=== PATIENT | male | born 1960 | race Caucasian/White ===

== ENCOUNTER → 2016-08-15 | Outpatient (REF) | payer OTHER ==
[2016-08-15 12:53] LABS: FREE T4 1.06 NG/DL (0.76-1.46)
== END ==
LOC: M SFHCPLAZ 09:36
PROVIDERS: ATTEND Physician Assistant Medical
DX: E03.9 Hypothyroidism, unspecified (principal); Z12.5 Encounter for screening for malignant neoplasm of prostate

== ENCOUNTER → 2016-10-14 | Outpatient (REF) | payer BC ==
[2016-10-14 17:38] LABS: FREE T4 1.3 NG/DL (0.76-1.46)
== END ==
LOC: M SFHCPLAZ 12:59
PROVIDERS: ATTEND Physician Assistant Medical
DX: E03.9 Hypothyroidism, unspecified (principal)

== ENCOUNTER → 2016-10-21 | Outpatient (REF) | payer BC ==
[2016-10-21 18:34] LABS: ALBUMIN 4.4 GM/DL (3.2-5.2); ALBUMIN/GLOBULIN RATIO 1.16 (1.00-1.93); ALKALINE PHOSPHATASE 107 U/L (45-117); ALT/SGPT 24 U/L (12-78); ANION GAP 5 MEQ/L (8-16); AST/SGOT 19 U/L (15-37); BILIRUBIN,DIRECT 0.1 MG/DL (0.0-0.2); BILIRUBIN,TOTAL 0.6 MG/DL (0.2-1.0); BLOOD UREA NITROGEN 14 MG/DL (7-18); CALCIUM LEVEL 9.3 MG/DL (8.5-10.1); CARBON DIOXIDE LEVEL 31 MEQ/L (21-32); CHLORIDE LEVEL 100 MEQ/L (98-107); CHOLESTEROL LEVEL 170 MG/DL (<200); CREATININE FOR GFR 1.01 MG/DL (0.70-1.30); GLOMERULAR FILTRATION RATE > 60.0 (>56); GLUCOSE, FASTING 89 MG/DL (70-105); POTASSIUM SERUM 4.7 MEQ/L (3.5-5.1); SODIUM LEVEL 136 MEQ/L (136-145); TOTAL PROTEIN 8.2 GM/DL (6.4-8.2); TRIGLYCERIDES LEVEL 215 MG/DL (<150)
== END ==
LOC: M SFHCPLAZ 15:32
PROVIDERS: ATTEND Physician Assistant Medical
DX: I10 Essential (primary) hypertension (principal); E78.5 Hyperlipidemia, unspecified

== ENCOUNTER → 2016-12-26 | Outpatient (REF) | payer BC | LOC: M SFHCPLAZ 13:27 | PROVIDERS: ATTEND Physician Assistant Medical | DX: E53.8 Deficiency of other specified B group vitamins (principal) ==

== ENCOUNTER → 2017-06-12 | Outpatient (REF) | payer BC, MEDICAID ==
[2017-06-12 13:07] LABS: FREE T4 0.98 NG/DL (0.76-1.46)
== END ==
LOC: M SFHCPLAZ 09:27
PROVIDERS: ATTEND Physician Assistant Medical
DX: E03.9 Hypothyroidism, unspecified (principal); E53.8 Deficiency of other specified B group vitamins

== ENCOUNTER → 2017-11-03 | Outpatient (CLI) | payer OTHER, MEDICAID | LOC: M RAD 06:47 | DX: I73.9 Peripheral vascular disease, unspecified (principal) | CPT/HCPCS: 93880 ==

== ENCOUNTER → 2018-05-16 | Outpatient (REF) | payer OTHER, MEDICAID ==
[2018-05-16 10:13] LABS: APPEARANCE, URINE HAZY (CLEAR); BACTERIA, URINE AUTO 1+ (NEGATIVE); BILIRUBIN, URINE AUTO NEGATIVE (NEGATIVE); BLOOD, URINE BLOOD NEGATIVE (NEGATIVE); CALCIUM OXALATE CRYSTALS SMALL; COLOR, URINE YELLOW (YELLOW); GLUCOSE, URINE (UA) AUTO NEGATIVE (NEGATIVE); KETONE, URINE AUTO TRACE mg/dL (NEGATIVE); LEUKOCYTE ESTERASE, URINE AUTO TRACE (NEGATIVE); NITRITE, URINE AUTO NEGATIVE (NEGATIVE); PROTEIN, URINE AUTO NEGATIVE (NEGATIVE); RBC, URINE AUTO 7 /HPF (0-3); SPECIFIC GRAVITY URINE AUTO 1.028 (1.002-1.035); SQUAMOUS EPITHELIAL CELL UR AU 0 /HPF (0-6); WBC, URINE AUTO 11 /HPF (0-3)
== END ==
LOC: M LAB REF 09:07
DX: R32 Unspecified urinary incontinence (principal)

== ENCOUNTER → 2018-06-01 | Outpatient (CLI) | payer OTHER | LOC: M RAD 08:16 | DX: I70.213 Atherosclerosis of native arteries of extremities with intermittent claudication, bilateral legs (principal); I65.23 Occlusion and stenosis of bilateral carotid arteries; Z95.5 Presence of coronary angioplasty implant and graft | CPT/HCPCS: 93880 ==

== ENCOUNTER → 2018-07-02 | Outpatient (REF) | payer OTHER ==
[2018-07-02 16:15] LABS: ALBUMIN 4.5 GM/DL (3.2-5.2); ALT/SGPT 11 U/L (12-78); BILIRUBIN,TOTAL 0.6 MG/DL (0.2-1.0); BLOOD UREA NITROGEN 17 MG/DL (7-18); CALCIUM LEVEL 9.2 MG/DL (8.5-10.1); CARBON DIOXIDE LEVEL 32 MEQ/L (21-32); CHLORIDE LEVEL 99 MEQ/L (98-107); CHOLESTEROL LEVEL 211 MG/DL (<200); CHOLESTEROL RISK RATIO 6.205 (<5); CREATININE FOR GFR 1.11 MG/DL (0.70-1.30); GLOMERULAR FILTRATION RATE > 60.0 (>56); GLUCOSE, FASTING 94 MG/DL (70-100); HDL CHOLESTEROL 34 MG/DL (>40); LDL CHOLESTEROL 134 MG/DL (<100); NON-HDL-C 177 MG/DL; POTASSIUM SERUM 4.7 MEQ/L (3.5-5.1); SODIUM LEVEL 137 MEQ/L (136-145); TOTAL PROTEIN 8.3 GM/DL (6.4-8.2); TRIGLYCERIDES LEVEL 213 MG/DL (<150)
[2018-07-02 16:19] LABS: VITAMIN B12 LEVEL 1082 PG/ML (247-911)
== END ==
LOC: M SFHCPLAZ 10:35
PROVIDERS: ATTEND Physician Assistant Medical
DX: E78.5 Hyperlipidemia, unspecified (principal); E03.9 Hypothyroidism, unspecified; E53.8 Deficiency of other specified B group vitamins; Z12.5 Encounter for screening for malignant neoplasm of prostate

== ENCOUNTER 2018-12-22 00:55 | Inpatient (IN) | payer OTHER ==
[~2018-12-22] VITALS: Ht 177.8 cm; Wt 78.8 kg
[2018-12-22] MEDS ORDERED: NS 1,000 ML IV ONE ×2 (01:15→02:30)
[2018-12-22 01:32] LABS: ABG BASE EXCESS -7.3 (-2.0-2.0); ABG HCO3 17.7 MEQ/L (22.0-26.0); ABG O2 SATURATION 96.8 % (95.0-99.0); ABG PARTIAL PRESSURE CO2 34.3 mmHg (35.0-45.0); ABG PARTIAL PRESSURE O2 93.2 mmHg (75.0-100.0); ABG STANDARD HCO3 18.5 MEQ/L (22.0-26.0); ABG TOTAL CO2 18.7 MEQ/L (22.0-29.0)
[2018-12-22 01:37] LABS: BASO % 0.2 % (0.0-1.0); EOS % 0.1 % (0.0-3.0); HEMATOCRIT 36.3 % (42.0-52.0); HEMOGLOBIN 12.2 g/dl (13.5-17.5); LYMPH # 0.7 10^3/uL (1.5-4.5); LYMPH % 5.8 % (24.0-44.0); MEAN CORPUSCULAR HEMOGLOBIN 32.5 pg (27.0-33.0); MEAN CORPUSCULAR HGB CONC 33.6 g/dl (32.0-36.5); MEAN CORPUSCULAR VOLUME 96.8 fl (80.0-96.0); MONO % 7.7 % (0.0-5.0); NEUTROPHILS # 10.6 10^3/uL (1.8-7.7); NEUTROPHILS % 85.8 % (36.0-66.0); PLATELET COUNT, AUTOMATED 210 10^3/uL (150-450); RED BLOOD COUNT 3.75 10^6/uL (4.30-6.10); WHITE BLOOD COUNT 12.4 10^3/uL (4.0-10.0)
[2018-12-22 01:48] LABS: INR 1.32; PROTHROMBIN TIME 16.6 SECONDS (12.1-14.4)
[2018-12-22] MEDS ORDERED: PIPERACILLIN/TAZOBACTAM SOD 3.375 GM in D5W MINI-BAG PLUS 50 ML IV ONE (02:00)
[2018-12-22 02:11] LABS: ALBUMIN 3.3 GM/DL (3.2-5.2); ALT/SGPT 11 U/L (12-78); BILIRUBIN,DIRECT 0.2 MG/DL (0.0-0.2); BILIRUBIN,TOTAL 0.8 MG/DL (0.2-1.0); BLOOD UREA NITROGEN 41 MG/DL (7-18); CALCIUM LEVEL 7.9 MG/DL (8.5-10.1); CARBON DIOXIDE LEVEL 21 MEQ/L (21-32); CHLORIDE LEVEL 106 MEQ/L (98-107); CK-MB VALUE MASS 4.3 NG/ML (<3.6); CPK CREATINE PHOSPHOKINASE 181 U/L (39-308); CREATININE FOR GFR 3.12 MG/DL (0.70-1.30); GLOMERULAR FILTRATION RATE 22.1 (>56); GLUCOSE, FASTING 155 MG/DL (70-100); LIPASE 66 U/L (73-393); MB/CK RELATIVE INDEX 2.38 (< OR =4); POTASSIUM SERUM 6.6 MEQ/L (3.5-5.1); SODIUM LEVEL 137 MEQ/L (136-145); TOTAL PROTEIN 6.1 GM/DL (6.4-8.2); TROPONIN I < 0.02 NG/ML (< 0.10)
[2018-12-22] MEDS ORDERED: NS 2,290 ML in APPROPRIATE DILUENT 1 EA IV ONE (02:30)
[2018-12-22] MEDS ORDERED: DEXTROSE 50% 50 ML SYRINGE IV STA (02:49)
[2018-12-22] MEDS ORDERED: HumuLIN R (REGULAR) INSULIN (NovoLIN R) **100U/ML** PER UNIT IV STA (02:49)
[2018-12-22 04:20] LABS: CALCIUM LEVEL 7.3 MG/DL (8.5-10.1); CREATININE FOR GFR 2.8 MG/DL (0.70-1.30); POTASSIUM SERUM 4.1 MEQ/L (3.5-5.1)
--- NOTE | 2018-12-22 04:26 | REPVR ---
EXAM: CT Head Without Contrast EXAM DATE/TIME: 12/22/2018 2:27 AM CLINICAL HISTORY: 57 years old, male; Injury or trauma; Fall; Additional info: AMS, hypotension, fall on thinner TECHNIQUE: Imaging protocol: Axial computed tomography images of the head without contrast. Radiation optimization: All CT scans at this facility use at least one of these dose optimization techniques: automated exposure control; mA and/or kV adjustment per patient size (includes targeted exams where dose is matched to clinical indication); or iterative reconstruction. COMPARISON: CT Head without contrast 07/01/2015 1:22 PM FINDINGS: Brain: The cortical/white matter interfaces are preserved throughout the brain. There is no evidence of intracranial hemorrhage. Ventricles: The ventricular system is normal in size and configuration. Bones/joints: No acute fractures of the skull are identified. Sinuses: The visualized paranasal sinuses are clear. Mastoid air cells: The visualized mastoid air cells are clear. Soft tissues: Unremarkable. Vasculature: Atherosclerotic calcifications are seen in the cerebral arteries at the skull base. IMPRESSION: No evidence of acute intracranial injury. Electronically signed by: Selam Romero On 12/22/2018 04:25:54 AM
--- NOTE | 2018-12-22 04:36 | REPVR ---
EXAM: CT Abdomen and Pelvis Without Contrast EXAM DATE/TIME: 12/22/2018 2:27 AM CLINICAL HISTORY: 57 years old, male; Injury or trauma; Fall; Initial encounter; Blunt; Generalized; Additional info: AMS, hypotension, fall on thinner TECHNIQUE: Imaging protocol: Axial computed tomography images of the abdomen and pelvis without contrast. Coronal and sagittal reformatted images were created and reviewed. Radiation optimization: All CT scans at this facility use at least one of these dose optimization techniques: automated exposure control; mA and/or kV adjustment per patient size (includes targeted exams where dose is matched to clinical indication); or iterative reconstruction. COMPARISON: CT ANGIO ABDOMINAL ARTERIES 10/21/2012 9:28 AM FINDINGS: Limitations: There is artifact related to the patient's arms at his sides and structures outside of the patient. Lungs: Several linear densities in the visualized lung bases appear unchanged from the prior exam and are most likely areas of scar. ABDOMEN: Liver: The unenhanced liver appears unremarkable. Gallbladder and bile ducts: The gallbladder is normal with no stones or biliary ductal dilation. Pancreas: The pancreas appears unremarkable. Spleen: The unenhanced spleen appears unremarkable. Adrenals: The adrenal glands are normal. Kidneys and ureters: There is a 1.3 x 2.7 cm mm nonobstructing stone in the right kidney lower pole.There are no ureteral stones or hydronephrosis. Stomach and bowel: The small bowel appears unremarkable. There is circumferential thickening of the wall of the distal colon involving most of the sigmoid colon through the rectum. There is no significant dilation of the colon. Appendix:The appendix is not specifically identified. PELVIS: Bladder: The bladder is unremarkable. No stones identified. Reproductive: The prostate gland and seminal vesicles are normal. ABDOMEN and PELVIS: Intraperitoneal space: There is prominent stranding adjacent to the thickened distal colon and a trace of adjacent fluid. There is no free intraperitoneal air. Bones/joints: Degenerative endplate changes are seen at multiple levels in the visualized spine. Soft tissues: Unremarkable. Vasculature: The aorta demonstrates moderate atherosclerotic calcification. Bilateral iliac stents are present. Lymph nodes: There is no gross lymphadenopathy. IMPRESSION: Circumferential thickening of the distal colon with adjacent inflammatory changes, indicating a nonspecific distal colitis. The length of the colon involvement is not typical for diverticulitis. Consider infectious, inflammatory, or ischemic etiologies. Electronically signed by: Selam Romero On 12/22/2018 04:36:33 AM
--- NOTE | 2018-12-22 04:45 | REPVR ---
EXAM: CT Chest Without Contrast EXAM DATE/TIME: 12/22/2018 2:27 AM CLINICAL HISTORY: 57 years old, male; Injury or trauma; Fall; Initial encounter; Blunt trauma (contusions or hematomas); Additional info: AMS, hypotension, fall on thinner TECHNIQUE: Imaging protocol: Axial computed tomography images of the chest without intravenous contrast. Coronal and sagittal reformatted images were created and reviewed. Radiation optimization: All CT scans at this facility use at least one of these dose optimization techniques: automated exposure control; mA and/or kV adjustment per patient size (includes targeted exams where dose is matched to clinical indication); or iterative reconstruction. COMPARISON: CR Chest, 1 view 07/01/2015 1:[address] ANGIO ABDOMINAL ARTERIES 10/21/2012 9:28:58 AM FINDINGS: Lungs: Several linear densities in the bilateral lower lobes were present on the prior exam from 2012, and are likely postinflammatory scarring. Additional small reticular densities and mild groundglass opacity in the dependent portions of both lower lobes are nonspecific but are likely due to incomplete expansion and mild subsegmental atelectasis. There is mild biapical paraseptal emphysema. Pleural space: There are no pleural effusions present. No pneumothorax is seen. Heart: There is mild atherosclerotic calcification of the coronary arteries. The heart is normal in size. Mediastinum: There is retained fluid in the esophagus. Aorta: The aorta demonstrates mild atherosclerotic calcification. Great vessels off aortic arch: There is a stent in the proximal right subclavian artery. Other veins: Several foci of air in the upper chest appear to be intravenous. Lymph nodes: Unremarkable. No enlarged lymph nodes. Bones/joints: There is a slight pectus excavatum deformity. Degenerative endplate changes are seen at multiple levels in the visualized spine. No suspicious osseous lesions. No acute fractures or dislocations. Soft tissues: Unremarkable. IMPRESSION: 1. Mild dependent groundglass opacity and reticular densities in the bilateral lung bases, some of which were present previously, probably representing mild atelectasis superimposed on chronic postinflammatory scarring. 2. No evidence of acute traumatic injury in the chest. Electronically signed by: Selam Romero On 12/22/2018 04:44:30 AM
[2018-12-22] MEDS ORDERED: NOREPINEPHRINE BITARTRATE 8 MG in D5W 492 ML IV SCH ×6 (05:15→09:00)
--- NOTE | 2018-12-22 06:06 | ECGEPIP ---
[facility] - ED Test Date: 2018-12-22 Pat Name: TENISHA CRUZ Department: Room: - Gender: Male Transport Coordinator: maryanne : 1960 Requested By: PARUL Ayon Order Number: [id number] Reading MD: Pete Black Measurements Intervals [place] Rate: 67 P: 22 LA: 224 QRS: 88 QRSD: 122 T: 20 QT: 425 QTc: 449 Interpretive Statements SINUS RHYTHM WITH FIRST DEGREE AV BLOCK MODERATE INTRAVENTRICULAR CONDUCTION DELAY MODERATE ST DEPRESSION SIMILAR TO 07/01/15 Electronically Signed on 12-22-2018 6:06:26 EDT by Pete Black
[2018-12-22] MEDS ORDERED: NS 1,000 ML IV SCH (07:30)
--- NOTE | 2018-12-22 07:38 | RO ---
DATE OF PROCEDURE: 12/22/2018 PREOPERATIVE DIAGNOSIS: Hypotension. POSTOPERATIVE DIAGNOSIS: Hypotension. PROCEDURE: Insertion of triple central venous catheter. SITE: Left subclavian vein. SURGEON: Dr. Osbaldo Moulton IRONWORKER: ANESTHESIA: Informed consent obtained prior to the procedure from the patient's family. DESCRIPTION OF PROCEDURE: After the patient was identified, the left subclavian area was prepped and draped in the usual sterile manner. The area was anesthetized with lidocaine. Using a large bore needle, the left subclavian vein was cannulated. In a modified Seldinger technique, a triple lumen central venous catheter was advanced. Several PVCs were noted. These resolved when the wire was taken out. Good venous return was obtained from all three ports. These ports were then flushed. The line was then sutured in place under sterile conditions. A chest x-ray done postprocedure shows the line to be in good position and no pneumothorax. The patient tolerated the procedure well and no immediate complications were noted.
--- NOTE | 2018-12-22 07:57 | REP ---
Portable chest, 06:06 a.m., single AP view with the patient supine: Supine positioning precludes evaluation for pneumothorax. No large pneumothorax is identified. Lung rehman otherwise clear. Cardiac size is normal. The [place], mediastinum, and skeletal structures are unremarkable. Impression: Negative portable supine AP chest. Electronically Signed by Gonzalo Chaudhry MD 12/22/2018 07:48 A
--- NOTE | 2018-12-22 07:58 | REP ---
Portable chest, 07:13 a.m., single AP semi upright view: Comparison is from 06:06 a.m. earlier today. There is a left subclavian central venous catheter with the tip in the superior vena cava in satisfactory location. There is no pneumothorax or pleural fluid collection. Lung rehman are clear. The cardiac size is normal. The [place], mediastinum, skeletal structures are unremarkable. Impression: There is a left subclavian central venous catheter as described. There is no pneumothorax or pleural fluid collection. Electronically Signed by Gonzalo Chaudhry MD 12/22/2018 07:49 A
[2018-12-22] MEDS ORDERED: ALBUTEROL SULFATE 2.5 MG/0.5 ML INH NEB SOLN NEB PRN (08:00)
--- NOTE | 2018-12-22 08:01 | CCN ---
DATE: 12/22/2018 START TIME: 654 STOP TIME: 733 I was called to attend Rogelio Multani here in the emergency department. Patient has been examined and chart reviewed. I spoke directly with Dr. Taylor. In essence, this is a 57-year-old gentleman with advanced Parkinson and dementia. He is known to have some swallowing difficulties. The family does take care to chop up his food. He has not been admitted for pneumonias. Apparently, he was in his usual state of health till yesterday. He had explosive diarrhea. He had mental status changes and last night was brought to the emergency room. On arrival, he had a pressure in the 50s. He was given several liters with a rapid infuser. Pressure came up to 70. He was given some more fluid and eventually required Levophed. Lines were unable to be obtained by the emergency room for which is the reason I was consulted. Left subclavian line was placed without difficulty and is dictated under separate cover. Currently, after 4 liters of saline and on low dose Levophed, blood pressures in the 120s, heart rate in the 90s. Patient is unable to provide any history as he is essentially nonverbal at the moment. The daughter says most days he is barely communicative but fortunately, they are at the bedside. She denies any other acute changes other than those outlined above. He is known to have vascular disease with right carotid and right subclavian stent and bilateral femoral stents. He is chronically anticoagulated for this. He is maintained on Plavix at home. He has received Zosyn here in the emergency room. Currently on exam, he does interact somewhat. Heart rate and blood pressure as outlined above. He is afebrile. HEENT: Otherwise, generally normocephalic and atraumatic. Pupils do react. Sclerae clear. Neck with diminished mobility. Membranes are mildly dry. Chest shows good air exchange bilaterally. There are some faint crackles at the extreme bases but no significant focal adventitious breath sounds are identified. Cardiac exam is regular. Peripheral pulses are diminished but palpable. Abdomen is soft. There are active bowel sounds. No obvious organomegaly or masses. Grossly nontender. Extremities with no cyanosis or clubbing. Neurologically as outlined above. CT of the chest, abdomen and pelvis does show what appears to be some colitis. Initially on arrival, his potassium was 6.6, down to 4.1. Most recent laboratories: Sodium 139, potassium 4.1, chloride 109, CO2 24, BUN 42, creatinine 2.8 down from 3.1 on arrival. White blood cell count 12.4, hemoglobin 12.2, platelet count 210,000. Blood gas 0123 had a pH 7.330, pCO2 34.3, pO2 93.2. Urinalysis looks fairly unremarkable except for 4+ urobilinogen. Most pressing problems requiring my immediate presence at the bedside: 1. Hypotension: Probably secondary to dehydration. 2. Suspected colitis. 3. Parkinson with dementia. At this point, I am in full agreement with his current management. Will keep his fluids as is and wean his Levophed as we are able. His creatinine has shown some improvement. Zosyn should be a reasonable coverage for colitis. His has been seen by Dr. Kang in the past and I may have him seen for this. Patient is being admitted by the hospitalist. He has some swallowing difficulties intermittently and looking at the CT scan of his chest, I wonder about a Zenker's diverticulum, given its appearance. I will speak with Dr. Kang in this regard as he may benefit from an upper endoscopy while he is here. At this point, he remains critically ill. The family does wish him to be a FULL CODE at this point. He is at high risk for further compromise, however. I left the bedside at 0734. 39 minutes of critical care time at the bedside not including procedures.
[2018-12-22] MEDS ORDERED: VITA100018 PO (08:32)
[2018-12-22] MEDS ORDERED: QUET1TAB8 PO (08:32)
[2018-12-22] MEDS ORDERED: SYNT100T PO (08:32)
[2018-12-22] MEDS ORDERED: QUET1TAB7 PO (08:32)
[2018-12-22] MEDS ORDERED: CELE40TA PO (08:32)
[2018-12-22] MEDS ORDERED: ASPI81TA85 PO (08:32)
[2018-12-22] MEDS ORDERED: CARB25TA9 PO (08:32)
[2018-12-22] MEDS ORDERED: TIZA2TAB4 PO (08:32)
[2018-12-22] MEDS ORDERED: CARV6.25 PO (08:32)
[2018-12-22] MEDS ORDERED: ATOR80TA59 PO (08:32)
[2018-12-22] MEDS ORDERED: CLOP75TA2 PO (08:32)
[2018-12-22] MEDS ORDERED: NITR4TASL SL (08:33)
[2018-12-22] MEDS: NS 1,000 ML IV SCH ×3 (10:09→22:01)
[2018-12-22] MEDS: PIPERACILLIN/TAZOBACTAM SOD 2.25 GM in D5W MINI-BAG PLUS 50 ML IV SCH ×2 (10:10→17:38)
[2018-12-22] MEDS: IPRATROPIUM 0.5MG/ALBUTEROL 2.5MG INH SOL UD 3ML (DUONEB)(J7620) NEB SCH ×3 (11:50→20:00)
[2018-12-22 11:58] LABS: HEMOGLOBIN 12.3 g/dl (13.5-17.5)
[2018-12-22 12:34] LABS: CALCIUM LEVEL 8.1 MG/DL (8.5-10.1); CREATININE FOR GFR 1.66 MG/DL (0.70-1.30); GLOMERULAR FILTRATION RATE 45.7 (>56); MAGNESIUM LEVEL 3.1 MG/DL (1.8-2.4); POTASSIUM SERUM 4.1 MEQ/L (3.5-5.1); THYROID STIMULATING HORMONE 0.383 uIU/ML (0.358-3.740)
[2018-12-22] MEDS: CYANOCOBALAMIN 500 MCG TAB PO SCH (13:09)
[2018-12-22] MEDS: ASPIRIN 81 MG ENTERIC TAB PO SCH (13:10)
[2018-12-22] MEDS: CLOPIDOGREL 75 MG TAB PO SCH (13:10)
[2018-12-22] MEDS: CHLORHEXIDINE GLUCONATE 0.12 % 15ML UDC (PERIDEX ORAL RINSE) MT SCH ×2 (14:44→21:58)
[2018-12-22] MEDS: SINEMET 25-100 MG TAB PO SCH ×3 (14:45→22:00)
[2018-12-22] MEDS: HEPARIN SOD (PORCINE) 5000 UNITS/ML VIAL SC SCH ×2 (14:48→21:57)
--- NOTE | 2018-12-22 17:08 | HPEPDOC ---
General Date of Admission 12/22/18 Date of Service: Dec 22, 2018 Primary Care Physician: Corry Man Chief Complaint The patient is a 57-year-old male admitted with a reason for visit of AMS. Source: Family Exam Limitations: Clinical conditions, Mild cognitive slowing Severity: Severe Associated Symptoms: Unobtainable History of Present Illness 57 yo male with parkinsons brought into ED with increased lethargy, diarrhea. He is non verbal at the time of this H&P (not his baseline per ). In the ED he was found to have BP 50/40 and started on IVF sepsis protocol, levofed and zosyn. CT scan abdomen suggested colitis. Outreach Associate, Dr Moulton was consulted and saw patient in ED, placed central line for levophed.. Patient is unable to give history and information obtained from charts and . Patient had 2 normal stools on 12/20/18, then yesterday 12/21 had diarrhea four times per hour - watery/yellow. Diarrhea continued until this AM and while in ED has not had any further episodes. states no recent antibiotics. no ill contacts. no other family member with diarrhea. She states he had chills,rigors yesterday but no fever. no abdomen pain. no N, no V. Home Medications Scheduled Aspirin (Aspir 81) 81 Mg Tablet.dr, 81 MG PO DAILY, (Reported) Atorvastatin Calcium (Atorvastatin Calcium) 80 Mg Tablet, 80 MG PO QHS, (Reported) CRUSHES AND MIXES WITH APPLESAUCE Carbidopa/Levodopa (Carbidopa-Levodopa 25-100 Tab) 1 Each Tablet, 2 TAB PO QID, (Reported) TAKES AT 0800/1200/1600/2000 Carvedilol (Carvedilol) 6.25 Mg Tablet, 6.25 MG PO BID, (Reported) Citalopram Hydrobromide (Celexa) 40 Mg Tablet, 40 MG PO QPM, (Reported) TAKES AT 1600 Clopidogrel Bisulfate (Clopidogrel) 75 Mg Tablet, 75 MG PO DAILY, (Reported) TAKES AT NOON Cyanocobalamin (Vitamin B-12) (Vitamin B-12) 1,000 Mcg Tablet, 1,000 MCG PO DAILY, (Reported) TAKES AT 1200 Levothyroxine Sodium (Synthroid) 100 Mcg Tablet, 100 MCG PO QAM, (Reported) Quetiapine Fumarate (Quetiapine Fumarate) 25 Mg Tablet, 25 MG PO QPM, (Reported) TAKES AT 1600 Quetiapine Fumarate (Quetiapine Fumarate) 100 Mg Tablet, 100 MG PO QHS, (Reported) Tizanidine HCl (Tizanidine HCl) 2 Mg Tablet, 4 MG PO QHS, (Reported) Scheduled PRN Nitroglycerin (Nitrostat) 0.4 Mg Tab.subl, 0.4 MG SL Q5MP PRN for CHEST PAIN, (Reported) Allergies Coded Allergies: Contrast Media (Verified Allergy, Unknown, SWELLING, 12/22/18) meperidine (Verified Allergy, Unknown, CONTRAINDICATED WITH PARKINSONS, 12/22/18) tramadol (Verified Allergy, Unknown, CONTRAINDICATED WITH PARKINSONS, 12/22/18) fluoxetine (Verified Adverse Reaction, Unknown, CONTRAINDICATED WITH PARKINSONS, 12/22/18) fluvoxamine (Verified Adverse Reaction, Unknown, CONTRAINDICATED WITH PARKINSONS, 12/22/18) Past Medical History Medical History Parkinson Dementia PVD Hypothyroid HTN Surgical History Right carotid stent placed right subclavian stent placed fem pop bypass bilaterally 2013 left inguinal hernia repair Cath 2011 with 1 occlusive vessel and collaterals patent (per ) Family History Significant Family History: Noncontributory father from complications during carotid surgery; mother alive with HTN Social History * Smoker: former Smoker (quit 2014) Alcohol: Denies Drugs: denies A-FIB/CHADSVASC A-FIB History Current/History of A-Fib/PAF?: No Review of Systems Other systems unable to obtain due to altered mental status (except as provided by in HPI ) Physical Examination General Exam: Positive: Alert (but not oriented, blank stare at times. ) Eye Exam: Positive: PERRLA (not tracking), Conjunctiva & lids normal ENT Exam: Positive: Atraumatic, Other ENT (edentulous, oral mucosa dry) Neck Exam: Positive: Supple, Other (no audible bruit, no JVD) Chest Exam: Positive: Clear to auscultation, Diminished Heart Exam: Positive: Rate Normal, Regular Rhythm Telemetry: Positive: No significant arrhythmia, Sinus Abdomen Exam: Positive: BS Hyperactive, Soft, Other (NT, ND, no rebound, no rigidity) Extremity Exam: Positive: Other (no edema, sluggish capillary refill to fingers and toe nail beds) Skin Exam: Positive: Other skin issue (poor skin turgor; sacrum with stage I decub present on admission and healing/improved per ) Neuro Exam: Positive: Other (unable to assess due to altered mental status) Psych Exam: Positive: Other (unable to assess due to altered mental status) Vital Signs Vital Signs Date Time Temp Pulse Resp B/P (MAP) Pulse Ox O2 Delivery O2 Flow Rate FiO2 12/22/18 07:13 98.8 81 19 165/81 (109) 99 Nasal Cannula 1.5 Laboratory Data Labs 24H Laboratory Tests 2 12/22/18 01:23: Urine Color CURT, Urine Appearance HAZY, Urine pH 5.0, Urine Specific [place] 1.021, Urine Protein 1+H, Urine Glucose (UA) NEGATIVE, Urine Ketones TRACEH, Urine Blood 1+H, Urine Nitrite NEGATIVE, Urine Bilirubin 1+H, Urine Urobilinogen 4.0H, Urine Leukocyte Esterase TRACEH, Urine WBC (Auto) 7H, Urine RBC (Auto) 8H, Urine Hyaline Casts (Auto) 1, Urine Bacteria (Auto) NEGATIVE, Urine Squamous Epithelial Cells 0, Urine Mucus (Auto) SMALL, Urine Sperm (Auto) , Blood Gas Bicarbonate Standard 18.5L, Arterial Blood pH 7.330L, Arterial Blood Partial Pressure CO2 34.3L, Arterial Blood Partial Pressure O2 93.2, Arterial Blood Total CO2 18.7L, Arterial Blood HCO3 17.7L, Arterial Blood Base Excess -7.3L, Arterial Blood Oxygen Saturation 96.8 12/22/18 01:26: Anion Gap 10, Glomerular Filtration Rate 22.1L, Calcium Level 7.9L, Aspartate Amino Transf (AST/SGOT) 17, Alanine Aminotransferase (ALT/SGPT) 11L, Alkaline Phosphatase 63, Total Bilirubin 0.8, Direct Bilirubin 0.2, Total Creatine Kinase 181, Creatine Kinase MB 4.3H, Creatine Kinase MB Relative Index 2.38, Troponin I < 0.02, Total Protein 6.1L, Albumin 3.3, Albumin/Globulin Ratio 1.18, Lipase 66L 12/22/18 01:27: Immature Granulocyte % (Auto) 0.4, White Blood Count 12.4H, Red Blood Count 3.75L, Hemoglobin 12.2L, Hematocrit 36.3L, Mean Corpuscular Volume 96.8H, Mean Corpuscular Hemoglobin 32.5, Mean Corpuscular Hemoglobin Concent 33.6, Red Cell Distribution Width 12.3, Platelet Count 210, Neutrophils (%) (Auto) 85.8H, Lymphocytes (%) (Auto) 5.8L, Monocytes (%) (Auto) 7.7H, Eosinophils (%) (Auto) 0.1, Basophils (%) (Auto) 0.2, Neutrophils # (Auto) 10.6H, Lymphocytes # (Auto) 0.7L, Monocytes # (Auto) 1.0H, Eosinophils # (Auto) 0.0, Basophils # (Auto) 0.0, Nucleated Red Blood Cells % (auto) 0.0, Prothrombin Time 16.6H, Prothromb Time International Ratio 1.32, Activated Partial Thromboplast Time 33.0, Lactic Acid Level 2.2*H 12/22/18 01:47: POC Lactate (Misc Panel) 1.83 12/22/18 01:55: POC Glucose (Misc Panel) 146H, POC Sodium (Misc Panel) 135L, POC Potassium (Misc Panel) 6.2*H, POC Chloride (Misc Panel) 105, POC Total CO2 (Misc Panel) 21.0L, POC Blood Urea Nitrogen (Misc Panel 38H, POC Ionized Calcium (Misc Panel) 4.4L, POC Creatinine (Misc Panel) 3.4H, POC Hematocrit (Misc Panel) 31.0L 12/22/18 03:39: Anion Gap 6L, Glomerular Filtration Rate 25.0L, Blood Urea Nitrogen 42H, Creatinine 2.80H, Sodium Level 139, Potassium Level 4.1#, Chloride Level 109H, Carbon Dioxide Level 24, Calcium Level 7.3L CBC/BMP Laboratory Tests 12/22/18 01:26 12/22/18 01:27 Red Blood Count 3.75 L, Mean Corpuscular Volume 96.8 H, Mean Corpuscular Hemoglobin 32.5, Mean Corpuscular Hemoglobin Concent 33.6, Red Cell Distribution Width 12.3, Neutrophils (%) (Auto) 85.8 H, Lymphocytes (%) (Auto) 5.8 L, Monocytes (%) (Auto) 7.7 H, Eosinophils (%) (Auto) 0.1, Basophils (%) (Auto) 0.2 , Neutrophils # (Auto) 10.6 H, Lymphocytes # (Auto) 0.7 L, Monocytes # (Auto) 1.0 H, Eosinophils # (Auto) 0.0, Basophils # (Auto) 0.0 12/22/18 03:39 Calcium Level 7.3 L Microbiology Microbiology 12/22/18 Blood Culture, Received Pending 12/22/18 Blood Culture, Received Pending 12/22/18 Urine Culture, Received Pending Echocardiogram CT ABDOMEN/PELVIS IMPRESSION: Circumferential thickening of the distal colon with adjacent inflammatory changes, indicating a nonspecific distal colitis. The length of the colon involvement is not typical for diverticulitis. Consider infectious, inflammatory, or ischemic etiologies. RAD Interpretation STUDY: CT ABDOMEN /PELVIS Rad Actions: Report Reviewed, Films Reviewed Assessment/Plan Septic shock manifested by altered mental status, hypotension - IVF, levophed, blood cultures, stools cultures, IV zosyn. Outreach Associate consulted. Left central line placed. Sepsis due to colitis - nonsurgical abdomen at this time. continue zosyn. stool for cdiff, hemocult ordered Sacral Decubitus stage I - home regimen with optifoam dressing/nystatin. Hypothyroid - check TSH in AM Parkinson - continue home meds when diet advanced. CODE STATUS: DNI DVT PROPHYLAXIS: SC Heparin Plan / VTE VTE Prophylaxis Ordered?: Yes Plan Plan 8448 patient re-evaluated. BP remains stable with map above 70 and off levofed per ED staff (awaiting ICU bed). Will downgrade to PCU admission Case to be discussed with Dr Chaudhari (message with answering service) who will assume hospital care in AM. advance diet. more alert but tired appearing. Advanced Directives: Do Not Intubate (DNI) (per . Will bring in health care proxy/MOLST) AVE ESPINOZA DO Dec 22, 2018 08:03
[2018-12-22] MEDS: QUEtiapine FUMARATE 25 MG TAB PO SCH (17:41)
[2018-12-22] MEDS: CitaloPRAM (CeleXA) 20 MG TAB PO SCH (17:41)
[2018-12-22] MEDS: QUEtiapine FUMARATE 100 MG TAB PO SCH (21:00)
[2018-12-22 21:55] VITALS: BP 156/71
[2018-12-22] MEDS: ATORVASTATIN 20 MG TAB PO SCH (21:57)
[2018-12-22] MEDS: CARVedilol 6.25 MG TAB PO SCH (21:58)
[2018-12-22 22:00] VITALS: BP 156/71
[2018-12-22 22:55] VITALS: BP 91/53
[2018-12-22 22:56] VITALS: BP 99/55
[2018-12-22 23:00] VITALS: BP 92/55
[2018-12-22 23:34] VITALS: BP 102/57
[2018-12-23] VITALS (18 sets, daily range): BP systolic 102–198; BP diastolic 59–103
[2018-12-23] MEDS: PIPERACILLIN/TAZOBACTAM SOD 2.25 GM in D5W MINI-BAG PLUS 50 ML IV SCH ×3 (02:10→17:03)
[2018-12-23 05:32] LABS: BASO % 0.4 % (0.0-1.0); EOS # 0.1 10^3/uL (0.0-0.50); HEMATOCRIT 36.3 % (42.0-52.0); HEMOGLOBIN 12.2 g/dl (13.5-17.5); LYMPH # 0.7 10^3/uL (1.5-4.5); LYMPH % 10.2 % (24.0-44.0); MEAN CORPUSCULAR HEMOGLOBIN 31.9 pg (27.0-33.0); MEAN CORPUSCULAR HGB CONC 33.6 g/dl (32.0-36.5); MEAN CORPUSCULAR VOLUME 94.8 fl (80.0-96.0); MONO # 0.7 10^3/uL (0.0-0.8); MONO % 8.9 % (0.0-5.0); NEUTROPHILS # 5.8 10^3/uL (1.8-7.7); NEUTROPHILS % 79.2 % (36.0-66.0); PLATELET COUNT, AUTOMATED 240 10^3/uL (150-450); RED BLOOD COUNT 3.83 10^6/uL (4.30-6.10); WHITE BLOOD COUNT 7.3 10^3/uL (4.0-10.0)
[2018-12-23 06:01] LABS: ALBUMIN 3.1 GM/DL (3.2-5.2); ALT/SGPT 10 U/L (12-78); BILIRUBIN,TOTAL 0.5 MG/DL (0.2-1.0); BLOOD UREA NITROGEN 18 MG/DL (7-18); CALCIUM LEVEL 8.2 MG/DL (8.5-10.1); CARBON DIOXIDE LEVEL 23 MEQ/L (21-32); CHLORIDE LEVEL 111 MEQ/L (98-107); CHOLESTEROL LEVEL 166 MG/DL (< 200); CPK CREATINE PHOSPHOKINASE 835 U/L (39-308); CREATININE FOR GFR 1.01 MG/DL (0.70-1.30); GLOMERULAR FILTRATION RATE > 60.0 (>56); GLUCOSE, FASTING 109 MG/DL (70-100); LDH LACTATE DEHYDROGENASE 163 U/L (87-241); PHOSPHORUS LEVEL 1.7 MG/DL (2.5-4.9); SODIUM LEVEL 139 MEQ/L (136-145); TOTAL PROTEIN 6.5 GM/DL (6.4-8.2); TRIGLYCERIDES LEVEL 223 MG/DL (<150)
[2018-12-23] MEDS: HEPARIN SOD (PORCINE) 5000 UNITS/ML VIAL SC SCH ×2 (06:11→13:16)
[2018-12-23] MEDS: LEVOTHYROXINE 100MCG TABLET (0.1MG) PO SCH (06:11)
[2018-12-23 07:44] LABS: MAGNESIUM LEVEL 2.4 MG/DL (1.8-2.4)
[2018-12-23] MEDS: IPRATROPIUM 0.5MG/ALBUTEROL 2.5MG INH SOL UD 3ML (DUONEB)(J7620) NEB SCH ×4 (07:54→20:12)
--- NOTE | 2018-12-23 07:57 | REP ---
Portable chest, 06:30 a.m., single AP view the patient upright: Comparison 12/[birth year]/1927 19 at 07:13 a.m.. There is a large left pneumothorax as an interval change. There is atelectasis of the left lung inferior to the pneumothorax. There is a left subclavian central venous catheter with the tip in the superior vena cava in satisfactory location, unchanged. Right lung is clear. Cardiac size is normal. Olga Lidia, mediastinum, and skeletal structures are unremarkable. Impression: New left large pneumothorax. Results are telephoned to the patient's nursing floor, ICU. Electronically Signed by Gonzalo Chaudhry MD 12/23/2018 07:48 A
[2018-12-23] MEDS: ASPIRIN 81 MG ENTERIC TAB PO SCH (08:00)
[2018-12-23] MEDS: CARVedilol 6.25 MG TAB PO SCH ×2 (08:00→20:34)
[2018-12-23] MEDS: SINEMET 25-100 MG TAB PO SCH ×4 (08:00→20:37)
--- NOTE | 2018-12-23 08:13 | IPNPDOC ---
Subjective Date Seen The patient was seen on 12/23/18. Subjective Chief Complaint/HPI sepsis/colitis Events since last encounter Admitted yesterday for sepsis/colitis. Started on Levophed for hypotension. Levophed DC'd within 3 hours. Given IVF resuscitation with significant improvement in mentation and blood pressures. This am received call from radiology that patient has + pneumothorax. Constitutional: Denies: Fever Pulmonary: Denies: Dyspnea, Cough Cardiovascular: Denies: Chest Pain, Palpitations, Orthopnea, Paroxysmal Noc. Dyspnea, Lt Headedness Gastrointestinal: Reports: Diarrhea (episode of diarrhea overnight); Denies: Nausea, Vomiting, Abdominal Pain, Constipation Genitourinary: Reports: Other Symptoms (Franco) Psych: Reports: Mood Normal Objective Physical Examination General Exam: Positive: Alert (responds vaguely) Eye Exam: Positive: PERRLA, Conjunctiva & lids normal ENT Exam: Positive: Atraumatic, Other ENT (edentulous, oral mucosa dry) Neck Exam: Positive: Supple, Other (no audible bruit, no JVD) Chest Exam: Positive: Clear to auscultation Heart Exam: Positive: Rate Normal, Regular Rhythm Telemetry: Positive: No significant arrhythmia, Sinus Abdomen Exam: Positive: Normal bowel sounds, Soft, Other (NT, ND, no rebound, no rigidity) Extremity Exam: Positive: Other (no edema, sluggish capillary refill to fingers and toe nail beds); Negative: Edema Skin Exam: Positive: Other skin issue (poor skin turgor; sacrum with stage I decub present on admission and healing/improved per ) Neuro Exam: Positive: Other (per family, mentation is at baseline) Psych Exam: Positive: Other (family states at baseline) Assessment /Plan Problems (1) Pneumothorax Status: Acute Problem Specific Plan: Consult Specialist Problem Text: Patient not hypoxic or in any apparent distress. Dr. Moulton aware and will eval patient. (2) Sepsis Status: Acute Response to Treatment: Improving Problem Text: Octaviano Ayon #2. (3) Colitis Status: Acute Problem Text: notes this is the 3rd-4th bout of diarrhea over the last several months. Will need eval and colonoscopy when stable. (4) Parkinsons Status: Chronic Response to Treatment: Stable Problem Text: Advanced Parkinson's with dementia. Will continue his home medications. ST joe today. Planned admission to [facility] this Friday. Will have PFS involved with DC plans. (5) HTN (hypertension) Status: Chronic Response to Treatment: Stable Problem Text: hypertensive this am. Will stop IVF. Give his home dose of Carvedilol and monitor. (6) Hypothyroidism Status: Chronic Response to Treatment: Stable (7) Dementia Status: Chronic Response to Treatment: Stable (8) Depression with anxiety Status: Chronic Response to Treatment: Stable Plan/VTE VTE Prophylaxis Ordered?: Yes Plan IVF: Discontinue Activity: Bedrest Therapy: PT, OT, Speech Pt and Family Services: Other PFS Anticipated Discharge: [facility], I&O, 24H, [facility] Vital Signs/I&O Vital Signs Date Time Temp Pulse Resp B/P (MAP) Pulse Ox O2 Delivery O2 Flow Rate FiO2 12/23/18 04:36 99.0 75 17 156/98 (117) 95 12/22/18 20:33 Room Air 12/22/18 07:13 1.5 I&O- Last 24 Hours up to 6 AM 12/23/18 06:00 Intake Total 1362 ml Output Total 2200 ml Balance -838 ml Laboratory Data 24H LABS Laboratory Tests 2 12/22/18 11:48: Anion Gap 6L, Glomerular Filtration Rate 45.7L, Lactic Acid Level 1.8, Blood Urea Nitrogen 31H, Creatinine 1.66H, Sodium Level 139, Potassium Level 4.1, Chloride Level 111H, Carbon Dioxide Level 22, Calcium Level 8.1L, Magnesium Level 3.1H, Thyroid Stimulating Hormone (TSH) 0.383 12/23/18 05:05: Anion Gap 5L, Glomerular Filtration Rate > 60.0, Blood Urea Nitrogen 18, Creatinine 1.01, Sodium Level 139, Potassium Level 4.0, Chloride Level 111H, Carbon Dioxide Level 23, Calcium Level 8.2L, Magnesium Level 2.4, Immature Granulocyte % (Auto) 0.3, White Blood Count 7.3, Red Blood Count 3.83L, Hemoglobin 12.2L, Hematocrit 36.3L, Mean Corpuscular Volume 94.8, Mean Corpuscular Hemoglobin 31.9, Mean Corpuscular Hemoglobin Concent 33.6, Red Cell Distribution Width 12.4, Platelet Count 240, Neutrophils (%) (Auto) 79.2H, Lymphocytes (%) (Auto) 10.2L, Monocytes (%) (Auto) 8.9H, Eosinophils (%) (Auto) 1.0, Basophils (%) (Auto) 0.4, Neutrophils # (Auto) 5.8, Lymphocytes # (Auto) 0.7L, Monocytes # (Auto) 0.7, Eosinophils # (Auto) 0.1, Basophils # (Auto) 0.0, Nucleated Red Blood Cells % (auto) 0.0, Phosphorus Level 1.7L, Aspartate Amino Transf (AST/SGOT) 27, Alanine Aminotransferase (ALT/SGPT) 10L, Lactate Dehydrogenase 163, Total Creatine Kinase 835#H, Alkaline Phosphatase 60, Total Bilirubin 0.5, Triglycerides Level 223H, Cholesterol Level 166, Total Protein 6.5, Albumin 3.1L, Albumin/Globulin Ratio 0.91L CBC/BMP Laboratory Tests 12/22/18 11:48 Calcium Level 8.1 L 12/23/18 05:05 Calcium Level 8.2 L, Red Blood Count 3.83 L, Mean Corpuscular Volume 94.8, Mean Corpuscular Hemoglobin 31.9, Mean Corpuscular Hemoglobin Concent 33.6, Red Cell Distribution Width 12.4, Neutrophils (%) (Auto) 79.2 H, Lymphocytes (%) (Auto) 10.2 L, Monocytes (%) (Auto) 8.9 H, Eosinophils (%) (Auto) 1.0, Basophils (%) (Auto) 0.4, Neutrophils # (Auto) 5.8, Lymphocytes # (Auto) 0.7 L, Monocytes # (Auto) 0.7, Eosinophils # (Auto) 0.1, Basophils # (Auto) 0.0, Phosphorus Level 1.7 L, Aspartate Amino Transf (AST/SGOT) 27, Alanine Aminotransferase (ALT/SGPT) 10 L, Lactate Dehydrogenase 163, Total Creatine Kinase 835 #H, Alkaline Phosphatase 60, Total Bilirubin 0.5, Triglycerides Level 223 H, Cholesterol Level 166, Total Protein 6.5, Albumin 3.1 L Microbiology Microbiology 12/22/18 Blood Culture - Preliminary, Resulted No growth after 24 hours . All specim... 12/22/18 Blood Culture - Preliminary, Resulted No growth after 24 hours . All specim... 12/22/18 Gastrointestinal Tract Panel (PCR) - Final, Complete 12/22/18 Urine Culture, Received Pending Stephanie Jensen [facility] Dec 23, 2018 08:13
[2018-12-23] MEDS ORDERED: MIDAZOLAM INJ 2 MG/2 ML VIAL (J2250) As Ordered ONE (08:46)
[2018-12-23] MEDS ORDERED: LIDOCAINE 1% MDV 20ML VIAL As Ordered ONE ×2 (08:47→09:03)
[2018-12-23] MEDS: CHLORHEXIDINE GLUCONATE 0.12 % 15ML UDC (PERIDEX ORAL RINSE) MT SCH ×2 (09:00→20:36)
--- NOTE | 2018-12-23 09:46 | IPN ---
DATE: 12/23/2018 I again attended Rogelio Stonelps this morning. The patient has been examined and chart reviewed. I spoke at length with the nurse as well as ADEEL Aguirre from the primary service. I have spoken with his at the bedside. Throughout the night, he has had increased in his blood pressure. Chest x-ray this morning shows a sizable pneumothorax. X-rays from yesterday showed no evidence of pneumothorax but clearly, there is one this morning. He remains only minimally verbal. said he seems to be a little worse with his confusion this morning. Maximum temperature (T-max) overnight 99, blood pressure currently 198 systolic, respiratory rate 20 without obvious accessory muscle use. Input and output since admission 1362 mL in with 2230 mL out. White blood cell count 7.3, hemoglobin 12.2, platelet count 240,000, 79% segmented neutrophils, no bands. Sodium 139, potassium 4.0, chloride 111, CO2 23, BUN 18, creatinine 1.10, which is reduced from yesterday. CK 835, phosphorus 1.7. Chest x-ray as outlined above, does show at least a 40% pneumothorax. He has been off Levophed since yesterday. On exam, he is awake, interactive but only intermittently answers some questions. Vitals are as above. HEENT otherwise normocephalic, atraumatic. Pupils do react. Neck with diminished mobility. Membranes are moist. Chest shows markedly diminished breath sound intensity in the left chest. No obvious rub. Right chest is clear. No focal adventitious breath sounds are identified. Cardiac exam generally regular. Peripheral pulse is palpable with minimal edema. Abdomen minimally distended. There are hyperactive bowel sounds. No convincing organomegaly or masses. No obvious rebound or tenderness. Extremities show no cyanosis or clubbing. Neurologically he remains with somewhat of a tremor. He does interact but does not always answer questions. Most pressing problems requiring my presence at the bedside: 1. Pneumothorax. 2. Dehydration with renal insufficiency, improved. 3. Parkinson's disease. 4. High risk medication/Plavix. RECOMMENDATION: At this point he clearly has a sizable pneumothorax. I have asked Dr. Jade from thoracic surgery to become involved in his care in that regard. I have spoken at length with his at the bedside. At this point we will continue his current antimicrobials. He has been weaned off the Levophed. I believe he has been reasonably re-hydrated. I have spoken with the primary service and they likely will involved general surgery for question of colitis, although this still may be secondary to some of his Parkinsonian medications. AT this point, will proceed as outlined above. Further recommendations will be made in the progress record as new information becomes available.
--- NOTE | 2018-12-23 10:07 | REP ---
CHEST, PORTABLE: AP portable view of the chest is performed and compared to a prior exam the same day. There has been placement of a left chest tube. The left pneumothorax has resolved. There are patchy atelectatic changes and/or infiltrate scattered throughout the left lung. Right lung is clear. The heart and mediastinum are unremarkable. There is left central venous catheter with the tip in the superior vena cava. Electronically Signed by Gonzalo Luu MD 12/23/2018 03:14 P
[2018-12-23] MEDS: CYANOCOBALAMIN 500 MCG TAB PO SCH (11:57)
[2018-12-23] MEDS: CLOPIDOGREL 75 MG TAB PO SCH (11:58)
[2018-12-23] MEDS: ACETAMINOPHEN 500 MG TAB PO PRN (11:58)
[2018-12-23] MEDS: CitaloPRAM (CeleXA) 20 MG TAB PO SCH (17:04)
[2018-12-23] MEDS: QUEtiapine FUMARATE 25 MG TAB PO SCH (17:04)
[2018-12-23] MEDS: ATORVASTATIN 20 MG TAB PO SCH (20:33)
[2018-12-23] MEDS: QUEtiapine FUMARATE 100 MG TAB PO SCH (20:34)
[2018-12-24] VITALS (8 sets, daily range): BP systolic 95–186; BP diastolic 54–99
[2018-12-24] MEDS: ACETAMINOPHEN 500 MG TAB PO PRN ×2 (00:40→12:41)
[2018-12-24] MEDS: PIPERACILLIN/TAZOBACTAM SOD 2.25 GM in D5W MINI-BAG PLUS 50 ML IV SCH ×3 (02:26→17:05)
[2018-12-24 04:53] LABS: BASO % 0.4 % (0.0-1.0); EOS # 0.1 10^3/uL (0.0-0.50); HEMATOCRIT 32.9 % (42.0-52.0); HEMOGLOBIN 11.2 g/dl (13.5-17.5); LYMPH # 0.7 10^3/uL (1.5-4.5); LYMPH % 10.2 % (24.0-44.0); MEAN CORPUSCULAR HEMOGLOBIN 32.7 pg (27.0-33.0); MEAN CORPUSCULAR VOLUME 95.9 fl (80.0-96.0); MONO # 0.5 10^3/uL (0.0-0.8); MONO % 7.5 % (0.0-5.0); NEUTROPHILS # 5.7 10^3/uL (1.8-7.7); NEUTROPHILS % 80.8 % (36.0-66.0); PLATELET COUNT, AUTOMATED 225 10^3/uL (150-450); RED BLOOD COUNT 3.43 10^6/uL (4.30-6.10); WHITE BLOOD COUNT 7.1 10^3/uL (4.0-10.0)
[2018-12-24 05:08] LABS: ALBUMIN 3.1 GM/DL (3.2-5.2); ALT/SGPT 12 U/L (12-78); BILIRUBIN,TOTAL 0.6 MG/DL (0.2-1.0); BLOOD UREA NITROGEN 10 MG/DL (7-18); CARBON DIOXIDE LEVEL 26 MEQ/L (21-32); CHLORIDE LEVEL 109 MEQ/L (98-107); CHOLESTEROL LEVEL 137 MG/DL (< 200); CPK CREATINE PHOSPHOKINASE 532 U/L (39-308); CREATININE FOR GFR 1.02 MG/DL (0.70-1.30); GLOMERULAR FILTRATION RATE > 60.0 (>56); GLUCOSE, FASTING 111 MG/DL (70-100); LDH LACTATE DEHYDROGENASE 187 U/L (87-241); PHOSPHORUS LEVEL 2.4 MG/DL (2.5-4.9); POTASSIUM SERUM 3.6 MEQ/L (3.5-5.1); SODIUM LEVEL 142 MEQ/L (136-145); TOTAL PROTEIN 6.6 GM/DL (6.4-8.2); TRIGLYCERIDES LEVEL 139 MG/DL (<150)
[2018-12-24] MEDS: LEVOTHYROXINE 100MCG TABLET (0.1MG) PO SCH (05:44)
[2018-12-24] MEDS: IPRATROPIUM 0.5MG/ALBUTEROL 2.5MG INH SOL UD 3ML (DUONEB)(J7620) NEB SCH ×4 (07:42→20:24)
--- NOTE | 2018-12-24 07:45 | REP ---
Portable chest, 06:34 a.m., single AP view with the patient upright: Comparison is 12/23/2018 and 09:26 a.m. There is a recurrent pneumothorax in the left apex with the pleura approximately 15 mm. The left thoracotomy tube is unchanged. The left subclavian central venous catheter is unchanged. There is a large area of atelectasis in the left upper lobe as an interval change. Right lung is clear. Cardiac size is normal. Impression: Recurrent left apical pneumothorax. Electronically Signed by Gonzalo Chaudhry MD 12/24/2018 07:36 A
--- NOTE | 2018-12-24 09:42 | NUR ---
Recommend level 2 mechanically altered (NDD) solids and thin liquids. Pt is dependent for feeding, requires food cut bite size and assistance for upright positioning. Please crush med's. [employer] will f/u tolerance diet downgrade. Pt's safety of intake of advanced solids is significantly impacted by cognition, positioning, and level of alertness. educated on rationale for diet downgrade and is agreeable, as she has been similarly modifying the pt's diet at home. Addendum: 12/24/[address] [facility] Amended: Links added.
--- NOTE | 2018-12-24 10:10 | CCN ---
DATE OF VISIT: 12/24/2018 I again attended Rogelio Multani here in the intensive care unit. The patient has been examined and the chart reviewed. I have spoken at length with his at the bedside. T-max overnight 99.3, blood pressure 140-160s, heart rate generally in the 70s to 80s, respiratory rate in the 20s without accessory muscle use. Ins and outs midnight to midnight 1720 mL in with 1835 mL out. Most recent laboratories show a white blood cell count of 7.1, hemoglobin 11.2, platelet count 225,000, 80.8% segs, 0 bands. Sodium 142, potassium (K) 3.6, chloride 109, CO2 26, BUN 10, creatinine 1.02. Chest x-ray this morning does show a recurrent pneumothorax. The tells me that the patient managed to get his chest tube apart during the night. The tube has been retaped by myself and currently there does not appear to be any visible air leak. The tube remains on -20 cm of water of wall suction. On exam, he is significantly confused, intermittently anxious. Vitals and MAR have been reviewed. HEENT: Otherwise generally normocephalic, atraumatic. Pupils do react. Neck is reasonably supple for age. Membranes are moist. Chest shows his central line site as well as his chest tube site that have some mild oozing, but have otherwise benign in appearance. Chest currently shows symmetric expansion with good bilateral air entry. No focal wheeze, rhonchus, crackles, or rubs. Cardiac exam is generally regular. Peripheral pulses palpable. Trace edema. Abdomen soft, nontender, with active bowel sounds. No convincing organomegaly or masses. Extremities: Without cyanosis or clubbing. Neurologically, as outlined above. IMPRESSION: 1. Prior tobacco use with questionable lung disease. 2. Pneumothorax. 3. Hypotension, resolved. 4. Colitis. 5. Parkinson disease with dementia. At this point, my hopes is that the recurrent pneumothorax is on the basis of the tube becoming disconnected. This has been addressed. Will repeat a chest x-ray later this morning. The asked if the patient could get out of bed and I see no reason why he cannot. He has constant supervision not only from nursing staff but his and/or mother who are his primary caretakers in the home setting. At this point, I am in agreement with his current regimen. He is eating and drinking well. He has remained off vasopressors, which is encouraging as well. I have spoken at length with the primary service. We will proceed as outlined above. Further recommendations will be made in the progress record as new information becomes available.
[2018-12-24] MEDS: CHLORHEXIDINE GLUCONATE 0.12 % 15ML UDC (PERIDEX ORAL RINSE) MT SCH ×2 (10:22→21:35)
[2018-12-24] MEDS: ASPIRIN 81 MG CHEW TABLET PO SCH (10:22)
[2018-12-24] MEDS: SINEMET 25-100 MG TAB PO SCH ×4 (10:22→21:28)
[2018-12-24] MEDS: CARVedilol 6.25 MG TAB PO SCH ×2 (10:22→21:28)
--- NOTE | 2018-12-24 11:04 | IPNPDOC ---
Subjective Date Seen The patient was seen on 12/24/18. Subjective Chief Complaint/HPI Per nursing and family - he is not sleeping at all and is wrestless shich is not his usual baseline at home Apparently he pulled his chest tube loose overnight Diarrhea less frequent Constitutional: Denies: Chills, Fever Pulmonary: Denies: Dyspnea, Cough Cardiovascular: Denies: Chest Pain Gastrointestinal: Reports: Diarrhea; Denies: Nausea, Vomiting, Abdominal Pain, Constipation Objective Physical Examination General Exam: Positive: Alert (wrestless, eyes open, speach unintiligable) ENT Exam: Positive: Atraumatic, Other ENT (edentulous, oral mucosa dry) Neck Exam: Positive: Supple, Other (no audible bruit, no JVD) Chest Exam: Positive: Other (Right lung CTA, Left lung clear - chest tube in place) Heart Exam: Positive: Rate Normal, Regular Rhythm Telemetry: Positive: No significant arrhythmia, Sinus Abdomen Exam: Positive: Normal bowel sounds, Soft, Other (NT, ND, no rebound, no rigidity) Extremity Exam: Positive: Edema (trace - 1+ edema BL) Skin Exam: Positive: Other skin issue (poor skin turgor; sacrum with stage I decub present on admission and healing/improved per ) Assessment /Plan Problems (1) Pneumothorax Status: Acute Problem Specific Plan: Consult Specialist Problem Text: - s/p chest tube placement yesterday Dislodged tube overnight replaced today due to recurrent pneumothorax Cont chest tube until tomorrow and then reassess (2) Sepsis Status: Acute Response to Treatment: Improving Problem Text: No longer requiring Levaphed IVF stoppped BP stable Zosyn D #3. (3) Colitis Status: Acute Problem Text: notes this is the 3rd-4th bout of diarrhea over the last several months. Will need eval and colonoscopy when stable. (4) Parkinsons Status: Chronic Response to Treatment: Stable Problem Text: Advanced Parkinson's with dementia. Will continue his home medications. ST eval today. Planned admission to [facility] this Friday. Will have PFS involved with DC plans. (5) HTN (hypertension) Status: Chronic Response to Treatment: Stable Problem Text: cont Carvedilol (6) Hypothyroidism Status: Chronic Response to Treatment: Stable (7) Dementia Status: Chronic Response to Treatment: Stable (8) Depression with anxiety Status: Chronic Response to Treatment: Stable Plan/VTE VTE Prophylaxis Ordered?: Yes Plan IVF: Discontinue Activity: Bedrest Therapy: PT, OT, Speech Pt and Family Services: Other PFS Anticipated Discharge: Jail VS, I&O, 24H, [facility] Vital Signs/I&O Vital Signs Date Time Temp Pulse Resp B/P (MAP) Pulse Ox O2 Delivery O2 Flow Rate FiO2 12/24/18 10:22 84 186/99 12/24/18 08:10 99.3 20 98 12/23/18 09:16 4.0 12/22/18 20:33 Room Air I&O- Last 24 Hours up to 6 AM 12/24/18 06:00 Intake Total 820 ml Output Total 1620 ml Balance -800 ml Laboratory Data 24H LABS Laboratory Tests 2 12/24/18 04:29: Immature Granulocyte % (Auto) 0.1, White Blood Count 7.1, Red Blood Count 3.43L, Hemoglobin 11.2L, Hematocrit 32.9L, Mean Corpuscular Volume 95.9, Mean Corpuscular Hemoglobin 32.7, Mean Corpuscular Hemoglobin Concent 34.0, Red Cell Distribution Width 12.2, Platelet Count 225, Neutrophils (%) (Auto) 80.8H, Lymphocytes (%) (Auto) 10.2L, Monocytes (%) (Auto) 7.5H, Eosinophils (%) (Auto) 1.0, Basophils (%) (Auto) 0.4, Neutrophils # (Auto) 5.7, Lymphocytes # (Auto) 0.7L, Monocytes # (Auto) 0.5, Eosinophils # (Auto) 0.1, Basophils # (Auto) 0.0, Nucleated Red Blood Cells % (auto) 0.0, Anion Gap 7L, Glomerular Filtration Rate > 60.0, Blood Urea Nitrogen 10, Creatinine 1.02, Sodium Level 142, Potassium Level 3.6, Chloride Level 109H, Carbon Dioxide Level 26, Calcium Level 8.0L, Ph osphorus Level 2.4#L, Aspartate Amino Transf (AST/SGOT) 26, Alanine Aminotransferase (ALT/SGPT) 12, Lactate Dehydrogenase 187, Total Creatine Kinase 532H, Alkaline Phosphatase 58, Total Bilirubin 0.6, Triglycerides Level 139, Cholesterol Level 137, Total Protein 6.6, Albumin 3.1L, Albumin/Globulin Ratio 0.89L CBC/BMP Laboratory Tests 12/24/18 04:29 Red Blood Count 3.43 L, Mean Corpuscular Volume 95.9, Mean Corpuscular Hemoglobin 32.7, Mean Corpuscular Hemoglobin Concent 34.0, Red Cell Distribution Width 12.2, Neutrophils (%) (Auto) 80.8 H, Lymphocytes (%) (Auto) 10.2 L, M onocytes (%) (Auto) 7.5 H, Eosinophils (%) (Auto) 1.0, Basophils (%) (Auto) 0.4, Neutrophils # (Auto) 5.7, Lymphocytes # (Auto) 0.7 L, Monocytes # (Auto) 0.5, Eosinophils # (Auto) 0.1, Basophils # (Auto) 0.0, Calcium Level 8.0 L, Phosphorus Level 2.4 #L, Aspartate Amino Transf (AST/SGOT) 26, Alanine Aminotransferase (ALT/SGPT) 12, Lactate Dehydrogenase 187, Total Creatine Kinase 532 H, Alkaline Phosphatase 58, Total Bilirubin 0.6, Triglycerides Level 139, Cholesterol Level 137, Total Protein 6.6, Albumin 3.1 L Microbiology Microbiology 12/22/18 Blood Culture - Preliminary, Resulted No Growth after 48 hours. All Specime... 12/22/18 Blood Culture - Preliminary, Resulted No Growth after 48 hours. All Specime... 12/22/18 Gastrointestinal Tract Panel (PCR) - Final, Complete 12/22/18 Urine Culture - Final, Complete SELWYN GARRIDO PA-C Dec 24, 2018 11:04
[2018-12-24] MEDS: ASPIRIN 81 MG ENTERIC TAB PO SCH (12:24)
[2018-12-24] MEDS: CYANOCOBALAMIN 500 MCG TAB PO SCH (12:41)
[2018-12-24] MEDS: CLOPIDOGREL 75 MG TAB PO SCH (12:41)
--- NOTE | 2018-12-24 14:27 | RO ---
DATE OF PROCEDURE: 12/23/2018 PREPROCEDURE DIAGNOSIS: Left pneumothorax. POSTPROCEDURE DIAGNOSIS: Left pneumothorax. PROCEDURE: Insertion of left superoanterior chest tube. SURGEON: Cali Jade MD POLISHER DIAL: ANESTHESIA: PROCEDURE: The patient was prepped and draped in the usual sterile fashion. The patient could not be given Versed as he has periductal reactions to it. The first intercostal space above the second rib was infiltrated with 1% lidocaine from the skin to the subcutaneous tissue to the intrathoracic muscles and the pleura. An incision was made and a tunnel was created in the chest without difficulty. A #20 chest tube was placed without difficulty and secured to the chest wall with #2 Tevdek suture. Tube was connected to the Pleur-evac. An initial air leak was seen and then stopped. The patient tolerated the procedure well and a chest x-ray is pending.
[2018-12-24] MEDS: QUEtiapine FUMARATE 25 MG TAB PO SCH (17:05)
[2018-12-24] MEDS: CitaloPRAM (CeleXA) 20 MG TAB PO SCH (17:05)
[2018-12-24] MEDS: QUEtiapine FUMARATE 100 MG TAB PO SCH (21:28)
[2018-12-24] MEDS: ATORVASTATIN 20 MG TAB PO SCH (21:29)
[2018-12-25] MEDS: PIPERACILLIN/TAZOBACTAM SOD 2.25 GM in D5W MINI-BAG PLUS 50 ML IV SCH ×3 (01:52→17:10)
[2018-12-25 04:00] VITALS: BP 180/81
[2018-12-25 05:45] LABS: BASO % 0.6 % (0.0-1.0); EOS # 0.3 10^3/uL (0.0-0.50); EOS % 3.8 % (0.0-3.0); HEMATOCRIT 29.6 % (42.0-52.0); HEMOGLOBIN 10.3 g/dl (13.5-17.5); LYMPH # 0.7 10^3/uL (1.5-4.5); LYMPH % 9.8 % (24.0-44.0); MEAN CORPUSCULAR HEMOGLOBIN 33.2 pg (27.0-33.0); MEAN CORPUSCULAR HGB CONC 34.8 g/dl (32.0-36.5); MEAN CORPUSCULAR VOLUME 95.5 fl (80.0-96.0); MONO # 0.5 10^3/uL (0.0-0.8); MONO % 7.4 % (0.0-5.0); NEUTROPHILS # 5.4 10^3/uL (1.8-7.7); NEUTROPHILS % 78.1 % (36.0-66.0); PLATELET COUNT, AUTOMATED 239 10^3/uL (150-450); WHITE BLOOD COUNT 6.9 10^3/uL (4.0-10.0)
[2018-12-25] MEDS ORDERED: LORazepam 2 MG/ML VIAL (J2060) IV PRN (05:45)
[2018-12-25] MEDS: LEVOTHYROXINE 100MCG TABLET (0.1MG) PO SCH (06:00)
[2018-12-25 06:15] LABS: ALBUMIN 3.1 GM/DL (3.2-5.2); ALT/SGPT 8 U/L (12-78); BILIRUBIN,TOTAL 0.6 MG/DL (0.2-1.0); BLOOD UREA NITROGEN 11 MG/DL (7-18); CALCIUM LEVEL 8.5 MG/DL (8.5-10.1); CARBON DIOXIDE LEVEL 29 MEQ/L (21-32); CHLORIDE LEVEL 112 MEQ/L (98-107); CHOLESTEROL LEVEL 133 MG/DL (< 200); CPK CREATINE PHOSPHOKINASE 264 U/L (39-308); CREATININE FOR GFR 0.91 MG/DL (0.70-1.30); GLOMERULAR FILTRATION RATE > 60.0 (>56); GLUCOSE, FASTING 104 MG/DL (70-100); LDH LACTATE DEHYDROGENASE 181 U/L (87-241); PHOSPHORUS LEVEL 2.4 MG/DL (2.5-4.9); POTASSIUM SERUM 3.6 MEQ/L (3.5-5.1); SODIUM LEVEL 145 MEQ/L (136-145); TOTAL PROTEIN 6.2 GM/DL (6.4-8.2); TRIGLYCERIDES LEVEL 138 MG/DL (<150)
[2018-12-25] MEDS: IPRATROPIUM 0.5MG/ALBUTEROL 2.5MG INH SOL UD 3ML (DUONEB)(J7620) NEB SCH ×4 (07:56→21:21)
[2018-12-25 08:00] VITALS: BP 195/104
--- NOTE | 2018-12-25 08:10 | NUR ---
Pt discharged from dysphagia tx as he is safely tolerating his baseline diet. Recommend level 2 solids, thin liquids. Pt should be in full upright position during meals & is full assist for feeding. Med's crushed please d/t report that pt was pocketing pills. educated on upright positioning, small bites, and to check for pocketing after meals. Addendum: 12/25/[address] [facility] Amended: Links added.
[2018-12-25] MEDS: ASPIRIN 81 MG CHEW TABLET PO SCH (08:29)
[2018-12-25] MEDS: SINEMET 25-100 MG TAB PO SCH ×4 (08:29→20:51)
[2018-12-25] MEDS: CARVedilol 6.25 MG TAB PO SCH ×2 (08:33→20:51)
[2018-12-25] MEDS: CHLORHEXIDINE GLUCONATE 0.12 % 15ML UDC (PERIDEX ORAL RINSE) MT SCH ×2 (08:47→20:52)
--- NOTE | 2018-12-25 09:40 | REP ---
Portable chest x-ray: Two views. History: Sepsis. Comparison study: December 24, 2018. Findings: Left chest tube remains in place. The left pneumothorax is almost completely evacuated with a tiny sliver of pleural air superolaterally. There is a hazy pleural opacity in the left upper perihilar region again noted. This could be loculated fluid. There is increased density behind the heart in the left base consistent with atelectasis. A left subclavian line terminates in the superior vena cava. Right lung remains clear. Electronically Signed by Gil Morgan MD 12/25/2018 09:32 A
--- NOTE | 2018-12-25 10:40 | IPNPDOC ---
Subjective Date Seen The patient was seen on 12/25/18. Subjective Chief Complaint/HPI reports that patient had a restless night. Resting now. Chest tube remains in place Constitutional: Denies: Chills, Fever Pulmonary: Denies: Dyspnea, Cough Cardiovascular: Denies: Chest Pain Gastrointestinal: Reports: Diarrhea (Less frequent and more formed); Denies: Nausea, Vomiting, Abdominal Pain, Constipation Objective Physical Examination General Exam: Positive: No Acute Distress (resting fairly quietly currently) Chest Exam: Positive: Other (Right lung CTA, Left lung clear - chest tube in place) Heart Exam: Positive: Rate Normal, Regular Rhythm Telemetry: Positive: No significant arrhythmia, Sinus Abdomen Exam: Positive: Normal bowel sounds, Soft, Other (NT, ND, no rebound, no rigidity) Extremity Exam: Negative: Edema Skin Exam: Positive: Other skin issue (poor skin turgor; sacrum with stage I decub present on admission and healing/improved per ) Assessment /Plan Problems (1) Pneumothorax Status: Acute Problem Specific Plan: Consult Specialist Problem Text: 12/25 - s/p CT 12/23 - F/U CXR today:Left chest tube remains in place. The left pneumothorax is almost completely evacuated with a tiny sliver of pleural air superolaterally. There is a hazy pleural opacity in the left upper perihilar region again noted. This could be loculated fluid. There is increased density behind the heart in the left base consistent with atelectasis. A left subclavian line terminates in the superior vena cava. Right lung remains clear. Pulmonary to see today and decide when CT can be removed 12/24 - s/p chest tube placement yesterday Dislodged tube overnight replaced today due to recurrent pneumothorax Cont chest tube until tomorrow and then reassess (2) Colitis Status: Acute Problem Text: 12/25 - Diarrhea improved notes this is the 3rd-4th bout of diarrhea over the last several months. GI panel negative Will need eval and colonoscopy when stable. (3) Sepsis Status: Acute Response to Treatment: Improving Problem Text: 12/25 - Resolved - D#4 Zosyn No longer requiring Levaphed IVF stopped BP stable (4) Parkinsons Status: Chronic Response to Treatment: Stable Problem Text: Advanced Parkinson's with dementia. Will continue his home medications. ST eval today. Planned admission to [facility] this Friday. Will have PFS involved with DC plans. (5) HTN (hypertension) Status: Chronic Response to Treatment: Stable Problem Text: cont Carvedilol (6) Hypothyroidism Status: Chronic Response to Treatment: Stable (7) Dementia Status: Chronic Response to Treatment: Stable (8) Depression with anxiety Status: Chronic Response to Treatment: Stable Plan/VTE VTE Prophylaxis Ordered?: Yes Plan IVF: Discontinue Activity: Bedrest Therapy: PT, OT, Speech Pt and Family Services: Other PFS Anticipated Discharge: Custodial Disposition [facility] will be transfered to [facility] (bed available) once medically stable VS, I&O, 24H, Fishbone Vital Signs/I&O Vital Signs Date Time Temp Pulse Resp B/P (MAP) Pulse Ox O2 Delivery O2 Flow Rate FiO2 12/25/18 08:33 85 195/102 12/25/18 08:00 98.1 16 96 12/23/18 09:16 4.0 12/22/18 20:33 Room Air I&O- Last 24 Hours up to 6 AM 12/25/18 06:00 Intake Total 340 ml Output Total 1000 ml Balance -660 ml Laboratory Data 24H LABS Laboratory Tests 2 12/25/18 05:30: Immature Granulocyte % (Auto) 0.3, White Blood Count 6.9, Red Blood Count 3.10L, Hemoglobin 10.3L, Hematocrit 29.6L, Mean Corpuscular Volume 95.5, Mean Corpuscular Hemoglobin 33.2H, Mean Corpuscular Hemoglobin Concent 34.8, Red Cell Distribution Width 12.5, Platelet Count 239, Neutrophils (%) (Auto) 78.1H, Lymphocytes (%) (Auto) 9.8L, Monocytes (%) (Auto) 7.4H, Eosinophils (%) (Auto) 3.8H, Basophils (%) (Auto) 0.6, Neutrophils # (Auto) 5.4, Lymphocytes # (Auto) 0.7L, Monocytes # (Auto) 0.5, Eosinophils # (Auto) 0.3, Basophils # (Auto) 0.0, Nucleated Red Blood Cells % (auto) 0.0, Anion Gap 4L, Glomerular Filtration Rate > 60.0, Blood Urea Nitrogen 11, Creatinine 0.91, Sodium Level 145, Potassium Level 3.6, Chloride Level 112H, Carbon Dioxide Level 29, Calcium Level 8.5, Phosphorus Level 2.4L, Aspartate Amino Transf (AST/SGOT) 14, Alanine Aminotransferase (ALT/SGPT) 8L, Lactate Dehydrogenase 181, Total Creatine Kinase 264, Alkaline Phosphatase 61, Total Bilirubin 0.6, Triglycerides Level 138, Cholesterol Level 133, Total Protein 6.2L, Albumin 3.1L, Albumin/Globulin Ratio 1.00 CBC/BMP Laboratory Tests 12/25/18 05:30 Red Blood Count 3.10 L, Mean Corpuscular Volume 95.5, Mean Corpuscular Hemo globin 33.2 H, Mean Corpuscular Hemoglobin Concent 34.8, Red Cell Distribution Width 12.5, Neutrophils (%) (Auto) 78.1 H, Lymphocytes (%) (Auto) 9.8 L, Monocytes (%) (Auto) 7.4 H, Eosinophils (%) (Auto) 3.8 H, Basophils (%) (Auto) 0.6, Neutrophils # (Auto) 5.4, Lymphocytes # (Auto) 0.7 L, Monocytes # (Auto) 0.5, Eosinophils # (Auto) 0.3, Basophils # (Auto) 0.0, Calcium Level 8.5, Phosphorus Level 2.4 L, Aspartate Amino Transf (AST/SGOT) 14, Alanine Aminotransferase (ALT/SGPT) 8 L, Lactate Dehydrogenase 181, Total Creatine Kinase 264, Alkaline Phosphatase 61, Total Bilirubin 0.6, Triglycerides Level 138, Cholesterol Level 133, Total Protein 6.2 L, Albumin 3.1 L Microbiology Microbiology 12/22/18 Blood Culture - Preliminary, Resulted No Growth after 72 hours. All specime... 12/22/18 Blood Culture - Preliminary, Resulted No Growth after 72 hours. All specime... 12/22/18 Gastrointestinal Tract Panel (PCR) - Final, Complete 12/22/18 Urine Culture - Final, Complete SELWYN GARRIDO PA-C Dec 25, 2018 10:40
[2018-12-25] MEDS: CLOPIDOGREL 75 MG TAB PO SCH (12:01)
[2018-12-25] MEDS: CYANOCOBALAMIN 500 MCG TAB PO SCH (12:01)
--- NOTE | 2018-12-25 14:28 | CCN ---
DATE: 12/25/2018 Mr. Multani is seen in progressive care unit (PCU). He had an iatrogenic pneumothorax. Chest tube was placed. Dr. Jade is following and managing his chest tube and put the chest tube to suction today. The patient's is currently at bedside. The patient has been more agitated and combative today. He does have Parkinson's disease and is getting Ativan. He is afebrile. His oxygen saturations are good at 96%. PHYSICAL EXAMINATION: Vitals: Temperature is 98.1, pulse 85, respiratory rate 16, blood pressure 195/102. Oxygen saturation 96% on room air. GENERAL: The patient is agitated and combative to exam. Therefore, physical exam is very limited. The patient would not allow for examination of chest, heart or abdomen. LABORATORY DATA: WBC is 6.9, hemoglobin this 10.3, hematocrit 29.6, platelets 239. Sodium 145, potassium 3.6, chloride 112, carbon dioxide 29, BUN 11, creatinine 0.91, glucose 104, calcium 8.5, phosphorus 2.4, total bili 0.6, AST 14, ALT 8, alk phos 61, LD is 181. CK is 264, total protein 6.2, albumin 3.1, triglycerides 138, cholesterol 133. ASSESSMENT/PLAN: 1. Iatrogenic pneumothorax. The patient has a chest tube. Dr. Jade is managing chest tube and has placed it to suction. 2. Altered mental status/Agitation. The patient does have Parkinson's and is in an unfamiliar environment and he is on numerous medications, which may be affecting his Parkinson's. He is getting Ativan. The agitation could possibly be made worse by benzodiazepines. May consider antipsychotic medications. Would defer this to medicine team. Dr. Jade has ordered a sitter. [facility]
[2018-12-25 16:00] VITALS: BP 178/104
[2018-12-25] MEDS: QUEtiapine FUMARATE 25 MG TAB PO SCH (16:02)
[2018-12-25] MEDS: CitaloPRAM (CeleXA) 20 MG TAB PO SCH (16:02)
[2018-12-25] MEDS: QUEtiapine FUMARATE 100 MG TAB PO SCH (20:50)
[2018-12-25] MEDS: ATORVASTATIN 20 MG TAB PO SCH (20:50)
[2018-12-25 22:00] VITALS: BP 140/70
[2018-12-26] VITALS: BP 135/80
[2018-12-26] MEDS: PIPERACILLIN/TAZOBACTAM SOD 2.25 GM in D5W MINI-BAG PLUS 50 ML IV SCH ×3 (02:12→17:42)
[2018-12-26 04:00] VITALS: BP 146/82
[2018-12-26 05:50] LABS: BASO % 0.5 % (0.0-1.0); EOS # 0.5 10^3/uL (0.0-0.50); EOS % 6.5 % (0.0-3.0); HEMATOCRIT 30.9 % (42.0-52.0); HEMOGLOBIN 10.5 g/dl (13.5-17.5); LYMPH # 0.8 10^3/uL (1.5-4.5); LYMPH % 10.5 % (24.0-44.0); MEAN CORPUSCULAR HEMOGLOBIN 32.4 pg (27.0-33.0); MEAN CORPUSCULAR VOLUME 95.4 fl (80.0-96.0); MONO # 0.6 10^3/uL (0.0-0.8); MONO % 7.1 % (0.0-5.0); NEUTROPHILS % 75.1 % (36.0-66.0); PLATELET COUNT, AUTOMATED 272 10^3/uL (150-450); RED BLOOD COUNT 3.24 10^6/uL (4.30-6.10)
[2018-12-26 06:25] LABS: ALT/SGPT 9 U/L (12-78); BILIRUBIN,TOTAL 0.6 MG/DL (0.2-1.0); BLOOD UREA NITROGEN 11 MG/DL (7-18); CALCIUM LEVEL 8.2 MG/DL (8.5-10.1); CARBON DIOXIDE LEVEL 28 MEQ/L (21-32); CHLORIDE LEVEL 109 MEQ/L (98-107); CHOLESTEROL LEVEL 133 MG/DL (< 200); CPK CREATINE PHOSPHOKINASE 158 U/L (39-308); GLOMERULAR FILTRATION RATE > 60.0 (>56); GLUCOSE, FASTING 99 MG/DL (70-100); LDH LACTATE DEHYDROGENASE 181 U/L (87-241); POTASSIUM SERUM 3.3 MEQ/L (3.5-5.1); SODIUM LEVEL 143 MEQ/L (136-145); TOTAL PROTEIN 6.3 GM/DL (6.4-8.2); TRIGLYCERIDES LEVEL 130 MG/DL (<150)
[2018-12-26] MEDS: LEVOTHYROXINE 100MCG TABLET (0.1MG) PO SCH (06:27)
--- NOTE | 2018-12-26 07:58 | REP ---
Portable chest, 07:03 a.m., single AP view with the patient sitting: Comparison is 12/25/2018. The left thoracotomy tube is unchanged. There is a recurrent left apical pneumothorax with the pleura 1 cm. There is diffuse increased density in the left upper lobe area, similar to the comparison study. This could represent infiltrate, pulmonary contusion, pulmonary hematoma, or pleural fluid collection. Right lung is clear. Cardiac size normal. The left subclavian central venous catheter is unchanged. The I suspect there is an endovascular stent in the superior mediastinum on the right. This is unchanged from prior studies. Impression: Recurrent left apical pneumothorax. Large opacity in the left upper lobe as described, unchanged from the comparison study. Electronically Signed by Gonzalo Chaudhry MD 12/26/2018 07:50 A
[2018-12-26 08:00] VITALS: BP 172/89
--- NOTE | 2018-12-26 08:08 | IPN ---
DATE: 12/25/2018 I was not able to see Mr. Multani yesterday, although he was attended by Dr. Moulton of pulmonology. Evidently, the night after I placed the chest tube, he managed to undo it and had a resulting small pneumothorax yesterday morning. Chest tube was re-taped and redone and placed back to suction. There is no pneumothorax now on the chest x-ray. There is no air leak. Mr. Multani is much more alert than he was when I first saw him on 12/23/2018. However, upon trying to examine him, he became quite combative and agitated. Mrs. Multani was at the bedside to help calm him, although he would not let me examine him. I barely felt his abdomen, which seemed to be tender in the left upper quadrant. I could not put my stethoscope either to his chest or his abdomen. He had trace pretibial edema, although he objected to me feeling his legs. His vital signs show a maximum temperature (Tmax) of 98.8 with a heart rate that ranges between 85 and 77 in a sinus rhythm, respiratory rate of 18-16 without the use of accessory muscles, who is 96% saturated on room air, has blood pressures ranging between 176/80 to 195/104. His intake and output for the past 24 hours has been recorded as 458 in and 1305 out for a negativity of 855 mL. He put out 455 mL from the chest tube yesterday and 105 mL today from the last 12 hours. He weighs 74.5 kg today compared to 74.5 kg yesterday, which is unchanged. Physical examination difficulties are described above. His white count is 6.9 with a hemoglobin and hematocrit 10.3 and 29.6. This is probably secondary to hemodilution. Platelet count is 239, stable. Differential shows 78% neutrophils, 9% lymphocytes, 7% monocytes. There are no immature forms no toxic granulations. His electrolytes are essentially normal with a BUN/creatinine of 11 and 0.91, a glucose of 104, and a calcium 8.5 with a corresponding albumin of 3.1. Magnesium was 2.4 yesterday, and his phosphorous is 2.4 today. AST and ALT are normal. Clostridium (C) difficile tox screen was cancelled. Gastrointestinal (GI) panel was undertaken, which was completely negative. Blood cultures show no growth, and urine culture shows no growth. His chest x-ray now shows his lung fully expanded to the chest wall. There looks to be an infiltrative process in the left upper lobe, probably secondary to compression atelectasis. The chest x-ray was done portably. He has a large area loops of large bowel under the left hemidiaphragm. Central line is in good place. IMPRESSION: 1. Parkinson disease, advanced and chronic with dementia. 2. Pneumothorax, treated with a chest tube. 3. Sepsis. 4. Colitis with diarrhea, improved. 5. Hypertension. 6. Hypothyroidism. 7. Anxiety and combativeness, may be secondary to Ativan. PLAN AND DISCUSSION: As far as his chest tube is concerned, I will take it off suction today. He has put out too much fluid from it for me to remove it but, hopefully, tomorrow there will be no air leak and there will be sufficient fluid decrement to remove it. I am concerned about his combativeness. Prior to placing his chest tube, his informed me that he has a paradoxical response to Versed, and as he is on Ativan, which is also a benzodiazepine, he may be having the same. I have, therefore, discontinued the Ativan after speaking with Dr. Bernard. I am not so sure how secure the diagnosis of colitis is, although, he does have major dilated loops, and his abdominal CT showed thickening circumferentially of the distal colon with inflammatory changes which was thought to be consistent with nonspecific colitis.
[2018-12-26] MEDS: ASPIRIN 81 MG CHEW TABLET PO SCH (08:35)
[2018-12-26] MEDS: SINEMET 25-100 MG TAB PO SCH ×4 (08:35→21:03)
[2018-12-26] MEDS: CARVedilol 6.25 MG TAB PO SCH ×2 (08:39→21:04)
[2018-12-26] MEDS: CHLORHEXIDINE GLUCONATE 0.12 % 15ML UDC (PERIDEX ORAL RINSE) MT SCH ×2 (09:00→21:03)
[2018-12-26] MEDS: IPRATROPIUM 0.5MG/ALBUTEROL 2.5MG INH SOL UD 3ML (DUONEB)(J7620) NEB SCH ×4 (09:02→21:14)
--- NOTE | 2018-12-26 09:20 | IPN ---
DATE: 12/26/2018 What a difference 24 hours makes. Mr. Multani is noncombative and is quite cooperative in his physical examination. I am not sure whether that is secondary to the Ativan wearing off or whether it is just a natural progression of recovery of his Parkinson's dementia. His vital signs show a maximum temperature (T max) of 99.2 with a heart rate that ranges between 82 and 75 and is sinus rhythm, respiratory rate of 18 to 20 without the use of accessory muscles who is 95% saturated on room air and his blood pressure ranges between 140/70 to 178/104. His intake and output the past 24 hours has been recorded as 200 in and 555 out for a negativity of 355 mL. He only took in 100 mL in oral intake. Today he is much better, and his is at the bedside feeding him. His chest tube put out 155 mL. There is no air leak. Weight today is 73.1 kg compared to 74.5 kg yesterday. On physical examination, he has crackles in the right and left bases. I hear no wheezing. Percussion note is full to the diaphragm. Cardiac exam is without murmurs, clicks, gallops or rubs. I cannot feel his point of maximum impulse (PMI). S1, S2 are normal. Abdomen is soft and nontender. Bowel sounds are positive. There is no hepatomegaly. No costovertebral angle (CVA) tenderness. This is a marked change from yesterday when I gently palpated his left upper quadrant, and he was quite tender. He is still distended and tympanitic. Extremities show no pretibial edema. No calf tenderness. No differential swelling of the upper extremities. His skin is warm, dry and perfused without cyanosis or mottling, including that of the nail beds and the knees. Neck is supple. There is no jugular venous distention, no subcutaneous emphysema. Trachea is midline. Mouth shows his mucous membranes to be pink and moist. Lips and commissures without lesions. There is no thrush. Eyes show his pupils to be equal and reactive. Extraocular motions are intact. Sclerae nonicteric. Neurologic shows II-XII intact along with gross motor and gross sensation intact. Gait, of course, is not tested. Psychiatric shows him to be somnolent but cooperative. His chest x-ray today shows a 1 cm pneumothorax, which has recurred after taking his chest tube off suction. Nonetheless, he does not have an air leak. Remainder of lung is fully expanded to the chest wall. There is still an infiltrative pattern in the left upper lobe, although there also looks to be a homogeneous fluid component to it. I cannot tell if this is maybe fluid in the fissure as I do not have a lateral film. I do note that the homogeneous opacity stops at the pleural surface where his lung is from the chest wall at the cupula. His white count today is 8.0 with a hemoglobin and hematocrit of 10.5 and 30.9 respectively with a platelet count of 272 and stable. Differential shows 75% neutrophils, 10% lymphocytes, 7% monocytes. There are no immature forms. No toxic granulations. Potassium is 3.3 down from 3.6 yesterday. Glucose is 99 with a calcium of 8.2 and a corresponding albumin of 3.0. Magnesium has not been measured today. AST and ALT are normal. I do not see where his potassium has been replaced today. There is no new microbiology on Mr. Multani. IMPRESSION: 1. Parkinson's disease, advanced and chronic with dementia. 2. Pneumothorax, treated with a chest tube. 3. Sepsis. 4. Colitis with diarrhea, improved. 5. Hypertension. 6. Hypothyroidism. 7. Anxiety and combativeness, improved. 8. Hypokalemia. PLAN AND DISCUSSION: As his pneumothorax has recurred on the chest x-ray, even though he does not have an air leak, I will replace his chest tube to suction in order to get the lung back to the chest wall. I was hoping we could remove the chest tube today, but I think that it is in his best interest that we be more conservative and get the lung to adhere to the chest wall again. His abdomen is much less tender, which is certainly a good sign. He is now taking oral intake. I will start potassium replacement.
--- NOTE | 2018-12-26 10:54 | IPN ---
DATE OF SERVICE: 12/26/2018 Mr. Multani is sleepy this morning but arousable. Had persistent small pneumothorax on the left. His chest tube was then placed to suction this morning by Dr. Jade. He is less agitated today. It does appear that he does have adverse effects of agitation when given benzodiazepines. Would avoid benzodiazepines if at all possible. He has had no fever, chills overnight. This morning, he is not speaking to me and offers no complaints. PHYSICAL EXAM: Temperature is 98.9, pulse 75, respiratory rate is 18, blood pressure is 172/89 with a MAP of 116 and an oxygen saturation 96. Repeat blood pressure at 0839 hours was 154/84. General: Sleepy, but arousable. HEENT: Pupils are equal and reactive to light. Mucous membranes are moist. Tongue is midline. Mallampati I. Neck: Supple. No tracheal deviation or mass. Lymphs: No cervical, supraclavicular, or axillary adenopathy. He has a left anterior wall chest tube in place. Pulmonary: Clear to auscultation without rales, rhonchi, wheezing. No dullness to percussion. No accessory muscle use. Cardiac: Regular S1, S2, no audible murmur or gallop. Abdomen: Soft, nontender, nondistended. No hepatosplenomegaly or hernia. Extremities: No cyanosis, clubbing, or edema. He has had some tremor. Laboratory evaluation shows a sodium 143, potassium 3.3, chloride 109, bicarbonate of 28, BUN of 11, creatinine of 0.9. White blood cell count is 8.0, hemoglobin is 10.5, hematocrit of 30.9 with a platelet count of 272. There is no new arterial blood gas. Chest x-ray shows persistent left upper lobe pneumothorax, although very mild. No other new findings. IMPRESSION: Pneumothorax, likely iatrogenic. There is a positive air leak this morning on suction. Will continue to monitor. Encouraged out of bed to chair and ambulation, if possible. Physical therapy may need to become involved as the patient is easily deconditioned.
[2018-12-26] MEDS: CYANOCOBALAMIN 500 MCG TAB PO SCH (11:11)
[2018-12-26] MEDS: CLOPIDOGREL 75 MG TAB PO SCH (11:11)
[2018-12-26] MEDS: POTASSIUM CHLORIDE 10 MEQ SR TABLET PO SCH ×2 (11:12→21:04)
[2018-12-26 12:00] VITALS: BP 150/82
[2018-12-26 16:00] VITALS: BP 132/64
--- NOTE | 2018-12-26 17:38 | IPNPDOC ---
Subjective Date Seen The patient was seen on 12/26/18. Subjective Chief Complaint/HPI reports that he seems more comfortable than yesterday, had been up and out of bed earlier today. He is sleeping when I see him. We discussed his code status, and she thinks that she would like him to be DNR, but isn't certain and wants to think about it. She had hoped that his chest tube would be removed today, but it isn't ready. General: Reports: ROS Unobtainable Objective Physical Examination General Exam: Positive: No Acute Distress (resting fairly quietly currently) Chest Exam: Positive: Other (Right lung CTA, Left lung clear - chest tube in place) Heart Exam: Positive: Rate Normal, Regular Rhythm Telemetry: Positive: No significant arrhythmia, Sinus Abdomen Exam: Positive: Normal bowel sounds, Soft, Other (NT, ND, no rebound, no rigidity); Negative: Tenderness Extremity Exam: Negative: Edema Skin Exam: Positive: Other skin issue (poor skin turgor; sacrum with stage I decub present on admission and healing/improved per ) Assessment /Plan Problems (1) Pneumothorax Status: Acute Problem Specific Plan: Consult Specialist Problem Text: 12/26 -- chest tube remains in place, managed by Dr. Jade 12/25 - s/p CT 12/23 - F/U CXR today:Left chest tube remains in place. The left pneumothorax is almost completely evacuated with a tiny sliver of pleural air superolaterally. There is a hazy pleural opacity in the left upper perihilar region again noted. This could be loculated fluid. There is increased density behind the heart in the left base consistent with atelectasis. A left subclavian line terminates in the superior vena cava. Right lung remains clear. Pulmonary to see today and decide when CT can be removed 12/24 - s/p chest tube placement yesterday Dislodged tube overnight replaced today due to recurrent pneumothorax Cont chest tube until tomorrow and then reassess (2) Colitis Status: Acute Problem Text: 12/26 -- states diarrhea improving; he is eating and drinking, but not full meals per his . Diet adjusted per swallow eval. Restarted IVFs at 75 ml/hour as fluid intake insufficient. 12/25 - Diarrhea improved notes this is the 3rd-4th bout of diarrhea over the last several months. GI panel negative Will need eval and colonoscopy when stable. (3) Sepsis Status: Acute Response to Treatment: Improving Problem Text: 12/25 - Resolved - D#4 Zosyn No longer requiring Levaphed IVF stopped BP stable (4) Parkinsons Status: Chronic Response to Treatment: Stable Problem Text: Advanced Parkinson's with dementia. Will continue his home medications. ST eval today. Planned admission to [facility] this Friday. Will have PFS involved with DC plans. (5) HTN (hypertension) Status: Chronic Response to Treatment: Stable Problem Text: cont Carvedilol (6) Hypothyroidism Status: Chronic Response to Treatment: Stable (7) Dementia Status: Chronic Response to Treatment: Stable (8) Depression with anxiety Status: Chronic Response to Treatment: Stable Plan/VTE VTE Prophylaxis Ordered?: Yes Plan IVF: Discontinue Activity: Bedrest Therapy: PT, OT, Speech Pt and Family Services: Other PFS Anticipated Discharge: Long-Term VS, I&O, 24H, [facility] Vital Signs/I&O Vital Signs Date Time Temp Pulse Resp B/P (MAP) Pulse Ox O2 Delivery O2 Flow Rate FiO2 12/26/18 12:00 98.0 71 19 150/82 (104) 99 12/23/18 09:16 4.0 12/22/18 20:33 Room Air I&O- Last 24 Hours up to 6 AM 12/26/18 06:00 Intake Total 300 ml Output Total 550 ml Balance -250 ml Laboratory Data 24H LABS Laboratory Tests 2 12/26/18 04:49: Immature Granulocyte % (Auto) 0.3, White Blood Count 8.0, Red Blood Count 3.24L, Hemoglobin 10.5L, Hematocrit 30.9L, Mean Corpuscular Volume 95.4, Mean Corpuscular Hemoglobin 32.4, Mean Corpuscular Hemoglobin Concent 34.0, Red Cell Distribution Width 12.5, Platelet Count 272, Neutrophils (%) (Auto) 75.1H, Lymphocytes (%) (Auto) 10.5L, Monocytes (%) (Auto) 7.1H, Eosinophils (%) (Auto) 6.5H, Basophils (%) (Auto) 0.5, Neutrophils # (Auto) 6.0, Lymphocytes # (Auto) 0.8L, Monocytes # (Auto) 0.6, Eosinophils # (Auto) 0.5, Basophils # (Auto) 0.0, Nucleated Red Blood Cells % (auto) 0.0, Anion Gap 6L, Glomerular Filtration Rate > 60.0, Blood Urea Nitrogen 11, Creatinine 0.90, Sodium Level 143, Potassium Level 3.3L, Chloride Level 109H, Carbon Dioxide Level 28, Calcium Level 8.2L, Phosphorus Level 3.0#, Aspartate Amino Transf (AST/SGOT) 15, Alanine Aminotransferase (ALT/SGPT) 9L, Lactate Dehydrogenase 181, Total Creatine Kinase 158, Alkaline Phosphatase 61, Total Bilirubin 0.6, Triglycerides Level 130, Cholesterol Level 133, Total Protein 6.3L, Albumin 3.0L, Albumin/Globulin Ratio 0.91L CBC/BMP Laboratory Tests 12/26/18 04:49 Red Blood Count 3.24 L, Mean Corpuscular Volume 95.4, Mean Corpuscular Hemoglobin 32.4, Mean Corpuscular Hemoglobin Concent 34.0, Red Cell Distribution Width 12.5, Neutrophils (%) (Auto) 75.1 H, Lymphocytes (%) (Auto) 10.5 L, Monocytes (%) (Auto) 7.1 H, Eosinophils (%) (Auto) 6.5 H, Basophils (%) (Auto) 0.5, Neutrophils # (Auto) 6.0, Lymphocytes # (Auto) 0.8 L, Monocytes # (Auto) 0.6, Eosinophils # (Auto) 0.5, Basophils # (Auto) 0.0, Calcium Level 8.2 L, Phosphorus Level 3.0 #, Aspartate Amino Transf (AST/SGOT) 15, Alanine Aminot ransferase (ALT/SGPT) 9 L, Lactate Dehydrogenase 181, Total Creatine Kinase 158, Alkaline Phosphatase 61, Total Bilirubin 0.6, Triglycerides Level 130, Cholesterol Level 133, Total Protein 6.3 L, Albumin 3.0 L Microbiology Microbiology 12/22/18 Blood Culture - Preliminary, Resulted No Growth after 72 hours. All specime... 12/22/18 Blood Culture - Preliminary, Resulted No Growth after 72 hours. All specime... 12/22/18 Gastrointestinal Tract Panel (PCR) - Final, Complete 12/22/18 Urine Culture - Final, Complete STEPHANIE FORTUNE DO Dec 26, 2018 17:38
[2018-12-26] MEDS: QUEtiapine FUMARATE 25 MG TAB PO SCH (17:41)
[2018-12-26] MEDS: CitaloPRAM (CeleXA) 20 MG TAB PO SCH (17:42)
[2018-12-26] MEDS: NS 1,000 ML IV SCH (18:50)
[2018-12-26] MEDS: ATORVASTATIN 20 MG TAB PO SCH (21:03)
[2018-12-26] MEDS: QUEtiapine FUMARATE 100 MG TAB PO SCH (21:03)
[2018-12-26 22:00] VITALS: BP 130/80
[2018-12-27] VITALS (7 sets, daily range): BP systolic 126–168; BP diastolic 67–78
[2018-12-27] MEDS: PIPERACILLIN/TAZOBACTAM SOD 2.25 GM in D5W MINI-BAG PLUS 50 ML IV SCH ×3 (02:37→18:32)
[2018-12-27] MEDS: LEVOTHYROXINE 100MCG TABLET (0.1MG) PO SCH (05:17)
[2018-12-27 05:43] LABS: BASO # 0.1 10^3/uL (0.0-0.2); BASO % 0.5 % (0.0-1.0); EOS # 0.6 10^3/uL (0.0-0.50); EOS % 6.8 % (0.0-3.0); HEMATOCRIT 30.2 % (42.0-52.0); HEMOGLOBIN 10.2 g/dl (13.5-17.5); LYMPH % 10.9 % (24.0-44.0); MEAN CORPUSCULAR HEMOGLOBIN 32.6 pg (27.0-33.0); MEAN CORPUSCULAR HGB CONC 33.8 g/dl (32.0-36.5); MEAN CORPUSCULAR VOLUME 96.5 fl (80.0-96.0); MONO # 0.7 10^3/uL (0.0-0.8); MONO % 7.4 % (0.0-5.0); NEUTROPHILS # 6.8 10^3/uL (1.8-7.7); PLATELET COUNT, AUTOMATED 287 10^3/uL (150-450); RED BLOOD COUNT 3.13 10^6/uL (4.30-6.10); WHITE BLOOD COUNT 9.2 10^3/uL (4.0-10.0)
[2018-12-27 06:00] LABS: ALT/SGPT 8 U/L (12-78); BILIRUBIN,TOTAL 0.4 MG/DL (0.2-1.0); BLOOD UREA NITROGEN 11 MG/DL (7-18); CARBON DIOXIDE LEVEL 26 MEQ/L (21-32); CHLORIDE LEVEL 111 MEQ/L (98-107); CHOLESTEROL LEVEL 111 MG/DL (< 200); CPK CREATINE PHOSPHOKINASE 111 U/L (39-308); CREATININE FOR GFR 0.98 MG/DL (0.70-1.30); GLOMERULAR FILTRATION RATE > 60.0 (>56); GLUCOSE, FASTING 94 MG/DL (70-100); LDH LACTATE DEHYDROGENASE 186 U/L (87-241); PHOSPHORUS LEVEL 2.9 MG/DL (2.5-4.9); POTASSIUM SERUM 3.5 MEQ/L (3.5-5.1); SODIUM LEVEL 144 MEQ/L (136-145); TRIGLYCERIDES LEVEL 95 MG/DL (<150)
[2018-12-27] MEDS: IPRATROPIUM 0.5MG/ALBUTEROL 2.5MG INH SOL UD 3ML (DUONEB)(J7620) NEB SCH ×4 (07:43→20:10)
[2018-12-27] MEDS: NS 1,000 ML IV SCH ×2 (07:53→13:31)
--- NOTE | 2018-12-27 08:09 | REP ---
Portable chest, 07:00 a.m., single AP view the patient upright: Comparison is 12/26/2018. The left thoracotomy tube is unchanged. There is a left apical pneumothorax with the pleura 5 mm. This is 10 mm on the comparison study). The focal left upper lobe opacity has decreased in density. Right lung is clear. Cardiac size is normal. The left subclavian central venous catheter is unchanged. Impression: The left pneumothorax has slightly decreased. The density of the left upper lobe opacity has decreased. Electronically Signed by Gonzalo Chaudhry MD 12/27/2018 08:00 A
[2018-12-27] MEDS: CHLORHEXIDINE GLUCONATE 0.12 % 15ML UDC (PERIDEX ORAL RINSE) MT SCH (09:13)
[2018-12-27] MEDS: ASPIRIN 81 MG CHEW TABLET PO SCH (09:13)
[2018-12-27] MEDS: SINEMET 25-100 MG TAB PO SCH ×5 (09:13→21:52)
[2018-12-27] MEDS: CARVedilol 6.25 MG TAB PO SCH ×3 (09:13→21:52)
[2018-12-27] MEDS: POTASSIUM CHLORIDE 10 MEQ SR TABLET PO SCH ×2 (09:14→21:00)
[2018-12-27] MEDS ORDERED: NS 500 ML IV ONE (09:30)
--- NOTE | 2018-12-27 10:46 | IPN ---
DATE OF SERVICE: 12/27/2018 I attended the patient's bedside this morning as he was being cleaned. The chest tube did not show any air leak despite there being a small persistent pneumothorax on chest x-ray this morning. The patient is much less agitated this morning. No events overnight, patient not conversant with me. The patient had some decreased urine output. IV fluids were started by primary care team. PHYSICAL EXAMINATION: Temperature is 98.6, pulse is 79, respiratory rate is 22, blood pressure is 126/78 with a mean arterial pressure of 94, oxygen saturation 96% on room air. HEENT: Sclerae clear and anicteric. Pupils equal and reactive to light. Mucous membranes are moist without lesions. Tongue is midline. NECK: Supple. No tracheal deviation or mass. No stridor. LYMPH: No cervical, supraclavicular or axillary adenopathy. Chest wall no crepitus. There was a chest tube in the left chest wall. I did not remove the bandages to view today as they were recently changed. CARDIAC: Regular S1-S2 without audible murmur or gallop. No elevated JVP. No peripheral edema. PULMONARY: Clear to auscultation without rales, rhonchi or wheezes. There is no dullness to percussion. ABDOMEN: Soft. There is some voluntary guarding. In between respiration the abdomen is very soft, benign without hepatosplenomegaly. It does not appear that there is any significant pain although the patient is averbal. He is not flinching during the abdominal exam. EXTREMITIES: No cyanosis or clubbing. LABORATORY EVALUATION: Shows a white blood cell count of 9.2, hemoglobin 10.2, platelet count of 287. Sodium is 144, potassium 3.5, chloride 111, bicarb of 26, BUN of 11, creatinine of 0.98 and a calcium of 8, phosphorus 2.9, AST, ALT are fairly normal, total protein 6, albumin is 3.0. Chest imaging this morning shows a persistent small left upper lobe pneumothorax. Some minimal compressive atelectasis. Chest tube is in place. There are no new findings. IMPRESSION: Pneumothorax, iatrogenic in nature, persistent on chest x-ray. Will discuss with Dr. Cali Jade as to any change in plans regarding management of the pneumothorax. I have discontinued his chlorhexidine as this was left over from his ICU stay and chlorhexidine mouth rinse can occasionally cause chemical pneumonitis and therefore this has been discontinued. Will continue to follow.
--- NOTE | 2018-12-27 11:46 | IPN ---
DATE: 12/27/2018 There were some connection issues with the chest tube last night. It was reconnected. Today, Mr. Multani still has a small residual pneumothorax. He is rather somnolent today, not awake as he was yesterday. He is still relatively cooperative. His vital signs show a T-max of 99.1 with a heart rate that ranges between 76 and 79 and is sinus rhythm, respiratory rate of 18 to 22 without the use of accessory muscles who is 96% saturated on room air and whose blood pressure is ranging between 126/78 to 168/78. His intake and output the past 24 hours has been recorded as 1550 in and 470 out for a positivity of 1080 mL. He has taken in 1000 mL in oral intake and 550 mL in IV intake. He has put out 470 mL in urine. He has not put anything out the chest tube and there is no air leak. On physical examination, he has equal breath sounds on either side. He has some scattered rhonchi, not all of which clear with coughing, when I can get him to cough. Percussion note is full to the diaphragm. Cardiac exam is without murmurs, clicks, gallops or rubs. I cannot feel his point of maximum impulse (PMI). S1, S2 are normal. Abdomen is distended, tympanitic, but nontender and soft. Bowel sounds are positive but hypoactive. There is no hepatomegaly that I could fee. No costovertebral angle (CVA) tenderness. Extremities show no pretibial edema. No calf tenderness. No differential swelling of the upper extremities. His skin is warm, dry and perfused without cyanosis or mottling, including that of the nail beds and the knees. Neck is supple. There is no jugular venous distention, no subcutaneous emphysema. Trachea is midline. Mouth shows his mucous membranes to be pink and moist. Lips and commissures without lesions. There is no thrush. He will not open his eyes and therefore I cannot examine them. Neurologic shows II-XII grossly intact along with gross motor and gross sensation intact, although he is quite rigid. Psychiatric shows him to be somnolent but will follow commands for the mos part. His white count today is 9.2 with a hemoglobin and hematocrit of 10.2 and 30.2, essentially unchanged range of motion yesterday with a platelet count of 287 and stable. Differential shows 74% neutrophils, 10% lymphocytes, 7% monocytes. There also 6% eosinophils. Chemistries today show a potassium that has improved to 3.5 from 3.3. He continues on his home potassium supplementation. BUN and creatinine are 11 and 0.98 with a glucose of 94, and a calcium of 8.0 and a corresponding albumin of 3.0. His liver functions are normal. There is no new microbiology with his GI panel being negative and blood cultures being negative. His chest x-ray shows a small 4 mm sliver of pneumothorax in the apex. There is no subcutaneous emphysema and the remainder of lung is fully expanded to the chest wall. The infiltrative opacity is now almost resolved and it probably represented atelectasis. IMPRESSION: 1. Parkinson's disease, advanced, with chronic dementia. 2. Pneumothorax, treated with a chest tube, still present but no air leak. 3. Sepsis. 4. Colitis with diarrhea, improved. 5. Hypertension. 6. Hypothyroidism. 7. Anxiety and combativeness, improved. 8. Hyperkalemia improved. PLAN AND DISCUSSION: I have changed the Pleur-evac and have re-tightened the chest tube connection and retaped it. I will place him on 40 cm of suction to fully expand the lung to the chest wall.
[2018-12-27] MEDS ORDERED: SODIUM CHLORIDE 0.9% INJ 10 ML SYR IV PRN (13:00)
[2018-12-27] MEDS: CYANOCOBALAMIN 500 MCG TAB PO SCH (13:30)
[2018-12-27] MEDS: CLOPIDOGREL 75 MG TAB PO SCH (13:30)
[2018-12-27] MEDS: SODIUM CHLORIDE 0.9% INJ 10 ML SYR IV SCH ×2 (13:37→21:53)
[2018-12-27] MEDS: QUEtiapine FUMARATE 25 MG TAB PO SCH (18:32)
[2018-12-27] MEDS: CitaloPRAM (CeleXA) 20 MG TAB PO SCH (18:32)
[2018-12-27] MEDS: QUEtiapine FUMARATE 100 MG TAB PO SCH ×2 (21:00→21:51)
[2018-12-27] MEDS: ATORVASTATIN 20 MG TAB PO SCH ×2 (21:00→21:52)
--- NOTE | 2018-12-27 22:03 | IPNPDOC ---
Subjective Date Seen The patient was seen on 12/27/18. Subjective Chief Complaint/HPI Patient was somnolent, but appeared comfortable. Reviewed MOLST form with his , and she elected for him to be DNR/DNI. Chest tube adjusted. reports that he has been eating "OK," and she has been encouraging PO fluids. General: Reports: ROS Unobtainable Objective Physical Examination General Exam: Positive: No Acute Distress (sleepy, resting quietly) Chest Exam: Positive: Other (Right lung CTA, Left lung clear - chest tube in place) Heart Exam: Positive: Rate Normal, Regular Rhythm Telemetry: Positive: No significant arrhythmia, Sinus Abdomen Exam: Positive: Normal bowel sounds, Soft, Other (NT, ND, no rebound, no rigidity); Negative: Tenderness Extremity Exam: Negative: Edema Skin Exam: Positive: Other skin issue (poor skin turgor; sacrum with stage I decub present on admission and healing/improved per ) Assessment /Plan Problems (1) Pneumothorax Status: Acute Problem Specific Plan: Consult Specialist Problem Text: 12/26 -- chest tube remains in place, managed by Dr. Jade 12/25 - s/p CT 12/23 - F/U CXR today:Left chest tube remains in place. The left pneumothorax is almost completely evacuated with a tiny sliver of pleural air superolaterally. There is a hazy pleural opacity in the left upper perihilar region again noted. This could be loculated fluid. There is increased density behind the heart in the left base consistent with atelectasis. A left subclavian line terminates in the superior vena cava. Right lung remains clear. Pulmonary to see today and decide when CT can be removed 12/24 - s/p chest tube placement yesterday Dislodged tube overnight replaced today due to recurrent pneumothorax Cont chest tube until tomorrow and then reassess (2) Colitis Status: Acute Problem Text: 12/27 -- feels PO intake improving. No documented diarrhea today. 12/26 -- states diarrhea improving; he is eating and drinking, but not full meals per his . Diet adjusted per swallow eval. Restarted IVFs at 75 ml/hour as fluid intake insufficient. 12/25 - Diarrhea improved notes this is the 3rd-4th bout of diarrhea over the last several months. GI panel negative Will need eval and colonoscopy when stable. (3) Sepsis Status: Acute Response to Treatment: Improving Problem Text: 12/25 - Resolved - D#4 Zosyn No longer requiring Levaphed IVF stopped BP stable (4) Parkinsons Status: Chronic Response to Treatment: Stable Problem Text: Advanced Parkinson's with dementia. Will continue his home medications. ST eval today. Planned admission to [facility] this Friday. Will have PFS involved with DC plans. (5) HTN (hypertension) Status: Chronic Response to Treatment: Stable Problem Text: cont Carvedilol (6) Hypothyroidism Status: Chronic Response to Treatment: Stable (7) Dementia Status: Chronic Response to Treatment: Stable (8) Depression with anxiety Status: Chronic Response to Treatment: Stable Plan/VTE VTE Prophylaxis Ordered?: Yes Plan IVF: Discontinue Activity: Bedrest Therapy: PT, OT, Speech Pt and Family Services: Other PFS Anticipated Discharge: Halfway VS, I&O, 24H, Fishbone Vital Signs/I&O Vital Signs Date Time Temp Pulse Resp B/P (MAP) Pulse Ox O2 Delivery O2 Flow Rate FiO2 12/27/18 21:52 77 142/90 12/27/18 20:00 98.8 18 95 12/23/18 09:16 4.0 12/22/18 20:33 Room Air I&O- Last 24 Hours up to 6 AM 12/27/18 06:00 Intake Total 1990 ml Output Total 670 ml Balance 1320 ml Laboratory Data 24H LABS Laboratory Tests 2 12/27/18 05:14: Immature Granulocyte % (Auto) 0.4, White Blood Count 9.2, Red Blood Count 3.13L, Hemoglobin 10.2L, Hematocrit 30.2L, Mean Corpuscular Volume 96.5H, Mean Corpuscular Hemoglobin 32.6, Mean Corpuscular Hemoglobin Concent 33.8, Red Cell Distribution Width 12.9, Platelet Count 287, Neutrophils (%) (Auto) 74.0H, Lymphocytes (%) (Auto) 10.9L, Monocytes (%) (Auto) 7.4H, Eosinophils (%) (Auto) 6.8H, Basophils (%) (Auto) 0.5, Neutrophils # (Auto) 6.8, Lymphocytes # (Auto) 1.0L, Monocytes # (Auto) 0.7, Eosinophils # (Auto) 0.6H, Basophils # (Auto) 0.1, Nucleated Red Blood Cells % (auto) 0.0, Anion Gap 7L, Glomerular Filtration Rate > 60.0, Blood Urea Nitrogen 11, Creatinine 0.98, Sodium Level 144, Potassium Level 3.5, Chloride Level 111H, Carbon Dioxide Level 26, Calcium Level 8.0L, Phosphorus Level 2.9, Aspartate Amino Transf (AST/SGOT) 11, Alanine Aminotransferase (ALT/SGPT) 8L, Lactate Dehydrogenase 186, Total Creatine Kinase 111, Alkaline Phosphatase 63, Total Bilirubin 0.4, Triglycerides Level 95, Cholesterol Level 111, Total Protein 6.0L, Albumin 3.0L, Albumin/Globulin Ratio 1.00 CBC/BMP Laboratory Tests 12/27/18 05:14 Red Blood Count 3.13 L, Mean Corpuscular Volume 96.5 H, Mean Corpuscular Hemoglobin 32.6, Mean Corpuscular Hemoglobin Concent 33.8, Red Cell Distribution Width 12.9, Neutrophils (%) (Auto) 74.0 H, Lymphocytes (%) (Auto) 10.9 L, Monocytes (%) (Auto) 7.4 H, Eosinophils (%) (Auto) 6.8 H, Basophils (%) (Auto) 0.5, Neutrophils # (Auto) 6.8, Lymphocytes # (Auto) 1.0 L, Monocytes # (Auto) 0.7, Eosinophils # (Auto) 0.6 H, Basophils # (Auto) 0.1, Calcium Level 8.0 L, Phosphorus Level 2.9, Aspartate Amino Transf (AST/SGOT) 11, Alanine Aminotransferase (ALT/SGPT) 8 L, Lactate Dehydrogenase 186, Total Creatine Kinase 111, Alkaline Phosphatase 63, Total Bilirubin 0.4, Triglycerides Level 95, Cholesterol Level 111, Total Protein 6.0 L, Albumin 3.0 L Microbiology Microbiology 12/22/18 Blood Culture - Final, Complete NO GROWTH AFTER 5 DAYS 12/22/18 Blood Culture - Final, Complete NO GROWTH AFTER 5 DAYS 12/22/18 Gastrointestinal Tract Panel (PCR) - Final, Complete 12/22/18 Urine Culture - Final, Complete STEPHANIE FORTUNE DO Dec 27, 2018 22:03
[2018-12-28] MEDS: PIPERACILLIN/TAZOBACTAM SOD 2.25 GM in D5W MINI-BAG PLUS 50 ML IV SCH ×2 (02:48→10:18)
[2018-12-28] MEDS: SODIUM CHLORIDE 0.9% INJ 10 ML SYR IV SCH ×3 (06:03→20:29)
[2018-12-28] MEDS: LEVOTHYROXINE 100MCG TABLET (0.1MG) PO SCH (06:20)
[2018-12-28] MEDS: IPRATROPIUM 0.5MG/ALBUTEROL 2.5MG INH SOL UD 3ML (DUONEB)(J7620) NEB SCH ×4 (07:56→20:49)
[2018-12-28 08:00] VITALS: BP 184/84
--- NOTE | 2018-12-28 08:07 | REP ---
Clinical: Sepsis. Pneumothorax. Comparison: 12/27/2018. Findings: Central line identified with tip in the SVC remains stable. Left apical chest tube is again identified and stable in position and the previously noted small left-sided pneumothorax has improved / essentially resolved. Left perihilar/infrahilar opacities are again identified suggesting elements of infiltrate/atelectasis. Right hemithorax appears clear. Cardiac silhouette is normal. Skeletal structures appear intact. Impression: 1. Left apical chest tube in stable position with essentially complete resolution to the left-sided pneumothorax previously noted. 2. Left perihilar/lower lobe infiltrate unchanged. Electronically Signed by Barry Sabillon MD 12/28/2018 07:58 A
[2018-12-28] MEDS: ASPIRIN 81 MG CHEW TABLET PO SCH (08:48)
[2018-12-28] MEDS: SINEMET 25-100 MG TAB PO SCH ×4 (08:48→20:28)
[2018-12-28] MEDS: CARVedilol 6.25 MG TAB PO SCH ×2 (08:49→20:29)
[2018-12-28] MEDS: POTASSIUM CHLORIDE 10 MEQ SR TABLET PO SCH ×2 (08:49→20:28)
--- NOTE | 2018-12-28 11:19 | IPNPDOC ---
Subjective Date Seen The patient was seen on 12/28/18. Subjective Chief Complaint/HPI no verbal communication today General: Reports: ROS Unobtainable Objective Physical Examination General Exam: Positive: No Acute Distress (sleepy, resting quietly) Chest Exam: Positive: Other (Right lung CTA, Left lung clear but diminished breath sounds in apex.- chest tube in place) Heart Exam: Positive: Rate Normal, Regular Rhythm Telemetry: Positive: No significant arrhythmia, Sinus Abdomen Exam: Positive: Normal bowel sounds, Soft, Other (NT, ND, no rebound, no rigidity); Negative: Tenderness Extremity Exam: Negative: Edema Skin Exam: Positive: Other skin issue (poor skin turgor; sacrum with stage I decub present on admission and healing/improved per ) Neuro Exam: Positive: Other (no verbal responses today. very rigid. ) Assessment /Plan Problems (1) Pneumothorax Status: Acute Problem Specific Plan: Consult Specialist Problem Text: 12/28: small apical pneumothorax still visible. 12/26 -- chest tube remains in place, managed by Dr. Jade 12/25 - s/p CT 12/23 - F/U CXR today:Left chest tube remains in place. The left pneumothorax is almost completely evacuated with a tiny sliver of pleural air superolaterally. There is a hazy pleural opacity in the left upper perihilar region again noted. This could be loculated fluid. There is increased density behind the heart in the left base consistent with atelectasis. A left subclavian line terminates in the superior vena cava. Right lung remains clear. Pulmonary to see today and decide when CT can be removed 12/24 - s/p chest tube placement yesterday Dislodged tube overnight replaced today due to recurrent pneumothorax Cont chest tube until tomorrow and then reassess (2) Colitis Status: Acute Response to Treatment: Improving Problem Text: 12/28 nothing definitive on cultures. clinically improved. will continue antibiotic to tomorrow then d/c. if symptoms relapse then GI consult 12/27 -- feels PO intake improving. No documented diarrhea today. 12/26 -- states diarrhea improving; he is eating and drinking, but not full meals per his . Diet adjusted per swallow eval. Restarted IVFs at 75 ml/hour as fluid intake insufficient. 12/25 - Diarrhea improved notes this is the 3rd-4th bout of diarrhea over the last several months. GI panel negative Will need eval and colonoscopy when stable. (3) Sepsis Status: Acute Response to Treatment: Improving Problem Text: 12/25 - Resolved - D#4 Zosyn No longer requiring Levaphed IVF stopped BP stable (4) Parkinsons Status: Chronic Response to Treatment: Stable Problem Text: Advanced Parkinson's with dementia. Will continue his home medications. ST eval today. Planned admission to [facility] this Friday. Will have PFS involved with DC plans. (5) HTN (hypertension) Status: Chronic Response to Treatment: Stable Problem Text: cont Carvedilol (6) Hypothyroidism Status: Chronic Response to Treatment: Stable (7) Dementia Status: Chronic Response to Treatment: Stable (8) Depression with anxiety Status: Chronic Response to Treatment: Stable Plan/VTE VTE Prophylaxis Ordered?: Yes Plan IVF: Discontinue Activity: Bedrest Therapy: PT, OT, Speech Pt and Family Services: Other PFS Anticipated Discharge: Correction VS, I&O, 24H, Fishbone Vital Signs/I&O Vital Signs Date Time Temp Pulse Resp B/P (MAP) Pulse Ox O2 Delivery O2 Flow Rate FiO2 12/28/18 08:49 79 168/90 12/28/18 08:00 98.7 19 95 12/23/18 09:16 4.0 12/22/18 20:33 Room Air I&O- Last 24 Hours up to 6 AM 12/28/18 06:00 Intake Total 2150 ml Output Total 925 ml Balance 1225 ml Laboratory Data Microbiology Microbiology 12/22/18 Blood Culture - Final, Complete NO GROWTH AFTER 5 DAYS 12/22/18 Blood Culture - Final, Complete NO GROWTH AFTER 5 DAYS 12/22/18 Gastrointestinal Tract Panel (PCR) - Final, Complete 12/22/18 Urine Culture - Final, Complete Alphonso Canchola MD Dec 28, 2018 11:19
--- NOTE | 2018-12-28 11:55 | CCN ---
DATE OF SERVICE: 12/28/2018 Mr. Multani is seen in progressive care unit (PCU). He is currently using a nebulizer. He is somewhat agitated with a nebulizer. He is non-verbal. The patient is a little agitated with the nebulizer mask on. He continues with a chest tube. There does not appear to be an air leak. PHYSICAL EXAMINATION: VITALS: Temperature is 98.7, pulse 78, respiratory 19, blood pressure 168/90, pulse ox 95%. GENERAL: The patient is awake. Noncommunicative. Slightly agitated due to nebulizer mask. HEENT: Sclerae is clear. Pupils are equal, reactive to light. Mucous membranes are moist. NECK: Neck is supple with no tracheal deviation. No cervical lymphadenopathy. No obvious jugular venous distention (JVD). CARDIAC: Regular rate and rhythm. No murmurs. PULMONARY: Clear to auscultation without wheezes, rales or rhonchi. Maybe some diminished breath sounds at the left apex. No accessory muscle use. ABDOMEN: Soft. Abdominal exam is somewhat difficult as the patient does seem to be guarding somewhat. The patient does not appear to have significant pain with palpation. EXTREMITIES: No clubbing or cyanosis or edema. LABORATORY DATA: WBC 9.2, hemoglobin 10.2, hematocrit 30.2, platelets 287. Sodium 144, potassium 3.5, carbon dioxide 26, BUN 11, creatinine 0.90, glucose 94, calcium 8.0, phosphorus 2.9, total bili 0.4, AST 11, ALT 8, alk phos 63, LD 186, CK 111, total protein 6.0, albumin 3.0, triglycerides 95, cholesterol 111. Chest x-ray shows a left apical chest tube in place. May have very slight left pneumothorax remaining. There is overall decreased aeration on the left lung compared to the right. ASSESSMENT/PLAN: Pneumothorax: Presumed to be iatrogenic in nature. Does continue show some slight improvement on chest x-ray. The patient has a chest tube in place. Dr. Jade is managing the chest tube for the pneumothorax. We will continue to follow.
[2018-12-28 12:00] VITALS: BP 132/76
[2018-12-28] MEDS: CYANOCOBALAMIN 500 MCG TAB PO SCH (12:38)
[2018-12-28] MEDS: CLOPIDOGREL 75 MG TAB PO SCH (12:38)
--- NOTE | 2018-12-28 13:44 | IPN ---
DATE: 12/28/2018 Mr. Multani is somewhat more alert today. There is some confusion about his activity status and I have asked that he be ambulated and gotten out of the bed and the chair. His lung is fully expanded to the chest wall on chest x-ray and I am going to reduce the suction to 20 from 40. He is breathing well. His vital signs show a maximum temperature (T-max) of 98.8, with a heart rate that ranges between 77 and 86 and in sinus rhythm, respiratory rate of 18-20 without the use of accessory muscles, who is 95% saturated on room air his blood pressures range between 130/72 to 184/84. His intake and output over the past 24 hours is recorded as 2640 in and 975 out for positivity of 1665 mL. His has put out nothing from the chest tube and there is no air leak. Weight today is 76.5 kilograms, which is 73.6 kg yesterday. On physical examination, his lungs show equal breath sounds on either side with some very faint inspiratory rales in the right lower lobe and in the left lower hemithorax. Percussion note is full to the diaphragm. On physical examination, his lungs show normal vesicular sounds. Cardiac exam is without murmurs, clicks, gallops or rubs. I cannot feel his point of maximum impulse (PMI). S1 and S2 are normal. Abdomen is soft and nontender but distended and tympanitic. Bowel sounds are positive. Extremities show trace pretibial edema with no calf tenderness. No differential swelling of the upper extremities. Skin is warm, dry and perfused without cyanosis or mottling including that of the nail beds and knees. Neck is supple. There is no jugular venous distention. No subcutaneous emphysema. Trachea is midline. Mouth shows his mucous membranes to be pink and moist. Lips and commissures are without lesions. There is no thrush. Eyes show his pupils to be equal and reactive. Extraocular movements intact. Sclerae nonicteric. Neurologic shows II-XII intact along with gross motor and gross sensation intact. Gait is not tested. Psychiatric showed him to be awake, fairly alert but often not somnolent. His white count today is 9.2 with a hemoglobin and hematocrit of 10.2 and 30.2, essentially unchanged from yesterday with a platelet count of 287 and stable. Differential shows 74% neutrophils, 10% lymphocytes, 7% monocytes. There are no immature forms or toxic granulations. His electrolytes are not done today. His potassium was 3.5 yesterday and he was on potassium supplementation. His chest x-ray today shows his lungs fully expanded to the chest wall. There is no pneumothorax. Costophrenic angles are sharp. His chest x-ray is done portably and I will change him to PA and lateral views now that he can ambulate. Chest tube is in good place. IMPRESSION: 1. Parkinson disease advanced with chronic dementia. 2. Pneumothorax treated with chest tubes. 3. Sepsis. 4. Colitis with diarrhea, improved. 5. Hypertension. 6. Hypothyroidism. 7. Anxiety and combativeness improved. 8. Hypokalemia, improved. PLAN/DISCUSSION: I will place his chest tube down to 20 cm of suction. Because I cannot sedate him to put another chest tube in, I am going to take my time removing this chest tube as he is not going to be discharge from the hospital for a few days in any case. Tomorrow, if the x-ray is satisfactory, I will turn the suction off. The earliest the chest tube can come out would be in 2 days. [facility] MEDICAL CENTERGabo
[2018-12-28] MEDS: CitaloPRAM (CeleXA) 20 MG TAB PO SCH (16:45)
[2018-12-28] MEDS: NS 1,000 ML IV SCH ×2 (16:45→23:53)
[2018-12-28] MEDS: QUEtiapine FUMARATE 25 MG TAB PO SCH (16:45)
[2018-12-28 20:00] VITALS: BP 120/70
[2018-12-28] MEDS: ATORVASTATIN 20 MG TAB PO SCH (20:28)
[2018-12-28] MEDS: QUEtiapine FUMARATE 100 MG TAB PO SCH (20:28)
[2018-12-28 23:59] VITALS: BP 130/80
[2018-12-29 04:00] VITALS: BP 160/80
[2018-12-29] MEDS: SODIUM CHLORIDE 0.9% INJ 10 ML SYR IV SCH ×3 (05:38→20:38)
[2018-12-29] MEDS: LEVOTHYROXINE 100MCG TABLET (0.1MG) PO SCH (05:38)
[2018-12-29] MEDS: IPRATROPIUM 0.5MG/ALBUTEROL 2.5MG INH SOL UD 3ML (DUONEB)(J7620) NEB SCH ×4 (07:21→19:45)
[2018-12-29 08:00] VITALS: BP 122/68
[2018-12-29] MEDS: ASPIRIN 81 MG CHEW TABLET PO SCH (08:24)
[2018-12-29] MEDS: SINEMET 25-100 MG TAB PO SCH ×5 (08:24→20:49)
[2018-12-29] MEDS: CARVedilol 6.25 MG TAB PO SCH ×3 (08:24→20:48)
[2018-12-29] MEDS: POTASSIUM CHLORIDE 10 MEQ SR TABLET PO SCH ×3 (09:00→20:38)
--- NOTE | 2018-12-29 09:15 | REP ---
Clinical: Follow up pneumothorax. Technique: PA and lateral. Comparison: 12/27/2018. Findings: Central line with tip in the SVC remains stable. Small stent identified just below the level of the right clavicular head remains stable. Left apical chest tube in stable position and no obvious residual pneumothorax is appreciated. Left lower lobe/retrocardiac consolidation and pleural effusion may be slightly improved when compared to prior examination. The right hemithorax is relatively clear. Skeletal structures are stable. Impression: 1. No obvious residual pneumothorax. 2. Left lower lobe/retrocardiac opacity and left pleural effusion may be slightly improved. Electronically Signed by Barry Sabillon MD 12/29/2018 09:06 A
--- NOTE | 2018-12-29 10:41 | IPNPDOC ---
Subjective Date Seen The patient was seen on 12/29/18. Subjective Chief Complaint/HPI no discomfort and no dyspnea Constitutional: Denies: Chills Pulmonary: Denies: Dyspnea, Cough Cardiovascular: Denies: Chest Pain, Palpitations Gastrointestinal: Denies: Nausea, Abdominal Pain Endocrine: Denies: Polydipsia Neurological: Reports: Other Symptoms (no changes) Objective Physical Examination General Exam: Positive: Alert, No Acute Distress (sleepy, resting quietly) Eye Exam: Positive: PERRLA Chest Exam: Positive: Other (clear to ausculation, even in left apex ) Heart Exam: Positive: Rate Normal, Regular Rhythm Telemetry: Positive: No significant arrhythmia, Sinus Abdomen Exam: Positive: Normal bowel sounds, Soft, Other (NT, ND, no rebound, no rigidity); Negative: Tenderness Extremity Exam: Negative: Edema Skin Exam: Positive: Nl turgor and temperature, Other skin issue (poor skin turgor; sacrum with stage I decub present on admission and healing/improved per ) Neuro Exam: Positive: Other (alert, conversant, slow difficult to understand but appropriate responses. bradykinesis with some cogwheeling in right more than left.) Psych Exam: Positive: Other; Negative: Mental status NL, Mood NL, Anxiety, Memory Intact, Oriented x 3 Assessment /Plan Problems (1) Pneumothorax Status: Acute Problem Specific Plan: Consult Specialist Problem Text: 12/29: upon review with large, magnified image yesterday, one could confirm there were bronchopulmonary markings visible in the apex, so no pneumothorax yesterday and none today. chest tube in place with suction reduced by Dr. Jade 12/28: small apical pneumothorax still visible. 12/26 -- chest tube remains in place, managed by Dr. Jade 12/25 - s/p CT 12/23 - F/U CXR today:Left chest tube remains in place. The left pneumothorax is almost completely evacuated with a tiny sliver of pleural air superolaterally. There is a hazy pleural opacity in the left upper perihilar region again noted. This could be loculated fluid. There is increased density behind the heart in the left base consistent with atelectasis. A left subclavian line terminates in the superior vena cava. Right lung remains clear. Pulmonary to see today and decide when CT can be removed 12/24 - s/p chest tube placement yesterday Dislodged tube overnight replaced today due to recurrent pneumothorax Cont chest tube until tomorrow and then reassess (2) Colitis Status: Acute Response to Treatment: Improving Problem Text: 12/29 will stop antibiotics. taking food ok, no gi symptoms. 12/28 nothing definitive on cultures. clinically improved. will continue antibiotic to tomorrow then d/c. if symptoms relapse then GI consult 12/27 -- feels PO intake improving. No documented diarrhea today. 12/26 -- states diarrhea improving; he is eating and drinking, but not full meals per his . Diet adjusted per swallow eval. Restarted IVFs at 75 ml/hour as fluid intake insufficient. 12/25 - Diarrhea improved notes this is the 3rd-4th bout of diarrhea over the last several months. GI panel negative Will need eval and colonoscopy when stable. (3) Sepsis Status: Acute Response to Treatment: Improving Problem Text: 12/29 will stop antibiotics today. 12/25 - Resolved - D#4 Zosyn No longer requiring Levaphed IVF stopped BP stable (4) Parkinsons Status: Chronic Response to Treatment: Stable Problem Text: Advanced Parkinson's with dementia. Will continue his home medications. ST eval today. Planned admission to [facility] this Friday. Will have PFS involved with DC plans. (5) HTN (hypertension) Status: Chronic Response to Treatment: Stable Problem Text: cont Carvedilol (6) Hypothyroidism Status: Chronic Response to Treatment: Stable (7) Dementia Status: Chronic Response to Treatment: Stable Problem Text: Parkinsonian (8) Depression with anxiety Status: Chronic Response to Treatment: Stable Plan/VTE VTE Prophylaxis Ordered?: Yes Plan IVF: Discontinue Activity: Bedrest Therapy: PT, OT, Speech Pt and Family Services: Other PFS Anticipated Discharge: Long-Term VS, I&O, 24H, Fishbone Vital Signs/I&O Vital Signs Date Time Temp Pulse Resp B/P (MAP) Pulse Ox O2 Delivery O2 Flow Rate FiO2 12/29/18 08:24 73 122/68 12/29/18 08:00 98.4 18 97 12/23/18 09:16 4.0 I&O- Last 24 Hours up to 6 AM 12/29/18 06:00 Intake Total 1605 ml Output Total 675 ml Balance 930 ml Laboratory Data Microbiology Microbiology 12/22/18 Blood Culture - Final, Complete NO GROWTH AFTER 5 DAYS 12/22/18 Blood Culture - Final, Complete NO GROWTH AFTER 5 DAYS 12/22/18 Gastrointestinal Tract Panel (PCR) - Final, Complete 12/22/18 Urine Culture - Final, Complete Alphonso Canchola MD Dec 29, 2018 10:40
--- NOTE | 2018-12-29 11:32 | IPN ---
DATE OF SERVICE: 12/29/2018 Mr. Multani is a 57-year-old male that I am following for an iatrogenic pneumothorax. This morning he is on approximately 14 cm of suction. There is no air leak. However, I am unable to have the patient follow commands off. He is fairly averbal but does tell me today he has Parkinson and does actually greet me today, so he is much less agitated than on prior visits. No new events overnight. PHYSICAL EXAMINATION: Temperature is 98.4, pulse is 73, respiratory rate is 18, blood pressure is 122/60, oxygen saturations 97% on room air. GENERAL: Laying in bed less agitated spontaneously opening his eyes. HEENT: Sclerae clear anicteric. Pupils equal, react to light. Mucous membranes moist without lesions. Tongue is midline. NECK: Is supple. No tracheal deviation or mass. LYMPHS: No cervical, supraclavicular axillary adenopathy. PULMONARY: Fairly clear to auscultation without rales, rhonchi or wheezes. I do not auscultate any abnormal breath sounds. There is some decreased chest expansion on the side of the tube. At the point in time of my inspection, there is no air leak through the system. ABDOMEN: Soft, nontender, nondistended. No hepatosplenomegaly or masses. EXTREMITIES: No cyanosis, clubbing or edema. SKIN: Skin is pale without rash, jaundice or bruising. Laboratory evaluation shows a white blood cell count of 9.18, hemoglobin 10.2, platelet count of 287. Sodium is 144, potassium 3.5, chloride is 111, bicarb of 26, BUN 11, creatinine of 0.90, calcium is 8.0, albumin is 3.04. There is a mild to moderate the left pleural effusion seen on lateral film. There is a sliver of a persistent pneumothorax in the left lung apex. Chest tube remains in adequate position. No right-sided changes. IMPRESSION: Iatrogenic pneumothorax. This case discussed with Dr. Jade. Dr. Jade is determining management of the chest tube. I am following along for potential pulmonary complications. A white count is normal today. There is no evidence of ongoing infection. Antibiotics were stopped yesterday. Will continue to follow this patient.
[2018-12-29 12:00] VITALS: BP 138/75
[2018-12-29] MEDS: CLOPIDOGREL 75 MG TAB PO SCH (12:08)
[2018-12-29] MEDS: CYANOCOBALAMIN 500 MCG TAB PO SCH (12:09)
[2018-12-29 13:14] LABS: BLOOD UREA NITROGEN 10 MG/DL (7-18); CALCIUM LEVEL 8.3 MG/DL (8.5-10.1); CARBON DIOXIDE LEVEL 26 MEQ/L (21-32); CHLORIDE LEVEL 110 MEQ/L (98-107); CREATININE FOR GFR 0.82 MG/DL (0.70-1.30); GLOMERULAR FILTRATION RATE > 60.0 (>56); GLUCOSE, FASTING 91 MG/DL (70-100); POTASSIUM SERUM 3.9 MEQ/L (3.5-5.1); SODIUM LEVEL 141 MEQ/L (136-145)
--- NOTE | 2018-12-29 14:10 | IPN ---
DATE: 12/29/2018 Mr. Multani is much brighter today. He has been up to the side of bed and to a chair. He is breathing well. He actually had some interaction with me. His vital signs show a maximum temperature (T-max) of 98.4 with a heart rate that ranges between 91 and 74 in [place], [place] [address] without the use of accessory muscles, who is 95% saturated on room air and his blood pressure is ranging between 160/80 to 122/74. His intake and output over the past 24 hours has been recorded as 1595 in and 700 out for a positivity of 895 mL. His by mouth intake has been 720 mL and his IV intake has been 875 mL. He has put out nothing from the chest tube and there is no air leak. Weight today is 75.9 kg compared to 76.5 kg yesterday. On physical examination, he has some crackles in the right lower hemothorax during late inspiration. Breath sounds are slightly decreased on the left side. Percussion notes are full to the diaphragm. Cardiac exam is without murmurs, clicks, gallops or rubs. I cannot feel his point of maximum impulse (PMI). S1 and S2 are normal. Abdomen is soft and nontender but still distended and tympanitic. There are very active bowel sounds today. There is no hepatomegaly. No costovertebral angle (CVA) tenderness. Extremities show no pretibial edema with no calf tenderness. No differential swelling of the upper extremities. Skin is warm, dry and perfused without cyanosis or mottling including that of the nail beds and knees. Neck is supple. There is no jugular venous distention. No subcutaneous emphysema. Trachea is midline. Mouth shows his mucous membranes to be pink and moist. Lips and commissures are without lesions. There is no thrush. Eyes show his pupils to be equal and reactive. Extraocular movements intact. Sclerae nonicteric. Neurologic shows II-XII intact along with gross motor and gross sensation intact. Gait is not tested. He is rigid throughout, however. Psychiatric showed him to be much more awake and alert. His chest x-ray today shows a sharp left costophrenic angle. However, the lateral chest x-ray looks to have a meniscus of a pleural effusion on the left side. This is about a quarter of the way up the chest. I do not see it on the PA film, although it could be hiding behind the posterior costophrenic angle on the left side behind the heart. His white count today is not done, nor are his chemistries. There is no new microbiology on him. Blood cultures are all negative and his GI panel was negative. IMPRESSION: 1. Parkinson disease advanced with chronic dementia. 2. Pneumothorax treated with a chest tube, improved. 3. Sepsis. 4. Colitis with diarrhea improved. 5. Hypertension. 6. Hypothyroidism. 7. Anxiety and combativeness, improved. 8. Hypokalemia, unknown. PLAN/DISCUSSION: He has just a sliver of lung separation from the chest wall at the very cupula. I will, therefore, discontinue his chest tube suction. It is on 20 cm now. If the lung stays up, I will discontinue his chest tube tomorrow and we can plan for eventual discharge on from my prospective. His Franco catheter is still in and it will be up to the medical service as to whether to discontinue it.
[2018-12-29] MEDS: CitaloPRAM (CeleXA) 20 MG TAB PO SCH (16:22)
[2018-12-29] MEDS: QUEtiapine FUMARATE 25 MG TAB PO SCH (16:22)
[2018-12-29] MEDS: NS 1,000 ML IV SCH (19:51)
[2018-12-29 20:00] VITALS: BP 158/100
[2018-12-29] MEDS: QUEtiapine FUMARATE 100 MG TAB PO SCH ×2 (20:37→20:49)
[2018-12-29] MEDS: ATORVASTATIN 20 MG TAB PO SCH ×2 (20:37→20:49)
[2018-12-29 23:59] VITALS: BP 162/87
[2018-12-30] MEDS: NS 1,000 ML IV SCH ×3 (02:00→23:20)
[2018-12-30 04:00] VITALS: BP 158/90
[2018-12-30 05:12] LABS: HEMATOCRIT 29.7 % (42.0-52.0); HEMOGLOBIN 9.9 g/dl (13.5-17.5); MEAN CORPUSCULAR HEMOGLOBIN 32.4 pg (27.0-33.0); MEAN CORPUSCULAR HGB CONC 33.3 g/dl (32.0-36.5); MEAN CORPUSCULAR VOLUME 97.1 fl (80.0-96.0); PLATELET COUNT, AUTOMATED 337 10^3/uL (150-450); RED BLOOD COUNT 3.06 10^6/uL (4.30-6.10); WHITE BLOOD COUNT 9.5 10^3/uL (4.0-10.0)
[2018-12-30 05:26] LABS: BLOOD UREA NITROGEN 9 MG/DL (7-18); CALCIUM LEVEL 7.9 MG/DL (8.5-10.1); CARBON DIOXIDE LEVEL 27 MEQ/L (21-32); CHLORIDE LEVEL 111 MEQ/L (98-107); CREATININE FOR GFR 0.68 MG/DL (0.70-1.30); GLOMERULAR FILTRATION RATE > 60.0 (>56); GLUCOSE, FASTING 96 MG/DL (70-100); POTASSIUM SERUM 3.6 MEQ/L (3.5-5.1); SODIUM LEVEL 143 MEQ/L (136-145)
[2018-12-30] MEDS: SODIUM CHLORIDE 0.9% INJ 10 ML SYR IV SCH ×3 (06:16→21:02)
[2018-12-30] MEDS: LEVOTHYROXINE 100MCG TABLET (0.1MG) PO SCH (06:17)
[2018-12-30] MEDS: IPRATROPIUM 0.5MG/ALBUTEROL 2.5MG INH SOL UD 3ML (DUONEB)(J7620) NEB SCH ×4 (07:10→20:36)
[2018-12-30 08:00] VITALS: BP 160/88
--- NOTE | 2018-12-30 08:30 | REP ---
Clinical: Pneumothorax. Technique: PA and lateral. Comparison: 12/29/2018. Findings: Left apical chest tube and left subclavian catheter are in stable position. No obvious residual pneumothorax is appreciated. The right hemithorax is well-aerated and clear. Left hemithorax demonstrates lower lobe pleuroparenchymal changes including suspected retrocardiac infiltrate. Effusion based on lateral radiograph cannot be excluded. Impression: 1. No significant change from recent prior examination. 2. No obvious residual pneumothorax. 3. Continued evidence for left basilar opacities suggesting infiltrate/atelectasis, pleural changes, and possible effusion. Electronically Signed by Barry Sabillon MD 12/30/2018 08:21 A
[2018-12-30] MEDS: POTASSIUM CHLORIDE 10 MEQ SR TABLET PO SCH ×2 (09:45→21:01)
[2018-12-30] MEDS: CARVedilol 6.25 MG TAB PO SCH ×2 (09:45→21:01)
[2018-12-30] MEDS: ASPIRIN 81 MG CHEW TABLET PO SCH (09:45)
[2018-12-30] MEDS: SINEMET 25-100 MG TAB PO SCH ×4 (09:46→21:01)
--- NOTE | 2018-12-30 09:51 | IPNPDOC ---
Subjective Date Seen The patient was seen on 12/30/18. Subjective Chief Complaint/HPI today [birth year] my [birth year] Constitutional: Denies: Chills, Malaise ENT: Denies: Head Aches Pulmonary: Denies: Dyspnea, Cough Cardiovascular: Denies: Chest Pain, Orthopnea Gastrointestinal: Denies: Nausea, Abdominal Pain Hematologic: Denies: Bruising Objective Physical Examination General Exam: Positive: Alert, No Acute Distress (sleepy, resting quietly) Eye Exam: Positive: PERRLA Neck Exam: Positive: Other (left subclavian line in place.) Chest Exam: Positive: Clear to auscultation, Other (clear to ausculation, even in left apex ) Heart Exam: Positive: Rate Normal, Regular Rhythm Telemetry: Positive: No significant arrhythmia, Sinus Abdomen Exam: Positive: Normal bowel sounds, Soft, Other (NT, ND, no rebound, no rigidity); Negative: Tenderness Extremity Exam: Negative: Edema Skin Exam: Positive: Nl turgor and temperature, Other skin issue (poor skin turgor; sacrum with stage I decub present on admission and healing/improved per ) Neuro Exam: Positive: Other (alert, conversant, slow difficult to understand but appropriate responses. bradykinesis with some cogwheeling in right more than left.) Psych Exam: Positive: Other; Negative: Mental status NL, Mood NL, Anxiety, Memory Intact, Oriented x 3 Assessment /Plan Problems (1) Pneumothorax Status: Acute Problem Specific Plan: Consult Specialist Problem Text: 12/30: CXR shows no pneumothorax. left sided effusion, likely residual from the event that created the pneumothorax, slightly increased density in left upper lobe, stable. chest tube in place managed by Dr. Jade. 12/29: upon review with large, magnified image yesterday, one could confirm there were bronchopulmonary markings visible in the apex, so no pneumothorax yesterday and none today. chest tube in place with suction reduced by Dr. Jade 12/28: small apical pneumothorax still visible. 12/26 -- chest tube remains in place, managed by Dr. Jade 12/25 - s/p CT 12/23 - F/U CXR today:Left chest tube remains in place. The left pneumothorax is almost completely evacuated with a tiny sliver of pleural air superolaterally. There is a hazy pleural opacity in the left upper perihilar region again noted. This could be loculated fluid. There is increased density behind the heart in the left base consistent with atelectasis. A left subclavian line terminates in the superior vena cava. Right lung remains clear. Pulmonary to see today and decide when CT can be removed 12/24 - s/p chest tube placement yesterday Dislodged tube overnight replaced today due to recurrent pneumothorax Cont chest tube until tomorrow and then reassess (2) Colitis Status: Resolved Response to Treatment: Improving Problem Text: 12/29 will stop antibiotics. taking food ok, no gi symptoms. 12/28 nothing definitive on cultures. clinically improved. will continue antibiotic to tomorrow then d/c. if symptoms relapse then GI consult 12/27 -- feels PO intake improving. No documented diarrhea today. 12/26 -- states diarrhea improving; he is eating and drinking, but not full meals per his . Diet adjusted per swallow eval. Restarted IVFs at 75 ml/hour as fluid intake insufficient. 12/25 - Diarrhea improved notes this is the 3rd-4th bout of diarrhea over the last several months. GI panel negative Will need eval and colonoscopy when stable. (3) Sepsis Status: Resolved Response to Treatment: Improving Problem Text: 12/29 will stop antibiotics today. 12/25 - Resolved - D#4 Zosyn No longer requiring Levaphed IVF stopped BP stable (4) Parkinsons Status: Chronic Response to Treatment: Stable Problem Text: Advanced Parkinson's with dementia. Will continue his home medications. ST eval today. Planned admission to [facility] this Friday. Will have PFS involved with DC plans. (5) HTN (hypertension) Status: Chronic Response to Treatment: Stable Problem Text: cont Carvedilol (6) Hypothyroidism Status: Chronic Response to Treatment: Stable (7) Dementia Status: Chronic Response to Treatment: Stable Problem Specific Plan: Repeat Tests (will repeat swallowing eval since family suggests he should be able to tolerate more substantial diet.) Problem Text: Parkinsonian (8) Depression with anxiety Status: Chronic Response to Treatment: Stable Plan/VTE VTE Prophylaxis Ordered?: Yes Plan IVF: Discontinue Activity: Bedrest Therapy: PT, OT, Speech Pt and Family Services: Other PFS Anticipated Discharge: Residential VS, I&O, 24H, Fishbone Vital Signs/I&O Vital Signs Date Time Temp Pulse Resp B/P (MAP) Pulse Ox O2 Delivery O2 Flow Rate FiO2 12/30/18 09:45 76 160/88 12/30/18 08:00 98.0 18 99 I&O- Last 24 Hours up to 6 AM0 12/30/18 06:00 Intake Total 2640 ml Output Total 183 ml Balance 2457 ml Laboratory Data 24H LABS Laboratory Tests 2 12/29/18 12:21: Anion Gap 5L, Glomerular Filtration Rate > 60.0, Blood Urea Nitrogen 10, Creatinine 0.82, Sodium Level 141, Potassium Level 3.9, Chloride Level 110H, Carbon Dioxide Level 26, Calcium Level 8.3L 12/30/18 04:46: Anion Gap 5L, Glomerular Filtration Rate > 60.0, Blood Urea Nitrogen 9, Creatinine 0.68L, Sodium Level 143, Potassium Level 3.6, Chloride Level 111H, Carbon Dioxide Level 27, Calcium Level 7.9L, Nucleated Red Blood Cells % (auto) 0.0 CBC/BMP Laboratory Tests 12/29/18 12:21 Calcium Level 8.3 L 12/30/18 04:46 Calcium Level 7.9 L, Red Blood Count 3.06 L, Mean Corpuscular Volume 97.1 H, Mean Corpuscular Hemoglobin 32.4, Mean Corpuscular Hemoglobin Concent 33.3, Red Cell Distribution Width 13.5 Microbiology Microbiology 12/22/18 Blood Culture - Final, Complete NO GROWTH AFTER 5 DAYS 12/22/18 Blood Culture - Final, Complete NO GROWTH AFTER 5 DAYS 12/22/18 Gastrointestinal Tract Panel (PCR) - Final, Complete 12/22/18 Urine Culture - Final, Complete Alphonso Canchola MD Dec 30, 2018 09:51
[2018-12-30 11:51] VITALS: BP 160/91
--- NOTE | 2018-12-30 12:05 | IPN ---
DATE: 12/30/2018 Mr. Multani is a little bit more somnolent today. It is his birthday. Nonetheless he can cooperate with requests. His vital signs show a T-max of 98.9 with a heart rate that ranges between 72 and 87 and is sinus rhythm, respiratory rate that is constant at 18, who is 95% saturated on room air and his blood pressure is ranging between 156/98 to 162/87. His intake and output over the past 24 hours has been recorded as 2250 in and 408 out for a positivity of 1800 mL. He has put 3 mL out the chest tube and there is no air leak. Weight today is 79 kilos compared to 75.9 kilos yesterday. On physical examination, he has equal breath sounds on either side with inspiratory rales at the right base rather than the left base. Percussion note is full to the diaphragm. Cardiac exam is without murmurs, clicks, gallops or rubs. I cannot feel his point of maximum impulse (PMI). S1 and S2 are normal. Abdomen is soft and nontender, bowel sounds are positive. There is no hepatomegaly, no CVA tenderness. He is tympanitic and distended. Extremities show no pretibial edema. No calf tenderness. No differential swelling of the upper extremities. Skin is warm, dry and perfused without cyanosis or mottling including that of the nail beds and knees. Neck is supple. There is no jugular venous distention. No subcutaneous emphysema. Trachea is midline. Mouth shows his mucous membranes to be pink and moist. Lips and commissures are without lesions. There is no thrush. Eyes are continually closed and he will not open them to let me see today. Neurologic shows II-XII intact and gross motor and gross sensation intact with him being quite rigid secondary to his Parkinson's disease. Psychiatric showed him to be somnolent but able to follow commands. His white count is 9.5 with hemoglobin and hematocrit of 9.9 and 29.7, essentially unchanged from yesterday with a platelet count of 337 and stable. There is no differential. His electrolytes are essentially normal with a BUN and creatinine of 9 and 0.68 with a glucose of 96 and a calcium of 7.9. His chest x-ray shows the lung fully expanded to the chest wall. I do not see even a small lung line consistent with residual air space. Costophrenic angles are sharp. The diffuse vague opacity in the left upper lobe looks to be improving additionally. The pleural effusion on the lateral film also looks to be improving. Again, I cannot see that on the PA film. IMPRESSION: 1. Parkinson' disease advanced with chronic dementia. 2. Pneumothorax treated with a chest tube, resolved. 3. Sepsis. 4. Colitis with diarrhea, improved. 5. Hypertension. 6. Hypothyroidism. 7. Anxiety and combativeness, improved. 8. Hypokalemia, resolved. PLAN/DISCUSSION: I will remove the chest tube today. If the chest x-ray is satisfactory tomorrow, I have no objection to him being discharged back to a terminal worker care facility. He eventual discharge will be up to his primary care physicians.
[2018-12-30] MEDS: CLOPIDOGREL 75 MG TAB PO SCH (12:50)
[2018-12-30] MEDS: CYANOCOBALAMIN 500 MCG TAB PO SCH (12:50)
--- NOTE | 2018-12-30 13:26 | NUR ---
Recommend upgrade to level 3 mechanical soft solids, shaved deli meats OK, continue thin liquids, small bite/sip, OOB all meals, full assistance feeding, medications crushed. Addendum: 12/30/18 at 1327 by JUAQUIN MOREAU [facility] Amended: Links added.
[2018-12-30 16:00] VITALS: BP 135/74
[2018-12-30] MEDS: QUEtiapine FUMARATE 25 MG TAB PO SCH (17:05)
[2018-12-30] MEDS: CitaloPRAM (CeleXA) 20 MG TAB PO SCH (17:06)
[2018-12-30 20:00] VITALS: BP 142/70
[2018-12-30] MEDS: ATORVASTATIN 20 MG TAB PO SCH (21:01)
[2018-12-30] MEDS: QUEtiapine FUMARATE 100 MG TAB PO SCH (21:02)
[2018-12-30 23:59] VITALS: BP 137/72
[2018-12-31 04:00] VITALS: BP 149/90
[2018-12-31] MEDS: SODIUM CHLORIDE 0.9% INJ 10 ML SYR IV SCH ×3 (05:43→22:00)
[2018-12-31 05:57] LABS: HEMATOCRIT 29.3 % (42.0-52.0); HEMOGLOBIN 9.7 g/dl (13.5-17.5); MEAN CORPUSCULAR HEMOGLOBIN 31.7 pg (27.0-33.0); MEAN CORPUSCULAR HGB CONC 33.1 g/dl (32.0-36.5); MEAN CORPUSCULAR VOLUME 95.8 fl (80.0-96.0); PLATELET COUNT, AUTOMATED 345 10^3/uL (150-450); RED BLOOD COUNT 3.06 10^6/uL (4.30-6.10); WHITE BLOOD COUNT 8.9 10^3/uL (4.0-10.0)
[2018-12-31 06:19] LABS: BLOOD UREA NITROGEN 7 MG/DL (7-18); CALCIUM LEVEL 7.8 MG/DL (8.5-10.1); CARBON DIOXIDE LEVEL 26 MEQ/L (21-32); CHLORIDE LEVEL 110 MEQ/L (98-107); CREATININE FOR GFR 0.79 MG/DL (0.70-1.30); GLOMERULAR FILTRATION RATE > 60.0 (>56); GLUCOSE, FASTING 95 MG/DL (70-100); POTASSIUM SERUM 3.6 MEQ/L (3.5-5.1); SODIUM LEVEL 141 MEQ/L (136-145)
[2018-12-31] MEDS: LEVOTHYROXINE 100MCG TABLET (0.1MG) PO SCH (06:19)
[2018-12-31] MEDS: IPRATROPIUM 0.5MG/ALBUTEROL 2.5MG INH SOL UD 3ML (DUONEB)(J7620) NEB SCH ×4 (07:08→20:28)
[2018-12-31 08:00] VITALS: BP 169/86
--- NOTE | 2018-12-31 08:24 | REP ---
The the the PA and lateral chest: Comparison is 12/30/2018. There is no visible pneumothorax. There is increased density in the left upper lobe. This is unchanged. There is a linear density inferiorly in the left lung compatible with discoid atelectasis. This is unchanged. Right lung is clear. Cardiac size is upper normal, unchanged. There is a left subclavian central venous catheter with the tip in the superior vena cava, unchanged. Impression: No interval change. Electronically Signed by Gonzalo Chaudhry MD 12/31/2018 08:16 A
[2018-12-31] MEDS: ASPIRIN 81 MG CHEW TABLET PO SCH (09:28)
[2018-12-31] MEDS: POTASSIUM CHLORIDE 10 MEQ SR TABLET PO SCH ×3 (09:28→21:00)
[2018-12-31] MEDS: SINEMET 25-100 MG TAB PO SCH ×4 (09:28→20:49)
[2018-12-31] MEDS: CARVedilol 6.25 MG TAB PO SCH ×2 (09:29→20:46)
--- NOTE | 2018-12-31 11:47 | IPNPDOC ---
Subjective Date Seen The patient was seen on 12/31/18. Subjective Chief Complaint/HPI sleeping, no verbal response at this time. General: Reports: ROS Unobtainable Objective Physical Examination General Exam: Positive: Alert, No Acute Distress (sleepy, resting quietly) ENT Exam: Positive: Atraumatic Neck Exam: Positive: Other (left subclavian line in place.) Chest Exam: Positive: Clear to auscultation, Other (clear to ausculation, even in left apex, air movement minimal due to inability to breath with command, central line dressing in place.) Heart Exam: Positive: Rate Normal, Regular Rhythm Telemetry: Positive: No significant arrhythmia, Sinus Abdomen Exam: Positive: Normal bowel sounds, Soft, Other (NT, ND, no rebound, no rigidity); Negative: Tenderness Extremity Exam: Negative: Edema Skin Exam: Positive: Nl turgor and temperature, Other skin issue (poor skin turgor; sacrum with stage I decub present on admission and healing/improved per ) Neuro Exam: Positive: Other (alert, conversant, slow difficult to understand but appropriate responses. bradykinesis with some cogwheeling in right more than left.) Psych Exam: Positive: Other; Negative: Mental status NL, Mood NL, Anxiety, Memory Intact, Oriented x 3 Assessment /Plan Problems (1) Pneumothorax Status: Acute Problem Specific Plan: Consult Specialist Problem Text: 12/31; stable by exam. if Dr. Jade approves, plan to remove central line today., f/uCXR. 12/30: CXR shows no pneumothorax. left sided effusion, likely residual from the event that created the pneumothorax, slightly increased density in left upper lobe, stable. chest tube in place managed by Dr. Jade. 12/29: upon review with large, magnified image yesterday, one could confirm there were bronchopulmonary markings visible in the apex, so no pneumothorax yesterday and none today. chest tube in place with suction reduced by Dr. Jade 12/28: small apical pneumothorax still visible. 12/26 -- chest tube remains in place, managed by Dr. Jade 12/25 - s/p CT 12/23 - F/U CXR today:Left chest tube remains in place. The left pneumothorax is almost completely evacuated with a tiny sliver of pleural air superolaterally. There is a hazy pleural opacity in the left upper perihilar region again noted. This could be loculated fluid. There is increased density behind the heart in the left base consistent with atelectasis. A left subclavian line terminates in the superior vena cava. Right lung remains clear. Pulmonary to see today and decide when CT can be removed 12/24 - s/p chest tube placement yesterday Dislodged tube overnight replaced today due to recurrent pneumothorax Cont chest tube until tomorrow and then reassess (2) Colitis Status: Resolved Response to Treatment: Improving Problem Text: 12/29 will stop antibiotics. taking food ok, no gi symptoms. 12/28 nothing definitive on cultures. clinically improved. will continue antibiotic to tomorrow then d/c. if symptoms relapse then GI consult 12/27 -- feels PO intake improving. No documented diarrhea today. 12/26 -- states diarrhea improving; he is eating and drinking, but not full meals per his . Diet adjusted per swallow eval. Restarted IVFs at 75 ml/hour as fluid intake insufficient. 12/25 - Diarrhea improved notes this is the 3rd-4th bout of diarrhea over the last several months. GI panel negative Will need eval and colonoscopy when stable. (3) Sepsis Status: Resolved Response to Treatment: Improving Problem Text: 12/29 will stop antibiotics today. 12/25 - Resolved - D#4 Zosyn No longer requiring Levaphed IVF stopped BP stable (4) Parkinsons Status: Chronic Response to Treatment: Stable Problem Text: 12/31: typically variable motor function and alertness with Advanced Parkinson's with dementia. Will continue his home medications. ST eval today. Planned admission to [facility] this Friday. Will have PFS involved with DC plans. (5) HTN (hypertension) Status: Chronic Response to Treatment: Stable Problem Text: cont Carvedilol (6) Hypothyroidism Status: Chronic Response to Treatment: Stable (7) Dementia Status: Chronic Response to Treatment: Stable Problem Specific Plan: Repeat Tests (will repeat swallowing eval since family suggests he should be able to tolerate more substantial diet.) Problem Text: Parkinsonian (8) Depression with anxiety Status: Chronic Response to Treatment: Stable Plan/VTE VTE Prophylaxis Ordered?: Yes Plan IVF: Discontinue Activity: Bedrest Therapy: PT, OT, Speech Pt and Family Services: Other PFS Anticipated Discharge: Residential VS, I&O, 24H, Fishbone Vital Signs/I&O Vital Signs Date Time Temp Pulse Resp B/P (MAP) Pulse Ox O2 Delivery O2 Flow Rate FiO2 12/31/18 09:29 62 169/86 12/31/18 08:00 98.0 19 98 I&O- Last 24 Hours up to 6 AM 12/31/18 06:00 Intake Total 780 ml Output Total 0 ml Balance 780 ml Laboratory Data 24H LABS Laboratory Tests 2 12/31/18 05:40: Nucleated Red Blood Cells % (auto) 0.0, Anion Gap 5L, Glomerular Filtration Rate > 60.0, Blood Urea Nitrogen 7, Creatinine 0.79, Sodium Level 141, Potassium Level 3.6, Chloride Level 110H, Carbon Dioxide Level 26, Calcium Level 7.8L CBC/BMP Laboratory Tests 12/31/18 05:40 Red Blood Count 3.06 L, Mean Corpuscular Volume 95.8, Mean Corpuscular Hemoglobin 31.7, Mean Corpuscular Hemoglobin Concent 33.1, Red Cell Distribution Width 13.7, Calcium Level 7.8 L Microbiology Microbiology 12/22/18 Blood Culture - Final, Complete NO GROWTH AFTER 5 DAYS 12/22/18 Blood Culture - Final, Complete NO GROWTH AFTER 5 DAYS 12/22/18 Gastrointestinal Tract Panel (PCR) - Final, Complete 12/22/18 Urine Culture - Final, Complete Alphonso Canchola MD Dec 31, 2018 11:47
[2018-12-31 12:00] VITALS: BP 113/65
[2018-12-31] MEDS: CYANOCOBALAMIN 500 MCG TAB PO SCH (12:17)
[2018-12-31] MEDS: CLOPIDOGREL 75 MG TAB PO SCH (12:17)
--- NOTE | 2018-12-31 13:39 | NUR ---
Discharge recommendations: level 3 mechanical soft solids, regular shaved deli meats ok, thin liquids, full assistance feeding when upright & OOB, small bites, medications crushed. Addendum: 12/31/18 at [address] [facility] Amended: Links added.
--- NOTE | 2018-12-31 13:59 | IPN ---
DATE: 12/31/2018 Mr. Multani is sitting up comfortably in a chair. He is a bit more interactive today than he was yesterday. His vital signs show a maximum temperature (T-max) of 98.6 with a heart rate that ranges between 71 and 80 and in sinus rhythm, respiratory rate of 18-19 without the use of accessory muscles, who is 98-94% saturated on room air and his blood pressure is ranging between 137/72 to 169/86. His intake and output over the past 24 hours has been recorded as 1230 in and nothing out for a positivity of 1230 mL. He has had two incontinent voids, however, and a bowel movement. I suspect that the outputs are misleading. Weight today is 80.9 kg compared to 79 kg yesterday. On physical examination, his lungs show equal breath sounds on either side. I hear no wheeze or rhonchi or rales today. Percussion note is full to the diaphragm. Cardiac exam is without murmurs, clicks, gallops or rubs. I cannot feel his point of maximum impulse (PMI). S1 and S2 are normal. Abdomen is still tympanitic and slightly distended but soft and nontender. There is no hepatomegaly that I can feel. Extremities show trace pretibial edema with no calf tenderness. No differential swelling of the upper extremities. Skin is warm, dry and perfused without cyanosis or mottling including that of the nail beds and knees. Neck is supple. There is no jugular venous distention. No subcutaneous emphysema. Trachea is midline. Mouth shows his mucous membranes to be pink and moist. Lips and commissures are without lesions. There is no thrush. Eyes show his pupils to be equal and reactive. Extraocular movements intact. Sclerae nonicteric. Neurologic shows II-XII intact along with gross motor and gross sensation intact. Gait is not tested. Psychiatric showed him to be somnolent, confused but able to follow commands. His white count today is 8.9 with a hemoglobin and hematocrit of 9.7 and 29.3. Platelet count 345 and stable. Chemistry shows essentially normal electrolytes with BUN and creatinine of 70 to 0.79 and calcium 7.8, glucose 95. His chest x-ray shows his lung fully expanded to the chest wall. There is no subcutaneous emphysema. Central line is still in good place. The lateral film still shows what looks to be a pleural effusion half way up the chest, although I do not see this on the PA film. It may just represent atelectasis, although I do not even see that in the lower portion of that left hemithorax. IMPRESSION: 1. Parkinson's disease with advanced chronic dimension. 2. Pneumothorax, with the chest tube resolved. 3. Sepsis. 4. Colitis with diarrhea. 5. Hypertension. 6. Hypothyroidism. 7. Anxiety and combativeness, improved. 8. Hypokalemia, resolved. 9. Possible pleural effusion or at least atelectasis on the chest x-ray. PLAN AND DISCUSSION: I do note that his weight has been going steadily up and he has some pretibial edema. I would recommend gentle diuresis. As far as his pneumothorax is concerned, that has resolved and I will therefore, sign off his care. Nursing staff tells me that the central line is going to be discontinued and he is going to be sent to Med/Surg. MTDD
[2018-12-31 16:00] VITALS: BP 143/71
[2018-12-31] MEDS: QUEtiapine FUMARATE 25 MG TAB PO SCH (16:27)
[2018-12-31] MEDS: CitaloPRAM (CeleXA) 20 MG TAB PO SCH (16:27)
--- NOTE | 2018-12-31 17:19 | REP ---
Clinical: Central line removal. Technique: Portable semiupright AP view. Comparison: 12/31/2018 at 07:44 a.m. Findings: Generalized hazy opacification of the left hemithorax consistent with consolidation and effusion. Right hemithorax appears clear. No pneumothorax. Cardiac silhouette is normal. Skeletal structures intact. Impression: Left hilar and lower lobe opacity with suspected large left effusion. Electronically Signed by Barry Sabillon MD 12/31/2018 05:11 P
[2018-12-31 20:00] VITALS: BP 137/85
[2018-12-31] MEDS: ATORVASTATIN 20 MG TAB PO SCH (20:44)
[2018-12-31] MEDS: QUEtiapine FUMARATE 100 MG TAB PO SCH (20:46)
[2019-01-01] VITALS: BP 131/77
[2019-01-01 04:00] VITALS: BP 150/72
[2019-01-01] MEDS: SODIUM CHLORIDE 0.9% INJ 10 ML SYR IV SCH ×3 (05:11→20:31)
[2019-01-01 06:00] LABS: HEMATOCRIT 29.9 % (42.0-52.0); HEMOGLOBIN 9.9 g/dl (13.5-17.5); MEAN CORPUSCULAR HEMOGLOBIN 32.4 pg (27.0-33.0); MEAN CORPUSCULAR HGB CONC 33.1 g/dl (32.0-36.5); MEAN CORPUSCULAR VOLUME 97.7 fl (80.0-96.0); PLATELET COUNT, AUTOMATED 337 10^3/uL (150-450); RED BLOOD COUNT 3.06 10^6/uL (4.30-6.10); WHITE BLOOD COUNT 9.5 10^3/uL (4.0-10.0)
[2019-01-01] MEDS: LEVOTHYROXINE 100MCG TABLET (0.1MG) PO SCH (06:21)
[2019-01-01 06:27] LABS: BLOOD UREA NITROGEN 7 MG/DL (7-18); CALCIUM LEVEL 7.8 MG/DL (8.5-10.1); CARBON DIOXIDE LEVEL 27 MEQ/L (21-32); CHLORIDE LEVEL 109 MEQ/L (98-107); CREATININE FOR GFR 0.76 MG/DL (0.70-1.30); GLOMERULAR FILTRATION RATE > 60.0 (>56); GLUCOSE, FASTING 96 MG/DL (70-100); POTASSIUM SERUM 3.3 MEQ/L (3.5-5.1); SODIUM LEVEL 142 MEQ/L (136-145)
[2019-01-01] MEDS: IPRATROPIUM 0.5MG/ALBUTEROL 2.5MG INH SOL UD 3ML (DUONEB)(J7620) NEB SCH ×4 (07:39→20:35)
[2019-01-01] MEDS: ASPIRIN 81 MG CHEW TABLET PO SCH (08:36)
[2019-01-01 08:37] VITALS: BP 122/72
[2019-01-01] MEDS: SINEMET 25-100 MG TAB PO SCH ×4 (08:37→20:30)
[2019-01-01] MEDS: POTASSIUM CHLORIDE 10 MEQ SR TABLET PO SCH ×2 (08:37→20:30)
[2019-01-01] MEDS: CARVedilol 6.25 MG TAB PO SCH ×2 (08:37→20:30)
--- NOTE | 2019-01-01 09:15 | REP ---
Clinical: Pneumothorax. Technique: Semiupright AP and lateral. Comparison: 12/31/2018. Findings: Left sided pleuroparenchymal changes suggesting elements of atelectasis as well as pleural effusion are again identified along with small right pleural effusion. No obvious pneumothorax. Mediastinum and cardiac silhouette are stable. Skeletal structures are intact. Impression: Stable chest x-ray with continued pleuroparenchymal changes involving the left hemithorax suggesting elements of atelectasis and moderate pleural effusion. No obvious pneumothorax identified. Electronically Signed by Barry Sabillon MD 01/01/2019 09:07 A
--- NOTE | 2019-01-01 09:20 | IPNPDOC ---
Subjective Date Seen The patient was seen on 01/01/19. Subjective Chief Complaint/HPI alert, no pain, no dyspnea, no nausea Constitutional: Denies: Chills Skin: Denies: Rash Pulmonary: Denies: Dyspnea, Pleuritic Chest Pain Cardiovascular: Denies: Chest Pain, Palpitations Gastrointestinal: Denies: Nausea, Abdominal Pain Musculoskeletal: Denies: Other Symptoms Neurological: Reports: Other Symptoms (bradykinesia) Psych: Reports: Mood Normal Objective Physical Examination General Exam: Positive: Alert, No Acute Distress (sleepy, resting quietly) ENT Exam: Positive: Atraumatic Neck Exam: Positive: Other (left subclavian line in place.) Chest Exam: Positive: Clear to auscultation, Other (clear to ausculation, even in left apex, air movement minimal due to inability to breath with command, central line dressing in place.) Heart Exam: Positive: Rate Normal, Regular Rhythm Telemetry: Positive: No significant arrhythmia, Sinus Abdomen Exam: Positive: Normal bowel sounds, Soft, Other (NT, ND, no rebound, no rigidity); Negative: Tenderness Extremity Exam: Negative: Edema Skin Exam: Positive: Nl turgor and temperature, Other skin issue (poor skin turgor; sacrum with stage I decub present on admission and healing/improved per ) Neuro Exam: Positive: Other (alert, conversant, slow difficult to understand but appropriate responses. bradykinesis with some cogwheeling in right more than left.) Psych Exam: Positive: Other; Negative: Mental status NL, Mood NL, Anxiety, Memory Intact, Oriented x 3 Assessment /Plan Problems (1) Pneumothorax Status: Acute Problem Specific Plan: Consult Specialist Problem Text: 12/31; stable by exam. if Dr. Jade approves, plan to remove central line today., f/uCXR. 12/30: CXR shows no pneumothorax. left sided effusion, likely residual from the event that created the pneumothorax, slightly increased density in left upper lobe, stable. chest tube in place managed by Dr. Jade. 12/29: upon review with large, magnified image yesterday, one could confirm there were bronchopulmonary markings visible in the apex, so no pneumothorax yesterday and none today. chest tube in place with suction reduced by Dr. Jade 12/28: small apical pneumothorax still visible. 12/26 -- chest tube remains in place, managed by Dr. Jade 12/25 - s/p CT 12/23 - F/U CXR today:Left chest tube remains in place. The left pneumothorax is almost completely evacuated with a tiny sliver of pleural air superolaterally. There is a hazy pleural opacity in the left upper perihilar region again noted. This could be loculated fluid. There is increased density behind the heart in the left base consistent with atelectasis. A left subclavian line terminates in the superior vena cava. Right lung remains clear. Pulmonary to see today and decide when CT can be removed 12/24 - s/p chest tube placement yesterday Dislodged tube overnight replaced today due to recurrent pneumothorax Cont chest tube until tomorrow and then reassess (2) Colitis Status: Resolved Response to Treatment: Improving Problem Text: 12/29 will stop antibiotics. taking food ok, no gi symptoms. 12/28 nothing definitive on cultures. clinically improved. will continue antibiotic to tomorrow then d/c. if symptoms relapse then GI consult 12/27 -- feels PO intake improving. No documented diarrhea today. 12/26 -- states diarrhea improving; he is eating and drinking, but not full meals per his . Diet adjusted per swallow eval. Restarted IVFs at 75 ml /hour as fluid intake insufficient. 12/25 - Diarrhea improved notes this is the 3rd-4th bout of diarrhea over the last several months. GI panel negative Will need eval and colonoscopy when stable. (3) Sepsis Status: Resolved Response to Treatment: Improving Problem Text: 12/29 will stop antibiotics today. 12/25 - Resolved - D#4 Zosyn No longer requiring Levaphed IVF stopped BP stable (4) Parkinsons Status: Chronic Response to Treatment: Stable Problem Text: 12/31: typically variable motor function and alertness with Advanced Parkinson's with dementia. Will continue his home medications. ST eval today. Planned admission to [facility] this Friday. Will have PFS involved with DC plans. (5) HTN (hypertension) Status: Chronic Response to Treatment: Stable Problem Text: cont Carvedilol (6) Hypothyroidism Status: Chronic Response to Treatment: Stable (7) Dementia Status: Chronic Response to Treatment: Stable Problem Specific Plan: Repeat Tests (will repeat swallowing eval since family suggests he should be able to tolerate more substantial diet.) Problem Text: Parkinsonian (8) Depression with anxiety Status: Chronic Response to Treatment: Stable Plan/VTE VTE Prophylaxis Ordered?: Yes Plan IVF: Discontinue Activity: Bedrest Therapy: PT, OT, Speech Pt and Family Services: Other PFS Anticipated Discharge: [facility] VS, I&O, 24H, Fishbone Vital Signs/I&O Vital Signs Date Time Temp Pulse Resp B/P (MAP) Pulse Ox O2 Delivery O2 Flow Rate FiO2 01/01/19 08:37 98.2 78 18 122/72 (89) 94 I&O- Last 24 Hours up to 6 AM 01/01/19 06:00 Intake Total 840 ml Output Total 0 ml Balance 840 ml Laboratory Data 24H LABS Laboratory Tests 2 01/01/19 05:47: Nucleated Red Blood Cells % (auto) 0.0, Anion Gap 6L, Glomerular Filtration Rate > 60.0, Blood Urea Nitrogen 7, Creatinine 0.76, Sodium Level 142, Potassium Level 3.3L, Chloride Level 109H, Carbon Dioxide Level 27, Calcium Level 7.8L CBC/BMP Laboratory Tests 01/01/19 05:47 Red Blood Count 3.06 L, Mean Corpuscular Volume 97.7 H, Mean Corpuscular Hemoglobin 32.4, Mean Corpuscular Hemoglobin Concent 33.1, Red Cell Distribution Width 13.8, Calcium Level 7.8 L Microbiology Microbiology 12/22/18 Blood Culture - Final, Complete NO GROWTH AFTER 5 DAYS 12/22/18 Blood Culture - Final, Complete NO GROWTH AFTER 5 DAYS 12/22/18 Gastrointestinal Tract Panel (PCR) - Final, Complete 12/22/18 Urine Culture - Final, Complete Alphonso Canchola MD Jan 01, 2019 09:20
[2019-01-01] MEDS ORDERED: POTASSIUM CHLORIDE 10 MEQ SR TABLET PO ONE (10:00)
[2019-01-01] MEDS: FUROSEMIDE 20 MG TAB PO SCH (10:29)
[2019-01-01] MEDS: CYANOCOBALAMIN 500 MCG TAB PO SCH (13:10)
[2019-01-01] MEDS: CLOPIDOGREL 75 MG TAB PO SCH (13:10)
[2019-01-01] MEDS: CitaloPRAM (CeleXA) 20 MG TAB PO SCH (16:52)
[2019-01-01] MEDS: QUEtiapine FUMARATE 25 MG TAB PO SCH (16:54)
[2019-01-01] MEDS: ATORVASTATIN 20 MG TAB PO SCH (20:30)
[2019-01-01] MEDS: QUEtiapine FUMARATE 100 MG TAB PO SCH (20:30)
[2019-01-01 22:00] VITALS: BP 148/93
[2019-01-02] MEDS: LEVOTHYROXINE 100MCG TABLET (0.1MG) PO SCH (05:17)
[2019-01-02] MEDS: SODIUM CHLORIDE 0.9% INJ 10 ML SYR IV SCH ×4 (05:17→22:09)
[2019-01-02 06:00] VITALS: BP 151/92
[2019-01-02 06:20] LABS: HEMATOCRIT 29.8 % (42.0-52.0); HEMOGLOBIN 9.8 g/dl (13.5-17.5); MEAN CORPUSCULAR HEMOGLOBIN 31.9 pg (27.0-33.0); MEAN CORPUSCULAR HGB CONC 32.9 g/dl (32.0-36.5); MEAN CORPUSCULAR VOLUME 97.1 fl (80.0-96.0); PLATELET COUNT, AUTOMATED 355 10^3/uL (150-450); RED BLOOD COUNT 3.07 10^6/uL (4.30-6.10); WHITE BLOOD COUNT 10.3 10^3/uL (4.0-10.0)
[2019-01-02 06:47] LABS: BLOOD UREA NITROGEN 8 MG/DL (7-18); CALCIUM LEVEL 7.8 MG/DL (8.5-10.1); CARBON DIOXIDE LEVEL 27 MEQ/L (21-32); CHLORIDE LEVEL 107 MEQ/L (98-107); CREATININE FOR GFR 0.79 MG/DL (0.70-1.30); GLOMERULAR FILTRATION RATE > 60.0 (>56); GLUCOSE, FASTING 108 MG/DL (70-100); POTASSIUM SERUM 3.4 MEQ/L (3.5-5.1); SODIUM LEVEL 141 MEQ/L (136-145)
[2019-01-02] MEDS: IPRATROPIUM 0.5MG/ALBUTEROL 2.5MG INH SOL UD 3ML (DUONEB)(J7620) NEB SCH ×4 (07:24→20:23)
[2019-01-02] MEDS: POTASSIUM CHLORIDE 10 MEQ SR TABLET PO SCH ×2 (08:09→22:08)
[2019-01-02] MEDS: FUROSEMIDE 20 MG TAB PO SCH (08:09)
[2019-01-02] MEDS: ASPIRIN 81 MG CHEW TABLET PO SCH (08:09)
[2019-01-02] MEDS: SINEMET 25-100 MG TAB PO SCH ×4 (08:10→22:08)
[2019-01-02] MEDS: CARVedilol 6.25 MG TAB PO SCH ×2 (08:10→22:09)
[2019-01-02] MEDS: CLOPIDOGREL 75 MG TAB PO SCH (12:56)
[2019-01-02] MEDS: CYANOCOBALAMIN 500 MCG TAB PO SCH (12:56)
[2019-01-02 14:00] VITALS: BP 126/76
--- NOTE | 2019-01-02 15:01 | REP ---
Clinical: Pneumothorax. Comparison: 01/01/2019. Findings: Left-sided effusion and pleuroparenchymal changes are similar to prior examination. No obvious pneumothorax. Mediastinum and cardiac silhouette are stable. Right hemithorax is relatively clear. Skeletal structures appear intact. Impression: Left-sided pleural parenchymal changes and effusion again noted. No obvious pneumothorax. Electronically Signed by Barry Sabillon MD 01/02/2019 08:43 A
[2019-01-02] MEDS: QUEtiapine FUMARATE 100 MG TAB PO SCH ×2 (16:52→22:08)
[2019-01-02] MEDS: CitaloPRAM (CeleXA) 20 MG TAB PO SCH (16:52)
[2019-01-02] MEDS: QUEtiapine FUMARATE 25 MG TAB PO SCH (16:57)
--- NOTE | 2019-01-02 21:10 | IPNPDOC ---
Subjective Date Seen The patient was seen on 01/02/19. Objective Physical Examination General Exam: Positive: Alert, No Acute Distress (sleepy, resting quietly) ENT Exam: Positive: Atraumatic Neck Exam: Positive: Other (left subclavian line in place.) Chest Exam: Positive: Clear to auscultation, Other (clear to ausculation, even in left apex, air movement minimal due to inability to breath with command, central line dressing in place.) Heart Exam: Positive: Rate Normal, Regular Rhythm Telemetry: Positive: No significant arrhythmia, Sinus Abdomen Exam: Positive: Normal bowel sounds, Soft, Other (NT, ND, no rebound, no rigidity); Negative: Tenderness Extremity Exam: Negative: Edema Skin Exam: Positive: Nl turgor and temperature, Other skin issue (poor skin turgor; sacrum with stage I decub present on admission and healing/improved per ) Neuro Exam: Positive: Other (alert, conversant, slow difficult to understand but appropriate responses. bradykinesis with some cogwheeling in right more than left.) Psych Exam: Positive: Other; Negative: Mental status NL, Mood NL, Anxiety, Memory Intact, Oriented x 3 Assessment /Plan Problems (1) Pneumothorax Status: Acute Problem Specific Plan: Consult Specialist Problem Text: 12/31; stable by exam. if Dr. Jade approves, plan to remove central line today., f/uCXR. 12/30: CXR shows no pneumothorax. left sided effusion, likely residual from the event that created the pneumothorax, slightly increased density in left upper lo be, stable. chest tube in place managed by Dr. Jade. 12/29: upon review with large, magnified image yesterday, one could confirm there were bronchopulmonary markings visible in the apex, so no pneumothorax yesterday and none today. chest tube in place with suction reduced by Dr. Jade 12/28: small apical pneumothorax still visible. 12/26 -- chest tube remains in place, managed by Dr. Jade 12/25 - s/p CT 12/23 - F/U CXR today:Left chest tube remains in place. The left pneumothorax is almost completely evacuated with a tiny sliver of pleural air superolaterally. There is a hazy pleural opacity in the left upper perihilar region again noted. This could be loculated fluid. There is increased density behind the heart in the left base consistent with atelectasis. A left subclavian line terminates in the superior vena cava. Right lung remains clear. Pulmonary to see today and decide when CT can be removed 12/24 - s/p chest tube placement yesterday Dislodged tube overnight replaced today due to recurrent pneumothorax Cont chest tube until tomorrow and then reassess (2) Colitis Status: Resolved Response to Treatment: Improving Problem Text: 12/29 will stop antibiotics. taking food ok, no gi symptoms. 12/28 nothing definitive on cultures. clinically improved. will continue antibiotic to tomorrow then d/c. if symptoms relapse then GI consult 12/27 -- feels PO intake improving. No documented diarrhea today. 12/26 -- states diarrhea improving; he is eating and drinking, but not full meals per his . Diet adjusted per swallow eval. Restarted IVFs at 75 ml/hour as fluid intake insufficient. 12/25 - Diarrhea improved notes this is the 3rd-4th bout of diarrhea over the last several months. GI panel negative Will need eval and colonoscopy when stable. (3) Sepsis Status: Resolved Response to Treatment: Improving Problem Text: 12/29 will stop antibiotics today. 12/25 - Resolved - D#4 Zosyn No longer requiring Levaphed IVF stopped BP stable (4) Parkinsons Status: Chronic Response to Treatment: Stable Problem Text: 12/31: typically variable motor function and alertness with Advanced Parkinson's with dementia. Will continue his home medications. ST eval today. Planned admission to [facility] this Friday. Will have PFS involved with DC plans. (5) HTN (hypertension) Status: Chronic Response to Treatment: Stable Problem Text: cont Carvedilol (6) Hypothyroidism Status: Chronic Response to Treatment: Stable (7) Dementia Status: Chronic Response to Treatment: Stable Problem Specific Plan: Repeat Tests (will repeat swallowing eval since family suggests he should be able to tolerate more substantial diet.) Problem Text: Parkinsonian (8) Depression with anxiety Status: Chronic Response to Treatment: Stable Plan/VTE VTE Prophylaxis Ordered?: Yes Plan IVF: Discontinue Activity: Bedrest Therapy: PT, OT, Speech Pt and Family Services: Other PFS Anticipated Discharge: Retirement VS, I&O, 24H, Fishbone Vital Signs/I&O Vital Signs Date Time Temp Pulse Resp B/P (MAP) Pulse Ox O2 Delivery O2 Flow Rate FiO2 01/02/19 14:00 98.1 84 18 126/76 (93) 92 I&O- Last 24 Hours up to 6 AM 01/02/19 06:00 Intake Total 1260 ml Output Total 0 ml Balance 1260 ml Laboratory Data 24H LABS Laboratory Tests 2 01/02/19 05:57: Nucleated Red Blood Cells % (auto) 0.0, Anion Gap 7L, Glomerular Filtration Rate > 60.0, Blood Urea Nitrogen 8, Creatinine 0.79, Sodium Level 141, Potassium Level 3.4L, Chloride Level 107, Carbon Dioxide Level 27, Calcium Level 7.8L CBC/BMP Laboratory Tests 01/02/19 05:57 Red Blood Count 3.07 L, Mean Corpuscular Volume 97.1 H, Mean Corpuscular Hemoglobin 31.9, Mean Corpuscular Hemoglobin Concent 32.9, Red Cell Distribution Width 13.9, Calcium Level 7.8 L Jono Rivers MD Jan 02, 2019 21:10
[2019-01-02 22:00] VITALS: BP 127/96
[2019-01-02] MEDS: ATORVASTATIN 20 MG TAB PO SCH (22:08)
[2019-01-03] MEDS: LEVOTHYROXINE 100MCG TABLET (0.1MG) PO SCH (05:36)
[2019-01-03] MEDS: SODIUM CHLORIDE 0.9% INJ 10 ML SYR IV SCH ×3 (05:36→20:51)
[2019-01-03 06:00] VITALS: BP 130/76
[2019-01-03 06:58] LABS: BASO % 0.4 % (0.0-1.0); EOS # 0.5 10^3/uL (0.0-0.50); EOS % 4.6 % (0.0-3.0); HEMATOCRIT 30.3 % (42.0-52.0); LYMPH # 0.9 10^3/uL (1.5-4.5); LYMPH % 8.3 % (24.0-44.0); MEAN CORPUSCULAR HEMOGLOBIN 32.1 pg (27.0-33.0); MEAN CORPUSCULAR VOLUME 97.1 fl (80.0-96.0); MONO # 0.7 10^3/uL (0.0-0.8); MONO % 6.8 % (0.0-5.0); NEUTROPHILS # 8.6 10^3/uL (1.8-7.7); NEUTROPHILS % 79.4 % (36.0-66.0); PLATELET COUNT, AUTOMATED 377 10^3/uL (150-450); RED BLOOD COUNT 3.12 10^6/uL (4.30-6.10); WHITE BLOOD COUNT 10.9 10^3/uL (4.0-10.0)
[2019-01-03 07:26] LABS: BLOOD UREA NITROGEN 9 MG/DL (7-18); CALCIUM LEVEL 8.7 MG/DL (8.5-10.1); CARBON DIOXIDE LEVEL 29 MEQ/L (21-32); CHLORIDE LEVEL 107 MEQ/L (98-107); CREATININE FOR GFR 0.93 MG/DL (0.70-1.30); GLOMERULAR FILTRATION RATE > 60.0 (>56); GLUCOSE, FASTING 99 MG/DL (70-100); POTASSIUM SERUM 3.7 MEQ/L (3.5-5.1); SODIUM LEVEL 140 MEQ/L (136-145)
[2019-01-03 07:30] LABS: ALBUMIN 2.8 GM/DL (3.2-5.2); BLOOD UREA NITROGEN 10 MG/DL (7-18); CARBON DIOXIDE LEVEL 28 MEQ/L (21-32); CHLORIDE LEVEL 106 MEQ/L (98-107); CREATININE FOR GFR 0.86 MG/DL (0.70-1.30); GLOMERULAR FILTRATION RATE > 60.0 (>56); GLUCOSE, FASTING 100 MG/DL (70-100); PHOSPHORUS LEVEL 3.3 MG/DL (2.5-4.9); SODIUM LEVEL 142 MEQ/L (136-145)
[2019-01-03] MEDS: IPRATROPIUM 0.5MG/ALBUTEROL 2.5MG INH SOL UD 3ML (DUONEB)(J7620) NEB SCH ×4 (07:38→20:38)
--- NOTE | 2019-01-03 09:48 | REP ---
Clinical: Effusion. Pain. Technique: AP and lateral views of the right knee. Findings: Diffuse soft tissue swelling is appreciated. Lateral view demonstrates large suprapatellar effusion. No obvious acute fracture or dislocation. Impression: Soft tissue swelling and a large effusion. Electronically Signed by Barry Sabillon MD 01/03/2019 09:40 A
[2019-01-03] MEDS: ASPIRIN 81 MG CHEW TABLET PO SCH (10:01)
[2019-01-03] MEDS: FUROSEMIDE 20 MG TAB PO SCH (10:02)
[2019-01-03] MEDS: SINEMET 25-100 MG TAB PO SCH ×4 (10:02→20:50)
[2019-01-03] MEDS: CARVedilol 6.25 MG TAB PO SCH ×2 (10:02→20:51)
[2019-01-03] MEDS: POTASSIUM CHLORIDE 10 MEQ SR TABLET PO SCH ×2 (10:02→20:50)
[2019-01-03] MEDS: ACETAMINOPHEN 500 MG TAB PO PRN (10:04)
[2019-01-03 13:28] LABS: CRYSTALS, BODY FLUID CA PYROPHOSPHATE (NONE SEEN); SOURCE, BODY FLUID CRYSTALS RT KNEE
[2019-01-03] MEDS: CLOPIDOGREL 75 MG TAB PO SCH (13:35)
[2019-01-03] MEDS: CYANOCOBALAMIN 500 MCG TAB PO SCH (13:36)
[2019-01-03 13:41] LABS: SOURCE, BODY FLUID RT KNEE; SYNOVIAL FLUID COLOR PALE YELLOW (YELLOW)
[2019-01-03 14:00] VITALS: BP 128/74
[2019-01-03 14:12] LABS: SOURCE, BODY FLUID GLUCOSE RT KNEE; SOURCE, BODY FLUID URIC ACID RT KNEE; URIC ACID, BODY FLUID 4.9 MG/DL (NOT ESTABLISHED)
[2019-01-03] MEDS: QUEtiapine FUMARATE 25 MG TAB PO SCH (17:27)
[2019-01-03] MEDS: CitaloPRAM (CeleXA) 20 MG TAB PO SCH (17:28)
[2019-01-03 20:00] VITALS: BP 127/77
[2019-01-03] MEDS ORDERED: NYSTATIN 100,000 UNITS/GM TOPICAL PWD 15 GM TOP PRN (20:00)
[2019-01-03] MEDS: QUEtiapine FUMARATE 100 MG TAB PO SCH (20:50)
[2019-01-03] MEDS: ATORVASTATIN 20 MG TAB PO SCH (20:51)
--- NOTE | 2019-01-03 21:32 | CR ---
DATE OF CONSULTATION: 01/03/2019 I was asked to evaluate right knee discomfort. HISTORY: This is a 57-year-old gentleman , noticed that the patient was having right knee pain and swelling yesterday. He is in the hospital because he was being treated for sepsis. He has an underlying severe Parkinson's dementia and is not function. He is about to be placed in a group home extended care facility environment. Nonetheless, he has been irritable with respect to the right knee. Medical records and chart were reviewed. CLINICAL EXAMINATION: The patient is not able to participate in the clinical examination other than he seems to be alert. His eyes are open. He is nonverbal. Both knees may have a trace effusion. The right knee has some pain with manipulation. There is no erythema. The calves soft and nontender. The ankles are nonedematous and he is not hot or red. Plain imaging reflect a knee effusion, AP and lateral of the knee. No acute process was appreciable. IMPRESSION: Effusion of the right knee, infection versus gout or sternal effusion. There is possible posttraumatic effusion. RECOMMENDATIONS: The patient's spouse elects for aspiration of the knee. I explained the procedure and she understands. The consent document was completed and other forms required by the hospital were completed. The aspiration kit from the floor was incomplete and we had to prescribe another kit with 18-gauge needles, which are not used in an aspiration kit. We were able to eventually get the appropriate 18-gauge needle. Through a Betadine alcohol prep, I aspirated approximately 60 mL of translucent and straw-colored fluid. It did not seem to be turbid. This was sent for joint fluid analysis including cultures. Once this was accomplished, Band-Aid was placed in the knee. The patient tolerated the procedure well. I explained to the patient's that we will await culture results. They are comfortable with that plan. I was asked to see this patient at the request of Dr. Rivers. KEVIN
[2019-01-03] MEDS: NYSTATIN 100,000 UNITS/GM TOPICAL PWD 15 GM TOP SCH (21:49)
--- NOTE | 2019-01-03 23:57 | IPNPDOC ---
Subjective Date Seen The patient was seen on 01/03/19. Objective Physical Examination General Exam: Positive: Alert, No Acute Distress (sleepy, resting quietly) ENT Exam: Positive: Atraumatic Neck Exam: Positive: Other (left subclavian line in place.) Chest Exam: Positive: Clear to auscultation, Other (clear to ausculation, even in left apex, air movement minimal due to inability to breath with command, central line dressing in place.) Heart Exam: Positive: Rate Normal, Regular Rhythm Telemetry: Positive: No significant arrhythmia, Sinus Abdomen Exam: Positive: Normal bowel sounds, Soft, Other (NT, ND, no rebound, no rigidity); Negative: Tenderness Extremity Exam: Negative: Edema Skin Exam: Positive: Nl turgor and temperature, Other skin issue (poor skin turgor; sacrum with stage I decub present on admission and healing/improved per ) Neuro Exam: Positive: Other (alert, conversant, slow difficult to understand but appropriate responses. bradykinesis with some cogwheeling in right more than left.) Psych Exam: Positive: Other; Negative: Mental status NL, Mood NL, Anxiety, Memory Intact, Oriented x 3 Assessment /Plan Problems (1) Parkinsons Status: Chronic Response to Treatment: Stable Problem Text: 01/03: Admission to [facility] was planned before this hospital admissi on. He should be set up for [facility] admission again. 12/31: typically variable motor function and alertness with Advanced Parkinson's with dementia. Will continue his home medications. ST eval today. Planned admission to [facility] this Friday. Will have PFS involved with DC plans. (2) Pseudogout of knee Status: Acute Discussed With: Bar Captain, Family with Pt Consent Problem Specific Plan: Consult Specialist Problem Text: The patient's requested an orthopedics consultation. Dr. Philip saw the patient and tapped his knee. The fluid had calcium pyrophosphate crystals confirming a dx of pseudogout. Will add naproxen to his regimen, however, because of the increased risk of GI bleeding I will do so for only 7 days. I will add Protonix for GI protection too. 1 week should be enough time to calm the synovitis. (3) HTN (hypertension) Status: Chronic Response to Treatment: Stable Problem Text: cont Carvedilol (4) Hypothyroidism Status: Chronic Response to Treatment: Stable Problem Text: continue home medication (5) Dementia Status: Chronic Response to Treatment: Stable Problem Specific Plan: Repeat Tests (will repeat swallowing eval since family suggests he should be able to tolerate more substantial diet.) Problem Text: Parkinsonian (6) Colitis Status: Resolved Response to Treatment: Improving Problem Text: 12/29 will stop antibiotics. taking food ok, no gi symptoms. 12/28 nothing definitive on cultures. clinically improved. will continue antibiotic to tomorrow then d/c. if symptoms relapse then GI consult 12/27 -- feels PO intake improving. No documented diarrhea today. 12/26 -- states diarrhea improving; he is eating and drinking, but not full meals per his . Diet adjusted per swallow eval. Restarted IVFs at 75 ml/hour as fluid intake insufficient. 12/25 - Diarrhea improved notes this is the 3rd-4th bout of diarrhea over the last several months. GI panel negative Will need eval and colonoscopy when stable. (7) Sepsis Status: Resolved Response to Treatment: Improving Problem Text: 12/29 will stop antibiotics today. 12/25 - Resolved - D#4 Zosyn No longer requiring Levaphed IVF stopped BP stable (8) Depression with anxiety Status: Chronic Response to Treatment: Stable (9) Pneumothorax Status: Resolved Problem Specific Plan: Consult Specialist Problem Text: 12/31; stable by exam. if Dr. Jade approves, plan to remove central line today., f/uCXR. 12/30: CXR shows no pneumothorax. left sided effusion, likely residual from the event that created the pneumothorax, slightly increased density in left upper lobe, stable. chest tube in place managed by Dr. Jade. 12/29: upon review with large, magnified image yesterday, one could confirm there were bronchopulmonary markings visible in the apex, so no pneumothorax yesterday and none today. chest tube in place with suction reduced by Dr. Jade 12/28: small apical pneumothorax still visible. 12/26 -- chest tube remains in place, managed by Dr. Jade 12/25 - s/p CT 12/23 - F/U CXR today:Left chest tube remains in place. The left pneumothorax is almost completely evacuated with a tiny sliver of pleural air superolaterally. There is a hazy pleural opacity in the left upper perihilar region again noted. This could be loculated fluid. There is increased density behind the heart in the left base consistent with atelectasis. A left subclavian line terminates in the superior vena cava. Right lung remains clear. Pulmonary to see today and decide when CT can be removed 12/24 - s/p chest tube placement yesterday Dislodged tube overnight replaced today due to recurrent pneumothorax Cont chest tube until tomorrow and then reassess Plan/VTE VTE Prophylaxis Ordered?: Yes Plan IVF: Discontinue Activity: Bedrest Therapy: PT, OT, Speech Pt and Family Services: Other PFS Anticipated Discharge: Long Term VS, I&O, 24H, Fishbone Vital Signs/I&O Vital Signs Date Time Temp Pulse Resp B/P (MAP) Pulse Ox O2 Delivery O2 Flow Rate FiO2 01/03/19 20:51 78 127/77 01/03/19 14:00 98.3 17 98 I&O- Last 24 Hours up to 6 AM 01/03/19 06:00 Intake Total 250 ml Balance 250 ml Laboratory Data 24H LABS Laboratory Tests 2 01/03/19 06:28: Immature Granulocyte % (Auto) 0.5, White Blood Count 10.9H, Red Blood Count 3.12L, Hemoglobin 10.0L, Hematocrit 30.3L, Mean Corpuscular Volume 97.1H, Mean Corpuscular Hemoglobin 32.1, Mean Corpuscular Hemoglobin Concent 33.0, Red Cell Distribution Width 13.9, Platelet Count 377, Neutrophils (%) (Auto) 79.4H, Lymphocytes (%) (Auto) 8.3L, Monocytes (%) (Auto) 6.8H, Eosinophils (%) (Auto) 4.6H, Basophils (%) (Auto) 0.4, Neutrophils # (Auto) 8.6H, Lymphocytes # (Auto) 0.9L, Monocytes # (Auto) 0.7, Eosinophils # (Auto) 0.5, Basophils # (Auto) 0.0, Nucleated Red Blood Cells % (auto) 0.0, Blood Urea Nitrogen 10, Creatinine 0.86, Sodium Level 142, Potassium Level 4.0, Chloride Level 106, Carbon Dioxide Level 28, Anion Gap 8, Glomerular Filtration Rate > 60.0, Calcium Level 8.7, Phosphorus Level 3.3, Albumin 2.8L 01/03/19 12:56: Body Fluid WBC (Auto) 4061H, Body Fluid RBC (Auto) < 2, Body Fluid Mononuclear Cells % Auto 13.7H, Fluid Polymorphonuclear Cell % Auto 86.3H, Body Fluid Crystals CA PYROPHOSPHATEH, Body Fluid Crystal Source RT KNEE, Body Fluid Glucose Source RT KNEE, Body Fluid Glucose 4, Body Fluid Uric Acid 4.9, Body Fluid Uric Acid Source RT KNEE, Synovial Fluid Source RT KNEE, Synovial Fluid Color PALE YELLOW, Synovial Fluid Appearance HAZY CBC/BMP Laboratory Tests 01/03/19 06:28 Red Blood Count 3.12 L, Mean Corpuscular Volume 97.1 H, Mean Corpuscular Hemoglobin 32.1, Mean Corpuscular Hemoglobin Concent 33.0, Red Cell Distribution Width 13.9, Neutrophils (%) (Auto) 79.4 H, Lymphocytes (%) (Auto) 8.3 L, Monocytes (%) (Auto) 6.8 H, Eosinophils (%) (Auto) 4.6 H, Basophils (%) (Auto) 0.4, Neutrophils # (Auto) 8.6 H, Lymphocytes # (Auto) 0.9 L, Monocytes # (Auto) 0.7, Eosinophils # (Auto) 0.5, Basophils # (Auto) 0.0, Anion Gap 8, Calcium Level 8.7 Microbiology Microbiology 01/03/19 Gram Stain, Received Pending 01/03/19 Body Fluid Culture, Received Pending Jono Rivers MD Jan 03, 2019 23:57
[2019-01-04] MEDS: LEVOTHYROXINE 100MCG TABLET (0.1MG) PO SCH (05:40)
[2019-01-04 06:00] VITALS: BP 143/76
[2019-01-04 06:15] LABS: HEMATOCRIT 32.8 % (42.0-52.0); HEMOGLOBIN 10.6 g/dl (13.5-17.5); MEAN CORPUSCULAR HGB CONC 32.3 g/dl (32.0-36.5); MEAN CORPUSCULAR VOLUME 99.1 fl (80.0-96.0); PLATELET COUNT, AUTOMATED 385 10^3/uL (150-450); RED BLOOD COUNT 3.31 10^6/uL (4.30-6.10); WHITE BLOOD COUNT 13.3 10^3/uL (4.0-10.0)
[2019-01-04 06:35] LABS: BLOOD UREA NITROGEN 11 MG/DL (7-18); CALCIUM LEVEL 8.3 MG/DL (8.5-10.1); CARBON DIOXIDE LEVEL 27 MEQ/L (21-32); CHLORIDE LEVEL 105 MEQ/L (98-107); CREATININE FOR GFR 0.84 MG/DL (0.70-1.30); GLOMERULAR FILTRATION RATE > 60.0 (>56); GLUCOSE, FASTING 106 MG/DL (70-100); SODIUM LEVEL 138 MEQ/L (136-145)
[2019-01-04] MEDS: IPRATROPIUM 0.5MG/ALBUTEROL 2.5MG INH SOL UD 3ML (DUONEB)(J7620) NEB SCH ×4 (07:13→20:16)
[2019-01-04] MEDS ORDERED: PANTOPRAZOLE 40MG TAB (PROTONIX) PO ONE (09:00)
[2019-01-04] MEDS: POTASSIUM CHLORIDE 10 MEQ SR TABLET PO SCH ×2 (09:13→20:39)
[2019-01-04] MEDS: ASPIRIN 81 MG CHEW TABLET PO SCH (09:13)
[2019-01-04] MEDS: NAPROXEN 250 MG TAB PO SCH ×2 (09:14→20:41)
[2019-01-04] MEDS: CARVedilol 6.25 MG TAB PO SCH ×2 (09:15→20:42)
[2019-01-04] MEDS: SINEMET 25-100 MG TAB PO SCH ×4 (09:15→20:40)
[2019-01-04] MEDS: FUROSEMIDE 20 MG TAB PO SCH (09:15)
[2019-01-04] MEDS: NYSTATIN 100,000 UNITS/GM TOPICAL PWD 15 GM TOP SCH ×4 (09:16→20:43)
[2019-01-04 09:35] LABS: BODY FLUID RHEUMATOID SCREEN NEGATIVE (NEGATIVE)
[2019-01-04 09:36] LABS: MUCIN CLOT TEST 4+ (4+)
--- NOTE | 2019-01-04 11:45 | IPNPDOC ---
Subjective Date Seen The patient was seen on 01/04/19. Subjective Chief Complaint/HPI colitis,sepsis Events since last encounter Spoke with patient's , Everardo. She is concerned about UTI due to elevated WBC. Patient is prone to UTI and has been completely incontinent since admission to hospital. PFS continues to work on bed at [facility]. General: Reports: ROS Unobtainable Objective Physical Examination General Exam: Positive: Alert, No Acute Distress (sleepy, resting quietly, non- verbal) ENT Exam: Positive: Atraumatic Neck Exam: Positive: Other (left subclavian line in place.) Chest Exam: Positive: Clear to auscultation, Other (clear to ausculation, even in left apex, air movement minimal due to inability to breath with command, central line dressing in place.) Heart Exam: Positive: Rate Normal, Regular Rhythm Telemetry: Positive: No significant arrhythmia, Sinus Abdomen Exam: Positive: Normal bowel sounds, Soft, Other (NT, ND, no rebound, no rigidity); Negative: Tenderness Extremity Exam: Negative: Edema Skin Exam: Positive: Nl turgor and temperature, Other skin issue (poor skin turgor; sacrum with stage I decub present on admission and healing/improved per ) Neuro Exam: Positive: Other (alert, conversant, slow difficult to understand but appropriate responses. bradykinesis with some cogwheeling in right more than left.) Psych Exam: Positive: Other; Negative: Mental status NL, Mood NL, Anxiety, Memory Intact, Oriented x 3 Assessment /Plan Assessment Patient seen. Resting comfortably, sleepy and difficult to rouse. Urine tests pending. -- CDT Problems (1) Parkinsons Status: Chronic Response to Treatment: Stable Problem Text: 01/03: Admission to [facility] was planned before this hospital admission. He should be set up for [facility] admission again. 12/31: typically variable motor function and alertness with Advanced Parkinson's with dementia. Will continue his home medications. ST diaz today. Planned admission to [facility] this Friday. Will have PFS involved with DC plans. (2) Pseudogout of knee Status: Acute Discussed With: Greens Picker, Family with Pt Consent Problem Specific Plan: Consult Specialist Problem Text: 01/04/19: monitor. cx pending also. The patient's requested an orthopedics consultation. Dr. Philip saw the patient and tapped his knee. The fluid had calcium pyrophosphate crystals confirming a dx of pseudogout. Will add naproxen to his regimen, however, because of the increased risk of GI bleeding I will do so for only 7 days. I will add Protonix for GI protection too. 1 week should be enough time to calm the synovitis. (3) HTN (hypertension) Status: Chronic Response to Treatment: Stable Problem Text: cont Carvedilol (4) Hypothyroidism Status: Chronic Response to Treatment: Stable Problem Text: continue home medication (5) Dementia Status: Chronic Response to Treatment: Stable Problem Specific Plan: Repeat Tests (will repeat swallowing eval since family suggests he should be able to tolerate more substantial diet.) Problem Text: Parkinsonian (6) Colitis Status: Resolved Response to Treatment: Improving Problem Text: 12/29 will stop antibiotics. taking food ok, no gi symptoms. 12/28 nothing definitive on cultures. clinically improved. will continue antibiotic to tomorrow then d/c. if symptoms relapse then GI consult 12/27 -- feels PO intake improving. No documented diarrhea today. 12/26 -- states diarrhea improving; he is eating and drinking, but not full meals per his . Diet adjusted per swallow eval. Restarted IVFs at 75 ml/hour as fluid intake insufficient. 12/25 - Diarrhea improved notes this is the 3rd-4th bout of diarrhea over the last several months. GI panel negative Will need eval and colonoscopy when stable. (7) Sepsis Status: Resolved Response to Treatment: Improving Problem Text: 01/04/19: WBC 13.3. UA and urine cx ordered. afebrile. no visible signs of infection. 12/29 will stop antibiotics today. 12/25 - Resolved - D#4 Zosyn No longer requiring Levaphed IVF stopped BP stable (8) Depression with anxiety Status: Chronic Response to Treatment: Stable (9) Pneumothorax Status: Resolved Problem Specific Plan: Consult Specialist Problem Text: 12/31; stable by exam. if Dr. Jade approves, plan to remove central line today., f/uCXR. 12/30: CXR shows no pneumothorax. left sided effusion, likely residual from the event that created the pneumothorax, slightly increased density in left upper lobe, stable. chest tube in place managed by Dr. Jade. 12/29: upon review with large, magnified image yesterday, one could confirm there were bronchopulmonary markings visible in the apex, so no pneumothorax yesterday and none today. chest tube in place with suction reduced by Dr. Jade 12/28: small apical pneumothorax still visible. 12/26 -- chest tube remains in place, managed by Dr. Jade 12/25 - s/p CT 12/23 - F/U CXR today:Left chest tube remains in place. The left pneumothorax is almost completely evacuated with a tiny sliver of pleural air superolaterally. There is a hazy pleural opacity in the left upper perihilar region again noted. This could be loculated fluid. There is increased density behind the heart in the left base consistent with atelectasis. A left subclavian line terminates in the superior vena cava. Right lung remains clear. Pulmonary to see today and decide when CT can be removed 12/24 - s/p chest tube placement yesterday Dislodged tube overnight replaced today due to recurrent pneumothorax Cont chest tube until tomorrow and then reassess Plan/VTE VTE Prophylaxis Ordered?: Yes Plan IVF: Discontinue Activity: Bedrest Therapy: PT, OT, Speech Pt and Family Services: Other PFS Anticipated Discharge: [facility] VS, I&O, 24H, Fishbone Vital Signs/I&O Vital Signs Date Time Temp Pulse Resp B/P (MAP) Pulse Ox O2 Delivery O2 Flow Rate FiO2 01/04/19 09:15 73 143/76 01/04/19 06:00 97.6 17 96 I&O- Last 24 Hours up to 6 AM 01/04/19 05:59 Intake Total 1140 ml Output Total 0 ml Balance 1140 ml Laboratory Data 24H LABS Laboratory Tests 2 01/03/19 12:56: Body Fluid Source RT KNEE, Body Fluid WBC (Auto) 4061H, Body Fluid RBC (Auto) < 2, Body Fluid Mononuclear Cells % Auto 13.7H, Fluid Polymorphonuclear Cell % Auto 86.3H, Body Fluid Crystals CA PYROPHOSPHATEH, Body Fluid Crystal Source RT KNEE, Body Fluid Glucose Source RT KNEE, Body Fluid Glucose 4, Body Fluid Uric Acid 4.9, Body Fluid Uric Acid Source RT KNEE, Body Fluid Rheumatoid Factor Screen NEGATIVE, Body Fluid Rheumatoid Factor Source RT KNEE, Synovial Fluid Source RT KNEE, Synovial Fluid Color PALE YELLOW, Synovial Fluid Appearance HAZY, Synovial Fluid Mucin Clot 4+ 01/04/19 05:47: Nucleated Red Blood Cells % (auto) 0.0, Anion Gap 6L, Glomerular Filtration Rate > 60.0, Blood Urea Nitrogen 11, Creatinine 0.84, Sodium Level 138, Potassium Level 4.0, Chloride Level 105, Carbon Dioxide Level 27, Calcium Level 8.3L CBC/BMP Laboratory Tests 01/04/19 05:47 Red Blood Count 3.31 L, Mean Corpuscular Volume 99.1 H, Mean Corpuscular Hemoglobin 32.0, Mean Corpuscular Hemoglobin Concent 32.3, Red Cell Distribution Width 13.7, Calcium Level 8.3 L Microbiology Microbiology 01/03/19 Gram Stain - Final, Resulted 01/03/19 Body Fluid Culture, Resulted Pending Stephanie JensenP Jan 04, 2019 11:45 STEPHANIE FORTUNE DO Jan 05, 2019 23:23
[2019-01-04] MEDS: CLOPIDOGREL 75 MG TAB PO SCH (13:51)
[2019-01-04] MEDS: CYANOCOBALAMIN 500 MCG TAB PO SCH (13:51)
[2019-01-04 14:00] VITALS: BP 138/76
[2019-01-04 15:58] LABS: APPEARANCE, URINE CLEAR (CLEAR); BACTERIA, URINE AUTO NEGATIVE (NEGATIVE); BILIRUBIN, URINE AUTO NEGATIVE (NEGATIVE); BLOOD, URINE BLOOD NEGATIVE (NEGATIVE); COLOR, URINE YELLOW (YELLOW); GLUCOSE, URINE (UA) AUTO NEGATIVE (NEGATIVE); KETONE, URINE AUTO NEGATIVE (NEGATIVE); LEUKOCYTE ESTERASE, URINE AUTO NEGATIVE (NEGATIVE); NITRITE, URINE AUTO NEGATIVE (NEGATIVE); PROTEIN, URINE AUTO NEGATIVE (NEGATIVE); RBC, URINE AUTO 2 /HPF (0-3); SPECIFIC GRAVITY URINE AUTO 1.014 (1.002-1.035); SQUAMOUS EPITHELIAL CELL UR AU 0 /HPF (0-6); UROBILINOGEN, URINE AUTO 0.2 mg/dL (0.0-2.0); WBC, URINE AUTO 1 /HPF (0-3)
[2019-01-04] MEDS: CitaloPRAM (CeleXA) 20 MG TAB PO SCH (16:59)
[2019-01-04] MEDS: QUEtiapine FUMARATE 25 MG TAB PO SCH (16:59)
[2019-01-04] MEDS: ATORVASTATIN 20 MG TAB PO SCH (20:39)
[2019-01-04] MEDS: QUEtiapine FUMARATE 100 MG TAB PO SCH (21:00)
[2019-01-04 22:00] VITALS: BP 129/76
[2019-01-05] MEDS: LEVOTHYROXINE 100MCG TABLET (0.1MG) PO SCH (05:47)
[2019-01-05 06:00] VITALS: BP 128/76
[2019-01-05 06:06] LABS: HEMOGLOBIN 10.3 g/dl (13.5-17.5); MEAN CORPUSCULAR HEMOGLOBIN 31.2 pg (27.0-33.0); MEAN CORPUSCULAR HGB CONC 32.2 g/dl (32.0-36.5); PLATELET COUNT, AUTOMATED 395 10^3/uL (150-450)
[2019-01-05 06:27] LABS: BLOOD UREA NITROGEN 13 MG/DL (7-18); CALCIUM LEVEL 8.7 MG/DL (8.5-10.1); CARBON DIOXIDE LEVEL 28 MEQ/L (21-32); CHLORIDE LEVEL 107 MEQ/L (98-107); CREATININE FOR GFR 0.91 MG/DL (0.70-1.30); GLOMERULAR FILTRATION RATE > 60.0 (>56); GLUCOSE, FASTING 87 MG/DL (70-100); SODIUM LEVEL 140 MEQ/L (136-145)
[2019-01-05] MEDS: IPRATROPIUM 0.5MG/ALBUTEROL 2.5MG INH SOL UD 3ML (DUONEB)(J7620) NEB SCH ×4 (07:13→20:00)
[2019-01-05] MEDS: NYSTATIN 100,000 UNITS/GM TOPICAL PWD 15 GM TOP SCH ×4 (08:03→21:38)
[2019-01-05] MEDS: NAPROXEN 250 MG TAB PO SCH ×2 (08:04→21:38)
[2019-01-05] MEDS: ASPIRIN 81 MG CHEW TABLET PO SCH (08:05)
[2019-01-05] MEDS: SINEMET 25-100 MG TAB PO SCH ×4 (08:05→21:37)
[2019-01-05] MEDS: CARVedilol 6.25 MG TAB PO SCH ×2 (08:06→21:00)
[2019-01-05] MEDS: FUROSEMIDE 20 MG TAB PO SCH (08:07)
[2019-01-05] MEDS: POTASSIUM CHLORIDE 10 MEQ SR TABLET PO SCH ×2 (08:07→21:37)
--- NOTE | 2019-01-05 08:10 | IPNPDOC ---
Subjective Date Seen The patient was seen on 01/05/19. Subjective Chief Complaint/HPI Aides report abdomen is protuberant. he does not appears to have pain or agitation. No n/v. Had 3 loose BMs yesterday. Constitutional: Denies: Chills, Fever Pulmonary: Denies: Dyspnea, Cough Cardiovascular: Denies: Chest Pain Gastrointestinal: Denies: Nausea, Vomiting, Abdominal Pain, Diarrhea, Constipation Genitourinary: Reports: Other Symptoms (weldon in place) Objective Physical Examination General Exam: Positive: Alert (Attempting to feed himself today), No Acute Distress ENT Exam: Positive: Atraumatic Neck Exam: Positive: Other (left subclavian line in place.) Chest Exam: Positive: Clear to auscultation, Other (clear to ausculation, even in left apex, air movement minimal due to inability to breath with command, central line dressing in place.) Heart Exam: Positive: Rate Normal, Regular Rhythm Telemetry: Positive: No significant arrhythmia, Sinus Abdomen Exam: Positive: Normal bowel sounds, Soft, Other (Protuberant, no rebound, no rigidity); Negative: Tenderness Extremity Exam: Negative: Edema Skin Exam: Positive: Nl turgor and temperature, Other skin issue (poor skin turgor; sacrum with stage I decub present on admission and healing/improved per ) Neuro Exam: Positive: Other (alert, conversant, slow difficult to understand but appropriate responses. bradykinesis with some cogwheeling in right more than left.) Psych Exam: Positive: Other; Negative: Mental status NL, Mood NL, Anxiety, Memory Intact, Oriented x 3 Assessment /Plan Assessment Patient seen, agree with note below. More awake today; limited ability to verbalize, denied pain. at bedside, and discussed plan with her. Plan DC to [facility] tomorrow. -- CDT Problems (1) Parkinsons Status: Chronic Response to Treatment: Stable Problem Text: 01/05 - Plan fro transfer to [facility] on wednesday 01/03: Admission to [facility] was planned before this hospital admission. He should be set up for [facility] admission again. 12/31: typically variable motor function and alertness with Advanced Parkinson's with dementia. Will continue his home medications. ST eval today. Planned admission to [facility] this Friday. Will have PFS involved with DC plans. (2) Pseudogout of knee Status: Acute Discussed With: Adolescent Counselor, Family with Pt Consent Problem Specific Plan: Consult Specialist Problem Text: 01/05 - Continue Naproxen 01/04/19: monitor. cx pending also. The patient's requested an orthopedics consultation. Dr. Philip saw the patient and tapped his knee. The fluid had calcium pyrophosphate crystals confirming a dx of pseudogout. Will add naproxen to his regimen, however, because of the increased risk of GI bleeding I will do so for only 7 days. I will add Protonix for GI protection too. 1 week should be enough time to calm the synovitis. (3) Sepsis Status: Resolved Response to Treatment: Improving Problem Text: 01/05 - WBC has normalized - U/C pending. Patient has a weldon - urine is clear and yellow 01/04/19: WBC 13.3. UA and urine cx ordered. afebrile. no visible signs of infection. 12/29 will stop antibiotics today. 12/25 - Resolved - D#4 Zosyn No longer requiring Levaphed IVF stopped BP stable (4) HTN (hypertension) Status: Chronic Response to Treatment: Stable Problem Text: cont Carvedilol (5) Hypothyroidism Status: Chronic Response to Treatment: Stable Problem Text: continue home medication (6) Dementia Status: Chronic Response to Treatment: Stable Problem Specific Plan: Repeat Tests (will repeat swallowing eval since family suggests he should be able to tolerate more substantial diet.) Problem Text: Parkinsonian (7) Colitis Status: Resolved Response to Treatment: Improving Problem Text: 12/29 will stop antibiotics. taking food ok, no gi symptoms. 12/28 nothing definitive on cultures. clinically improved. will continue antibiotic to tomorrow then d/c. if symptoms relapse then GI consult 12/27 -- feels PO intake improving. No documented diarrhea today. 12/26 -- states diarrhea improving; he is eating and drinking, but not full meals per his . Diet adjusted per swallow eval. Restarted IVFs at 75 ml/hour as fluid intake insufficient. 12/25 - Diarrhea improved notes this is the 3rd-4th bout of diarrhea over the last several months. GI panel negative Will need eval and colonoscopy when stable. (8) Depression with anxiety Status: Chronic Response to Treatment: Stable (9) Pneumothorax Status: Resolved Problem Specific Plan: Consult Specialist Problem Text: 12/31; stable by exam. if Dr. Jade approves, plan to remove central line today., f/uCXR. 12/30: CXR shows no pneumothorax. left sided effusion, likely residual from the event that created the pneumothorax, slightly increased density in left upper lobe, stable. chest tube in place managed by Dr. Jade. 12/29: upon review with large, magnified image yesterday, one could confirm there were bronchopulmonary markings visible in the apex, so no pneumothorax yesterday and none today. chest tube in place with suction reduced by Dr. Jade 12/28: small apical pneumothorax still visible. 12/26 -- chest tube remains in place, managed by Dr. Jade 12/25 - s/p CT 12/23 - F/U CXR today:Left chest tube remains in place. The left pneumothorax is almost completely evacuated with a tiny sliver of pleural air superolaterally. There is a hazy pleural opacity in the left upper perihilar region again noted. This could be loculated fluid. There is increased density behind the heart in the left base consistent with atelectasis. A left subclavian line terminates in the superior vena cava. Right lung remains clear. Pulmonary to see today and decide when CT can be removed 12/24 - s/p chest tube placement yesterday Dislodged tube overnight replaced today due to recurrent pneumothorax Cont chest tube until tomorrow and then reassess Plan/VTE VTE Prophylaxis Ordered?: Yes Plan IVF: Discontinue Activity: Bedrest Therapy: PT, OT, Speech Pt and Family Services: Other PFS Anticipated Discharge: Correction Disposition [facility] friday VS, I&O, 24H, [facility] Vital Signs/I&O Vital Signs Date Time Temp Pulse Resp B/P (MAP) Pulse Ox O2 Delivery O2 Flow Rate FiO2 01/05/19 06:00 98.8 69 18 128/76 (93) 94 I&O- Last 24 Hours up to 6 AM 01/05/19 06:00 Intake Total 600 ml Output Total 330 ml Balance 270 ml Laboratory Data 24H LABS Laboratory Tests 2 01/04/19 14:53: Urine Appearance CLEAR, Urine Color YELLOW, Urine pH 5.0, Urine Specific [place] 1.014, Urine Protein NEGATIVE, Urine Glucose (UA) NEGATIVE, Urine Ketones NEGATIVE, Urine Urobilinogen 0.2, Urine Bilirubin NEGATIVE, Urine Leukocyte Esterase NEGATIVE, Urine Blood NEGATIVE, Urine Nitrite NEGATIVE, Urine WBC (Auto) 1, Urine RBC (Auto) 2, Urine Hyaline Casts (Auto) 1, Urine Bacteria (Auto) NEGATIVE, Urine Squamous Epithelial Cells 0, Urine Sperm (Auto) 01/05/19 05:45: Nucleated Red Blood Cells % (auto) 0.0, Anion Gap 5L, Glomerular Filtration Rate > 60.0, Blood Urea Nitrogen 13, Creatinine 0.91, Sodium Level 140, Potassium Level 4.0, Chloride Level 107, Carbon Dioxide Level 28, Calcium Level 8.7 CBC/BMP Laboratory Tests 01/05/19 05:45 Red Blood Count 3.30 L, Mean Corpuscular Volume 97.0 H, Mean Corpuscular Hemoglobin 31.2, Mean Corpuscular Hemoglobin Concent 32.2, Red Cell Distribution Width 13.3, Calcium Level 8.7 Microbiology Microbiology 01/03/19 Gram Stain - Final, Resulted 01/03/19 Body Fluid Culture, Resulted Pending 01/04/19 Urine Culture, Received Pending SELWYN GARRIDO PA-C Jan 05, 2019 08:10 STEPHANIE FORTUNE DO Jan 05, 2019 23:29
[2019-01-05] MEDS: CYANOCOBALAMIN 500 MCG TAB PO SCH (12:47)
[2019-01-05] MEDS: CLOPIDOGREL 75 MG TAB PO SCH (12:48)
[2019-01-05 14:00] VITALS: BP 156/93
[2019-01-05] MEDS: QUEtiapine FUMARATE 25 MG TAB PO SCH (16:40)
[2019-01-05] MEDS: CitaloPRAM (CeleXA) 20 MG TAB PO SCH (16:40)
[2019-01-05] MEDS: ATORVASTATIN 20 MG TAB PO SCH (21:36)
[2019-01-05] MEDS: QUEtiapine FUMARATE 100 MG TAB PO SCH (21:37)
[2019-01-05 22:00] VITALS: BP 96/60
[2019-01-06 06:00] VITALS: BP 101/69
[2019-01-06] MEDS: LEVOTHYROXINE 100MCG TABLET (0.1MG) PO SCH (06:03)
[2019-01-06] MEDS ORDERED: KLOR10TA76 PO (07:24)
[2019-01-06] MEDS ORDERED: FURO20TA2 PO (07:24)
[2019-01-06] MEDS ORDERED: NAPR250T4 PO (07:24)
[2019-01-06] MEDS ORDERED: ALB2.5NEB NEB (07:24)
[2019-01-06] MEDS ORDERED: ACET-683 PO (07:24)
[2019-01-06] MEDS ORDERED: NYAM10003 TOP ×2 (07:24)
[2019-01-06] MEDS: IPRATROPIUM 0.5MG/ALBUTEROL 2.5MG INH SOL UD 3ML (DUONEB)(J7620) NEB SCH (07:30)
[2019-01-06] MEDS: SINEMET 25-100 MG TAB PO SCH (08:58)
[2019-01-06] MEDS: POTASSIUM CHLORIDE 10 MEQ SR TABLET PO SCH (08:59)
[2019-01-06] MEDS: ASPIRIN 81 MG CHEW TABLET PO SCH (08:59)
[2019-01-06 09:00] VITALS: BP 100/63
[2019-01-06] MEDS: CARVedilol 6.25 MG TAB PO SCH (09:00)
[2019-01-06] MEDS: NAPROXEN 250 MG TAB PO SCH (09:00)
[2019-01-06 09:01] VITALS: BP 100/63
[2019-01-06] MEDS: NYSTATIN 100,000 UNITS/GM TOPICAL PWD 15 GM TOP SCH (09:01)
[2019-01-06] MEDS: FUROSEMIDE 20 MG TAB PO SCH (09:01)
--- NOTE | 2019-01-06 19:54 | DS.PDOC ---
Discharge Summary General Date of Admission Dec 22, 2018 at 07:57 Date of Discharge January 06, 2019 Primary Care Physician: Corry Man Attending Physician: STEPHANIE FORTUNE DO Specialist/Consultants Involve: A Discharge Summary PROCEDURES PERFORMED DURING STAY: Chest tube placement; right knee aspiration ADMITTING DIAGNOSES: 1. Sepsis 2. Colitis 3. Pneumothorax 4. Parkinsonism 5. Pseudogout 6. HTN 7. Dementia 8. Hypothyroidism COMPLICATIONS/CHIEF COMPLAINT: Colitis,Sepsis. HISTORY OF PRESENT ILLNESS: 57 yo male with parkinsons wsa brought into ED with increased lethargy, diarrhea. He was non verbal at the time of this H&P. Per his , this was not his baseline. In the ED he was found to have a BP 50/40 and was started on IVF sepsis protocol, levofed and zosyn. CT scan abdomen suggested colitis. Duct Layer, Dr Moulton was consulted and saw patient in ED, placed central line for levophed. Patient had 2 normal stools on 12/20/18, then on 12/21 had diarrhea four times per hour - watery/yellow. Diarrhea continued until this the morning of his admission. denied any no recent antibiotics. no ill contacts. no other family member with diarrhea. HOSPITAL COURSE: Mr. Multani was admitted to the ICU. Duct Layer were consulted. He had a central line placed upon admission. He was initially started on Levofed, Zoysn and IVF. His pressures normalized quickly and the Levofed was discontinued in the ER while awaiting transfer to unit. On day two patient had developed a large pneumothorax and thoracic surgeon (DR. Jade) was consulted. Patient had a chest tube placed. He developed a recurrent pneumothorax after pulling out his chest tube which was replaced. His pneumothorax was monitored by Dr. Jade with serial chest x-rays and the chest tube was removed on 12/31/18. Patient was downgraded to med-surg status on 01/01/19. The Zoysn was discontinued on 12/29/18. His diarrhea improved within the first few days of admission. His diet was advanced and tolerated. He did develop some pretibial edema and was started on Lasix. The patient's requested an orthopedics consultation for knee inflammation and pain. Dr. Philip saw the patient and tapped his knee. The fluid had calcium pyrophosphate crystals confirming a dx of pseudogout. Naproxen was added to his regimen for a total of 7 days only d/t increased risk for GI bleed. During his hospitalization he did have a swallow eval. Final recommendation was for a level 3 mechanical soft solids diet, shaved deli meats OK, continue thin liquids, small bite/sip, OOB all meals, full assistance feeding, and medications crushed. Patient was medically optimized and discharged to [facility] on 01/06/19 DISCHARGE MEDICATIONS: Please see below. ALLERGIES: Please see below. PHYSICAL EXAMINATION ON DISCHARGE: VITAL SIGNS: Please see below. GENERAL: Alert, non-verbal, NAD HEENT: unremarkable NECK: soft, supple, no JVD CARDIOVASCULAR EXAMINATION: RRR RESPIRATORY EXAMINATION: CTA ABDOMINAL EXAMINATION: soft, non-tender, non-distended EXTREMITIES: BLE 1+ edema SKIN: warm, dry LABORATORY DATA: Please see below. IMAGING: Several chest x-rays CT Head: IMPRESSION: No evidence of acute intracranial injury CT Chest: IMPRESSION: 1. Mild dependent groundglass opacity and reticular densities in the bilateral lung bases, some of which were present previously, probably representing mild atelectasis superimposed on chronic postinflammatory scarring. 2. No evidence of acute traumatic injury in the chest. CT Abdomen/Pelvis: IMPRESSION: Circumferential thickening of the distal colon with adjacent inflammatory changes, indicating a nonspecific distal colitis. The length of the colon involvement is not typical for diverticulitis. Consider infectious, inflammatory, or ischemic etiologies. PROGNOSIS: Good ACTIVITY: As tolerated with assistance DIET: Level 3 mechanical soft DISCHARGE PLAN: TO [facility] DISPOSITION: [facility]. DISCHARGE INSTRUCTIONS: 1. F/U with [facility] provider Dr. Garcia DISCHARGE CONDITION: Stable Vital Signs/I&Os Vital Signs Date Time Temp Pulse Resp B/P (MAP) Pulse Ox O2 Delivery O2 Flow Rate FiO2 01/06/19 09:01 78 100/63 (75) 01/06/19 06:00 98.0 18 98 I&O- Last 24 Hours up to 6 AM 01/06/19 06:00 Intake Total 510 ml Output Total 2350 ml Balance -1840 ml Microbiology Microbiology 01/03/19 Gram Stain - Final, Complete 01/03/19 Body Fluid Culture - Final, Complete 01/04/19 Urine Culture - Final, Complete Discharge Medications Scheduled Aspirin (Aspir 81) 81 Mg Tablet., 81 MG PO DAILY, (Reported) Atorvastatin Calcium (Atorvastatin Calcium) 80 Mg Tablet, 80 MG PO QHS, (Reported) CRUSHES AND MIXES WITH APPLESAUCE Carbidopa/Levodopa (Carbidopa-Levodopa 25-100 Tab) 1 Each Tablet, 2 TAB PO QID, (Reported) TAKES AT 0800/1200/1600/2000 Carvedilol (Carvedilol) 6.25 Mg Tablet, 6.25 MG PO BID, (Reported) Citalopram Hydrobromide (Celexa) 40 Mg Tablet, 40 MG PO QPM, (Reported) TAKES AT 1600 Clopidogrel Bisulfate (Clopidogrel) 75 Mg Tablet, 75 MG PO DAILY, (Reported) TAKES AT NOON Cyanocobalamin (Vitamin B-12) (Vitamin B-12) 1,000 Mcg Tablet, 1,000 MCG PO DAILY, (Reported) TAKES AT 1200 Furosemide (Furosemide) 20 Mg Tablet, 20 MG PO DAILY Levothyroxine Sodium (Synthroid) 100 Mcg Tablet, 100 MCG PO QAM, (Reported) Naproxen (Naproxen) 250 Mg Tablet, 500 MG PO BID Nystatin (Nyamyc) 15 Gm Powder, 0 DOSE TOP QID Potassium Chloride (Klor-Con M10) 10 Meq Tab.er.prt, 20 MEQ PO BID Quetiapine Fumarate (Quetiapine Fumarate) 25 Mg Tablet, 25 MG PO QPM, (Reported) TAKES AT 1600 Quetiapine Fumarate (Quetiapine Fumarate) 100 Mg Tablet, 100 MG PO QHS, (Reported) Tizanidine HCl (Tizanidine HCl) 2 Mg Tablet, 4 MG PO QHS, (Reported) Scheduled PRN Acetaminophen (Acetaminophen) 500 Mg Tablet, 1,000 MG PO Q8HP PRN for PAIN / FEVER Albuterol Sulfate (Albuterol Sulfate) 2.5 Mg/0.5 Ml Vial.neb, 2.5 MG NEB RQID PRN for wheeze Nitroglycerin (Nitrostat) 0.4 Mg Tab.subl, 0.4 MG SL Q5MP PRN for CHEST PAIN, (Reported) Nystatin (Nyamyc) 15 Gm Powder, 0 DOSE TOP ASDIRECTED PRN for WHENEVER AREA IS WET Allergies Coded Allergies: Benzodiazepines (Verified Allergy, Unknown, Paradoxical Agitation, 12/26/18) Contrast Media (Verified Allergy, Unknown, SWELLING, 12/22/18) meperidine (Verified Allergy, Unknown, CONTRAINDICATED WITH PARKINSONS, 12/22/18) tramadol (Verified Allergy, Unknown, CONTRAINDICATED WITH PARKINSONS, 12/22/18) fluoxetine (Verified Adverse Reaction, Unknown, CONTRAINDICATED WITH PARKINSONS, 12/22/18) fluvoxamine (Verified Adverse Reaction, Unknown, CONTRAINDICATED WITH PARKINSONS, 12/22/18) KAMERON ARREOLA [facility] Jan 06, 2019 14:47
== END 2019-01-06 11:30 | DRG 720 ==
LOC: M ED 00:55 → M ED INP 07:57 → M ICU 21:48 → M PCU 12-24 18:19 → M MS5PR 01-01 14:47
PROVIDERS: ADMIT Family Medicine; ATTEND Family Medicine
PROC: 02HV33Z Insertion of Infusion Device into Superior Vena Cava, Percutaneous Approach (ICD-10-PCS; principal; 2018-12-22)
PROC: 0W9B30Z Drainage of Left Pleural Cavity with Drainage Device, Percutaneous Approach (ICD-10-PCS; 2018-12-23)
PROC: 0S9C3ZZ Drainage of Right Knee Joint, Percutaneous Approach (ICD-10-PCS; 2019-01-03)
DX: A41.9 Sepsis, unspecified organism (principal); I95.9 Hypotension, unspecified; F02.80 Dementia in other diseases classified elsewhere, unspecified severity, without behavioral disturbance, psychotic disturbance, mood disturbance, and anxiety; G31.83 Neurocognitive disorder with Lewy bodies; E86.0 Dehydration; I10 Essential (primary) hypertension; E03.9 Hypothyroidism, unspecified; M10.9 Gout, unspecified; Z79.82 Long term (current) use of aspirin; Z79.899 Other long term (current) drug therapy; Z91.041 Radiographic dye allergy status; Z88.8 Allergy status to other drugs, medicaments and biological substances; F32.9 Major depressive disorder, single episode, unspecified; F41.9 Anxiety disorder, unspecified; Z87.891 Personal history of nicotine dependence; K52.9 Noninfective gastroenteritis and colitis, unspecified; E87.6 Hypokalemia; M25.461 Effusion, right knee; J95.811 Postprocedural pneumothorax

== ENCOUNTER 2019-01-14 17:40 | Inpatient (IN) | payer OTHER ==
[~2019-01-14] VITALS: Ht 177.8 cm; Wt 76.0 kg
[~2019-01-14 17:40] MED LIST: ACET-683 PO; ALB2.5NEB NEB; ASPI81TA85 PO; ATOR80TA59 PO; CARB25TA9 PO; CARV6.25 PO; CELE40TA PO; CLOP75TA2 PO; FURO20TA2 PO; KLOR10TA76 PO; NAPR250T4 PO; NITR4TASL SL; NYAM10003 TOP; QUET1TAB7 PO; QUET1TAB8 PO; SYNT100T PO; TIZA2TAB4 PO; VITA100018 PO
--- NOTE | 2019-01-14 18:55 | REPVR ---
EXAM: US Duplex Left Lower Extremity Veins, Limited EXAM DATE/TIME: 01/14/2019 6:36 PM CLINICAL HISTORY: 58 years old, male; Pain; Leg, upper and leg, lower; Left; Additional info: Swelling TECHNIQUE: Imaging protocol: Real-time Duplex ultrasound of the Left Lower Extremity with 2-D borja scale, color Doppler flow and spectral waveform analysis. Limited exam focused on the left lower extremity veins. COMPARISON: No relevant prior studies available. FINDINGS: Left deep veins: Thrombus demonstrated from the common femoral vein to the popliteal vein consistent with DVT with minimal residual lumen. Left superficial veins: Unremarkable. Saphenofemoral junction is patent without thrombus. Soft tissues: Soft tissue edema. IMPRESSION: 1. Acute near-complete with occlusive DVT extending from common femoral vein to the popliteal vein. 2. Soft tissue edema. Electronically signed by: Parviz Rios On 01/14/2019 18:55:23 PM
[2019-01-14] MEDS ORDERED: BISA10SU27 PR (19:30)
[2019-01-14] MEDS ORDERED: ENEMENE PR (19:30)
[2019-01-14] MEDS ORDERED: MILKSUS3 PO (19:31)
[2019-01-14] MEDS ORDERED: ALB2.5NEB INH (19:34)
[2019-01-14] MEDS ORDERED: POTA10TA17 PO (19:34)
[2019-01-14] MEDS ORDERED: FURO20TA2 PO (19:34)
--- NOTE | 2019-01-14 19:34 | ECGEPIP ---
[facility] - ED Test Date: 2019-01-14 Pat Name: TENISHA CRUZ Department: Room: - Gender: Male Field Evidence Technician: : [id number] Requested By: SINDY Zimmerman Order Number: [id number] Reading MD: Trisha Corral Measurements Intervals [place] Rate: 79 P: 16 VT: 176 QRS: 89 QRSD: 92 T: 45 QT: 351 QTc: 404 Interpretive Statements SINUS RHYTHM NSTTW abnormalities Electronically Signed on 01-14-2019 19:34:19 EDT by Trisha Corral
[2019-01-14] MEDS ORDERED: ACET-683 PO (19:37)
[2019-01-14] MEDS ORDERED: TIZA4TAB4 PO (19:37)
[2019-01-14 19:59] LABS: HEMATOCRIT 40.2 % (42.0-52.0); HEMOGLOBIN 13.1 g/dl (13.5-17.5); MEAN CORPUSCULAR HEMOGLOBIN 31.1 pg (27.0-33.0); MEAN CORPUSCULAR HGB CONC 32.6 g/dl (32.0-36.5); MEAN CORPUSCULAR VOLUME 95.5 fl (80.0-96.0); PLATELET COUNT, AUTOMATED 380 10^3/uL (150-450); RED BLOOD COUNT 4.21 10^6/uL (4.30-6.10); WHITE BLOOD COUNT 15.3 10^3/uL (4.0-10.0)
[2019-01-14 20:14] LABS: INR 1.24; PROTHROMBIN TIME 15.3 SECONDS (11.8-14.0)
[2019-01-14 20:15] LABS: PARTIAL THROMBOPLASTIN TIME 36.2 SECONDS (25.0-38.4)
[2019-01-14 20:21] LABS: ALBUMIN 4.1 GM/DL (3.2-5.2); ALT/SGPT 9 U/L (12-78); BILIRUBIN,TOTAL 0.6 MG/DL (0.2-1.0); BLOOD UREA NITROGEN 26 MG/DL (7-18); CALCIUM LEVEL 9.6 MG/DL (8.5-10.1); CARBON DIOXIDE LEVEL 24 MEQ/L (21-32); CHLORIDE LEVEL 103 MEQ/L (98-107); CREATININE FOR GFR 1.04 MG/DL (0.70-1.30); GLOMERULAR FILTRATION RATE > 60.0 (>56); GLUCOSE, FASTING 122 MG/DL (70-100); POTASSIUM SERUM 4.6 MEQ/L (3.5-5.1); SODIUM LEVEL 135 MEQ/L (136-145); TOTAL PROTEIN 8.1 GM/DL (6.4-8.2)
[2019-01-14] MEDS ORDERED: HEPARIN DRIP 25,000 UNITS in APPROPRIATE DILUENT 1 EA IV SCH (20:51)
[2019-01-14] MEDS ORDERED: HEPARIN SOD (PORCINE) 5000 UNITS/ML VIAL IV ONE (21:00)
[2019-01-14] MEDS ORDERED: HEPARIN SOD (PORCINE) 5000 UNITS/ML VIAL IV PRN (21:00)
[2019-01-14] MEDS ORDERED: BISACODYL 10 MG SUPP PR PRN (22:15)
[2019-01-14] MEDS ORDERED: ALBUTEROL SULFATE 2.5 MG/0.5 ML INH NEB SOLN INH PRN (22:15)
--- NOTE | 2019-01-14 22:55 | HPEPDOC ---
General Date of Admission 01.14.19 Date of Service: Jan 14, 2019 Chief Complaint The patient is a 58-year-old male admitted with a reason for visit of Leg Swelling. History of Present Illness 58m with Parkinsons, dementia, hypothyroid, PAD, sent in from [facility] for left leg swelling. Pt is unable to provide any history. Daughter states it was noticed today. In Ed was found to have a nearly totally occlusive DVT. ROS unobtainable Home Medications Scheduled Aspirin (Aspir 81) 81 Mg Tablet.dr, 81 MG PO DAILY, (Reported) Atorvastatin Calcium (Atorvastatin Calcium) 80 Mg Tablet, 80 MG PO QHS, (Re ported) Carbidopa/Levodopa (Carbidopa-Levodopa 25-100 Tab) 1 Each Tablet, 2 TAB PO QID, (Reported) TAKES AT 0800/1200/1600/2000 Carvedilol (Carvedilol) 6.25 Mg Tablet, 6.25 MG PO BID, (Reported) Citalopram Hydrobromide (Celexa) 40 Mg Tablet, 40 MG PO QPM, (Reported) TAKES AT 1600 Clopidogrel Bisulfate (Clopidogrel) 75 Mg Tablet, 75 MG PO DAILY, (Reported) TAKES AT NOON Cyanocobalamin (Vitamin B-12) (Vitamin B-12) 1,000 Mcg Tablet, 1,000 MCG PO DAILY, (Reported) TAKES AT 1200 Furosemide (Furosemide) 20 Mg Tablet, 20 MG PO DAILY, (Reported) Levothyroxine Sodium (Synthroid) 100 Mcg Tablet, 100 MCG PO QAM, (Reported) Potassium Chloride (Potassium Chloride) 10 Meq Tab.er.prt, 20 MEQ PO BID, (Reported) Quetiapine Fumarate (Quetiapine Fumarate) 25 Mg Tablet, 25 MG PO QPM, (Reported) TAKES AT 1600 Quetiapine Fumarate (Quetiapine Fumarate) 100 Mg Tablet, 100 MG PO QHS, (Reported) Tizanidine HCl (Tizanidine HCl) 4 Mg Tablet, 4 MG PO QHS, (Reported) Scheduled PRN Acetaminophen (Acetaminophen) 500 Mg Tablet, 1,000 MG PO Q8H PRN for PAIN, (Reported) Albuterol Sulfate (Albuterol Sulfate) 2.5 Mg/0.5 Ml Vial.neb, 2.5 MG INH QID PRN for WHEEZING, (Reported) Bisacodyl (Bisacodyl) 10 Mg Supp.rect, 10 MG MN DAILY PRN for BOWEL CARE, (Reported) Magnesium Hydroxide (Milk of Magnesia) 400 Mg/5 Ml Oral.susp, 30 ML PO DAILY PRN for BOWEL CARE, (Reported) Nitroglycerin (Nitrostat) 0.4 Mg Tab.subl, 0.4 MG SL Q5MP PRN for CHEST PAIN, (Reported) Sodium Phosphate,Concho-Dibasic (Enema) 133 Ml Enema, 1 [place] DAILY PRN for CONSTIPATION, (Reported) Allergies Coded Allergies: Benzodiazepines (Verified Allergy, Unknown, Paradoxical Agitation, 12/26/18) Contrast Media (Verified Allergy, Unknown, SWELLING, 12/22/18) meperidine (Verified Allergy, Unknown, CONTRAINDICATED WITH PARKINSONS, 12/22/18) tramadol (Verified Allergy, Unknown, CONTRAINDICATED WITH PARKINSONS, 12/22/18) fluoxetine (Verified Adverse Reaction, Unknown, CONTRAINDICATED WITH PARKINSONS, 12/22/18) fluvoxamine (Verified Adverse Reaction, Unknown, CONTRAINDICATED WITH PARKINSONS, 12/22/18) Past Medical History Medical History as above A-FIB/CHADSVASC A-FIB History Current/History of A-Fib/PAF?: No Current PO Anticoag Therapy: No Age/Risk Factor Scoring CHADSVASC: CHADSVASC Response (Comments) Value Age Risk Factor Age < 65 years old 0 Gender Risk Factor Male 0 Hx of CHF No 0 Hx of HTN No 0 Hx of Stroke/TIA/or VTE Yes 2 Hx of Diabetes No 0 Hx of Vascular Disease Yes 1 Total 3 Treatment Treatment ordered: Heparin IV bridge Therapy Physical Examination General Exam: Positive: No Acute Distress; Negative: Alert, Cooperative Eye Exam: Positive: PERRLA, Conjunctiva & lids normal, EOMI; Negative: Sclera icteric ENT Exam: Positive: Atraumatic, Mucous membr. moist/pink, Pharynx Normal Neck Exam: Positive: Supple; Negative: JVD, thyromegaly Chest Exam: Positive: Clear to auscultation, Normal air movement Heart Exam: Positive: Rate Normal, Regular Rhythm, Normal S1, Normal S2; Negative: Murmurs, Rubs Telemetry: Positive: No significant arrhythmia Abdomen Exam: Positive: Normal bowel sounds, Soft; Negative: Tenderness, Hepatospenomegaly Extremity Exam: Positive: Swelling (left) Skin Exam: Positive: Nl turgor and temperature; Negative: Breakdown, Lesion Neuro Exam: Positive: Normal Gait, Normal Speech, Cranial Nerves 3-12 NL, Reflexes 2+ Psych Exam: Negative: Mental status NL, Oriented x 3 Vital Signs Vital Signs Date Time Temp Pulse Resp B/P (MAP) Pulse Ox O2 Delivery O2 Flow Rate FiO2 01/14/19 21:39 86 18 144/83 (103) 95 Room Air 01/14/19 19:42 98.6 Laboratory Data Labs 24H Laboratory Tests 2 01/14/19 19:28: Nucleated Red Blood Cells % (auto) 0.0, Prothrombin Time 15.3H, Prothromb Time International Ratio 1.24, Activated Partial Thromboplast Time 36.2, Anion Gap 8, Glomerular Filtration Rate > 60.0, Blood Urea Nitrogen 26H, Creatinine 1.04, Sodium Level 135L, Potassium Level 4.6, Chloride Level 103, Carbon Dioxide Level 24, Calcium Level 9.6, Aspartate Amino Transf (AST/SGOT) 13, Alanine Aminotransferase (ALT/SGPT) 9L, Alkaline Phosphatase 116, Total Bilirubin 0.6, Total Protein 8.1, Albumin 4.1, Albumin/Globulin Ratio 1.03 CBC/BMP Laboratory Tests 01/14/19 19:28 Red Blood Count 4.21 L, Mean Corpuscular Volume 95.5, Mean Corpuscular Hemoglobin 31.1, Mean Corpuscular Hemoglobin Concent 32.6, Red Cell Distribution Width 13.4, Calcium Level 9.6, Aspartate Amino Transf (AST/SGOT) 13, Alanine Aminotransferase (ALT/SGPT) 9 L, Alkaline Phosphatase 116, Total Bilirubin 0.6, Total Protein 8.1, Albumin 4.1 Assessment/Plan 58m p/w acute dvt dvt started on heparin drip to be evaluated by vascular in the am eventual transition to oral AC teds Parkinsons Continue sinemet continue seroquel and celexa PAD continue ASA/plavix continue statin Plan / VTE VTE Prophylaxis Ordered?: Yes MERLYN MANRIQUEZ MD Jan 14, 2019 22:55
[2019-01-15] MEDS: ATORVASTATIN 20 MG TAB PO SCH ×2 (00:27→21:07)
[2019-01-15] MEDS: CARVedilol 6.25 MG TAB PO SCH ×3 (00:27→21:09)
[2019-01-15] MEDS: QUEtiapine FUMARATE 100 MG TAB PO SCH ×2 (00:28→21:08)
[2019-01-15] MEDS: SINEMET 25-100 MG TAB PO SCH ×5 (00:28→21:08)
[2019-01-15] MEDS ORDERED: HEPARIN DRIP 25,000 UNITS in APPROPRIATE DILUENT 1 EA IV SCH (00:55)
[2019-01-15] MEDS ORDERED: HEPARIN SOD (PORCINE) 5000 UNITS/ML VIAL IV PRN (01:00)
[2019-01-15 04:02] LABS: BASO # 0.1 10^3/uL (0.0-0.2); BASO % 0.5 % (0.0-1.0); EOS # 0.2 10^3/uL (0.0-0.50); EOS % 1.3 % (0.0-3.0); HEMATOCRIT 39.4 % (42.0-52.0); HEMOGLOBIN 12.7 g/dl (13.5-17.5); LYMPH # 1.5 10^3/uL (1.5-4.5); LYMPH % 8.6 % (24.0-44.0); MEAN CORPUSCULAR HEMOGLOBIN 31.8 pg (27.0-33.0); MEAN CORPUSCULAR HGB CONC 32.2 g/dl (32.0-36.5); MEAN CORPUSCULAR VOLUME 98.5 fl (80.0-96.0); MONO # 1.1 10^3/uL (0.0-0.8); MONO % 6.1 % (0.0-5.0); NEUTROPHILS # 14.2 10^3/uL (1.8-7.7); PLATELET COUNT, AUTOMATED 319 10^3/uL (150-450); WHITE BLOOD COUNT 17.1 10^3/uL (4.0-10.0)
[2019-01-15 04:12] LABS: INR 1.3; PROTHROMBIN TIME 15.9 SECONDS (11.8-14.0)
[2019-01-15 04:13] LABS: PARTIAL THROMBOPLASTIN TIME 53.1 SECONDS (25.0-38.4)
[2019-01-15 04:21] LABS: BLOOD UREA NITROGEN 26 MG/DL (7-18); CALCIUM LEVEL 9.2 MG/DL (8.5-10.1); CARBON DIOXIDE LEVEL 29 MEQ/L (21-32); CHLORIDE LEVEL 102 MEQ/L (98-107); GLOMERULAR FILTRATION RATE > 60.0 (>56); GLUCOSE, FASTING 129 MG/DL (70-100); POTASSIUM SERUM 4.6 MEQ/L (3.5-5.1); SODIUM LEVEL 136 MEQ/L (136-145)
[2019-01-15 06:00] VITALS: BP 133/84
[2019-01-15] MEDS: LEVOTHYROXINE 100MCG TABLET (0.1MG) PO SCH (06:14)
[2019-01-15] MEDS: FUROSEMIDE 20 MG TAB PO SCH (08:18)
--- NOTE | 2019-01-15 08:59 | CR.PDOC ---
General Date of Consultation: Jan 15, [address] Bowser HPI: The pt is a 58yo M sent in from [facility] for left leg swelling. Pt is unable to provide any history related to dementia. Daughter reported perri orta was noticed 01/14/19. In ED the pt was found to have a nearly totally occlusive DVT LLE. The pt is noted to have mumbling speech, does not respond to questions and is unable to provide any history, history is taken from the chart. PMHx: dementia Parkinson's disease HTN HLD hypothyroid PAD carotid vascular disease dysphagia PSHX: left inguinal herniorrhaphy repair. bilateral femoral-popliteal bypass ight carotid stent right subclavian stent. SOCHX: Resides in: [facility] FAMHX: Pt is unable to provide any additional history at this time. ROS: Pt is unable to provide any additional history at this time. PE: GEN: 58yoM. No acute distress. Confused, mumbling speech. HEENT: Normocephalic, atraumatic. Sclera are nonicteric. Conjunctiva without injection. No facial asymmetry. CHEST: Regular rate and rhythm, +S1, +S2 LUNGS: Clear to auscultation bilaterally. No wheezes, rales, or rhonchi. Breathing appears symmetric and easy. ABD: Round, soft, non-tender, non-distended. +Bowel sounds throughout. EXT: Erythema is noted of LLE extending to lower thigh area, edema and mild warmth of LLE. No TTP. SKIN: Lago, dry, warm. No rashes. LLE US 1. Acute near-complete with occlusive DVT extending from common femoral vein to the popliteal vein. 2. Soft tissue edema. Electronically signed by: Parviz Rios On 01/14/2019 18:55:23 PM A&P: 1. LLE DVT. The pt is reviewed and examined as per Dr Bowser. Recommendations as per Dr Bowser 01/15/19 is for conservative mgmt. Recommend to Continue with Heparin gtt. Discontinue ASA 81 mg. Initiate Coumadin AC with goal INR 2.0-3.0. Will leave mgmt to primary team. Continue Heparin gtt until INR is therapeutic. 2. PAD/Carotid vascular disease. Continue Plavix 75 mg daily. Thank you for your consultation. We will continue to follow along with you. Vital Signs/I&O Vital Signs Date Time Temp Pulse Resp B/P (MAP) Pulse Ox O2 Delivery O2 Flow Rate FiO2 01/15/19 08:19 82 120/80 01/15/19 06:00 98.4 17 95 01/14/19 23:30 Room Air I&O- Last 24 Hours up to 6 AM 01/15/19 06:00 Intake Total 63 ml Balance 63 ml Laboratory Data Labs 24H Laboratory Tests 2 01/14/19 19:28: Nucleated Red Blood Cells % (auto) 0.0, Prothrombin Time 15.3H, Prothromb Time International Ratio 1.24, Activated Partial Thromboplast Time 36.2, Anion Gap 8, Glomerular Filtration Rate > 60.0, Blood Urea Nitrogen 26H, Creatinine 1.04, Sodium Level 135L, Potassium Level 4.6, Chloride Level 103, Carbon Dioxide Level 24, Calcium Level 9.6, Aspartate Amino Transf (AST/SGOT) 13, Alanine Aminotransferase (ALT/SGPT) 9L, Alkaline Phosphatase 116, Total Bilirubin 0.6, Total Protein 8.1, Albumin 4.1, Albumin/Globulin Ratio 1.03 01/15/19 03:55: Nucleated Red Blood Cells % (auto) 0.0, Prothrombin Time 15.9H, Prothromb Time International Ratio 1.30, Activated Partial Thromboplast Time 53.1H, Anion Gap 5L, Glomerular Filtration Rate > 60.0, Blood Urea Nitrogen 26H, Creatinine 1.20, Sodium Level 136, Potassium Level 4.6, Chloride Level 102, Carbon Dioxide Level 29, Calcium Level 9.2, Immature Granulocyte % (Auto) 0.5, White Blood Count 17.1H, Red Blood Count 4.00L, Hemoglobin 12.7L, Hematocrit 39.4L, Mean Corpuscular Volume 98.5H, Mean Corpuscular Hemoglobin 31.8, Mean Corpuscular Hemoglobin Concent 32.2, Red Cell Distribution Width 13.4, Platelet Count 319, Neutrophils (%) (Auto) 83.0H, Lymphocytes (%) (Auto) 8.6L, Monocytes (%) (Auto) 6.1H, Eosinophils (%) (Auto) 1.3, Basophils (%) (Auto) 0.5, Neutrophils # (Auto) 14.2H, Lymphocytes # (Auto) 1.5, Monocytes # (Auto) 1.1H, Eosinophils # (Auto) 0.2, Basophils # (Auto) 0.1 CBC/BMP Laboratory Tests 01/14/19 19:28 Red Blood Count 4.21 L, Mean Corpuscular Volume 95.5, Mean Corpuscular Hemoglobin 31.1, Mean Corpuscular Hemoglobin Concent 32.6, Red Cell Distribution Width 13.4, Calcium Level 9.6, Aspartate Amino Transf (AST/SGOT) 13, Alanine Aminotransferase (ALT/SGPT) 9 L, Alkaline Phosphatase 116, Total Bilirubin 0.6, Total Protein 8.1, Albumin 4.1 01/15/19 03:55 Red Blood Count 4.00 L, Mean Corpuscular Volume 98.5 H, Mean Corpuscular Hemo globin 31.8, Mean Corpuscular Hemoglobin Concent 32.2, Red Cell Distribution Width 13.4, Calcium Level 9.2, Neutrophils (%) (Auto) 83.0 H, Lymphocytes (%) (Auto) 8.6 L, Monocytes (%) (Auto) 6.1 H, Eosinophils (%) (Auto) 1.3, Basophils (%) (Auto) 0.5, Neutrophils # (Auto) 14.2 H, Lymphocytes # (Auto) 1.5, Monocytes # (Auto) 1.1 H, Eosinophils # (Auto) 0.2, Basophils # (Auto) 0.1 Allergies Coded Allergies: Benzodiazepines (Verified Allergy, Unknown, Paradoxical Agitation, 12/26/18) Contrast Media (Verified Allergy, Unknown, SWELLING, 12/22/18) meperidine (Verified Allergy, Unknown, CONTRAINDICATED WITH PARKINSONS, 12/22/18) tramadol (Verified Allergy, Unknown, CONTRAINDICATED WITH PARKINSONS, 12/22/18) fluoxetine (Verified Adverse Reaction, Unknown, CONTRAINDICATED WITH PARKINSONS, 12/22/18) fluvoxamine (Verified Adverse Reaction, Unknown, CONTRAINDICATED WITH PARKINSONS, 12/22/18) Home Medications Scheduled Atorvastatin Calcium (Atorvastatin Calcium) 80 Mg Tablet, 80 MG PO QHS, (Reported) Carbidopa/Levodopa (Carbidopa-Levodopa 25-100 Tab) 1 Each Tablet, 2 TAB PO QID, (Reported) TAKES AT 0800/1200/1600/2000 Carvedilol (Carvedilol) 6.25 Mg Tablet, 6.25 MG PO BID, (Reported) Citalopram Hydrobromide (Celexa) 40 Mg Tablet, 40 MG PO QPM, (Reported) TAKES AT 1600 Clopidogrel Bisulfate (Clopidogrel) 75 Mg Tablet, 75 MG PO DAILY, (Reported) TAKES AT NOON Cyanocobalamin (Vitamin B-12) (Vitamin B-12) 1,000 Mcg Tablet, 1,000 MCG PO DAILY, (Reported) TAKES AT 1200 Furosemide (Furosemide) 20 Mg Tablet, 20 MG PO DAILY, (Reported) Levothyroxine Sodium (Synthroid) 100 Mcg Tablet, 100 MCG PO QAM, (Reported) Pantoprazole Sodium (Protonix) 40 Mg Tablet.dr, 40 MG PO DAILY for 30 Days, #30 Potassium Chloride (Potassium Chloride) 10 Meq Tab.er.prt, 20 MEQ PO BID, (Reported) Quetiapine Fumarate (Quetiapine Fumarate) 25 Mg Tablet, 25 MG PO QPM, (Reported) TAKES AT 1600 Quetiapine Fumarate (Quetiapine Fumarate) 100 Mg Tablet, 100 MG PO QHS, (Reported) Tizanidine HCl (Tizanidine HCl) 4 Mg Tablet, 4 MG PO QHS, (Reported) Warfarin Sodium (Coumadin) 5 Mg Tablet, 5 MG PO DAILY@17, #30 Scheduled PRN Acetaminophen (Acetaminophen) 500 Mg Tablet, 1,000 MG PO Q8H PRN for PAIN, (Reported) Albuterol Sulfate (Albuterol Sulfate) 2.5 Mg/0.5 Ml Vial.neb, 2.5 MG INH QID PRN for WHEEZING, (Reported) Bisacodyl (Bisacodyl) 10 Mg Supp.rect, 10 MG UT DAILY PRN for BOWEL CARE, (Reported) Magnesium Hydroxide (Milk of Magnesia) 400 Mg/5 Ml Oral.susp, 30 ML PO DAILY PRN for BOWEL CARE, (Reported) Nitroglycerin (Nitrostat) 0.4 Mg Tab.subl, 0.4 MG SL Q5MP PRN for CHEST PAIN, (Reported) Sodium Phosphate,Lares-Dibasic (Enema) 133 Ml Enema, 1 COOPER UT DAILY PRN for CONSTIPATION, (Reported) Nathalie Vale Jan 15, 2019 08:59
[2019-01-15] MEDS ORDERED: ASPIRIN 81 MG ENTERIC TAB PO SCH (09:00)
[2019-01-15] MEDS ORDERED: LOVE1INJ SC ×2 (09:23→09:31)
[2019-01-15] MEDS ORDERED: COUM1TAB17 PO (09:23)
[2019-01-15] MEDS ORDERED: PROT1TAB2 PO (09:31)
--- NOTE | 2019-01-15 09:49 | IPNPDOC ---
Subjective Date Seen The patient was seen on 01/15/19. Subjective Chief Complaint/HPI Patietn seems comfortable - no new issues per nursing saff Constitutional: Denies: Chills, Fever Pulmonary: Denies: Dyspnea, Cough Cardiovascular: Denies: Chest Pain, Palpitations Gastrointestinal: Denies: Nausea, Vomiting, Abdominal Pain, Diarrhea Objective Physical Examination General Exam: Positive: No Acute Distress; Negative: Alert, Cooperative ENT Exam: Positive: Mucous membr. moist/pink Chest Exam: Positive: Clear to auscultation, Normal air movement; Negative: Rales, Rhonchi, Wheezing Heart Exam: Positive: Rate Normal, Regular Rhythm, Normal S1, Normal S2; Negative: Murmurs Abdomen Exam: Positive: Normal bowel sounds, Soft; Negative: Tenderness, Hepatospenomegaly Extremity Exam: Positive: Edema (Left LE with selling, eryhema and warmth extending from knee ot ankle. Left knee with abrasion with surrounding erythema and probable effusion), Swelling (left) Skin Exam: Positive: Nl turgor and temperature; Negative: Breakdown, Lesion Psych Exam: Negative: Mental status NL, Oriented x 3 Assessment /Plan Problems (1) DVT (deep venous thrombosis) Status: Acute Problem Text: Per vascular - no role for intervention We will switch to Lovenox and start Coumadin Monitor Hgb closely - high risk for bleeding with combo of Plavix and anticoag. ASA held Add PPI for GI px due to high risk for GI bleed on above meds (2) Cellulitis and abscess of left lower extremity Status: Acute Problem Text: WBC up to 17 with localized swelling, erythema and warmth over left knee suspicious for cellulitis Keflex started Left knee x-ray ordered - patient had pseudogout in his right knee last admission so depending on x-ray findings and response to tx, may need to consider pseudogout in the differential Will order procalcitonin. (3) PVD (peripheral vascular disease) Status: Chronic Problem Text: S/O carotid stents and Fem-Pop bypass - normally on ASA/Plavix - Holding ASA while on anticoag - Continue Plavix (4) Dementia Status: Chronic Response to Treatment: Stable (5) Hypothyroidism Status: Chronic Response to Treatment: Stable (6) Depression with anxiety Status: Chronic Response to Treatment: Stable Plan/VTE VTE Prophylaxis Ordered?: Yes (Lovenox - coumadin) Disposition Probably can send back to [facility] on Lovenox tomorrow if knee is improving on abx and hgb stable. VS, I&O, 24H, Fishbone Vital Signs/I&O Vital Signs Date Time Temp Pulse Resp B/P (MAP) Pulse Ox O2 Delivery O2 Flow Rate FiO2 01/15/19 08:19 82 120/80 01/15/19 06:00 98.4 17 95 01/14/19 23:30 Room Air I&O- Last 24 Hours up to 6 AM 01/15/19 05:59 Intake Total 0 ml Balance 0 ml Laboratory Data 24H LABS Laboratory Tests 2 01/14/19 19:28: Nucleated Red Blood Cells % (auto) 0.0, Prothrombin Time 15.3H, Prothromb Time International Ratio 1.24, Activated Partial Thromboplast Time 36.2, Anion Gap 8, Glomerular Filtration Rate > 60.0, Blood Urea Nitrogen 26H, Creatinine 1.04, Sodium Level 135L, Potassium Level 4.6, Chloride Level 103, Carbon Dioxide Level 24, Calcium Level 9.6, Aspartate Amino Transf (AST/SGOT) 13, Alanine Aminotransferase (ALT/SGPT) 9L, Alkaline Phosphatase 116, Total Bilirubin 0.6, Total Protein 8.1, Albumin 4.1, Albumin/Globulin Ratio 1.03 01/15/19 03:55: Nucleated Red Blood Cells % (auto) 0.0, Prothrombin Time 15.9H, Prothromb Time International Ratio 1.30, Activated Partial Thromboplast Time 53.1H, Anion Gap 5L, Glomerular Filtration Rate > 60.0, Blood Urea Nitrogen 26H, Creatinine 1.20, Sodium Level 136, Potassium Level 4.6, Chloride Level 102, Carbon Dioxide Level 29, Calcium Level 9.2, Immature Granulocyte % (Auto) 0.5, White Blood Count 17.1H, Red Blood Count 4.00L, Hemoglobin 12.7L, Hematocrit 39.4L, Mean Corpuscular Volume 98.5H, Mean Corpuscular Hemoglobin 31.8, Mean Corpuscular Hemoglobin Concent 32.2, Red Cell Distribution Width 13.4, Platelet Count 319, Neutrophils (%) (Auto) 83.0H, Lymphocytes (%) (Auto) 8.6L, Monocytes (%) (Auto) 6.1H, Eosinophils (%) (Auto) 1.3, Basophils (%) (Auto) 0.5, Neutrophils # (Auto) 14.2H, Lymphocytes # (Auto) 1.5, Monocytes # (Auto) 1.1H, Eosinophils # (Auto) 0.2, Basophils # (Auto) 0.1 CBC/BMP Laboratory Tests 01/14/19 19:28 Red Blood Count 4.21 L, Mean Corpuscular Volume 95.5, Mean Corpuscular Hemoglobin 31.1, Mean Corpuscular Hemoglobin Concent 32.6, Red Cell Distribution Width 13.4, Calcium Level 9.6, Aspartate Amino Transf (AST/SGOT) 13, Alanine Aminotransferase (ALT/SGPT) 9 L, Alkaline Phosphatase 116, Total Bilirubin 0.6, Total Protein 8.1, Albumin 4.1 01/15/19 03:55 Red Blood Count 4.00 L, Mean Corpuscular Volume 98.5 H, Mean Corpuscular Hemoglobin 31.8, Mean Corpuscular Hemoglobin Concent 32.2, Red Cell Distribution Width 13.4, Calcium Level 9.2, Neutrophils (%) (Auto) 83.0 H, Lymphocytes (%) (Auto) 8.6 L, Monocytes (%) (Auto) 6.1 H, Eosinophils (%) (Auto) 1.3, Basophils (%) (Auto) 0.5, Neutrophils # (Auto) 14.2 H, Lymphocytes # (Auto) 1.5, Monocytes # (Auto) 1.1 H, Eosinophils # (Auto) 0.2, Basophils # (Auto) 0.1 SELWYN GARRIDO PA-C Jan 15, 2019 09:49 Alphonso Canchola MD Jan 15, 2019 10:02
--- NOTE | 2019-01-15 11:50 | REP ---
LEFT KNEE, TWO VIEWS: AP and lateral views of the left knee are performed. There is no acute fracture or dislocation. There is mild diffuse joint space narrowing and subchondral sclerosis. There does not appear to be a significant joint effusion. Mild vascular calcifications are seen posteriorly. IMPRESSION: Mild degenerative changes without fracture or dislocation. Electronically Signed by Gonzalo Luu MD 01/16/2019 11:36 A
[2019-01-15] MEDS: CEPHALEXIN 500 MG CAP PO SCH ×3 (12:33→21:08)
[2019-01-15] MEDS: CLOPIDOGREL 75 MG TAB PO SCH (12:33)
[2019-01-15] MEDS: CYANOCOBALAMIN 500 MCG TAB PO SCH (12:33)
[2019-01-15] MEDS: ENOXAPARIN 80 MG/0.8 ML SYRINGE (J1650) SC SCH (13:26)
[2019-01-15 14:00] VITALS: BP 127/73
[2019-01-15] MEDS: CitaloPRAM (CeleXA) 20 MG TAB PO SCH (16:35)
[2019-01-15] MEDS: WARFARIN SOD 5 MG TAB PO SCH (16:35)
[2019-01-15] MEDS: QUEtiapine FUMARATE 25 MG TAB PO SCH (16:36)
[2019-01-15 22:00] VITALS: BP 126/71
[2019-01-16] MEDS: ENOXAPARIN 80 MG/0.8 ML SYRINGE (J1650) SC SCH ×2 (01:03→13:34)
[2019-01-16 06:00] VITALS: BP 130/75
[2019-01-16] MEDS: LEVOTHYROXINE 100MCG TABLET (0.1MG) PO SCH (06:06)
[2019-01-16 07:19] LABS: HEMOGLOBIN 12.1 g/dl (13.5-17.5); MEAN CORPUSCULAR HEMOGLOBIN 31.9 pg (27.0-33.0); MEAN CORPUSCULAR HGB CONC 32.7 g/dl (32.0-36.5); MEAN CORPUSCULAR VOLUME 97.6 fl (80.0-96.0); PLATELET COUNT, AUTOMATED 291 10^3/uL (150-450); RED BLOOD COUNT 3.79 10^6/uL (4.30-6.10); WHITE BLOOD COUNT 11.9 10^3/uL (4.0-10.0)
[2019-01-16 07:30] LABS: INR 1.26; PROTHROMBIN TIME 15.5 SECONDS (11.8-14.0)
[2019-01-16 07:40] LABS: BLOOD UREA NITROGEN 24 MG/DL (7-18); CALCIUM LEVEL 8.5 MG/DL (8.5-10.1); CARBON DIOXIDE LEVEL 25 MEQ/L (21-32); CHLORIDE LEVEL 104 MEQ/L (98-107); CREATININE FOR GFR 0.94 MG/DL (0.70-1.30); GLOMERULAR FILTRATION RATE > 60.0 (>56); GLUCOSE, FASTING 117 MG/DL (70-100); POTASSIUM SERUM 3.9 MEQ/L (3.5-5.1); SODIUM LEVEL 139 MEQ/L (136-145)
[2019-01-16] MEDS: CEPHALEXIN 500 MG CAP PO SCH ×4 (08:56→20:35)
[2019-01-16] MEDS: CARVedilol 6.25 MG TAB PO SCH ×2 (08:56→20:36)
[2019-01-16] MEDS: FUROSEMIDE 20 MG TAB PO SCH (08:57)
[2019-01-16] MEDS: SINEMET 25-100 MG TAB PO SCH ×4 (08:57→20:35)
[2019-01-16 10:23] VITALS: BP 130/82
[2019-01-16] MEDS: CYANOCOBALAMIN 500 MCG TAB PO SCH (13:32)
[2019-01-16] MEDS: CLOPIDOGREL 75 MG TAB PO SCH (13:36)
[2019-01-16 14:00] VITALS: BP 126/60
--- NOTE | 2019-01-16 14:23 | IPNPDOC ---
Subjective Date Seen The patient was seen on 01/16/19. Subjective Chief Complaint/HPI none General: Reports: ROS Unobtainable Objective Physical Examination General Exam: Positive: No Acute Distress; Negative: Alert, Cooperative ENT Exam: Positive: Mucous membr. moist/pink Chest Exam: Positive: Clear to auscultation, Normal air movement, Diminished (breath sounds are diminished at the base on the left. poor air movement however.); Negative: Rales, Rhonchi, Wheezing Heart Exam: Positive: Rate Normal, Regular Rhythm, Normal S1, Normal S2; Negative: Murmurs Abdomen Exam: Positive: Normal bowel sounds, Soft; Negative: Tenderness, Hepatospenomegaly Extremity Exam: Positive: Edema (Left LE with selling, eryhema and warmth extending from knee ot ankle. Left knee with abrasion with surrounding erythema and probable effusion), Swelling (left) Skin Exam: Positive: Nl turgor and temperature, Other skin issue (redness at left knee is noted and compared to yesterday area of erythema is smaller. no apparent pain); Negative: Breakdown, Lesion Psych Exam: Negative: Mental status NL, Oriented x 3 Assessment /Plan Problems (1) DVT (deep venous thrombosis) Status: Acute Problem Text: Per vascular - no role for intervention We will switch to Lovenox and start Coumadin Monitor Hgb closely - high risk for bleeding with combo of Plavix and anticoag. ASA held Add PPI for GI px due to high risk for GI bleed on above meds (2) Cellulitis and abscess of left lower extremity Status: Acute Problem Text: 01/16: WBC improved to 11.4, area of redness is smaller. WBC up to 17 with localized swelling, erythema and warmth over left knee suspicious for cellulitis Keflex started Left knee x-ray ordered - patient had pseudogout in his right knee last admission so depending on x-ray findings and response to tx, may need to consider pseudogout in the differential Will order procalcitonin. (3) PVD (peripheral vascular disease) Status: Chronic Problem Text: S/O carotid stents and Fem-Pop bypass - normally on ASA/Plavix - Holding ASA while on anticoag - Continue Plavix (4) Dementia Status: Chronic Response to Treatment: Stable (5) Hypothyroidism Status: Chronic Response to Treatment: Stable (6) Depression with anxiety Status: Chronic Response to Treatment: Stable (7) Hx of pneumothorax Status: Resolved Problem Text: this problem was a complication of central line placement during his last hospital stay. notes a bit of cough so will check CXR to confirm no new problem. he had a left sided effusion which was also part of the original complication. Plan/VTE VTE Prophylaxis Ordered?: Yes (Lovenox - coumadin) VS, I&O, 24H, Fishbone Vital Signs/I&O Vital Signs Date Time Temp Pulse Resp B/P (MAP) Pulse Ox O2 Delivery O2 Flow Rate FiO2 01/16/19 10:23 98.1 76 16 130/82 (98) 97 01/14/19 23:30 Room Air I&O- Last 24 Hours up to 6 AM 01/16/19 06:00 Intake Total 480 ml Balance 480 ml Laboratory Data 24H LABS Laboratory Tests 2 01/16/19 06:50: Nucleated Red Blood Cells % (auto) 0.0, Prothrombin Time 15.5H, Prothromb Time International Ratio 1.26, Anion Gap 10, Glomerular Filtration Rate > 60.0, Blood Urea Nitrogen 24H, Creatinine 0.94, Sodium Level 139, Potassium Level 3.9, Chloride Level 104, Carbon Dioxide Level 25, Calcium Level 8.5 CBC/BMP Laboratory Tests 01/16/19 06:50 Red Blood Count 3.79 L, Mean Corpuscular Volume 97.6 H, Mean Corpuscular Hemoglobin 31.9, Mean Corpuscular Hemoglobin Concent 32.7, Red Cell Distribution Width 13.4, Calcium Level 8.5 Microbiology Microbiology 01/15/19 Blood Culture - Preliminary, Resulted No growth after 24 hours . All specim... 01/15/19 Blood Culture - Preliminary, Resulted No growth after 24 hours . All specim... Alphonso Canchola MD Jan 16, 2019 14:23
[2019-01-16] MEDS: WARFARIN SOD 5 MG TAB PO SCH (17:20)
[2019-01-16] MEDS: QUEtiapine FUMARATE 25 MG TAB PO SCH (17:21)
[2019-01-16] MEDS: CitaloPRAM (CeleXA) 20 MG TAB PO SCH (17:21)
[2019-01-16] MEDS: ATORVASTATIN 20 MG TAB PO SCH (20:35)
[2019-01-16] MEDS: QUEtiapine FUMARATE 100 MG TAB PO SCH (20:36)
[2019-01-16 22:00] VITALS: BP 126/69
[2019-01-17] MEDS: ENOXAPARIN 80 MG/0.8 ML SYRINGE (J1650) SC SCH ×2 (01:31→14:54)
[2019-01-17] MEDS: LEVOTHYROXINE 100MCG TABLET (0.1MG) PO SCH (05:44)
[2019-01-17 06:00] VITALS: BP 130/80
[2019-01-17 06:57] LABS: HEMATOCRIT 34.7 % (42.0-52.0); HEMOGLOBIN 11.4 g/dl (13.5-17.5); MEAN CORPUSCULAR HEMOGLOBIN 31.3 pg (27.0-33.0); MEAN CORPUSCULAR HGB CONC 32.9 g/dl (32.0-36.5); MEAN CORPUSCULAR VOLUME 95.3 fl (80.0-96.0); PLATELET COUNT, AUTOMATED 292 10^3/uL (150-450); RED BLOOD COUNT 3.64 10^6/uL (4.30-6.10); WHITE BLOOD COUNT 11.3 10^3/uL (4.0-10.0)
--- NOTE | 2019-01-17 07:07 | REP ---
Portable chest x-ray: Single view. History: Cough. Comparison chest x-ray: January 02, 2019. Findings: There is a large pleural opacity overlying the left upper perihilar region on the frontal view of the chest. This appears to be new from the December 22, 2018 prior studies. I suspect on review of lateral films that this may be a pleural or chest wall hematoma anteriorly. The previously noted pleural effusions are no longer apparent. This pleural opacity would be better evaluated on chest CT. No infiltrate is seen. Right lung appears clear. There is no visible pneumothorax. Impression: Large pleural opacity left perihilar region may be chest wall or subpleural hematoma. Consider repeat chest CT. No infiltrate seen. Electronically Signed by Gil Morgan MD 01/17/2019 09:36 A
[2019-01-17 07:10] LABS: INR 1.49; PROTHROMBIN TIME 17.7 SECONDS (11.8-14.0)
[2019-01-17 07:16] LABS: BLOOD UREA NITROGEN 19 MG/DL (7-18); CALCIUM LEVEL 8.8 MG/DL (8.5-10.1); CARBON DIOXIDE LEVEL 29 MEQ/L (21-32); CHLORIDE LEVEL 105 MEQ/L (98-107); GLOMERULAR FILTRATION RATE > 60.0 (>56); GLUCOSE, FASTING 104 MG/DL (70-100); POTASSIUM SERUM 3.7 MEQ/L (3.5-5.1); SODIUM LEVEL 139 MEQ/L (136-145)
--- NOTE | 2019-01-17 08:22 | IPNPDOC ---
Subjective Date Seen The patient was seen on 01/17/19. Subjective Chief Complaint/HPI no pain, no dyspnea General: Reports: ROS Unobtainable (not meaningfully obtainable. although he is alert, his parkinsonian dementia limits communication) Objective Physical Examination General Exam: Positive: Alert, No Acute Distress; Negative: Cooperative ENT Exam: Positive: Mucous membr. moist/pink Chest Exam: Positive: Clear to auscultation, Normal air movement, Diminished (breath sounds are diminished at the base on the left. poor air movement however.); Negative: Rales, Rhonchi, Wheezing Heart Exam: Positive: Rate Normal, Regular Rhythm, Normal S1, Normal S2; Negative: Murmurs Abdomen Exam: Positive: Normal bowel sounds, Soft; Negative: Tenderness, Hepatospenomegaly Extremity Exam: Positive: Edema (swelling is less and redness has essentially gone.), Swelling (left) Skin Exam: Positive: Nl turgor and temperature, Other skin issue (redness at left knee is noted and compared to yesterday area of erythema is smaller. no apparent pain); Negative: Breakdown, Lesion Psych Exam: Negative: Mental status NL, Oriented x 3 Assessment /Plan Problems (1) DVT (deep venous thrombosis) Status: Acute Problem Text: 01/17: swelling reduced, leg not wrapped. ordered specifically and discussed with RN. INR is a little higher today on 5mg warfarin dose, will continue. if not higher tomorrow, then increase dose to 7.5 daily. Per vascular - no role for intervention We will switch to Lovenox and start Coumadin Monitor Hgb closely - high risk for bleeding with combo of Plavix and anticoag. ASA held Add PPI for GI px due to high risk for GI bleed on above meds (2) Cellulitis and abscess of left lower extremity Status: Acute Response to Treatment: Improving Problem Text: 01/16: WBC improved to 11.4, area of redness is smaller. WBC up to 17 with localized swelling, erythema and warmth over left knee suspicious for cellulitis Keflex started Left knee x-ray ordered - patient had pseudogout in his right knee last admission so depending on x-ray findings and response to tx, may need to consider pseudogout in the differential Will order procalcitonin. (3) PVD (peripheral vascular disease) Status: Chronic Response to Treatment: Stable Problem Text: S/O carotid stents and Fem-Pop bypass - normally on ASA/Plavix - Holding ASA while on anticoag - Continue Plavix (4) Dementia Status: Chronic Response to Treatment: Stable (5) Hypothyroidism Status: Chronic Response to Treatment: Stable (6) Depression with anxiety Status: Chronic Response to Treatment: Stable (7) Hx of pneumothorax Status: Resolved Problem Text: 01/17: XRAY shows pleural density on left that is higher in the thorax, the density at the diaphragm is no longer visible, so this finding likely represents cephalad tracking of the pleural fluid that was present previously and does not likely represent a new process. this problem was a complication of central line placement during his last hospit al stay. notes a bit of cough so will check CXR to confirm no new problem. he had a left sided effusion which was also part of the original complication. Plan/VTE VTE Prophylaxis Ordered?: Yes (Lovenox - coumadin) Plan Anticipated Discharge: Detention (anticipate discharge to [facility] tomorrow.) VS, I&O, 24H, Fishbone Vital Signs/I&O Vital Signs Date Time Temp Pulse Resp B/P (MAP) Pulse Ox O2 Delivery O2 Flow Rate FiO2 01/17/19 06:00 97.9 78 16 130/80 (97) 95 01/14/19 23:30 Room Air I&O- Last 24 Hours up to 6 AM 01/17/19 06:00 Intake Total 1448 ml Balance 1448 ml Laboratory Data 24H LABS Laboratory Tests 2 01/17/19 06:37: Nucleated Red Blood Cells % (auto) 0.0, Prothrombin Time 17.7H, Prothromb Time International Ratio 1.49, Anion Gap 5L, Glomerular Filtration Rate > 60.0, Blood Urea Nitrogen 19H, Creatinine 1.00, Sodium Level 139, Potassium Level 3.7, Chloride Level 105, Carbon Dioxide Level 29, Calcium Level 8.8 CBC/BMP Laboratory Tests 01/17/19 06:37 Red Blood Count 3.64 L, Mean Corpuscular Volume 95.3, Mean Corpuscular Hemoglobin 31.3, Mean Corpuscular Hemoglobin Concent 32.9, Red Cell Distribution Width 13.2, Calcium Level 8.8 Microbiology Microbiology 01/15/19 Blood Culture - Preliminary, Resulted No growth after 24 hours . All specim... 01/15/19 Blood Culture - Preliminary, Resulted No growth after 24 hours . All specim... Alphonso Canchola MD Jan 17, 2019 08:21
[2019-01-17] MEDS: CEPHALEXIN 500 MG CAP PO SCH ×4 (09:17→20:41)
[2019-01-17] MEDS: SINEMET 25-100 MG TAB PO SCH ×4 (09:17→20:41)
[2019-01-17] MEDS: FUROSEMIDE 20 MG TAB PO SCH (09:17)
[2019-01-17] MEDS: ACETAMINOPHEN 500 MG TAB PO PRN ×2 (09:18→17:29)
[2019-01-17] MEDS: CARVedilol 6.25 MG TAB PO SCH ×2 (09:18→20:42)
[2019-01-17] MEDS: CLOPIDOGREL 75 MG TAB PO SCH (12:43)
[2019-01-17] MEDS: CYANOCOBALAMIN 500 MCG TAB PO SCH (12:43)
[2019-01-17 14:00] VITALS: BP 145/88
[2019-01-17] MEDS: CitaloPRAM (CeleXA) 20 MG TAB PO SCH (16:00)
[2019-01-17] MEDS ORDERED: METOCLOPRAMIDE INJ 10MG/2ML VIAL (J2765) As Ordered ONE (17:09)
[2019-01-17] MEDS: QUEtiapine FUMARATE 25 MG TAB PO SCH (17:29)
[2019-01-17] MEDS: WARFARIN SOD 5 MG TAB PO SCH (17:29)
[2019-01-17] MEDS: QUEtiapine FUMARATE 100 MG TAB PO SCH (20:41)
[2019-01-17] MEDS: ATORVASTATIN 20 MG TAB PO SCH (20:41)
[2019-01-17 22:00] VITALS: BP 138/87
[2019-01-18] MEDS: ENOXAPARIN 80 MG/0.8 ML SYRINGE (J1650) SC SCH (02:06)
[2019-01-18] MEDS: LEVOTHYROXINE 100MCG TABLET (0.1MG) PO SCH (05:33)
[2019-01-18 06:00] VITALS: BP 140/83
--- NOTE | 2019-01-18 08:43 | IPNPDOC ---
Subjective Date Seen The patient was seen on 01/18/19. Subjective Chief Complaint/HPI DVT Events since last encounter Appears to be pulling at leg from pain. Was wrapped overnight. General: Reports: ROS Unobtainable Objective Physical Examination General Exam: Positive: Alert, No Acute Distress; Negative: Cooperative ENT Exam: Positive: Mucous membr. moist/pink Chest Exam: Positive: Clear to auscultation, Normal air movement, Diminished (breath sounds are diminished at the base on the left. poor air movement however.); Negative: Rales, Rhonchi, Wheezing Heart Exam: Positive: Rate Normal, Regular Rhythm, Normal S1, Normal S2; Negative: Murmurs Abdomen Exam: Positive: Normal bowel sounds, Soft; Negative: Tenderness, Hepatospenomegaly Extremity Exam: Positive: Edema (RLE. bandage wrap is tighetned at mid foot. patient appeared more comfortable when wrap removed due to tightness in mid foot. ), Swelling (left) Skin Exam: Positive: Nl turgor and temperature, Other skin issue (redness at left knee is noted and compared to yesterday area of erythema is smaller. no apparent pain); Negative: Breakdown, Lesion Psych Exam: Negative: Mental status NL, Oriented x 3 Assessment /Plan Problems (1) DVT (deep venous thrombosis) Status: Acute Problem Text: 01/18/19: educated staff on elevating leg and proper way top wrap RLE. INR improving to 1.45. Continue current dosing of Warfarin and Lovenox. 01/17: swelling reduced, leg not wrapped. ordered specifically and discussed with RN. INR is a little higher today on 5mg warfarin dose, will continue. if not higher tomorrow, then increase dose to 7.5 daily. Per vascular - no role for intervention We will switch to Lovenox and start Coumadin Monitor Hgb closely - high risk for bleeding with combo of Plavix and anticoag. ASA held Add PPI for GI px due to high risk for GI bleed on above meds (2) Cellulitis and abscess of left lower extremity Status: Acute Response to Treatment: Improving Problem Text: 01/18/19: continues to show improvement. 01/16: WBC improved to 11.4, area of redness is smaller. WBC up to 17 with localized swelling, erythema and warmth over left knee suspicious for cellulitis Keflex started Left knee x-ray ordered - patient had pseudogout in his right knee last admission so depending on x-ray findings and response to tx, may need to consider pseudogout in the differential Will order procalcitonin. (3) PVD (peripheral vascular disease) Status: Chronic Response to Treatment: Stable Problem Text: S/O carotid stents and Fem-Pop bypass - normally on ASA/Plavix - Holding ASA while on anticoag - Continue Plavix (4) Dementia Status: Chronic Response to Treatment: Stable (5) Hypothyroidism Status: Chronic Response to Treatment: Stable (6) Depression with anxiety Status: Chronic Response to Treatment: Stable (7) Hx of pneumothorax Status: Resolved Problem Text: 01/17: XRAY shows pleural density on left that is higher in the thorax, the density at the diaphragm is no longer visible, so this finding likely represents cephalad tracking of the pleural fluid that was present previously and does not likely represent a new process. this problem was a complication of central line placement during his last hospital stay. notes a bit of cough so will check CXR to confirm no new problem. he had a left sided effusion which was also part of the original complication. Plan/VTE VTE Prophylaxis Ordered?: Yes (Lovenox - coumadin) Plan Anticipated Discharge: [facility] (anticipate discharge to [facility] tomorrow.) VS, I&O, 24H, Fishbone Vital Signs/I&O Vital Signs Date Time Temp Pulse Resp B/P (MAP) Pulse Ox O2 Delivery O2 Flow Rate FiO2 01/18/19 06:00 97.7 81 16 140/83 (102) 98 01/14/19 23:30 Room Air I&O- Last 24 Hours up to 6 AM 01/18/19 05:59 Intake Total 780 ml Balance 780 ml Laboratory Data Microbiology Microbiology 01/15/19 Blood Culture - Preliminary, Resulted No Growth after 48 hours. All Specime... 01/15/19 Blood Culture - Preliminary, Resulted No Growth after 48 hours. All Specime... Stephanie Jensen VOLTAGE TESTER Jan 18, 2019 08:43
[2019-01-18] MEDS: SINEMET 25-100 MG TAB PO SCH ×2 (08:58→11:36)
[2019-01-18 08:59] VITALS: BP 117/60
[2019-01-18] MEDS: CARVedilol 6.25 MG TAB PO SCH (08:59)
[2019-01-18] MEDS: FUROSEMIDE 20 MG TAB PO SCH (08:59)
[2019-01-18] MEDS: CEPHALEXIN 500 MG CAP PO SCH (08:59)
[2019-01-18 09:50] LABS: HEMATOCRIT 35.5 % (42.0-52.0); HEMOGLOBIN 11.5 g/dl (13.5-17.5); MEAN CORPUSCULAR HEMOGLOBIN 32.1 pg (27.0-33.0); MEAN CORPUSCULAR HGB CONC 32.4 g/dl (32.0-36.5); MEAN CORPUSCULAR VOLUME 99.2 fl (80.0-96.0); PLATELET COUNT, AUTOMATED 304 10^3/uL (150-450); RED BLOOD COUNT 3.58 10^6/uL (4.30-6.10); WHITE BLOOD COUNT 10.9 10^3/uL (4.0-10.0)
[2019-01-18 10:02] LABS: INR 2.59; PROTHROMBIN TIME 27.6 SECONDS (11.8-14.0)
[2019-01-18 10:15] LABS: BLOOD UREA NITROGEN 16 MG/DL (7-18); CALCIUM LEVEL 8.4 MG/DL (8.5-10.1); CARBON DIOXIDE LEVEL 29 MEQ/L (21-32); CHLORIDE LEVEL 106 MEQ/L (98-107); CREATININE FOR GFR 1.01 MG/DL (0.70-1.30); GLOMERULAR FILTRATION RATE > 60.0 (>56); GLUCOSE, FASTING 184 MG/DL (70-100); POTASSIUM SERUM 3.5 MEQ/L (3.5-5.1); SODIUM LEVEL 140 MEQ/L (136-145)
[2019-01-18] MEDS: CYANOCOBALAMIN 500 MCG TAB PO SCH (11:36)
[2019-01-18] MEDS: CLOPIDOGREL 75 MG TAB PO SCH (11:36)
--- NOTE | 2019-01-18 13:41 | DSES ---
DATE OF ADMISSION: 01/14/2019 DATE OF DISCHARGE: 01/18/2019 ATTENDING PHYSICIAN: Maliha Taylor DO PRIMARY CARE PROVIDER: Ryley Garcia MD, at [facility] HISTORY OF PRESENT ILLNESS: This is a 58-year-old gentleman with end-stage Parkinson disease, including dementia, who is brought from [facility] to [facility] Emergency Department for left lower extremity swelling. The patient is status post vascular ultrasound, which proved positive for acute near-complete occlusive deep venous thrombosis (DVT) extending from the common femoral vein to the left popliteal vein with some soft tissue edema. The patient was subsequently admitted to the family medicine service. HOSPITAL COURSE: The patient was placed on heparin drip initially. He was subsequently transitioned to Lovenox and warfarin. His aspirin was stopped. However, he was maintained on Plavix and monitored for signs of bleeding. The patient did have some swelling of the left knee with an abrasion and surrounding erythema. He was treated for a cellulitis given elevated white blood cell count. The patient was placed cephalexin. Imaging of the knee was completed. Mild degenerative changes without fracture or dislocation were noted. The patient has remained stable throughout his hospitalization. He did have some wrapping of his left lower extremity placed for comfort. His international normalized ratio (INR) today is in a stable value of 2.5. On physical examination, the patient has a mask-like demeanor. He does answer yes or no to questions. He is being fed by nursing staff without difficulty. He is in no acute distress. Cardiovascular: Heart rate and rhythm are regular. Pulmonary: Lungs are clear. Abdomen: Is soft and nontender. Bilateral lower extremities: Left lower extremity does show some swelling and some edema +1 to +2. He does have a palpable pedal pulse on the right side. ASSESSMENT/DISCHARGE DIAGNOSES: Include: 1. Left lower extremity deep venous thrombosis. 2. Parkinson disease. 3. Cellulitis of the left lower extremity. 4. Peripheral vascular disease. 5. History of dementia. 6. Hypothyroidism. 7. Depression with anxiety. PLAN: The patient will be discharged back to [facility]. Activity is as tolerated. Diet is soft mechanical. The patient's left lower extremity needs to be elevated, wrapped with an Solomon wrap during the daytime. He needs physical therapy (PT)/international normalized ratio (INR) daily with a complete blood count (CBC) daily until he has proven stable hemoglobin and an INR. MEDICATIONS: Are as follows: - pantoprazole sodium 40 mg once daily - warfarin 5 mg daily - Tylenol 500 mg tablets, two by mouth every 8 hours as needed for pain - albuterol sulfate 2.5 mg via nebulizer four times a day as needed wheezing - atorvastatin 80 mg by mouth nightly - bisacodyl 10 mg suppository per rectum daily as needed bowel care - Sinemet two tablets by mouth four times a day - carvedilol 6.25 mg by mouth twice a day - citalopram 40 mg by mouth each evening - Plavix 75 mg daily - vitamin B12 1000 mcg by mouth daily - furosemide 20 mg by mouth daily - Synthroid 100 mcg by mouth every morning - milk of magnesia 30 mL by mouth daily as needed bowel care - nitroglycerin 0.4 mg tablet sublingual every 5 minutes as needed chest pain - potassium chloride 20 mEq by mouth twice a day - quetiapine fumarate 25 mg by mouth each evening - quetiapine fumarate 100 mg by mouth nightly - enema one daily as needed constipation - tizanidine 4 mg by mouth nightly The patient's aspirin was stopped. His CBC and INR will need to be monitored routinely and determine if the patient should continue with his Plavix based on his levels, as well as warfarin dosing. Discharge was reviewed with the patient's , Susana Og. She is in agreement with plan. The patient was discharged in stable and satisfactory condition at the time of discharge.
== END 2019-01-18 11:42 | DRG 197 ==
LOC: M ED 17:40 → M ED INP 22:02 → M MSPAV 23:55
PROVIDERS: ADMIT Hospitalist; ATTEND Family Medicine
DX: I82.412 Acute embolism and thrombosis of left femoral vein (principal); I82.432 Acute embolism and thrombosis of left popliteal vein; G20 Parkinson's disease; F02.80 Dementia in other diseases classified elsewhere, unspecified severity, without behavioral disturbance, psychotic disturbance, mood disturbance, and anxiety; L03.116 Cellulitis of left lower limb; I73.9 Peripheral vascular disease, unspecified; E03.9 Hypothyroidism, unspecified; F41.9 Anxiety disorder, unspecified; F32.9 Major depressive disorder, single episode, unspecified; Z79.899 Other long term (current) drug therapy; Z88.8 Allergy status to other drugs, medicaments and biological substances; Z91.041 Radiographic dye allergy status

== ENCOUNTER → 2019-01-19 | Outpatient (REF) | payer OTHER ==
[~2019-01-19] MED LIST changes: +ALB2.5NEB INH; +BISA10SU27 PR; +COUM1TAB17 PO; +ENEMENE PR; +LOVE1INJ SC; +MILKSUS3 PO; +POTA10TA17 PO; +PROT1TAB2 PO; +TIZA4TAB4 PO
[2019-01-19 07:12] LABS: HEMATOCRIT 34.8 % (42.0-52.0); HEMOGLOBIN 11.6 g/dl (13.5-17.5); MEAN CORPUSCULAR HEMOGLOBIN 31.5 pg (27.0-33.0); MEAN CORPUSCULAR HGB CONC 33.3 g/dl (32.0-36.5); MEAN CORPUSCULAR VOLUME 94.6 fl (80.0-96.0); PLATELET COUNT, AUTOMATED 313 10^3/uL (150-450); RED BLOOD COUNT 3.68 10^6/uL (4.30-6.10); WHITE BLOOD COUNT 9.9 10^3/uL (4.0-10.0)
[2019-01-19 07:22] LABS: INR 3.04; PROTHROMBIN TIME 31.4 SECONDS (11.8-14.0)
== END ==
LOC: SKLAB5 08:23
PROVIDERS: ATTEND Family Medicine
DX: D64.9 Anemia, unspecified (principal)

== ENCOUNTER → 2019-01-21 | Outpatient (REF) | payer OTHER, MEDICAID ==
[2019-01-21 08:01] LABS: INR 3.33; PROTHROMBIN TIME 33.8 SECONDS (11.8-14.0)
== END ==
LOC: SKLAB5 08:13
PROVIDERS: ATTEND Family Medicine
DX: Z79.01 Long term (current) use of anticoagulants (principal)

== ENCOUNTER → 2019-01-22 | Outpatient (REF) | payer OTHER, MEDICAID ==
[2019-01-22 07:45] LABS: PROTHROMBIN TIME 31.1 SECONDS (11.8-14.0)
== END ==
LOC: SKLAB5 08:26
PROVIDERS: ATTEND Family Medicine
DX: Z79.01 Long term (current) use of anticoagulants (principal)

== ENCOUNTER → 2019-01-24 | Outpatient (REF) | payer OTHER, MEDICAID ==
[2019-01-24 08:52] LABS: INR 2.46; PROTHROMBIN TIME 26.5 SECONDS (11.8-14.0)
== END ==
LOC: SKLAB5 08:13
PROVIDERS: ATTEND Family Medicine
DX: Z51.81 Encounter for therapeutic drug level monitoring (principal); Z79.899 Other long term (current) drug therapy

== ENCOUNTER → 2019-01-25 | Outpatient (REF) | payer OTHER, MEDICAID ==
[2019-01-25 08:03] LABS: HEMATOCRIT 39.5 % (42.0-52.0); HEMOGLOBIN 12.8 g/dl (13.5-17.5); MEAN CORPUSCULAR HEMOGLOBIN 31.2 pg (27.0-33.0); MEAN CORPUSCULAR HGB CONC 32.4 g/dl (32.0-36.5); MEAN CORPUSCULAR VOLUME 96.3 fl (80.0-96.0); PLATELET COUNT, AUTOMATED 361 10^3/uL (150-450); WHITE BLOOD COUNT 9.6 10^3/uL (4.0-10.0)
[2019-01-25 08:13] LABS: INR 2.63
[2019-01-25 08:35] LABS: BLOOD UREA NITROGEN 12 MG/DL (7-18); CALCIUM LEVEL 9.1 MG/DL (8.5-10.1); CARBON DIOXIDE LEVEL 27 MEQ/L (21-32); CHLORIDE LEVEL 104 MEQ/L (98-107); CHOLESTEROL LEVEL 127 MG/DL (<200); CHOLESTEROL RISK RATIO 4.096 (<5); CREATININE FOR GFR 0.89 MG/DL (0.70-1.30); GLOMERULAR FILTRATION RATE > 60.0 (>56); GLUCOSE, FASTING 102 MG/DL (70-100); HDL CHOLESTEROL 31 MG/DL (>40); LDL CHOLESTEROL 72 MG/DL (<100); NON-HDL-C 96 MG/DL; POTASSIUM SERUM 4.2 MEQ/L (3.5-5.1); SODIUM LEVEL 140 MEQ/L (136-145); TRIGLYCERIDES LEVEL 118 MG/DL (<150)
[2019-01-25 10:29] LABS: VITAMIN B12 LEVEL 1672 PG/ML (247-911)
== END ==
LOC: SKLAB5 08:24
PROVIDERS: ATTEND Family Medicine
DX: E03.9 Hypothyroidism, unspecified (principal); E78.5 Hyperlipidemia, unspecified; D51.9 Vitamin B12 deficiency anemia, unspecified

== ENCOUNTER → 2019-01-28 | Outpatient (REF) | payer OTHER, MEDICAID ==
[2019-01-28 07:45] LABS: INR 2.23; PROTHROMBIN TIME 24.5 SECONDS (11.8-14.0)
== END ==
LOC: SKLAB5 10-29 12:25
PROVIDERS: ATTEND Family Medicine
DX: Z79.01 Long term (current) use of anticoagulants (principal); Z79.899 Other long term (current) drug therapy

== ENCOUNTER → 2019-02-01 | Outpatient (REF) | payer MEDICAID, OTHER ==
[2019-02-01 08:22] LABS: HEMATOCRIT 37.2 % (42.0-52.0); HEMOGLOBIN 12.2 g/dl (13.5-17.5); MEAN CORPUSCULAR HEMOGLOBIN 30.8 pg (27.0-33.0); MEAN CORPUSCULAR HGB CONC 32.8 g/dl (32.0-36.5); MEAN CORPUSCULAR VOLUME 93.9 fl (80.0-96.0); PLATELET COUNT, AUTOMATED 365 10^3/uL (150-450); RED BLOOD COUNT 3.96 10^6/uL (4.30-6.10)
[2019-02-01 08:39] LABS: INR 2.07; PROTHROMBIN TIME 23.1 SECONDS (11.8-14.0)
== END ==
LOC: SKLAB5 10:46
PROVIDERS: ATTEND Family Medicine
DX: Z79.01 Long term (current) use of anticoagulants (principal)

== ENCOUNTER → 2019-02-04 | Outpatient (REF) | payer MEDICAID, OTHER, SELFPAY ==
[2019-02-04 08:14] LABS: INR 2.33; PROTHROMBIN TIME 25.4 SECONDS (11.8-14.0)
== END ==
LOC: SKLAB5 07:44
PROVIDERS: ATTEND Family Medicine
DX: Z79.01 Long term (current) use of anticoagulants (principal)

== ENCOUNTER → 2019-02-08 | Outpatient (REF) | payer MEDICAID, OTHER, SELFPAY ==
[2019-02-08 06:34] LABS: INR 2.81; PROTHROMBIN TIME 29.5 SECONDS (11.8-14.0)
== END ==
LOC: SKLAB5 08:26
PROVIDERS: ATTEND Family Medicine
DX: Z79.01 Long term (current) use of anticoagulants (principal)

== ENCOUNTER → 2019-02-11 | Outpatient (REF) | payer MEDICAID, OTHER, SELFPAY ==
[2019-02-11 08:15] LABS: INR 2.71; PROTHROMBIN TIME 28.6 SECONDS (11.8-14.0)
== END ==
LOC: SKLAB5 08:18
PROVIDERS: ATTEND Family Medicine
DX: Z79.01 Long term (current) use of anticoagulants (principal)

== ENCOUNTER → 2019-02-15 | Outpatient (REF) | payer MEDICAID, OTHER, SELFPAY ==
[2019-02-15 08:25] LABS: INR 2.36; PROTHROMBIN TIME 25.6 SECONDS (11.8-14.0)
== END ==
LOC: SKLAB5 09:16
PROVIDERS: ATTEND Family Medicine
DX: Z79.01 Long term (current) use of anticoagulants (principal)

== ENCOUNTER → 2019-02-18 | Outpatient (REF) | payer MEDICAID, OTHER, SELFPAY ==
[2019-02-18 08:49] LABS: INR 2.41; PROTHROMBIN TIME 26.1 SECONDS (11.8-14.0)
== END ==
LOC: SKLAB5 07:48
PROVIDERS: ATTEND Family Medicine
DX: Z79.01 Long term (current) use of anticoagulants (principal)

== ENCOUNTER → 2019-02-22 | Outpatient (REF) | payer MEDICAID, OTHER, SELFPAY ==
[2019-02-22 09:52] LABS: INR 1.72; PROTHROMBIN TIME 19.9 SECONDS (11.8-14.0)
== END ==
LOC: SKLAB5 07:49
PROVIDERS: ATTEND Family Medicine
DX: Z79.01 Long term (current) use of anticoagulants (principal)

== ENCOUNTER → 2019-02-25 | Outpatient (REF) | payer MEDICAID, OTHER, SELFPAY ==
[2019-02-25 14:14] LABS: INR 1.88; PROTHROMBIN TIME 21.3 SECONDS (11.8-14.0)
== END ==
LOC: SKLAB5 07:33
PROVIDERS: ATTEND Family Medicine
DX: Z79.01 Long term (current) use of anticoagulants (principal)

== ENCOUNTER → 2019-03-01 | Outpatient (REF) | payer MEDICAID, OTHER, SELFPAY ==
[2019-03-01 08:35] LABS: INR 1.74; PROTHROMBIN TIME 20.1 SECONDS (11.8-14.0)
== END ==
LOC: SKLAB5 09:00
PROVIDERS: ATTEND Family Medicine
DX: I48.91 Unspecified atrial fibrillation (principal)

== ENCOUNTER → 2019-03-04 | Outpatient (REF) | payer MEDICAID, OTHER, SELFPAY ==
[2019-03-04 07:26] LABS: INR 2.22; PROTHROMBIN TIME 24.4 SECONDS (11.8-14.0)
== END ==
LOC: SKLAB5 07:36
PROVIDERS: ATTEND Family Medicine
DX: Z79.01 Long term (current) use of anticoagulants (principal); I48.91 Unspecified atrial fibrillation

== ENCOUNTER → 2019-03-09 | Outpatient (REF) | payer MEDICAID, OTHER ==
[2019-03-09 11:03] LABS: INR 2.28; PROTHROMBIN TIME 24.9 SECONDS (11.8-14.0)
[2019-03-09 11:23] LABS: BLOOD UREA NITROGEN 11 MG/DL (7-18); CALCIUM LEVEL 9.3 MG/DL (8.5-10.1); CARBON DIOXIDE LEVEL 32 MEQ/L (21-32); CHLORIDE LEVEL 103 MEQ/L (98-107); CREATININE FOR GFR 0.78 MG/DL (0.70-1.30); GLOMERULAR FILTRATION RATE > 60.0 (>56); GLUCOSE, FASTING 128 MG/DL (70-100); POTASSIUM SERUM 3.8 MEQ/L (3.5-5.1); SODIUM LEVEL 139 MEQ/L (136-145)
== END ==
LOC: SKLAB5 07:33
PROVIDERS: ATTEND Family Medicine
DX: Z79.01 Long term (current) use of anticoagulants (principal)

== ENCOUNTER → 2019-03-11 | Outpatient (REF) | payer MEDICAID, OTHER ==
[2019-03-11 08:33] LABS: INR 2.71; PROTHROMBIN TIME 28.7 SECONDS (11.8-14.0)
== END ==
LOC: SKLAB5 10:30
PROVIDERS: ATTEND Family Medicine
DX: Z79.01 Long term (current) use of anticoagulants (principal)

== ENCOUNTER → 2019-03-15 | Outpatient (REF) | payer MEDICAID, OTHER ==
[2019-03-15 08:15] LABS: INR 2.28; PROTHROMBIN TIME 24.9 SECONDS (11.8-14.0)
== END ==
LOC: SKLAB5 07:48
PROVIDERS: ATTEND Family Medicine
DX: Z79.01 Long term (current) use of anticoagulants (principal)

== ENCOUNTER → 2019-03-18 | Outpatient (REF) | payer MEDICAID, OTHER ==
[2019-03-18 08:51] LABS: INR 3.01; PROTHROMBIN TIME 31.2 SECONDS (11.8-14.0)
== END ==
LOC: SKLAB5 07:45
PROVIDERS: ATTEND Family Medicine
DX: Z79.01 Long term (current) use of anticoagulants (principal)

== ENCOUNTER → 2019-03-22 | Outpatient (REF) | payer MEDICAID, OTHER ==
[2019-03-22 09:18] LABS: INR 2.96; PROTHROMBIN TIME 30.7 SECONDS (11.8-14.0)
== END ==
LOC: SKLAB5 09:10
PROVIDERS: ATTEND Family Medicine
DX: Z79.01 Long term (current) use of anticoagulants (principal)

== ENCOUNTER → 2019-03-25 | Outpatient (REF) | payer MEDICAID, OTHER ==
[2019-03-25 10:14] LABS: INR 2.81; PROTHROMBIN TIME 29.4 SECONDS (11.8-14.0)
== END ==
LOC: SKLAB5 07:49
PROVIDERS: ATTEND Family Medicine
DX: Z79.01 Long term (current) use of anticoagulants (principal)

== ENCOUNTER → 2019-03-29 | Outpatient (REF) | payer MEDICAID, OTHER ==
[2019-03-29 08:18] LABS: INR 2.43; PROTHROMBIN TIME 26.3 SECONDS (11.8-14.0)
== END ==
LOC: SKLAB5 07:34
PROVIDERS: ATTEND Family Medicine
DX: Z79.01 Long term (current) use of anticoagulants (principal)

== ENCOUNTER → 2019-04-01 | Outpatient (REF) | payer MEDICAID, OTHER ==
[2019-04-01 09:32] LABS: INR 3.05; PROTHROMBIN TIME 31.5 SECONDS (11.8-14.0)
== END ==
LOC: SKLAB5 08:15
PROVIDERS: ATTEND Family Medicine
DX: Z79.01 Long term (current) use of anticoagulants (principal)

== ENCOUNTER → 2019-04-05 | Outpatient (REF) | payer MEDICAID, OTHER ==
[2019-04-05 08:41] LABS: INR 2.23; PROTHROMBIN TIME 24.5 SECONDS (11.8-14.0)
== END ==
LOC: SKLAB5 07:33
PROVIDERS: ATTEND Family Medicine
DX: Z79.01 Long term (current) use of anticoagulants (principal)

== ENCOUNTER → 2019-04-08 | Outpatient (REF) | payer MEDICAID, OTHER ==
[2019-04-08 08:23] LABS: HEMATOCRIT 43.7 % (42.0-52.0); HEMOGLOBIN 13.8 g/dl (13.5-17.5); MEAN CORPUSCULAR HEMOGLOBIN 29.6 pg (27.0-33.0); MEAN CORPUSCULAR HGB CONC 31.6 g/dl (32.0-36.5); MEAN CORPUSCULAR VOLUME 93.6 fl (80.0-96.0); PLATELET COUNT, AUTOMATED 257 10^3/uL (150-450); RED BLOOD COUNT 4.67 10^6/uL (4.30-6.10); WHITE BLOOD COUNT 8.5 10^3/uL (4.0-10.0)
[2019-04-08 08:39] LABS: INR 2.12; PROTHROMBIN TIME 23.5 SECONDS (11.8-14.0)
== END ==
LOC: SKLAB5 07:59
PROVIDERS: ATTEND Family Medicine
DX: J44.9 Chronic obstructive pulmonary disease, unspecified (principal); G20 Parkinson's disease; Z79.01 Long term (current) use of anticoagulants

== ENCOUNTER → 2019-04-12 | Outpatient (REF) | payer MEDICAID, OTHER, SELFPAY ==
[2019-04-12 07:55] LABS: INR 2.35; PROTHROMBIN TIME 25.5 SECONDS (11.8-14.0)
== END ==
LOC: SKLAB5 10:41
PROVIDERS: ATTEND Family Medicine
DX: Z79.01 Long term (current) use of anticoagulants (principal)

== ENCOUNTER → 2019-04-15 | Outpatient (REF) | payer MEDICAID, OTHER ==
[2019-04-15 08:47] LABS: INR 2.59; PROTHROMBIN TIME 27.6 SECONDS (11.8-14.0)
== END ==
LOC: SKLAB5 08:28
PROVIDERS: ATTEND Family Medicine
DX: Z79.01 Long term (current) use of anticoagulants (principal)

== ENCOUNTER → 2019-04-19 | Outpatient (REF) | payer MEDICAID, OTHER ==
[2019-04-19 08:02] LABS: INR 2.28
== END ==
LOC: SKLAB5 07:51
PROVIDERS: ATTEND Family Medicine
DX: Z79.01 Long term (current) use of anticoagulants (principal)

== ENCOUNTER → 2019-04-22 | Outpatient (REF) | payer MEDICAID, OTHER ==
[2019-04-22 08:56] LABS: INR 2.9; PROTHROMBIN TIME 30.2 SECONDS (11.8-14.0)
== END ==
LOC: SKLAB5 07:38
PROVIDERS: ATTEND Family Medicine
DX: Z79.01 Long term (current) use of anticoagulants (principal)

== ENCOUNTER → 2019-04-26 | Outpatient (REF) | payer MEDICAID, OTHER ==
[2019-04-26 08:18] LABS: INR 2.96; PROTHROMBIN TIME 30.7 SECONDS (11.8-14.0)
== END ==
LOC: SKLAB5 07:26
PROVIDERS: ATTEND Family Medicine
DX: Z79.01 Long term (current) use of anticoagulants (principal)

== ENCOUNTER → 2019-04-29 | Outpatient (REF) | payer MEDICAID, OTHER ==
[2019-04-29 09:16] LABS: INR 2.75
== END ==
LOC: SKLAB5 07:32
PROVIDERS: ATTEND Family Medicine
DX: Z79.01 Long term (current) use of anticoagulants (principal)

== ENCOUNTER → 2019-04-29 | Outpatient (CLI) | payer MEDICAID, OTHER ==
--- NOTE | 2019-04-29 11:06 | REP ---
LEFT LOWER EXTREMITY DUPLEX DOPPLER VENOUS ULTRASOUND: Real-time compression and duplex Doppler interrogation of the left lower extremity deep vein system is performed. There is diffuse deep vein thrombosis involving the left lower extremity deep venous system. There is nonocclusive thrombus in the left common femoral vein. Occlusive thrombus is seen in the proximal two-thirds of the left superficial femoral vein. There is nonocclusive thrombus in the distal left superficial femoral vein and popliteal vein. Electronically Signed by Gonzalo Luu MD 05/01/2019 10:19 A
== END ==
LOC: M RAD 10:00
PROVIDERS: ATTEND Family Medicine
DX: I82.412 Acute embolism and thrombosis of left femoral vein (principal); I82.432 Acute embolism and thrombosis of left popliteal vein

== ENCOUNTER → 2019-05-03 | Outpatient (REF) | payer MEDICAID, OTHER ==
[2019-05-03 08:12] LABS: INR 2.62; PROTHROMBIN TIME 27.9 SECONDS (11.8-14.0)
== END ==
LOC: SKLAB5 07:26
PROVIDERS: ATTEND Family Medicine
DX: Z79.01 Long term (current) use of anticoagulants (principal)

== ENCOUNTER → 2019-05-06 | Outpatient (REF) | payer MEDICAID, OTHER ==
[2019-05-06 09:36] LABS: INR 3.57; PROTHROMBIN TIME 35.7 SECONDS (11.8-14.0)
== END ==
LOC: SKLAB5 08:04
PROVIDERS: ATTEND Family Medicine
DX: Z79.01 Long term (current) use of anticoagulants (principal)

== ENCOUNTER → 2019-05-10 | Outpatient (REF) | payer MEDICAID, OTHER ==
[2019-05-10 07:51] LABS: INR 3.02; PROTHROMBIN TIME 31.2 SECONDS (11.8-14.0)
== END ==
LOC: SKLAB5 07:48
PROVIDERS: ATTEND Family Medicine
DX: Z51.81 Encounter for therapeutic drug level monitoring (principal); Z79.01 Long term (current) use of anticoagulants

== ENCOUNTER → 2019-05-13 | Outpatient (REF) | payer OTHER, MEDICAID ==
[2019-05-13 09:11] LABS: HEMATOCRIT 45.2 % (42.0-52.0); HEMOGLOBIN 14.6 g/dl (13.5-17.5); MEAN CORPUSCULAR HGB CONC 32.3 g/dl (32.0-36.5); MEAN CORPUSCULAR VOLUME 92.8 fl (80.0-96.0); PLATELET COUNT, AUTOMATED 294 10^3/uL (150-450); RED BLOOD COUNT 4.87 10^6/uL (4.30-6.10); WHITE BLOOD COUNT 6.6 10^3/uL (4.0-10.0)
[2019-05-13 09:20] LABS: INR 3.07; PROTHROMBIN TIME 31.6 SECONDS (11.8-14.0)
== END ==
LOC: SKLAB5 07:51
PROVIDERS: ATTEND Family Medicine
DX: Z79.01 Long term (current) use of anticoagulants (principal); G20 Parkinson's disease; F03.90 Unspecified dementia, unspecified severity, without behavioral disturbance, psychotic disturbance, mood disturbance, and anxiety

== ENCOUNTER → 2019-05-17 | Outpatient (REF) | payer MEDICAID, OTHER ==
[2019-05-17 08:47] LABS: INR 2.45; PROTHROMBIN TIME 26.4 SECONDS (11.8-14.0)
== END ==
LOC: SKLAB5 08:12
PROVIDERS: ATTEND Family Medicine
DX: Z79.01 Long term (current) use of anticoagulants (principal)

== ENCOUNTER → 2019-05-20 | Outpatient (REF) | payer MEDICAID, OTHER ==
[2019-05-20 09:26] LABS: INR 2.41; PROTHROMBIN TIME 26.1 SECONDS (11.8-14.0)
== END ==
LOC: SKLAB5 08:48
PROVIDERS: ATTEND Family Medicine
DX: Z79.01 Long term (current) use of anticoagulants (principal)

== ENCOUNTER → 2019-05-24 | Outpatient (REF) | payer MEDICAID, OTHER ==
[~2019-05-24] MED LIST changes: +CELE20TA PO; +PANT40TA3 PO; +QUET5TAB PO; +WARF-58 PO; +WARF4TAB51 PO
[2019-05-24 09:50] LABS: INR 2.74; PROTHROMBIN TIME 28.9 SECONDS (11.8-14.0)
== END ==
LOC: SKLAB6 07:00
PROVIDERS: ATTEND Family Medicine
DX: Z79.01 Long term (current) use of anticoagulants (principal)

== ENCOUNTER → 2019-05-27 | Outpatient (REF) | payer MEDICAID, OTHER ==
[2019-05-27 10:16] LABS: INR 2.28; PROTHROMBIN TIME 24.9 SECONDS (11.8-14.0)
== END ==
LOC: SKLAB6 07:00
PROVIDERS: ATTEND Family Medicine
DX: Z79.899 Other long term (current) drug therapy (principal); Z79.01 Long term (current) use of anticoagulants

== ENCOUNTER → 2019-05-31 | Outpatient (REF) | payer MEDICAID, OTHER ==
[2019-05-31 07:47] LABS: INR 3.34; PROTHROMBIN TIME 33.9 SECONDS (11.8-14.0)
== END ==
LOC: SKLAB6 07:00
PROVIDERS: ATTEND Family Medicine
DX: Z79.01 Long term (current) use of anticoagulants (principal)

== ENCOUNTER → 2019-06-01 | Outpatient (REF) | payer MEDICAID, OTHER ==
[2019-06-01 08:18] LABS: INR 3.02; PROTHROMBIN TIME 31.2 SECONDS (11.8-14.0)
== END ==
LOC: SKLAB6 08:00
PROVIDERS: ATTEND Family Medicine
DX: Z79.01 Long term (current) use of anticoagulants (principal)

== ENCOUNTER → 2019-06-02 | Outpatient (REF) | payer MEDICAID, OTHER ==
[2019-06-02 08:13] LABS: INR 2.81; PROTHROMBIN TIME 29.5 SECONDS (11.8-14.0)
== END ==
LOC: SKLAB6 08:00
PROVIDERS: ATTEND Family Medicine
DX: Z79.01 Long term (current) use of anticoagulants (principal)

== ENCOUNTER 2019-06-04 17:32 | Emergency (ER) | payer MEDICAID, OTHER ==
[~2019-06-04] VITALS: Ht 182.9 cm; Wt 72.5 kg
[~2019-06-04 17:32] MED LIST changes: -CELE20TA PO; -PANT40TA3 PO; -QUET5TAB PO; -WARF-58 PO; -WARF4TAB51 PO
[2019-06-04] MEDS ORDERED: CELE20TA PO (17:59)
[2019-06-04] MEDS ORDERED: WARF4TAB51 PO (17:59)
[2019-06-04] MEDS ORDERED: WARF-58 PO (17:59)
[2019-06-04] MEDS ORDERED: QUET5TAB PO (17:59)
[2019-06-04] MEDS ORDERED: PANT40TA3 PO (17:59)
[2019-06-04 18:38] LABS: BASO % 0.7 % (0.0-1.0); EOS # 0.3 10^3/uL (0.0-0.5); EOS % 4.7 % (0.0-3.0); HEMOGLOBIN 12.4 g/dl (13.5-17.5); LYMPH % 16.9 % (24.0-44.0); MEAN CORPUSCULAR HEMOGLOBIN 30.2 pg (27.0-33.0); MEAN CORPUSCULAR HGB CONC 32.6 g/dl (32.0-36.5); MEAN CORPUSCULAR VOLUME 92.7 fl (80.0-96.0); MONO # 0.4 10^3/uL (0.0-0.8); MONO % 6.5 % (0.0-5.0); PLATELET COUNT, AUTOMATED 178 10^3/uL (150-450); WHITE BLOOD COUNT 5.7 10^3/uL (4.0-10.0)
[2019-06-04 18:54] LABS: BLOOD UREA NITROGEN 8 MG/DL (7-18); CALCIUM LEVEL 8.4 MG/DL (8.5-10.1); CARBON DIOXIDE LEVEL 29 MEQ/L (21-32); CHLORIDE LEVEL 106 MEQ/L (98-107); CREATININE FOR GFR 0.87 MG/DL (0.70-1.30); GLOMERULAR FILTRATION RATE > 60.0 (>56); GLUCOSE, FASTING 111 MG/DL (70-100); SODIUM LEVEL 140 MEQ/L (136-145)
[2019-06-04 19:09] LABS: ERYTHROCYTE SEDIMENTATION RATE 8 mm/hr (0-20)
[2019-06-04 19:23] LABS: INR 2.47; PROTHROMBIN TIME 26.6 SECONDS (11.8-14.0)
[2019-06-04 19:24] LABS: PARTIAL THROMBOPLASTIN TIME 40.5 SECONDS (25.0-38.4)
--- NOTE | 2019-06-04 19:47 | REPVR ---
PROCEDURE INFORMATION: Exam: US Duplex Lower Extremity Veins Exam date and time: 06/04/2019 6:56 PM Age: 58 years old Clinical history: Pain; Leg, lower; Bilateral; Additional info: Edema R/O dvt TECHNIQUE: Imaging protocol: Real-time duplex ultrasound of the Lower Extremities with 2-D borja scale, color Doppler flow and spectral waveform analysis with image documentation. Complete exam focused on the bilateral lower extremity veins. COMPARISON: US Duplex, Ext,LOWER veins,unilat LEFT 04/29/2019 10:10 AM FINDINGS: Right deep veins: Unremarkable. The common femoral, femoral, proximal profunda femoral and popliteal veins are patent without thrombus. Normal Doppler waveforms. Normal compressibility and/or augmentation response. Right superficial veins: Saphenofemoral junction is patent without thrombus. Left deep veins: Hypoechoic thrombus in the proximal profunda femoral and proximal to mid femoral veins. The common femoral, distal femoral and popliteal veins are patent without thrombus. Left superficial veins: Saphenofemoral junction is patent without thrombus. Soft tissues: Unremarkable. IMPRESSION: Left lower extremity deep venous thrombosis with evidence of interval improvement. Electronically signed by: Ryan Abdi On 06/04/2019 19:47:10 PM
[2019-06-04 19:54] VITALS: BP 151/84
== END 2019-06-04 20:35 | disposition home or self-care (01) ==
LOC: M ED 17:32
DX: I82.402 Acute embolism and thrombosis of unspecified deep veins of left lower extremity (principal); Z86.718 Personal history of other venous thrombosis and embolism; Z79.01 Long term (current) use of anticoagulants; I73.9 Peripheral vascular disease, unspecified; G20 Parkinson's disease; F03.90 Unspecified dementia, unspecified severity, without behavioral disturbance, psychotic disturbance, mood disturbance, and anxiety; J44.9 Chronic obstructive pulmonary disease, unspecified; E07.9 Disorder of thyroid, unspecified; Z87.891 Personal history of nicotine dependence; Z79.899 Other long term (current) drug therapy; Z91.041 Radiographic dye allergy status; Z88.5 Allergy status to narcotic agent; Z88.8 Allergy status to other drugs, medicaments and biological substances

== ENCOUNTER → 2019-06-07 | Outpatient (REF) | payer MEDICAID, OTHER ==
[~2019-06-07] MED LIST changes: +CELE20TA PO; +PANT40TA3 PO; +QUET5TAB PO; +WARF-58 PO; +WARF4TAB51 PO
[2019-06-07 07:33] LABS: INR 3.39; PROTHROMBIN TIME 34.2 SECONDS (11.8-14.0)
== END ==
LOC: SKLAB6 08:00
PROVIDERS: ATTEND Family Medicine
DX: Z79.01 Long term (current) use of anticoagulants (principal)

== ENCOUNTER → 2019-06-10 | Outpatient (REF) | payer MEDICAID, OTHER ==
[2019-06-10 12:09] LABS: INR 2.99
== END ==
LOC: SKLAB6 07:00
PROVIDERS: ATTEND Family Medicine
DX: I82.409 Acute embolism and thrombosis of unspecified deep veins of unspecified lower extremity (principal)

== ENCOUNTER → 2019-06-14 | Outpatient (REF) | payer MEDICAID, OTHER ==
[2019-06-14 08:35] LABS: INR 2.63
== END ==
LOC: SKLAB6 07:00
PROVIDERS: ATTEND Family Medicine
DX: I82.409 Acute embolism and thrombosis of unspecified deep veins of unspecified lower extremity (principal)

== ENCOUNTER → 2019-06-17 | Outpatient (REF) | payer OTHER, MEDICAID ==
[2019-06-17 10:11] LABS: HEMATOCRIT 40.9 % (42.0-52.0); HEMOGLOBIN 12.9 g/dl (13.5-17.5); MEAN CORPUSCULAR HEMOGLOBIN 30.1 pg (27.0-33.0); MEAN CORPUSCULAR HGB CONC 31.5 g/dl (32.0-36.5); MEAN CORPUSCULAR VOLUME 95.3 fl (80.0-96.0); PLATELET COUNT, AUTOMATED 249 10^3/uL (150-450); RED BLOOD COUNT 4.29 10^6/uL (4.30-6.10); WHITE BLOOD COUNT 6.8 10^3/uL (4.0-10.0)
[2019-06-17 10:22] LABS: INR 2.85; PROTHROMBIN TIME 29.8 SECONDS (11.8-14.0)
== END ==
LOC: SKLAB6 07:00
PROVIDERS: ATTEND Family Medicine
DX: Z79.01 Long term (current) use of anticoagulants (principal)

== ENCOUNTER → 2019-06-21 | Outpatient (REF) | payer MEDICAID, OTHER ==
[2019-06-21 09:44] LABS: INR 2.44; PROTHROMBIN TIME 26.3 SECONDS (11.8-14.0)
== END ==
LOC: SKLAB6 07:00
PROVIDERS: ATTEND Family Medicine
DX: Z79.01 Long term (current) use of anticoagulants (principal)

== ENCOUNTER → 2019-06-24 | Outpatient (REF) | payer MEDICAID, OTHER ==
[2019-06-24 09:18] LABS: INR 2.69; PROTHROMBIN TIME 28.5 SECONDS (11.8-14.0)
== END ==
LOC: SKLAB6 07:00
PROVIDERS: ATTEND Family Medicine
DX: Z79.01 Long term (current) use of anticoagulants (principal)

== ENCOUNTER → 2019-06-28 | Outpatient (REF) | payer MEDICAID, OTHER ==
[2019-06-28 09:06] LABS: INR 2.76; PROTHROMBIN TIME 29.1 SECONDS (11.8-14.0)
== END ==
LOC: SKLAB6 07:00
PROVIDERS: ATTEND Family Medicine
DX: Z79.01 Long term (current) use of anticoagulants (principal)

== ENCOUNTER → 2019-07-01 | Outpatient (REF) | payer MEDICAID, OTHER ==
[2019-07-01 08:15] LABS: INR 2.68; PROTHROMBIN TIME 28.4 SECONDS (11.8-14.0)
== END ==
LOC: SKLAB6 07:00
PROVIDERS: ATTEND Family Medicine
DX: Z79.01 Long term (current) use of anticoagulants (principal)

== ENCOUNTER → 2019-07-05 | Outpatient (REF) | payer OTHER ==
[2019-07-05 11:16] LABS: INR 2.52
== END ==
LOC: SKLAB6 10:21
PROVIDERS: ATTEND Family Medicine
DX: Z51.81 Encounter for therapeutic drug level monitoring (principal); Z79.01 Long term (current) use of anticoagulants

== ENCOUNTER → 2019-07-08 | Outpatient (REF) | payer OTHER ==
[2019-07-08 09:38] LABS: INR 2.15; PROTHROMBIN TIME 23.8 SECONDS (11.8-14.0)
== END ==
LOC: SKLAB6 07:00
PROVIDERS: ATTEND Family Medicine
DX: Z51.81 Encounter for therapeutic drug level monitoring (principal); Z79.01 Long term (current) use of anticoagulants

== ENCOUNTER → 2019-07-12 | Outpatient (REF) | payer MEDICAID ==
[2019-07-12 10:39] LABS: INR 2.06
== END ==
LOC: SKLAB6 07:00
PROVIDERS: ATTEND Family Medicine
DX: Z79.01 Long term (current) use of anticoagulants (principal)

== ENCOUNTER → 2019-07-15 | Outpatient (REF) | payer MEDICAID ==
[2019-07-15 08:17] LABS: HEMATOCRIT 43.8 % (42.0-52.0); HEMOGLOBIN 13.5 g/dl (13.5-17.5); MEAN CORPUSCULAR HGB CONC 30.8 g/dl (32.0-36.5); MEAN CORPUSCULAR VOLUME 97.3 fl (80.0-96.0); PLATELET COUNT, AUTOMATED 196 10^3/uL (150-450); WHITE BLOOD COUNT 9.2 10^3/uL (4.0-10.0)
[2019-07-15 08:27] LABS: INR 2.4
[2019-07-15 09:17] LABS: ALBUMIN 4.2 GM/DL (3.2-5.2); ALT/SGPT 25 U/L (12-78); BILIRUBIN,TOTAL 0.5 MG/DL (0.2-1.0); BLOOD UREA NITROGEN 16 MG/DL (7-18); CARBON DIOXIDE LEVEL 28 MEQ/L (21-32); CHLORIDE LEVEL 106 MEQ/L (98-107); CHOLESTEROL LEVEL 119 MG/DL (<200); CHOLESTEROL RISK RATIO 3.131 (<5); GLOMERULAR FILTRATION RATE > 60.0 (>56); GLUCOSE, FASTING 100 MG/DL (70-100); HDL CHOLESTEROL 38 MG/DL (>40); LDL CHOLESTEROL 49 MG/DL (<100); NON-HDL-C 81 MG/DL; SODIUM LEVEL 141 MEQ/L (136-145); TOTAL PROTEIN 7.4 GM/DL (6.4-8.2); TRIGLYCERIDES LEVEL 161 MG/DL (<150)
[2019-07-15 11:30] LABS: VITAMIN B12 LEVEL 1222 PG/ML (247-911)
== END ==
LOC: SKLAB6 07:00
PROVIDERS: ATTEND Family Medicine
DX: Z79.01 Long term (current) use of anticoagulants (principal); E03.9 Hypothyroidism, unspecified; E78.5 Hyperlipidemia, unspecified; I10 Essential (primary) hypertension

== ENCOUNTER → 2019-07-19 | Outpatient (REF) | payer MEDICAID, OTHER ==
[2019-07-19 10:56] LABS: INR 2.33; PROTHROMBIN TIME 25.4 SECONDS (11.8-14.0)
== END ==
LOC: SKLAB6 07:00
PROVIDERS: ATTEND Family Medicine
DX: Z79.01 Long term (current) use of anticoagulants (principal)

== ENCOUNTER → 2019-07-22 | Outpatient (REF) | payer MEDICAID, OTHER ==
[2019-07-22 09:28] LABS: PROTHROMBIN TIME 47.9 SECONDS (11.8-14.0)
[2019-07-22 09:39] LABS: INR 5.15
== END ==
LOC: SKLAB6 07:00
PROVIDERS: ATTEND Family Medicine
DX: Z79.01 Long term (current) use of anticoagulants (principal)

== ENCOUNTER → 2019-07-24 | Outpatient (REF) | payer MEDICAID ==
[2019-07-24 07:16] LABS: INR 4.1; PROTHROMBIN TIME 39.9 SECONDS (11.8-14.0)
== END ==
LOC: SKLAB6 07:00
PROVIDERS: ATTEND Family Medicine
DX: Z51.81 Encounter for therapeutic drug level monitoring (principal); Z79.01 Long term (current) use of anticoagulants

== ENCOUNTER → 2019-07-26 | Outpatient (REF) | payer MEDICAID ==
[2019-07-26 08:28] LABS: INR 2.79; PROTHROMBIN TIME 29.3 SECONDS (11.8-14.0)
== END ==
LOC: SKLAB6 07:00
PROVIDERS: ATTEND Family Medicine
DX: Z79.01 Long term (current) use of anticoagulants (principal)

== ENCOUNTER → 2019-07-29 | Outpatient (REF) | payer MEDICAID ==
[2019-07-29 10:06] LABS: INR 1.95
== END ==
LOC: SKLAB6 07:00
PROVIDERS: ATTEND Family Medicine
DX: Z51.81 Encounter for therapeutic drug level monitoring (principal); Z79.01 Long term (current) use of anticoagulants

== ENCOUNTER → 2019-08-02 | Outpatient (REF) | payer MEDICAID ==
[2019-08-02 08:24] LABS: INR 2.53; PROTHROMBIN TIME 27.1 SECONDS (11.8-14.0)
== END ==
LOC: SKLAB6 07:00
PROVIDERS: ATTEND Family Medicine
DX: Z51.81 Encounter for therapeutic drug level monitoring (principal); Z79.01 Long term (current) use of anticoagulants

== ENCOUNTER → 2019-08-05 | Outpatient (REF) | payer MEDICAID ==
[2019-08-05 08:48] LABS: INR 4.3; PROTHROMBIN TIME 41.5 SECONDS (11.8-14.0)
== END ==
LOC: SKLAB6 07:00
PROVIDERS: ATTEND Family Medicine
DX: Z79.899 Other long term (current) drug therapy (principal)

== ENCOUNTER → 2019-08-07 | Outpatient (REF) | payer OTHER ==
[2019-08-07 08:05] LABS: INR 3.19; PROTHROMBIN TIME 32.6 SECONDS (11.8-14.0)
== END ==
LOC: SKLAB6 07:00
PROVIDERS: ATTEND Family Medicine
DX: Z79.01 Long term (current) use of anticoagulants (principal)

== ENCOUNTER → 2019-08-09 | Outpatient (REF) | payer OTHER ==
[~2019-08-09] MED LIST changes: +QUET100T2 PO; -QUET1TAB8 PO
[2019-08-09 07:56] LABS: INR 3.31; PROTHROMBIN TIME 33.6 SECONDS (11.8-14.0)
== END ==
LOC: SKLAB6 07:00
PROVIDERS: ATTEND Family Medicine
DX: Z79.899 Other long term (current) drug therapy (principal)

== ENCOUNTER → 2019-08-12 | Outpatient (REF) | payer OTHER ==
[2019-08-12 08:34] LABS: INR 3.02; PROTHROMBIN TIME 31.2 SECONDS (11.8-14.0)
== END ==
LOC: SKLAB6 07:00
PROVIDERS: ATTEND Family Medicine
DX: Z79.01 Long term (current) use of anticoagulants (principal)

== ENCOUNTER → 2019-08-16 | Outpatient (REF) | payer OTHER ==
[2019-08-16 08:12] LABS: INR 3.47; PROTHROMBIN TIME 34.9 SECONDS (11.8-14.0)
== END ==
LOC: SKLAB6 07:00
PROVIDERS: ATTEND Family Medicine
DX: Z79.01 Long term (current) use of anticoagulants (principal)

== ENCOUNTER → 2019-08-18 | Outpatient (REF) | payer OTHER ==
[2019-08-18 08:08] LABS: ALBUMIN 3.4 GM/DL (3.2-5.2); ALT/SGPT 21 U/L (12-78); BILIRUBIN,TOTAL 0.5 MG/DL (0.2-1.0); BLOOD UREA NITROGEN 11 MG/DL (7-18); CALCIUM LEVEL 9.2 MG/DL (8.5-10.1); CARBON DIOXIDE LEVEL 30 MEQ/L (21-32); CHLORIDE LEVEL 104 MEQ/L (98-107); CREATININE FOR GFR 0.87 MG/DL (0.70-1.30); GLOMERULAR FILTRATION RATE > 60.0 (>56); GLUCOSE, FASTING 91 MG/DL (70-100); SODIUM LEVEL 140 MEQ/L (136-145); TOTAL PROTEIN 7.4 GM/DL (6.4-8.2)
== END ==
LOC: SKLAB6 10:29
PROVIDERS: ATTEND Family Medicine
DX: R63.4 Abnormal weight loss (principal); R53.83 Other fatigue

== ENCOUNTER → 2019-08-19 | Outpatient (REF) | payer OTHER ==
[2019-08-19 07:39] LABS: HEMATOCRIT 44.6 % (42.0-52.0); HEMOGLOBIN 14.2 g/dl (13.5-17.5); MEAN CORPUSCULAR HGB CONC 31.8 g/dl (32.0-36.5); MEAN CORPUSCULAR VOLUME 94.3 fl (80.0-96.0); PLATELET COUNT, AUTOMATED 258 10^3/uL (150-450); RED BLOOD COUNT 4.73 10^6/uL (4.30-6.10); WHITE BLOOD COUNT 8.3 10^3/uL (4.0-10.0)
[2019-08-19 07:53] LABS: INR 3.13; PROTHROMBIN TIME 32.1 SECONDS (11.8-14.0)
== END ==
LOC: SKLAB6 07:00
PROVIDERS: ATTEND Family Medicine
DX: Z79.899 Other long term (current) drug therapy (principal)

== ENCOUNTER → 2019-08-23 | Outpatient (REF) | payer OTHER ==
[2019-08-23 08:49] LABS: INR 1.97; PROTHROMBIN TIME 22.2 SECONDS (11.8-14.0)
== END ==
LOC: SKLAB6 07:55
PROVIDERS: ATTEND Family Medicine
DX: Z79.899 Other long term (current) drug therapy (principal)

== ENCOUNTER → 2019-08-26 | Outpatient (REF) | payer OTHER ==
[2019-08-26 09:52] LABS: INR 2.76; PROTHROMBIN TIME 29.1 SECONDS (11.8-14.0)
== END ==
LOC: SKLAB6 07:00
PROVIDERS: ATTEND Family Medicine
DX: Z79.899 Other long term (current) drug therapy (principal)

== ENCOUNTER → 2019-08-30 | Outpatient (REF) | payer OTHER ==
[2019-08-30 09:09] LABS: INR 2.48; PROTHROMBIN TIME 26.7 SECONDS (11.8-14.0)
== END ==
LOC: SKLAB6 07:00
PROVIDERS: ATTEND Family Medicine
DX: Z79.899 Other long term (current) drug therapy (principal)

== ENCOUNTER → 2019-09-02 | Outpatient (REF) | payer OTHER ==
[2019-09-02 08:51] LABS: INR 2.33; PROTHROMBIN TIME 25.4 SECONDS (11.8-14.0)
== END ==
LOC: SKLAB6 07:00
PROVIDERS: ATTEND Family Medicine
DX: Z79.01 Long term (current) use of anticoagulants (principal)

== ENCOUNTER → 2019-09-06 | Outpatient (REF) | payer OTHER ==
[2019-09-06 08:17] LABS: INR 2.57; PROTHROMBIN TIME 27.4 SECONDS (11.8-14.0)
== END ==
LOC: SKLAB6 07:00
PROVIDERS: ATTEND Family Medicine
DX: Z79.01 Long term (current) use of anticoagulants (principal)

== ENCOUNTER → 2019-09-09 | Outpatient (REF) | payer OTHER ==
[2019-09-09 09:03] LABS: INR 2.07; PROTHROMBIN TIME 23.1 SECONDS (11.8-14.0)
== END ==
LOC: SKLAB6 07:00
PROVIDERS: ATTEND Family Medicine
DX: Z79.01 Long term (current) use of anticoagulants (principal)

== ENCOUNTER → 2019-09-13 | Outpatient (REF) | payer OTHER ==
[2019-09-13 08:05] LABS: INR 1.46; PROTHROMBIN TIME 17.4 SECONDS (11.8-14.0)
== END ==
LOC: SKLAB6 07:00
PROVIDERS: ATTEND Family Medicine
DX: Z79.01 Long term (current) use of anticoagulants (principal)

== ENCOUNTER → 2019-09-16 | Outpatient (REF) | payer OTHER ==
[2019-09-16 10:23] LABS: PROTHROMBIN TIME 19.4 SECONDS (11.8-14.0)
[2019-09-16 10:24] LABS: INR 1.67
== END ==
LOC: SKLAB6 07:00
PROVIDERS: ATTEND Family Medicine
DX: Z79.01 Long term (current) use of anticoagulants (principal)

== ENCOUNTER → 2019-09-18 | Outpatient (REF) | payer OTHER ==
[2019-09-18 08:39] LABS: INR 2.42; PROTHROMBIN TIME 26.2 SECONDS (11.8-14.0)
== END ==
LOC: SKLAB6 07:00
PROVIDERS: ATTEND Family Medicine
DX: Z79.01 Long term (current) use of anticoagulants (principal)

== ENCOUNTER → 2019-09-20 | Outpatient (REF) | payer OTHER ==
[2019-09-20 09:23] LABS: INR 2.68; PROTHROMBIN TIME 28.4 SECONDS (11.8-14.0)
== END ==
LOC: SKLAB6 07:00
PROVIDERS: ATTEND Family Medicine
DX: Z79.01 Long term (current) use of anticoagulants (principal)

== ENCOUNTER → 2019-09-23 | Outpatient (REF) | payer OTHER ==
[2019-09-23 09:19] LABS: INR 3.05; PROTHROMBIN TIME 31.4 SECONDS (11.8-14.0)
== END ==
LOC: SKLAB6 07:00
PROVIDERS: ATTEND Family Medicine
DX: Z79.01 Long term (current) use of anticoagulants (principal)

== ENCOUNTER → 2019-09-27 | Outpatient (REF) | payer OTHER ==
[2019-09-27 07:42] LABS: INR 3.4; PROTHROMBIN TIME 34.3 SECONDS (11.8-14.0)
== END ==
LOC: SKLAB6 07:00
PROVIDERS: ATTEND Family Medicine
DX: Z79.01 Long term (current) use of anticoagulants (principal)

== ENCOUNTER → 2019-09-30 | Outpatient (REF) | payer OTHER ==
[2019-09-30 08:35] LABS: INR 2.67; PROTHROMBIN TIME 28.3 SECONDS (11.8-14.0)
== END ==
LOC: SKLAB6 07:00
PROVIDERS: ATTEND Family Medicine
DX: Z79.01 Long term (current) use of anticoagulants (principal)

== ENCOUNTER → 2019-10-04 | Outpatient (REF) | payer OTHER ==
[2019-10-04 07:07] LABS: INR 3.3; PROTHROMBIN TIME 33.6 SECONDS (11.8-14.0)
== END ==
LOC: SKLAB6 07:00
PROVIDERS: ATTEND Family Medicine
DX: Z79.01 Long term (current) use of anticoagulants (principal)

== ENCOUNTER → 2019-10-07 | Outpatient (REF) | payer OTHER ==
[2019-10-07 08:21] LABS: INR 2.92; PROTHROMBIN TIME 30.4 SECONDS (11.8-14.0)
== END ==
LOC: SKLAB6 07:00
PROVIDERS: ATTEND Family Medicine
DX: I73.9 Peripheral vascular disease, unspecified (principal)

== ENCOUNTER → 2019-10-11 | Outpatient (REF) | payer OTHER ==
[2019-10-11 07:02] LABS: INR 3.13; PROTHROMBIN TIME 32.2 SECONDS (11.8-14.0)
== END ==
LOC: SKLAB6 07:00
PROVIDERS: ATTEND Family Medicine
DX: I73.9 Peripheral vascular disease, unspecified (principal); Z86.718 Personal history of other venous thrombosis and embolism; Z79.01 Long term (current) use of anticoagulants

== ENCOUNTER → 2019-10-14 | Outpatient (REF) | payer OTHER ==
[2019-10-14 09:46] LABS: INR 3.1; PROTHROMBIN TIME 31.9 SECONDS (11.8-14.0)
== END ==
LOC: SKLAB6 07:00
PROVIDERS: ATTEND Family Medicine
DX: Z79.01 Long term (current) use of anticoagulants (principal)

== ENCOUNTER → 2019-10-18 | Outpatient (REF) | payer OTHER ==
[2019-10-18 09:43] LABS: INR 3.02; PROTHROMBIN TIME 31.2 SECONDS (11.8-14.0)
== END ==
LOC: SKLAB6 07:00
PROVIDERS: ATTEND Family Medicine
DX: I73.9 Peripheral vascular disease, unspecified (principal); Z79.01 Long term (current) use of anticoagulants; Z86.718 Personal history of other venous thrombosis and embolism

== ENCOUNTER → 2019-10-21 | Outpatient (REF) | payer OTHER ==
[2019-10-21 09:50] LABS: INR 2.84; PROTHROMBIN TIME 29.7 SECONDS (11.8-14.0)
== END ==
LOC: SKLAB6 07:00
PROVIDERS: ATTEND Family Medicine
DX: I73.9 Peripheral vascular disease, unspecified (principal); Z79.01 Long term (current) use of anticoagulants; Z86.718 Personal history of other venous thrombosis and embolism

== ENCOUNTER → 2019-10-25 | Outpatient (REF) | payer OTHER ==
[2019-10-25 10:49] LABS: INR 2.7; PROTHROMBIN TIME 28.6 SECONDS (11.8-14.0)
== END ==
LOC: SKLAB6 07:00
PROVIDERS: ATTEND Family Medicine
DX: Z79.01 Long term (current) use of anticoagulants (principal)

== ENCOUNTER → 2019-10-28 | Outpatient (REF) | payer OTHER ==
[2019-10-28 09:22] LABS: INR 2.32; PROTHROMBIN TIME 25.3 SECONDS (11.8-14.0)
== END ==
LOC: SKLAB6 07:00
PROVIDERS: ATTEND Family Medicine
DX: Z79.01 Long term (current) use of anticoagulants (principal)

== ENCOUNTER → 2019-11-01 | Outpatient (REF) | payer OTHER ==
[~2019-11-01] MED LIST changes: -TIZA2TAB4 PO; +TIZA2TAB6 PO
[2019-11-02 07:56] LABS: INR 2.2; PROTHROMBIN TIME 24.3 SECONDS (11.8-14.0)
== END ==
LOC: SKLAB6 08:00
PROVIDERS: ATTEND Family Medicine
DX: Z79.01 Long term (current) use of anticoagulants (principal)

== ENCOUNTER → 2019-11-09 | Outpatient (REF) | payer OTHER ==
[2019-11-09 08:55] LABS: INR 2.44; PROTHROMBIN TIME 26.4 SECONDS (11.8-14.0)
== END ==
LOC: SKLAB6 08:00
PROVIDERS: ATTEND Family Medicine
DX: Z79.01 Long term (current) use of anticoagulants (principal)

== ENCOUNTER → 2019-11-16 | Outpatient (REF) | payer OTHER ==
[~2019-11-16] MED LIST changes: -ASPI81TA85 PO; +ASPI81TA86 PO; +PANT40TA29 PO; -PANT40TA3 PO; -QUET1TAB7 PO; +QUET25TA3 PO; +QUET50TA3 PO; -QUET5TAB PO; +TIZA1TAB12 PO; -TIZA2TAB6 PO
[2019-11-16 09:11] LABS: INR 2.28; PROTHROMBIN TIME 24.9 SECONDS (11.8-14.0)
== END ==
LOC: SKLAB6 07:00
PROVIDERS: ATTEND Family Medicine
DX: Z79.01 Long term (current) use of anticoagulants (principal)

== ENCOUNTER → 2019-11-18 | Outpatient (REF) | payer OTHER ==
[~2019-11-18] MED LIST changes: +ASPI81TA85 PO; -ASPI81TA86 PO; -PANT40TA29 PO; +PANT40TA3 PO; +QUET1TAB7 PO; -QUET25TA3 PO; -QUET50TA3 PO; +QUET5TAB PO; -TIZA1TAB12 PO; +TIZA2TAB6 PO
[2019-11-18 09:11] LABS: HEMATOCRIT 42.8 % (42.0-52.0); HEMOGLOBIN 14.2 g/dl (13.5-17.5); MEAN CORPUSCULAR HEMOGLOBIN 31.9 pg (27.0-33.0); MEAN CORPUSCULAR HGB CONC 33.2 g/dl (32.0-36.5); MEAN CORPUSCULAR VOLUME 96.2 fl (80.0-96.0); PLATELET COUNT, AUTOMATED 256 10^3/uL (150-450); RED BLOOD COUNT 4.45 10^6/uL (4.30-6.10); WHITE BLOOD COUNT 6.6 10^3/uL (4.0-10.0)
== END ==
LOC: SKLAB6 07:00
PROVIDERS: ATTEND Family Medicine
DX: G20 Parkinson's disease (principal); I10 Essential (primary) hypertension; E03.9 Hypothyroidism, unspecified; E78.5 Hyperlipidemia, unspecified; F03.90 Unspecified dementia, unspecified severity, without behavioral disturbance, psychotic disturbance, mood disturbance, and anxiety

== ENCOUNTER → 2019-11-23 | Outpatient (REF) | payer OTHER ==
[2019-11-23 09:29] LABS: INR 2.65; PROTHROMBIN TIME 28.1 SECONDS (11.8-14.0)
== END ==
LOC: SKLAB6 07:00
PROVIDERS: ATTEND Family Medicine
DX: Z79.01 Long term (current) use of anticoagulants (principal)

== ENCOUNTER → 2019-12-01 | Outpatient (REF) | payer OTHER ==
[2019-12-01 10:22] LABS: INR 2.26; PROTHROMBIN TIME 24.8 SECONDS (11.8-14.0)
== END ==
LOC: SKLAB6 07:00
PROVIDERS: ATTEND Family Medicine
DX: Z79.01 Long term (current) use of anticoagulants (principal)

== ENCOUNTER → 2019-12-07 | Outpatient (REF) | payer OTHER ==
[2019-12-07 08:15] LABS: INR 2.72; PROTHROMBIN TIME 28.7 SECONDS (11.8-14.0)
== END ==
LOC: SKLAB6 07:00
PROVIDERS: ATTEND Family Medicine
DX: Z79.01 Long term (current) use of anticoagulants (principal)

== ENCOUNTER → 2019-12-14 | Outpatient (REF) | payer OTHER ==
[2019-12-14 09:58] LABS: INR 2.45; PROTHROMBIN TIME 26.4 SECONDS (11.8-14.0)
== END ==
LOC: SKLAB6 07:00
PROVIDERS: ATTEND Family Medicine
DX: Z79.01 Long term (current) use of anticoagulants (principal)

== ENCOUNTER → 2019-12-21 | Outpatient (REF) | payer OTHER ==
[2019-12-21 11:24] LABS: INR 2.73; PROTHROMBIN TIME 28.8 SECONDS (11.8-14.0)
== END ==
LOC: SKLAB6 07:00
PROVIDERS: ATTEND Family Medicine
DX: Z79.899 Other long term (current) drug therapy (principal)

== ENCOUNTER → 2019-12-28 | Outpatient (REF) | payer OTHER ==
[2019-12-28 07:38] LABS: INR 3.3; PROTHROMBIN TIME 33.5 SECONDS (11.8-14.0)
== END ==
LOC: SKLAB6 07:00
PROVIDERS: ATTEND Family Medicine
DX: Z79.01 Long term (current) use of anticoagulants (principal)

== ENCOUNTER → 2020-01-04 | Outpatient (REF) | payer OTHER ==
[2020-01-04 09:23] LABS: INR 2.88; PROTHROMBIN TIME 30.1 SECONDS (11.8-14.0)
== END ==
LOC: SKLAB6 07:00
PROVIDERS: ATTEND Family Medicine
DX: Z79.01 Long term (current) use of anticoagulants (principal)

== ENCOUNTER → 2020-01-11 | Outpatient (REF) | payer OTHER ==
[2020-01-11 07:46] LABS: INR 2.63
[2020-01-11 08:12] LABS: ALBUMIN 3.8 GM/DL (3.2-5.2); ALT/SGPT 24 U/L (12-78); BILIRUBIN,TOTAL 0.7 MG/DL (0.2-1.0); BLOOD UREA NITROGEN 18 MG/DL (7-18); CARBON DIOXIDE LEVEL 30 MEQ/L (21-32); CHLORIDE LEVEL 105 MEQ/L (98-107); CHOLESTEROL LEVEL 140 MG/DL (<200); CREATININE FOR GFR 0.96 MG/DL (0.70-1.30); GLOMERULAR FILTRATION RATE > 60.0 (>56); GLUCOSE, FASTING 88 MG/DL (70-100); HDL CHOLESTEROL 40 MG/DL (>40); LDL CHOLESTEROL 76 MG/DL (<100); NON-HDL-C 100 MG/DL; POTASSIUM SERUM 4.3 MEQ/L (3.5-5.1); SODIUM LEVEL 139 MEQ/L (136-145); TOTAL PROTEIN 7.4 GM/DL (6.4-8.2); TRIGLYCERIDES LEVEL 119 MG/DL (<150)
[2020-01-11 08:55] LABS: VITAMIN B12 LEVEL 718 PG/ML (247-911)
== END ==
LOC: SKLAB6 07:00
PROVIDERS: ATTEND Family Medicine
DX: Z79.01 Long term (current) use of anticoagulants (principal)

== ENCOUNTER → 2020-01-18 | Outpatient (REF) | payer OTHER ==
[2020-01-18 08:56] LABS: INR 3.13; PROTHROMBIN TIME 32.1 SECONDS (11.8-14.0)
== END ==
LOC: SKLAB6 07:00
PROVIDERS: ATTEND Family Medicine
DX: Z79.01 Long term (current) use of anticoagulants (principal)

== ENCOUNTER → 2020-01-25 | Outpatient (REF) | payer OTHER ==
[~2020-01-25] MED LIST changes: -ASPI81TA85 PO; +ASPI81TA86 PO; +PANT40TA29 PO; -PANT40TA3 PO
[2020-01-25 09:33] LABS: INR 2.75
== END ==
LOC: SKLAB6 07:00
PROVIDERS: ATTEND Family Medicine
DX: Z79.899 Other long term (current) drug therapy (principal); Z79.01 Long term (current) use of anticoagulants

== ENCOUNTER → 2020-01-27 | Outpatient (REF) | payer OTHER ==
[2020-01-27 08:14] LABS: INR 1.77; PROTHROMBIN TIME 20.4 SECONDS (11.8-14.0)
== END ==
LOC: SKLAB6 07:00
DX: I82.502 Chronic embolism and thrombosis of unspecified deep veins of left lower extremity (principal)

== ENCOUNTER → 2020-02-17 | Outpatient (REF) | payer OTHER ==
[2020-04-29 10:53] LABS: HEMATOCRIT 40.2 % (42.0-52.0); HEMOGLOBIN 13.7 g/dl (13.5-17.5); MEAN CORPUSCULAR HEMOGLOBIN 31.9 pg (27.0-33.0); MEAN CORPUSCULAR HGB CONC 34.1 g/dl (32.0-36.5); MEAN CORPUSCULAR VOLUME 93.5 fl (80.0-96.0); PLATELET COUNT, AUTOMATED 222 10^3/uL (150-450); WHITE BLOOD COUNT 7.9 10^3/uL (4.0-10.0)
== END ==
LOC: SKLAB6 09:01
DX: D51.9 Vitamin B12 deficiency anemia, unspecified (principal)

== ENCOUNTER → 2020-05-18 | Outpatient (REF) | payer OTHER, MEDICAID, SELFPAY ==
[2020-05-18 08:39] LABS: HEMATOCRIT 44.6 % (42.0-52.0); HEMOGLOBIN 14.4 g/dl (13.5-17.5); MEAN CORPUSCULAR HEMOGLOBIN 31.8 pg (27.0-33.0); MEAN CORPUSCULAR HGB CONC 32.3 g/dl (32.0-36.5); MEAN CORPUSCULAR VOLUME 98.5 fl (80.0-96.0); PLATELET COUNT, AUTOMATED 276 10^3/uL (150-450); RED BLOOD COUNT 4.53 10^6/uL (4.30-6.10); WHITE BLOOD COUNT 7.9 10^3/uL (4.0-10.0)
[2020-05-18 17:22] LABS: INFLUENZA A AMPLIFICATION NEGATIVE (NEGATIVE); INFLUENZA B AMPLIFICATION NEGATIVE (NEGATIVE)
== END ==
LOC: SKLAB6 07:00
DX: Z20.828 Contact with and (suspected) exposure to other viral communicable diseases (principal)
CPT/HCPCS: 36415; 85027; 87502; U0003

== ENCOUNTER → 2020-05-24 | Outpatient (REF) | payer OTHER ==
[~2020-05-24] MED LIST changes: -QUET1TAB7 PO; +QUET25TA3 PO; +QUET50TA3 PO; -QUET5TAB PO; +TIZA1TAB12 PO; -TIZA2TAB6 PO
== END ==
LOC: SKLAB6 05-23 13:27 → EDSTATUS 06-29 12:55
DX: Z20.828 Contact with and (suspected) exposure to other viral communicable diseases (principal)

== ENCOUNTER → 2020-05-31 | Outpatient (REF) | payer OTHER | LOC: SKLAB6 08:00 | PROVIDERS: ATTEND Internal Medicine | DX: Z20.828 Contact with and (suspected) exposure to other viral communicable diseases (principal) ==

== ENCOUNTER → 2020-06-07 | Outpatient (REF) | payer OTHER ==
[2020-06-07 16:18] LABS: INFLUENZA A AMPLIFICATION NEGATIVE (NEGATIVE); INFLUENZA B AMPLIFICATION NEGATIVE (NEGATIVE)
== END ==
LOC: SKLAB6 08:00
PROVIDERS: ATTEND Internal Medicine
DX: Z20.828 Contact with and (suspected) exposure to other viral communicable diseases (principal)
CPT/HCPCS: 87502; U0003

== ENCOUNTER → 2020-06-14 | Outpatient (REF) | payer OTHER, MEDICAID, SELFPAY ==
[~2020-06-14] MED LIST changes: +QUET1TAB7 PO; -QUET25TA3 PO; -QUET50TA3 PO; +QUET5TAB PO; -TIZA1TAB12 PO; +TIZA2TAB6 PO
== END ==
LOC: SKLAB6 10:00
DX: Z20.828 Contact with and (suspected) exposure to other viral communicable diseases (principal)

== ENCOUNTER → 2020-06-21 | Outpatient (REF) | payer OTHER, MEDICAID, SELFPAY ==
[2020-06-21 12:57] LABS: INFLUENZA A AMPLIFICATION NEGATIVE (NEGATIVE); INFLUENZA B AMPLIFICATION NEGATIVE (NEGATIVE)
== END ==
LOC: SKLAB6 12:35
DX: Z20.828 Contact with and (suspected) exposure to other viral communicable diseases (principal)
CPT/HCPCS: 87502; U0003

== ENCOUNTER → 2020-06-28 | Outpatient (REF) | payer OTHER, MEDICAID, SELFPAY | LOC: SKLAB6 09:00 | DX: Z20.828 Contact with and (suspected) exposure to other viral communicable diseases (principal) ==

== ENCOUNTER → 2020-07-05 | Outpatient (REF) | payer OTHER, MEDICAID, SELFPAY | LOC: SKLAB6 10:00 | DX: Z20.828 Contact with and (suspected) exposure to other viral communicable diseases (principal) ==

== ENCOUNTER → 2020-07-12 | Outpatient (REF) | payer OTHER | LOC: SKLAB6 10:00 | PROVIDERS: ATTEND Internal Medicine | DX: Z11.52 Encounter for screening for COVID-19 (principal) ==

== ENCOUNTER → 2020-07-19 | Outpatient (REF) | payer OTHER ==
[~2020-07-19] MED LIST changes: +TIZA1TAB12 PO; -TIZA2TAB6 PO
== END ==
LOC: SKLAB6 10:00
PROVIDERS: ATTEND Internal Medicine
DX: Z20.822 Contact with and (suspected) exposure to COVID-19 (principal)

== ENCOUNTER → 2020-07-20 | Outpatient (REF) | payer OTHER ==
[2020-07-20 09:08] LABS: ALBUMIN 3.9 GM/DL (3.2-5.2); ALT/SGPT 31 U/L (12-78); BILIRUBIN,TOTAL 0.6 MG/DL (0.2-1.0); BLOOD UREA NITROGEN 13 MG/DL (7-18); CALCIUM LEVEL 8.9 MG/DL (8.5-10.1); CARBON DIOXIDE LEVEL 32 MEQ/L (21-32); CHLORIDE LEVEL 102 MEQ/L (98-107); CHOLESTEROL LEVEL 141 MG/DL (<200); CHOLESTEROL RISK RATIO 2.764 (<5); CREATININE FOR GFR 0.98 MG/DL (0.70-1.30); GLOMERULAR FILTRATION RATE > 60.0 (>56); GLUCOSE, FASTING 78 MG/DL (70-100); HDL CHOLESTEROL 51 MG/DL (>40); LDL CHOLESTEROL 71 MG/DL (<100); NON-HDL-C 90 MG/DL; POTASSIUM SERUM 4.4 MEQ/L (3.5-5.1); SODIUM LEVEL 139 MEQ/L (136-145); TOTAL PROTEIN 7.6 GM/DL (6.4-8.2); TRIGLYCERIDES LEVEL 96 MG/DL (<150)
== END ==
LOC: SKLAB6 07:00
DX: I73.9 Peripheral vascular disease, unspecified (principal)

== ENCOUNTER → 2020-07-26 | Outpatient (REF) | payer OTHER ==
[~2020-07-26] MED LIST changes: -QUET1TAB7 PO; +QUET25TA3 PO; +QUET50TA3 PO; -QUET5TAB PO
== END ==
LOC: SKLAB6 09:00
PROVIDERS: ATTEND Internal Medicine
DX: Z20.822 Contact with and (suspected) exposure to COVID-19 (principal)

== ENCOUNTER → 2020-08-10 | Outpatient (REF) | payer OTHER, MEDICAID, SELFPAY ==
[2020-08-10 11:45] LABS: APPEARANCE, URINE MANUAL HAZY (CLEAR); BACTERIA, URINE SMALL AMOUNT; BILIRUBIN, URINE MANUAL NEGATIVE (NEGATIVE); BLOOD URINE MANUAL POSITIVE (NEGATIVE); COLOR, URINE MANUAL YELLOW (YELLOW); GLUCOSE, URINE (UA) MANUAL NEGATIVE (NEGATIVE); KETONE, URINE MANUAL NEGATIVE (NEGATIVE); LEUKOCYTE ESTERASE, URINE MAN POSITIVE (NEGATIVE); NITRITE, URINE MANUAL NEGATIVE (NEGATIVE); PROTEIN, URINE MANUAL 1+ mg/dL (NEGATIVE); TRANSITIONAL EPI CELLS, URINE SMALL AMOUNT /hpf; UROBILINOGEN, URINE MANUAL NORMAL (NORMAL)
[2020-08-10 11:46] LABS: MUCUS, URINE SMALL AMOUNT (NEGATIVE)
== END ==
LOC: SKLAB6 07:00
DX: M54.9 Dorsalgia, unspecified (principal)

== ENCOUNTER → 2020-08-11 | Outpatient (REF) | payer OTHER, MEDICAID, SELFPAY ==
--- NOTE | 2020-08-11 17:44 | REP ---
INDICATION: COVID 19 SHORTNESS OF BREATH. COMPARISON: 01/16/2019. TECHNIQUE: SINGLE PORTABLE AP VIEW OF THE CHEST WAS PERFORMED. FINDINGS: THERE IS NO ACUTE INFILTRATE OR PULMONARY EDEMA. LUNGS ARE CLEAR. HEART IS NOT SIGNIFICANTLY ENLARGED. MEDIASTINAL SILHOUETTE IS UNREMARKABLE. THE VISUALIZED OSSEOUS STRUCTURES ARE INTACT. IMPRESSION: NO ACUTE PULMONARY DISEASE. <Electronically signed by Gonzalo Luu > 08/11/20 [id number]
== END ==
LOC: SKLAB6 15:00
DX: U07.1 COVID-19 (principal); R06.02 Shortness of breath

== ENCOUNTER → 2020-08-12 | Outpatient (REF) | payer OTHER, MEDICAID, SELFPAY ==
[2020-08-12 11:28] LABS: HEMATOCRIT 41.9 % (42.0-52.0); HEMOGLOBIN 13.9 g/dl (13.5-17.5); MEAN CORPUSCULAR HEMOGLOBIN 31.4 pg (27.0-33.0); MEAN CORPUSCULAR HGB CONC 33.2 g/dl (32.0-36.5); MEAN CORPUSCULAR VOLUME 94.6 fl (80.0-96.0); PLATELET COUNT, AUTOMATED 284 10^3/uL (150-450); RED BLOOD COUNT 4.43 10^6/uL (4.30-6.10)
[2020-08-12 12:00] LABS: BLOOD UREA NITROGEN 14 MG/DL (7-18); CALCIUM LEVEL 9.2 MG/DL (8.5-10.1); CARBON DIOXIDE LEVEL 30 MEQ/L (21-32); CHLORIDE LEVEL 102 MEQ/L (98-107); GLOMERULAR FILTRATION RATE > 60.0 (>56); GLUCOSE, FASTING 82 MG/DL (70-100); POTASSIUM SERUM 4.5 MEQ/L (3.5-5.1); SODIUM LEVEL 139 MEQ/L (136-145)
== END ==
LOC: SKLAB6 07:00
DX: U07.1 COVID-19 (principal)

== ENCOUNTER → 2020-08-17 | Outpatient (REF) | payer OTHER, MEDICAID, SELFPAY ==
[2020-08-17 09:47] LABS: HEMATOCRIT 46.1 % (42.0-52.0); MEAN CORPUSCULAR HEMOGLOBIN 31.6 pg (27.0-33.0); MEAN CORPUSCULAR HGB CONC 32.5 g/dl (32.0-36.5); MEAN CORPUSCULAR VOLUME 97.3 fl (80.0-96.0); PLATELET COUNT, AUTOMATED 296 10^3/uL (150-450); RED BLOOD COUNT 4.74 10^6/uL (4.30-6.10); WHITE BLOOD COUNT 9.8 10^3/uL (4.0-10.0)
== END ==
LOC: SKLAB6 07:00
DX: U07.1 COVID-19 (principal)

== ENCOUNTER → 2020-10-12 | Outpatient (REF) | payer OTHER, MEDICAID, SELFPAY ==
[~2020-10-12] MED LIST changes: +NAPR-849 PO; -NAPR250T4 PO
== END ==
LOC: SKLAB6 07:00
DX: E03.9 Hypothyroidism, unspecified (principal)

== ENCOUNTER → 2020-11-02 | Outpatient (REF) | payer MEDICAID, OTHER | LOC: SKLAB6 20:00 | DX: K62.5 Hemorrhage of anus and rectum (principal) ==

== ENCOUNTER → 2020-11-04 | Outpatient (REF) | payer OTHER, MEDICAID ==
[2020-11-04 08:09] LABS: HEMATOCRIT 41.3 % (42.0-52.0); HEMOGLOBIN 13.6 g/dl (13.5-17.5); MEAN CORPUSCULAR HGB CONC 32.9 g/dl (32.0-36.5); MEAN CORPUSCULAR VOLUME 97.2 fl (80.0-96.0); PLATELET COUNT, AUTOMATED 264 10^3/uL (150-450); RED BLOOD COUNT 4.25 10^6/uL (4.30-6.10); WHITE BLOOD COUNT 9.6 10^3/uL (4.0-10.0)
== END ==
LOC: SKLAB6 07:00
DX: K62.5 Hemorrhage of anus and rectum (principal)

== ENCOUNTER → 2020-11-06 | Outpatient (REF) | payer OTHER, MEDICAID ==
[2020-11-06 08:51] LABS: HEMATOCRIT 42.7 % (42.0-52.0); MEAN CORPUSCULAR HEMOGLOBIN 31.5 pg (27.0-33.0); MEAN CORPUSCULAR HGB CONC 32.8 g/dl (32.0-36.5); PLATELET COUNT, AUTOMATED 290 10^3/uL (150-450); RED BLOOD COUNT 4.45 10^6/uL (4.30-6.10); WHITE BLOOD COUNT 10.6 10^3/uL (4.0-10.0)
== END ==
LOC: SKLAB6 07:00
DX: K62.5 Hemorrhage of anus and rectum (principal)

== ENCOUNTER → 2020-11-16 | Outpatient (REF) | payer OTHER, MEDICAID ==
[2020-11-16 08:40] LABS: HEMATOCRIT 41.7 % (42.0-52.0); HEMOGLOBIN 13.9 g/dl (13.5-17.5); MEAN CORPUSCULAR HEMOGLOBIN 32.3 pg (27.0-33.0); MEAN CORPUSCULAR HGB CONC 33.3 g/dl (32.0-36.5); MEAN CORPUSCULAR VOLUME 96.8 fl (80.0-96.0); PLATELET COUNT, AUTOMATED 302 10^3/uL (150-450); RED BLOOD COUNT 4.31 10^6/uL (4.30-6.10); WHITE BLOOD COUNT 7.9 10^3/uL (4.0-10.0)
== END ==
LOC: SKLAB6 07:00
DX: I73.9 Peripheral vascular disease, unspecified (principal)

== ENCOUNTER → 2021-01-11 | Outpatient (REF) | payer MEDICAID, OTHER ==
[~2021-01-11] MED LIST changes: -KLOR10TA76 PO; +POTA-136 PO; +QUET1TAB17 PO; -QUET25TA3 PO; -QUET50TA3 PO; +QUET50TA4 PO; +TIZA10TA PO; -TIZA4TAB4 PO
[2021-01-11 12:14] LABS: ALT/SGPT 24 U/L (12-78); BILIRUBIN,TOTAL 0.6 MG/DL (0.2-1.0); BLOOD UREA NITROGEN 15 MG/DL (7-18); CALCIUM LEVEL 8.9 MG/DL (8.8-10.2); CARBON DIOXIDE LEVEL 25 MEQ/L (21-32); CHLORIDE LEVEL 108 MEQ/L (98-107); CHOLESTEROL LEVEL 130 MG/DL (<200); CHOLESTEROL RISK RATIO 3.023 (<5); CREATININE FOR GFR 0.97 MG/DL (0.70-1.30); GLOMERULAR FILTRATION RATE > 60.0 (>49); GLUCOSE, FASTING 142 MG/DL (70-100); HDL CHOLESTEROL 43 MG/DL (>40); LDL CHOLESTEROL 67 MG/DL (<100); NON-HDL-C 87 MG/DL; POTASSIUM SERUM 3.9 MEQ/L (3.5-5.1); SODIUM LEVEL 142 MEQ/L (136-145); TOTAL PROTEIN 7.6 GM/DL (6.4-8.2); TRIGLYCERIDES LEVEL 101 MG/DL (<150)
[2021-01-11 12:49] LABS: VITAMIN B12 LEVEL 293 PG/ML (247-911)
== END ==
LOC: SKLAB6 07:00
DX: E03.9 Hypothyroidism, unspecified (principal)

== ENCOUNTER → 2021-02-20 | Outpatient (REF) | payer OTHER, MEDICAID, SELFPAY ==
[~2021-02-20] MED LIST changes: +KLOR10TA76 PO; -POTA-136 PO; -TIZA10TA PO; +TIZA4TAB4 PO
[2021-02-20 08:50] LABS: HEMATOCRIT 42.9 % (42.0-52.0); HEMOGLOBIN 14.2 g/dl (13.5-17.5); MEAN CORPUSCULAR HEMOGLOBIN 31.4 pg (27.0-33.0); MEAN CORPUSCULAR HGB CONC 33.1 g/dl (32.0-36.5); MEAN CORPUSCULAR VOLUME 94.9 fl (80.0-96.0); PLATELET COUNT, AUTOMATED 262 10^3/uL (150-450); RED BLOOD COUNT 4.52 10^6/uL (4.30-6.10); WHITE BLOOD COUNT 8.4 10^3/uL (4.0-10.0)
== END ==
LOC: SKLAB6 07:00
PROVIDERS: ATTEND Internal Medicine
DX: Z79.01 Long term (current) use of anticoagulants (principal); Z79.899 Other long term (current) drug therapy

== ENCOUNTER → 2021-04-26 | Outpatient (REF) | payer MEDICAID ==
[~2021-04-26] MED LIST changes: -KLOR10TA76 PO; +POTA-136 PO
== END ==
LOC: SKLAB6 09:12
PROVIDERS: ATTEND Internal Medicine
DX: Z20.822 Contact with and (suspected) exposure to COVID-19 (principal)

== ENCOUNTER → 2021-04-30 | Outpatient (REF) | payer MEDICAID | LOC: SKLAB6 06:05 | PROVIDERS: ATTEND Internal Medicine | DX: Z20.822 Contact with and (suspected) exposure to COVID-19 (principal) ==

== ENCOUNTER → 2021-05-03 | Outpatient (REF) | payer MEDICAID | LOC: SKLAB6 06:23 | PROVIDERS: ATTEND Internal Medicine | DX: Z20.822 Contact with and (suspected) exposure to COVID-19 (principal) ==

== ENCOUNTER → 2021-05-07 | Outpatient (REF) | payer MEDICAID | LOC: SKLAB6 05:36 | PROVIDERS: ATTEND Internal Medicine | DX: Z20.822 Contact with and (suspected) exposure to COVID-19 (principal) ==

== ENCOUNTER → 2021-05-10 | Outpatient (REF) | payer MEDICAID | LOC: SKLAB6 05:30 | PROVIDERS: ATTEND Internal Medicine | DX: Z20.822 Contact with and (suspected) exposure to COVID-19 (principal) ==

== ENCOUNTER → 2021-05-16 | Outpatient (REF) | payer MEDICAID | LOC: SKLAB6 14:01 | PROVIDERS: ATTEND Internal Medicine | DX: Z20.822 Contact with and (suspected) exposure to COVID-19 (principal) ==

== ENCOUNTER 2021-05-17 21:52 | Emergency (ER) | payer MEDICAID ==
--- OUTSIDE RECORDS SUMMARY | 2021-05-17 21:56 | CCD | Continuity of Care Document ---
Author Author Rogelio WALL M.D. Organization Unknown Address [address] [place] [id number] Phone [phone] Care Team Providers Care Keysmith Name Role Phone Corry Man RPA AUTM [phone] Problems Active Problems Provider Date Parkinson's disease Jairon Wall M.D. Onset: 03/17/2014 Carotid artery stenosis Jairon Wall M.D. Onset: 4 Walking disability Jairon Wall M.D. Onset: 03/17/2014 Obstructive sleep apnea syndrome Jairon Wall M.D. Onset: 10/11/2015 Mild cognitive disorder Jairon Wall M.D. Onset: 6 Mild major depression, single episode Jairon Wall M.D. On set: 02/09/2016 Diffuse Lewy body disease Jairon Wall M.D. Onset: 021 Social History Type Date Description Comments Sex Unknown ETOH Use Denies alcohol use Recreational Drug Use Never Used Drugs Tobacco Use Start: Unknown End: Unknown Patient is a former smoker Allergies and adverse reactions Active Allergies Criticality Reaction | Severity Comments Date No Known Drug Allergy Unable to assess criticality 06/06/2011 Medications Active Medications SIG Qnty Indications Ordering Provide r Date Nuplazid 34mg Capsules Take 1 Capsule By Mouth Every Morning. 30caps Jairon Wall M.D. 07/22/2019 Carbidopa-Levodopa 25-100mg Tablet s 1 and a half Tab po qid at 8am, 11am, 2p.m., and 5p.m. maximum daily dose =6 180tabs Jairon Wall M.D. 07/14/2014 Immunizations Description No Information Available Vital Signs Date Vital Result Comment 04/11/2015 2:51pm BP Systolic 140 mmHg BP Diastolic 85 mmHg Heart Rate 68 /min Respiratory Rate 16 /min 11/15/2014 3:53pm BP Systolic 130 mmHg BP Diastolic 85 mmHg Heart Rate 66 /min Respiratory Rate 16 /min Height 70 inches 5'10" Weight 185.00 lb BMI (Body Mass Index) 26.5 kg/m2 [place] Body Weight 166 lb Results Description No Information Available Procedures Date Code Description Status 04/20/2021 47492 Phone Evaluation/Management Phys ician 11-20 Mins Completed 11/16/2020 69525 Phone Evaluation/Management Phys ician 11-20 Mins Completed Medical Devices Description No Information Available Encounters Type Date Location Provider Dx Diagnosis Office Visit 04/20/2021 11:[place] G20 Parkinson's disease G47.33 Obstructive sleep apnea (ady lt) (pediatric) I65.23 Occlusion and stenosis of bi lateral carotid arteries G31.84 Mild cognitive impairment, s o stated G31.83 Dementia with Lewy bodies F32.0 Major depressive disorder, s chiara episode, mild Office Visit 11/16/2020 1:45p [place] G20 Parkinson's disease G47.33 Obstructive sleep apnea (ady lt) (pediatric) I65.23 Occlusion and stenosis of bi lateral carotid arteries G31.84 Mild cognitive impairment, s o stated G31.83 Dementia with Lewy bodies Assessments Date Code Description Provider 04/20/2021 G20 Parkinson's disease Jairon Wall M.D. 04/20/2021 G47.33 Obstructive sleep apnea (adult) (pediatric) Jairon Wall M.D. 04/20/2021 I65.23 Occlusion and stenosis of bilate ral carotid arteries Jairon Wall M.D. 04/20/2021 G31.84 Mild cognitive impairment, so st ated Jairon Wall M.D. 04/20/2021 G31.83 Dementia with Lewy bodies Jairon Wall M.D. 04/20/2021 F32.0 Major depressive disorder, singl e episode, mild Jairon Wall M.D. 11/16/2020 G20 Parkinson's disease Jairon Wall M.D. 11/16/2020 G47.33 Obstructive sleep apnea (adult) (pediatric) Jairon Wall M.D. 11/16/2020 I65.23 Occlusion and stenosis of bilate ral carotid arteries Jairon Wall M.D. 11/16/2020 G31.84 Mild cognitive impairment, so st ated Jairon Wall M.D. 11/16/2020 G31.83 Dementia with Lewy bodies Jairon Wall M.D. Plan of Treatment Future Appointment(s):* 10/17/2021 11:00 am - Jairon Wall M.D. at Main office - [place] Functional Status Description No Information Available Mental Status Description No Information Available Referrals Description No Information Available
--- OUTSIDE RECORDS SUMMARY | 2021-05-17 21:56 | CCD | Continuity of Care Document ---
Author Author Rogelio WALL M.D. Organization Unknown Address [address] [place] [id number] Phone [phone] Care Team Providers Care Prisoner Classification Interviewer Name Role Phone Corry Man RPA AUTM [phone] Problems Active Problems Provider Date Parkinson's disease [...] Ordering Provide r Date Nuplazid 34mg Capsules take 1 tablet by mouth every morning 90caps Jairon Wall M.D. 07/22/2019 Carbidopa-Levodopa 25-100mg Tablet [...] lb BMI (Body Mass Index) 26.5 kg/m2 [place] Body Weight 166 lb Results Description No Information Available Procedures Date Code Description Status 04/20/2021 50417 Phone Evaluation/Management Phys ician 11-20 Mins Completed 11/16/2020 89198 Phone Evaluation/Management Phys ician 11-20 Mins Completed Medical Devices Description No Information Available Encounters Type Date Location Provider Dx Diagnosis Office Visit 04/20/2021 11:45[place] G20 Parkinson's disease G47.33 Obstructive sleep apnea (ady lt) (pediatric) I65.23 Occlusion and stenosis of bi lateral carotid arteries G31.84 Mild cognitive impairment, s o stated G31.83 Dementia with Lewy bodies F32.0 Major depressive disorder, s chiara episode, mild Office Visit 11/16/2020 1:45p [place] G20 Parkinson's disease G47.33 Obstructive sleep [...] Jairon Wall M.D. at Main office - [place] Functional Status Description No Information Available Mental Status Description No Information Available Referrals Description No Information Available
--- OUTSIDE RECORDS SUMMARY | 2021-05-17 21:57 | CCD ---
Author Author [facility] Organization [facility] Address Unknown Phone Unavailable Care Team Providers Care Side Laster Staple Name Role Phone Jairon Wall MD Unavailable Unavailable Jairon Wall MD Unavailable Unavailable Jairon Wall MD Unavailable Unavailable Jairon Wall MD Unavailable Unavailable Jairon Wall MD Unavailable Unavailable Jairon Wall MD Unavailable Unavailable Jairon Wall MD Unavailable Unavailable Jairon Wall MD Unavailable Unavailable Jairon Wall MD Unavailable Unavailable Jairon Wall MD Unavailable Unavailable Jairon Wall MD Unavailable Unavailable Jairon Wall MD Unavailable Unavailable Jairon Wall MD Unavailable Unavailable Jairon Wall MD Unavailable Unavailable Jairon Wall MD Unavailable Unavailable Jairon Wall MD Unavailable Unavailable Jairon Wall MD Unavailable Unavailable Jairon Wall MD Unavailable Unavailable Jairon Wall MD Unavailable Unavailable Jairon Wall MD Unavailable Unavailable Jairon Wall MD Unavailable Unavailable Jairon Wall MD Unavailable Unavailable Jairon Wall MD Unavailable Unavailable Jairon Wall MD Unavailable Unavailable Jairon Wall MD Unavailable Unavailable Jairon Wall MD Unavailable Unavailable Jairon Wall MD Unavailable Unavailable Jairon Wall MD Unavailable Unavailable Jairon Wall MD Unavailable Unavailable Jairon Wall MD Unavailable Unavailable Jairon Wall MD Unavailable Unavailable Jairon Wall MD Unavailable Unavailable Jairon Wall MD Unavailable Unavailable Jairon Wall MD Unavailable Unavailable Ali, Jairon MD Unavailable Unavailable Ali, Jairon MD Unavailable Unavailable Ali, Jairon MD Unavailable Unavailable Ali, Jairon MD Unavailable Unavailable Ali, Jairon MD Unavailable Unavailable Ali, Jairon MD Unavailable Unavailable Ali, Jairon MD Unavailable Unavailable Ali, Jairon MD Unavailable Unavailable Ali, Jairon MD Unavailable Unavailable Ali, Jairon MD Unavailable Unavailable Ali, Jairon MD Unavailable Unavailable Ali, Jairon MD Unavailable Unavailable Ali, Jairon MD Unavailable Unavailable Ali, Jairon MD Unavailable Unavailable Ali, Jairon MD Unavailable Unavailable Ali, Jairon MD Unavailable Unavailable Ali, Jairon MD Unavailable Unavailable Re-disclosure Warning The records that you are about to access may contain information from federally-assisted alcohol or drug abuse programs. If such information is present, then the following federally mandated warning applies: This information has been disclosed to you from records protected by federal confidentiality rules (42 CFR part 2). The federal rules prohibit you from making any further disclosure of this information unless further disclosure is expressly permitted by the written consent of the person to whom it pertains or as otherwise permitted by 42 CFR part 2. A general authorization for the release of medical or other information is NOT sufficient for this purpose. The Federal rules restrict any use of the information to criminally investigate or prosecute any alcohol or drug abuse patient.The records that you are about to access may contain highly sensitive health information, the redisclosure of which is protected by Article 27-F of the [facility] Public Health law. If you continue you may have access to information: Regarding HIV / AIDS; Provided by facilities licensed or operated by the [facility] Office of Mental Health; or Provided by the [facility] Office for People With Developmental Disabilities. If such information is present, then the following [facility] mandated warning applies: This information has been disclosed to you from confidential records which are protected by state law. State law prohibits you from making any further disclosure of this information without the specific written consent of the person to whom it pertains, or as otherwise permitted by law. Any unauthorized further disclosure in violation of state law may result in a fine or custodial sentence or both. A general authorization for the release of medical or other information is NOT sufficient authorization for further disc losure. Family History Family Member Name Family Member Gender Family Member Status Date o f Status Description Data Source(s) Unknown Unknown Problem [facility] ([facility]) Encounters Encounter Providers Location Date Indications Data Source(s ) Office Visit Attender: Jairon Wall MD Main office - [place] 04/20/2021 11:45:00 AM EDT [facility] ([facility]) Office Visit Attender: Jairon Wall MD Main office - [place] 11/16/2020 01:45:00 PM EDT [facility] ([facility]) Unknown [address] [address] 04/21/2020 12:00:00 AM EDT eCW1 ([facility]) Immunizations Vaccine Date Status Description Data Source(s) COVID-19 VACCINE Pfizer 08/01/2020 12:00:00 AM EST completed [facility] Vaccine Series Complete: YESThis Data wa s Submitted to [facility]. COVID-19 VACCINE Pfizer 07/11/2020 12:00:00 AM EST completed [facility] Vaccine Series Complete: NOThis Data was Submitted to [facility]. Medications No Information Insurance Providers Payer name Policy type / Coverage type Policy ID Covered alliance party ID Covered alliance party's relationship to [place] Policy [place] Plan Information MEDICAID [id number] SP [id number] BLUE [employer] [place] PLAN [id number] SP [id number] [facility] [id number] SP [id number] MEDICAID [id number] SP [id number] U/HC Medicaid Comm Plan Commercial [id number] Self [id number] U/HC Medicaid Comm Plan Commercial [id number] Self 1 [id number] U/HC Medicaid Comm Plan Commercial [id number] Self 1 [id number] U/HC Medicaid Comm Plan Commercial [id number] Self 1 [id number] U/HC Medicaid Comm Plan Commercial [id number] Self 1 [id number] U/HC Medicaid Comm Plan Commercial [id number] Self U/HC Medicaid Comm Plan Commercial [id number] Self 1 [id number] BCBS [place] PPO 302/307 [id number] WI2 [id number] [facility] [id number] SP [id number] BCBS 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 [id number] WI2 [id number] [facility] COMMUNITY PLAN MCDO [id number] SP [id number] DELFINO [id number] SP [id number] DELFINO [id number] SP [id number] ANSI-Medicaid [id number] ANSI-Not a Secondary Insurance [id number] ANSI-Not a Secondary Insurance [id number] ANSI-Not a Secondary Insurance [id number] [id number] ANSI-Medicaid [id number] ANSI-Medicaid [id number] ANSI-Medicaid [id number] ANSI-Not a Secondary Insurance [id number] y78nhto [id number]-[id number] ANSI-Not a Secondary Insurance [id number] [id number]-[id number]-[id number] ANSI-Not a Secondary Insurance [id number] [id number] ANSI-Not a Secondary Insurance [id number] [id number] ANSI-Medicaid [id number] ANSI-Not a Secondary Insurance [id number]-3b20-63h4-18t82 [id number] l2tqujl0-3azb-6z31-10y5-37t33esz0o42 ANSI-Not a Secondary Insurance [id number]-7t5e-88e3-08l5-04s2b sjn7e7i p866gcbj-7r8f-94j4-87s2-00d1iqzh3i8i ANSI-Medicaid [id number] ANSI-Not a Secondary Insurance [id number]-[id number]-65b57 83hl4e2 a22cm949-245y-1j03-391i-60c3526gc7c0 ANSI-Not a Secondary Insurance [id number]-452p-28ie-14o9-c0477 [id number] 643w04at-674d-44xr-38f1-[id number] ANSI-Medicaid [id number] ANSI-Medicaid [id number] ANSI-Not a Secondary Insurance [id number]-k79i-79e9m [id number] 483wv5c3-9n77-49g2-n93p-[id number] ANSI-Not a Secondary Insurance jdq6j1gh-yz69-563g-o048-84at4 82h32q0 rjy3i2la-br14-998e-e830-76un433w86i2 ANSI-Medicaid [id number] ANSI-Not a Secondary Insurance [id number]-1jwj-[id number] 5x000486-4y4s-3ury-[id number] ANSI-Not a Secondary Insurance wrfzb32f-503z-1d00-u5q2-922gq 191gd5e hxwjd33y-284h-1k27-g6w0-810mb804gl0q ANSI-Medicaid [id number]-[id number] ANSI-Not a Secondary Insurance [id number]-b814-2d0j-7207-2u98o z4os745 [id number]-k641-7l8e-[id number] ANSI-Medicaid [id number] ANSI-Medicaid [id number] ANSI-Not a Secondary Insurance [id number]-t426-4758-tv52-359x8 [id number]-b294-2931-[id number] ANSI-Not a Secondary Insurance q5gqb683-4z34-20so-e7ir-3633k 831d6hf p9bma558-0t17-98kc-i6ip-7252l773k8so ANSI-Not a Secondary Insurance [id number]-tlw6-x0m57 339276b 84657i66-6537-7rc6-kpt9-[id number] ANSI-Not a Secondary Insurance [id number]-l39b-t34fw 830yl2h 784qx891-1z63-5221-m82q-o15cw106gc6d ANSI-Medicaid [id number] ANSI-Medicaid [id number] ANSI-Not a Secondary Insurance 21k9k3a4-69n4-24i1-vq12-242d5 r68dfs4 27m3a1a2-19n4-02j0-sf98-861v1k91ysh0 ANSI-Not a Secondary Insurance [id number]-2jr0m [id number] [id number]-8uy0m6643371 ANSI-Medicaid [id number]-s7t3-130h-8xnk-[id number] ANSI-Not a Secondary Insurance [id number]-s411-081o-7l8g-10t2i 638j359 [id number]-t074-329h-9k7d-[id number] ANSI-Medicaid [id number] ANSI-Not a Secondary Insurance 26lzknwd-17pr-9967-nm6v-7p9te 98qbc83 89cfiijp-39pt-3793-qr6v-1x8bq91pjg46 ANSI-Medicaid [id number] ANSI-Not a Secondary Insurance [id number]-1095-wfb2l 0np38ip 0082c060-1k48-589p-6667-giq9f1rr87bo ANSI-Not a Secondary Insurance gw0554cu-5992-4016-9x5l-7z071 7yjm5rw so9625sp-7246-5590-5k1d-4c2561olj4zn ANSI-Not a Secondary Insurance d04w7u77-8dj6-0011-10df-2ouo5 4unz713 a99f0p78-2ge0-1415-86me-6udp46aop947 ANSI-Medicaid [id number]-469n-[id number] ANSI-Not a Secondary Insurance g17cna41-0i52-1g4a-120y-d76ek 1u6665r l25ghq78-9g42-7f4z-963i-u55uc1f3517w ANSI-Medicaid [id number] ANSI-Not a Secondary Insurance r333i6t7-v2vy-35mu-hw04-rzwu3 572e552 j192p8v8-r1ko-97lx-nd60-gaow7956q645 ANSI-Not a Secondary Insurance 70k57859-492h-0ju8-lomv-a2i6g 11e5scs 89e89128-868z-9hz4-tqpq-p8u1i85k5snc ANSI-Medicaid [id number] ANSI-Medicaid [id number] ANSI-Not a Secondary Insurance [id number]-67b5-1tgq-g4d8-uu739 739y879 869427cu-87t5-5typ-a9t6-tq096394m961 ANSI-Not a Secondary Insurance 6b5y9778-830u-09sl-8800-f139c 21ql0o4 0e5d0220-773j-71qk-8570-j192j42fh5f3 ANSI-Not a Secondary Insurance kurt4912-xil7-52w4-x549-np328 3xu965w kict0232-jyq1-70p4-e176-xq7931md582d ANSI-Medicaid [id number]-c1ei-9j34-s27y-[id number] ANSI-Not a Secondary Insurance 18435v43-u0t4-6x4u-051l-79232 2mq9e36 27778w24-f2p7-8v4s-840f-968049ye5w42 ANSI-Not a Secondary Insurance [id number]-a494-8v879 b520ih2 0k5893m2-8905-7e9n-l901-8m519a144zr8 ANSI-Medicaid [id number]-[id number] ANSI-Medicaid [id number]-5pcy-20zp-[id number] ANSI-Not a Secondary Insurance 9u83i0af-9055-2164-5796-77395 6l2uw80 1y79c4gf-0803-6531-6550-353319y4yd52 ANSI-Medicaid [id number]-[id number]-[id number] ANSI-Medicaid [id number]-[id number] ANSI-Not a Secondary Insurance [id number]-46w7-2k9e-4g431 [id number] a96s98b5-379h-91z0-4j7h-[id number] ANSI-Medicaid [id number]-2a1n-[id number] ANSI-Medicaid [id number]-[id number] ANSI-Not a Secondary Insurance 6vinu5f6-1lew-9588-2iq6-7686e 1220ecd 5yyjz1m7-8jui-5920-1oc2-9778v1722ssf ANSI-Not a Secondary Insurance [id number]-0486-g568-9hf50 [id number]-2072-[id number] [place] Medigap Part B [id number] Self [id number] Medicaid Medigap Part B [id number] 5.0 Self [id number] Medicaid Medigap Part B [id number] 5.0 Self [id number] BCBS [place] Medigap Part B [id number] Family Dependent V [id number] MVP Medicaid Commercial [id number] 595.0 Self [id number] ANSI-Not a Secondary Insurance [id number]-b16k-4w12-d7w5-070n7 [id number] 7kzm350a-z40j-6n35-p1u6-242z9th7613v ANSI-Medicaid [id number] ANSI-Not a Secondary Insurance gsm1fky4-fv67-6m2n-kk01-05euk 233y5b6 mcg3tan3-vp35-4f7t-bc81-16uhl079o9e1 ANSI-Medicaid [id number] ANSI-Not a Secondary Insurance [id number]-c2s7-6fl99 [id number] o3308r3p-7m36-47b3-[id number] ANSI-Medicaid [id number]-d2y6-[id number] ANSI-Not a Secondary Insurance [id number]-m82d-705c-bc39-758t2 w098u3l 6ti6014b-q85y-359e-[id number] ANSI-Medicaid [id number] ANSI-Not a Secondary Insurance [id number]-pcdw-1am6-9720-n6m17 2qetdu7 [id number]-eiba-7ui7-6609-j1d090bnewk2 ANSI-Medicaid [id number]-[id number]-6i8a-[id number] ANSI-Medicaid [id number] ANSI-Not a Secondary Insurance [id number]-wna7-2902-141b-27m0y [id number]-jmh6-5423-960r-[id number] ANSI-Medicaid [id number] ANSI-Not a Secondary Insurance gr313cw1-r822-355q-77x3-xea0s aug33i6 zv656ou9-n390-642g-00e4-pfi8gzcq33s9 ANSI-Not a Secondary Insurance 83k1m9h2-[id number] 61g4g3u5-[id number] ANSI-Medicaid [id number] ANSI-Not a Secondary Insurance [id number]-132m-6157-0x0j-nl9c4 [id number] [id number]-400h-8032-5m3c-ss3v5wq3338x ANSI-Not a Secondary Insurance [id number]-h32n-1kd4-1eo0-5ek74 [id number]-w08e-[id number] ANSI-Medicaid [id number] n3ts4u5k-7v8c-1710-h0un-4ahoz01u10q5 ANSI-Medicaid [id number]-h0p0-802h-2zms-[id number] ANSI-Not a Secondary Insurance [id number]-e693o [id number]-[id number] ANSI-Medicaid [id number]-[id number] ANSI-Medicaid [id number] ANSI-Not a Secondary Insurance [id number]-j94z-i10ci [id number] 50ff15oy-3s51-2m08-v93o-h23ohkk19690 ANSI-Medicaid [id number] ANSI-Medicaid [id number]-h46s-[id number] ANSI-Not a Secondary Insurance [id number]-btbg1 [id number] 79dv9w69-2358-9852-60ko-gfyz403z6qj6 ANSI-Not a Secondary Insurance [id number]-[id number] ov80w6v [id number]-[id number] [place] MEDICAID HMO -O/P [id number] 18 [id number] ANSI-Not a Secondary Insurance [id number]-[id number] [id number]-56m8-72em-4jbq-[id number] ANSI-Medicaid [id number] ANSI-Not a Secondary Insurance [id number]-3ibl-[id number] [id number]-3etu-[id number] ANSI-Medicaid [id number] MEDICAID-O/P [id number] P [place] Med[place] Part B [id number] 2.16.840.1.017615.3.227.99 .[id number] Self [id number] Medicaid Medigap Part B [id number] [id number] 5.0 Self [id number] Medicaid Medigap Part B [id number] 2.16.840.1.489457.3.227.99.572.2559 5.0 Self [id number] BCBS [employer] U/[place] Medigap Part B [id number] 2.16.840.1.99[id number] Family Dependent V [id number] MVP Medicaid Commercial [id number] 2.16.840.1.673314.3.227.99.572.25 595.0 Self [id number] [place] Med[place] [id number] 2.16.840.1.301839.3.227.99 .572.73287.0 Self [id number] Medicaid Medigap Part B [id number] 2.16.8[id number] 5.0 Self [id number] Medicaid Medigap Part B [id number] 2.16.840.1.749400.3.227.99.572.2559 5.0 Self [id number] BCBS [place] U/[place] Medigap Part B [id number] 2.16.840.1.52[id number] Family Dependent V [id number] MVP Medicaid Commercial [id number] 2.16.840.1.351659.3.227.99.572.25 595.0 Self [id number] P HEALTH CARE O [id number] S [id number] MVP MCDHMO [id number] SP [id number] UNHC AMERICHOICE XIX -HMO [id number] 18 [id number] [place] Ppo Medigap Part B VYS 2.16.840.1.22[id number] Self V YS Medicaid Medigap Part B [id number] 2.16.840.1.440211.3.227.99.572.2559 5.0 Self [id number] [place] Ppo Medigap Part B VYS 2.16.840.1.86[id number] Self V YS Medicaid Medigap Part B [id number] [id number] [id number] Self [id number] [place] Ppo Medigap Part B VYS [id number] Self [place] Medicaid Medigap Part B [id number] 5.0 Self [id number] [place]CE[place] BCBS [place] [id number] [place] Ppo Medigap Part B [id number] Self Medicaid Medigap Part B [id number] Self 1 1 [employer]-Community Plan-[place] Commercial [id number] Self UHC COMM PLAN [place] W [id number] S [id number] Medicaid Medigap Part B [id number] Self UNHC AMERICHOICE O [id number] 18 [id number] [facility] [id number] 18 [id number] [place] [id number] SP [id number] P [id number] DELFINO [id number] SP [id number] SELF PAY ONLY [id number] SP [id number] MVP [id number] [id number] SP [id number] [facility] [id number] SP [id number] [facility] [id number] SP [id number] [place] [id number] SP [id number] MEDICAID M [id number] S [id number] [place] [id number] S [id number] P HEALTH CARE O [id number] S [id number] MEDICAID [id number] SP [id number] MVP [id number] SP [id number] BCBS [place] PPO 302/307 [id number] [id number] Problems, Conditions, and Diagnoses Code Display Name Description Problem Type Effective Dates Data Source(s) 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 Diffuse Lewy body disease Pr oblem 11/16/2020 12:00:00 AM EDT [facility] ([facility], ) Surgeries/Procedures Procedure Description Date Indications Data Source(s) PHYSICIAN TELEPHONE EVALUATION 11-20 MIN 04/20/2021 12 :00:00 AM EDT [facility] ([facility], ) PHYSICIAN TELEPHONE EVALUATION 11-20 MIN 11/16/2020 12 :00:00 AM EDT [facility] ([facility], ) Results ID Date Data Source [id number] 05/10/2021 05:56:00 AM EDT [facility] Name Value Range Interpretation Code Description Data Maggi rce(s) Supporting Document(s) SARS coronavirus 2 RNA [Presence] in Res piratory specimen by NELSY with probe detection NEGATIVE [facility] This lab was ordered by [facility] a nd reported by [facility]. ID Date Data Source [id number] 05/07/2021 06:49:00 AM EDT [facility] Name Value Range Interpretation Code Description Data Maggi rce(s) Supporting Document(s) SARS coronavirus 2 RNA [Presence] in Res piratory specimen by NELSY with probe detection NEGATIVE [facility] This lab was ordered by [facility] a nd reported by [facility]. ID Date Data Source [id number] 05/03/2021 06:50:00 AM EDT [facility] Name Value Range Interpretation Code Description Data Maggi rce(s) Supporting Document(s) SARS coronavirus 2 RNA [Presence] in Res piratory specimen by NELSY with probe detection NEGATIVE [facility] This lab was ordered by [facility] a nd reported by [facility]. ID Date Data Source [id number] 04/30/2021 01:29:00 PM EDT [facility] Name Value Range Interpretation Code Description Data Maggi rce(s) Supporting Document(s) SARS coronavirus 2 RNA [Presence] in Res piratory specimen by NELSY with probe detection NEGATIVE [facility] This lab was ordered by [facility] a nd reported by [facility]. ID Date Data Source [id number] 04/26/2021 08:15:00 AM EDT [facility] Name Value Range Interpretation Code Description Data Maggi rce(s) Supporting Document(s) SARS coronavirus 2 RNA [Presence] in Res piratory specimen by NELSY with probe detection NEGATIVE [facility] This lab was ordered by [facility] a nd reported by [facility]. ID Date Data Source [id number] 04/23/2021 12:00:00 AM EDT [facility] Name Value Range Interpretation Code Description Data Maggi rce(s) Supporting Document(s) SARS coronavirus 2 Ag NEGATIVE [facility] This lab was ordered by [facility] and reported by [facility]. ID Date Data Source [id number] 04/09/2021 12:00:00 AM EDT [facility] Name Value Range Interpretation Code Description Data Maggi rce(s) Supporting Document(s) SARS coronavirus 2 Ag NEGATIVE [facility] This lab was ordered by [facility] and reported by [facility]. ID Date Data Source [id number] 04/04/2021 12:00:00 AM EDT [facility] Name Value Range Interpretation Code Description Data Maggi rce(s) Supporting Document(s) SARS coronavirus 2 Ag NEGATIVE [facility] This lab was ordered by [facility] and reported by [facility]. ID Date Data Source [id number] 03/21/2021 03:00:00 PM EDT [facility] Name Value Range Interpretation Code Description Data Maggi rce(s) Supporting Document(s) SARS coronavirus 2 Ag [facility] This lab was ordered by [facility] and reported by [facility]. ID Date Data Source [id number] 03/14/2021 12:00:00 AM EDT [facility] Name Value Range Interpretation Code Description Data Maggi rce(s) Supporting Document(s) SARS coronavirus 2 Ag NEGATIVE [facility] This lab was ordered by [facility] and reported by [facility]. ID Date Data Source [id number] 12/07/2020 12:00:00 AM EDT [facility] Name Value Range Interpretation Code Description Data Maggi rce(s) Supporting Document(s) SARS coronavirus 2 Ag NEGATIVE [facility] This lab was ordered by [facility] and reported by [facility]. ID Date Data Source [id number] 11/20/2020 12:00:00 AM EDT [facility] Name Value Range Interpretation Code Description Data Maggi rce(s) Supporting Document(s) SARS coronavirus 2 Ag NEGATIVE [facility] This lab was ordered by [facility] and reported by [facility]. ID Date Data Source [id number] 10/31/2020 12:00:00 AM EDT [facility] Name Value Range Interpretation Code Description Data Maggi rce(s) Supporting Document(s) SARS coronavirus 2 Ag NEGATIVE [facility] This lab was ordered by [facility] and reported by [facility]. ID Date Data Source [id number] 08/14/2020 12:00:00 AM EST [facility] Name Value Range Interpretation Code Description Data Maggi rce(s) Supporting Document(s) SARS-CoV2 Rapid Antigen Negative [facility] This lab was reported by [facility]. ID Date Data Source [id number] 08/10/2020 12:00:00 AM EST [facility] Name Value Range Interpretation Code Description Data Maggi rce(s) Supporting Document(s) SARS-CoV2 Rapid Antigen Negative [facility] This lab was ordered by [facility] and reported by [facility]. ID Date Data Source [id number] 07/31/2020 12:00:00 AM EST [facility] Name Value Range Interpretation Code Description Data Maggi rce(s) Supporting Document(s) SARS-CoV2 Rapid Antigen Positive [facility] This lab was ordered by [facility] and reported by [facility]. ID Date Data Source [id number] 07/28/2020 12:00:00 AM EST [facility] Name Value Range Interpretation Code Description Data Maggi rce(s) Supporting Document(s) SARS-CoV2 Rapid Antigen Negative [facility] This lab was ordered by [facility] and reported by [facility]. ID Date Data Source [id number] 07/26/2020 07:00:00 AM EST [facility] Name Value Range Interpretation Code Description Data Maggi rce(s) Supporting Document(s) SARS coronavirus 2 [facility] This lab was ordered by [facility] and reported by [facility]. ID Date Data Source [id number] 07/19/2020 09:00:00 AM EST [facility] Name Value Range Interpretation Code Description Data Maggi rce(s) Supporting Document(s) SARS coronavirus 2 RNA Not Detected [facility] This lab was ordered by [facility] and reported by [facility]. ID Date Data Source [id number] 07/12/2020 10:00:00 AM EST [facility] Name Value Range Interpretation Code Description Data Maggi rce(s) Supporting Document(s) SARS coronavirus 2 RNA Not Detected [facility] This lab was ordered by [facility] and reported by [facility]. ID Date Data Source [id number] 07/05/2020 08:26:00 AM EST [facility] Name Value Range Interpretation Code Description Data Maggi rce(s) Supporting Document(s) SARS coronavirus 2 RNA [facility] This lab was ordered by [facility] and reported by [facility]. ID Date Data Source [id number] 06/28/2020 11:00:00 AM EST [facility] Name Value Range Interpretation Code Description Data Maggi rce(s) Supporting Document(s) SARS coronavirus 2 RNA [facility] This lab was ordered by [facility] and reported by [facility]. ID Date Data Source [id number] 06/21/2020 08:44:00 AM EST [facility] Name Value Range Interpretation Code Description Data Maggi rce(s) Supporting Document(s) SARS coronavirus 2 RNA [facility] This lab was ordered by [facility] and reported by [facility]. ID Date Data Source [id number] 06/14/2020 10:00:00 AM EST [facility] Name Value Range Interpretation Code Description Data Maggi rce(s) Supporting Document(s) SARS coronavirus 2 RNA [facility] This lab was ordered by [facility] and reported by [facility]. ID Date Data Source [id number] 06/07/2020 10:33:00 AM EST [facility] Name Value Range Interpretation Code Description Data Maggi rce(s) Supporting Document(s) SARS coronavirus 2 RNA [facility] This lab was ordered by [facility] and reported by [facility]. ID Date Data Source [id number] 05/31/2020 09:00:00 AM EST [facility] Name Value Range Interpretation Code Description Data Maggi rce(s) Supporting Document(s) SARS coronavirus 2 RNA [facility] This lab was ordered by [facility] and reported by [facility]. ID Date Data Source [id number] 05/24/2020 10:45:00 AM EST [facility] Name Value Range Interpretation Code Description Data Maggi rce(s) Supporting Document(s) SARS coronavirus 2 RNA [facility] This lab was ordered by [facility] and reported by [facility]. ID Date Data Source [id number] 05/18/2020 11:23:00 AM EST [facility] Name Value Range Interpretation Code Description Data Maggi rce(s) Supporting Document(s) SARS coronavirus 2 RNA [facility] This lab was ordered by [facility] and reported by [facility]. Procedure Social History No Information
[2021-05-17 23:00] LABS: BASO # 0.1 10^3/uL (0.0-0.2); BASO % 0.6 % (0.0-1.0); EOS # 0.5 10^3/uL (0.0-0.5); EOS % 5.6 % (0.0-3.0); HEMATOCRIT 38.5 % (42.0-52.0); LYMPH # 1.4 10^3/uL (1.5-5.0); LYMPH % 17.8 % (24.0-44.0); MEAN CORPUSCULAR HEMOGLOBIN 31.5 pg (27.0-33.0); MEAN CORPUSCULAR HGB CONC 33.8 g/dl (32.0-36.5); MEAN CORPUSCULAR VOLUME 93.2 fl (80.0-96.0); MONO # 0.7 10^3/uL (0.0-0.8); MONO % 8.2 % (2.0-8.0); NEUTROPHILS # 5.4 10^3/uL (1.5-8.5); NEUTROPHILS % 67.6 % (36.0-66.0); PLATELET COUNT, AUTOMATED 262 10^3/uL (150-450); RED BLOOD COUNT 4.13 10^6/uL (4.30-6.10)
--- OUTSIDE RECORDS SUMMARY | 2021-05-17 23:12 | CCD ---
Author Author [facility] Organization [facility] Address Unknown Phone Unavailable Care Team Providers Care Residential Case Manager Name Role Phone Jairon Wall MD Unavailable [...] is protected by Article 27-F of the [facility] Public Health law. If you continue you may have access to information: Regarding HIV / AIDS; Provided by facilities licensed or operated by the [facility] Office of Mental Health; or Provided by the [facility] Office for People With Developmental Disabilities. If such information is present, then the following [facility] mandated warning applies: This information [...] law may result in a fine or long-term sentence or both. A general authorization for [...] Attender: Jairon Wall MD Main office - [place] 04/20/2021 11:45:00 AM EDT [facility] ([facility]) Office Visit Attender: Jairon Wall MD Main office - [place] 11/16/2020 01:45:00 PM EDT [facility] ([facility]) Unknown [address] [address] 04/21/2020 12:00:00 AM EDT eCW1 (On license of [facility]) Immunizations Vaccine Date Status Description Data Source(s) COVID-19 VACCINE Pfizer 08/01/2020 12:00:00 AM EST completed [facility] Vaccine Series Complete: YESThis Data wa s Submitted to [facility] [employer]. COVID-19 VACCINE Pfizer 07/11/2020 12:00:00 AM EST completed [facility] Vaccine Series Complete: NOThis Data was Submitted to [facility] [employer]. Medications No Information Insurance Providers Payer name Policy type / Coverage type Policy ID Covered republican ID Covered republican's relationship to lozada Policy [place] Plan Information MEDICAID [id number] SP [id number] [employer]UE [employer] [place] PLAN [id number] [id number] [id number] [id number] MEDICAID [id number] SP [id number] U/HC Medicaid Comm Plan Commercial [id number] Self 1 [id number] U/HC Medicaid Comm Plan Commercial [id number] Self 1 [id number] U/HC Medicaid Comm Plan Commercial [id number] Self 1 [id number] U/HC Medicaid Comm Plan Commercial [id number] Self 1 [id number] U/HC Medicaid Comm Plan Commercial [id number] Self 1 [id number] U/HC Medicaid Comm Plan Commercial [id number] Self U/HC Medicaid Comm Plan Commercial [id number] Self 1 [id number] BCBS [place] PPO 302/307 [id number] WI2 [id number] [id number] [id number] BCBS 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 [id number] WI2 [id number] [facility] COMMUNITY PLAN MCDO [id number] SP [id number] [place] [id number] SP [id number] 500 [place] [id number] SP [id number] ANSI-Medicaid [id number] ANSI-Not a Secondary Insurance [id number] ANSI-Not a Secondary Insurance [id number] ANSI-Not a Secondary Insurance [id number] [id number] ANSI-Medicaid [id number] ANSI-Medicaid [id number] ANSI-Medicaid [id number] ANSI-Not a Secondary Insurance [id number] [id number] [id number] ANSI-Not a Secondary Insurance [id number] ANSI-Not a Secondary Insurance [id number] ANSI-Not a Secondary Insurance [id number] [id number] ANSI-Medicaid [id number] ANSI-Not a Secondary Insurance [id number]-1l49-91p8-11e34 [id number] [id number]-8b12-32e8-29k95cnl1p23 ANSI-Not a Secondary Insurance [id number]-8i0d-28u9-13j1-67h0h hvi1f2m e548frum-9j3x-72b3-16g0-71v6jbpz2e3n ANSI-Medicaid [id number] ANSI-Not a Secondary Insurance [id number]-[id number]-26t61 [id number] [id number]-7q59-514l-19b2448se5v0 ANSI-Not a Secondary Insurance [id number]-41ye-57t2-j1678 [id number] 551c44st-499x-21ug-62k8-u85719947s2g ANSI-Medicaid [id number] ANSI-Medicaid [id number] ANSI-Not a Secondary Insurance [id number]-f74p-57g5m a08027x 183nw3w4-4s68-77z7-b14x-[id number] ANSI-Not a Secondary Insurance woz7p2de-pn11-637a-t056-68bg1 95v60p2 hyv4h3fl-vm24-329d-e058-38ge886b27u3 ANSI-Medicaid [id number] ANSI-Not a Secondary Insurance [id number]-7gww-[id number]-2aiw-[id number] ANSI-Not a Secondary Insurance ejjge48j-784v-3c74-v3d3-536nh 863zr5c lzlkk07d-626h-7o97-p7c5-321hj360fs4s ANSI-Medicaid [id number] ANSI-Not a Secondary Insurance [id number]-w844-1f3g-4830-4c29u [id number] [id number]-l892-2l7c-[id number] ANSI-Medicaid [id number] ANSI-Medicaid [id number] ANSI-Not a Secondary Insurance [id number]-dd13-165k3 [id number]-m389-3175-[id number] ANSI-Not a Secondary Insurance k8guj093-8o80-27cs-g8nb-3091f 821h7mf g7xbf942-7o69-22bt-l4av-[id number] ANSI-Not a Secondary Insurance [id number]-val8-u5f00 [id number] [id number]-dfg1-[id number] ANSI-Not a Secondary Insurance 310uh682-4m91-3350-e02k-j29in 421qz4d [id number]-y03n-o14vc548ji1o ANSI-Medicaid [id number] ANSI-Medicaid [id number] ANSI-Not a Secondary Insurance 50s1e1j6-59z1-95r7-wu23-428j4 z56grh2 28k1z8x3-22f0-71m1-pn48-935s3v30opz6 ANSI-Not a Secondary Insurance [id number]-5me2q [id number]-[id number] ANSI-Medicaid [id number]-[id number] ANSI-Not a Secondary Insurance [id number]-3o3n-07n3y 755t941 [id number]-b938-348y-6c9m-[id number] ANSI-Medicaid [id number] ANSI-Not a Secondary Insurance 26henajt-41cy-4354-gu5k-5t4yz 53gtm44 19lxnons-18sk-5050-fp9f-6g5xr68daz23 ANSI-Medicaid [id number] ANSI-Not a Secondary Insurance [id number]-7207-bqc9y 6kg79kd 0449k529-1g55-578j-8959-jch6f2uc28nq ANSI-Not a Secondary Insurance [id number]-4911-9719-3s2k-7r809 6osx0wk st4427oj-9156-8818-9b1i-4h9260iyh4ic ANSI-Not a Secondary Insurance s46d1q93-7bs0-3941-87ns-0ahz0 5tni310 f12p0r90-6sc7-1543-33ts-8aye72lgb180 ANSI-Medicaid [id number] ANSI-Not a Secondary Insurance s89xha70-8d42-8y9m-649a-u20rh 1m5828g g05zsw29-8r74-5y8b-016l-n34yu1j8808o ANSI-Medicaid [id number] ANSI-Not a Secondary Insurance z979i9j7-b0mb-36gk-tr67-asvg9 508j049 m281e8a2-n7vm-62hi-ay67-uvry0555l693 ANSI-Not a Secondary Insurance [id number]-6oy5-iyna-f9a7x 92d5srr 05t88691-385i-1wa5-rmkd-s6q5g30d9akz ANSI-Medicaid [id number] ANSI-Medicaid [id number] ANSI-Not a Secondary Insurance [id number]-28r0-6rof-s3n3-jz201 678m530 985102ym-98m4-4kkp-x8i1-ko985953i868 ANSI-Not a Secondary Insurance 5k6g3335-806p-41fw-5996-b874m 76rr8q2 4t0y7866-425k-76ci-4887-r144b31nt5x9 ANSI-Not a Secondary Insurance dtsi0478-dxr9-16h3-h312-pk882 5ms876f mmpm5402-sio7-80r8-d116-gl2324za362q ANSI-Medicaid [id number]-a7gr-1m72-s11o-[id number] ANSI-Not a Secondary Insurance [id number]-o3r4-5h0r-676y-07141 2sx3n67 31276z77-r5c4-1z8t-260r-323941rq5g38 ANSI-Not a Secondary Insurance [id number]-f522-8e090 t855jc6 6x7607j3-6836-7c5r-s774-8o261u525xk8 ANSI-Medicaid [id number] 05t1lw99-6bj2-5r4w-[id number] ANSI-Medicaid [id number]-17ou-[id number] ANSI-Not a Secondary Insurance [id number] 1y9ll45 0z89n0cn-8228-8332-8313-210265t9vx10 ANSI-Medicaid [id number]-[id number]-[id number] ANSI-Medicaid [id number]-[id number] ANSI-Not a Secondary Insurance [id number]-35e5-3b2b-7k188 [id number] u59j66o9-313t-57s7-1h0y-[id number] ANSI-Medicaid [id number]-1s3u-1yh8-309r-[id number] ANSI-Medicaid [id number]-8hkg-[id number] ANSI-Not a Secondary Insurance 4yofq1j2-0wwb-5219-7pr3-3069g 1220ecd 1zgky8t5-8htb-1016-9zm8-8365n5475nyg ANSI-Not a Secondary Insurance [id number]-1938-a043-2ak33 [id number]-8751-[id number] BCBS [place] Medigap Part B [id number] .[id number] Self [id number] Medicaid Medigap Part B [id number]72.2559 5.0 Self [id number] Medicaid Medigap Part B [id number] 2.16.840.1.538216.3.227.99.572.2559 5.0 Self [id number] BCBS [place] U/W Medigap Part B [id number] 2.16.840.1.559605.3.227.99.572.18397.0 Family Dependent V [id number] MVP Medicaid Commercial [id number]9.572.25 595.0 Self [id number] ANSI-Not a Secondary Insurance [id number]-b69q-2z37-z0j4-630m7 uh9217b 0jln757n-u90w-0o64-u9d4-616v4jl4008w ANSI-Medicaid [id number]-[id number] ANSI-Not a Secondary Insurance tqm1mtn2-fs43-0x9t-nr74-61dab 721n8k4 ipi2mbz3-ak59-2o3h-vj38-77zhi103m7e1 ANSI-Medicaid [id number] ANSI-Not a Secondary Insurance d0060c0f-8g11-81s4-i9w4-2eh00 x6426f3 n9983g8h-1t96-26e8-o7y3-7ea56s4013f0 ANSI-Medicaid [id number]-m5q8-[id number] ANSI-Not a Secondary Insurance [id number]-l97k-629c-wz99-065z7 b110v3t 9to4212o-y26l-405w-dz31-245k8j496x2y ANSI-Medicaid [id number] ANSI-Not a Secondary Insurance [id number]-gnqr-9je3-6373-h9a12 3cpibp6 91w43469-uzsv-5wo8-8899-w0i943wjwwn6 ANSI-Medicaid [id number]-[id number]-8c0n-[id number] ANSI-Medicaid [id number] ANSI-Not a Secondary Insurance g52er581-uog4-4718-001r-41u0j [id number] [id number]-tip7-7563-524h-22r7jt658420 ANSI-Medicaid [id number]-[id number] ANSI-Not a Secondary Insurance ok708pp1-r128-033o-40z7-fzx3r lzu65f3 yj724rx0-u349-975r-98k2-zbf3orzr07v4 ANSI-Not a Secondary Insurance 94m6z9a6-rx13-02k2-3963-050v9 675v384 59u9o3o3-[id number] ANSI-Medicaid [id number] 0szamfj3-9mq9-7122-q045-7j7jf4ye7x84 ANSI-Not a Secondary Insurance 3zh066ow-730s-0237-5i1r-ca0e9 gn2255q 7xa964an-727v-2608-6r8x-zq8c2vm2010r ANSI-Not a Secondary Insurance 6055c527-p64e-5lo9-0lk6-3tz82 2p740qm 8018c889-t29g-2jo3-8pr5-2lu084m089au ANSI-Medicaid [id number] f7sh5o2e-8u9p-7623-b3ua-[id number] ANSI-Medicaid [id number]-[id number]-4upf-[id number] ANSI-Not a Secondary Insurance [id number]-r927u [id number] [id number]-[id number] ANSI-Medicaid [id number]-[id number] ANSI-Medicaid [id number] c1s2wc94-[id number] ANSI-Not a Secondary Insurance [id number]-8r63-7k37-t26d-b36ew [id number] 71br93fb-3t70-3t18-d69u-[id number] ANSI-Medicaid [id number] ANSI-Medicaid [id number] ANSI-Not a Secondary Insurance [id number]-jsgs3 29d4vh3 16zu9a09-7596-7339-32ua-cvir232r5vk5 ANSI-Not a Secondary Insurance 45jf4737-[id number] sd50v2f 92gq0191-j011-6vq1-3155-82l76dc13h2h MVP MEDICAID HMO -O/P [id number] 18 [id number] ANSI-Not a Secondary Insurance [id number]-58o4-43th-8zdc-v5357 [id number] h78p1ejq-31h0-95gi-5tuj-[id number] ANSI-Medicaid [id number] [id number] ANSI-Not a Secondary Insurance [id number]-0dre-6669-1134-9vtsx 7441t3f [id number]-1hpn-6952-1335-8fbea0074s7m ANSI-Medicaid [id number] MEDICAID-O/P [id number] P BCBS [place] Medigap Part B [id number] 2.16.840.1.798429.3.227.99 .572.61812.0 Self [id number] Medicaid Medigap Part B [id number] 2.16.840.1.799105.3.227.99.572.2559 5.0 Self [id number] Medicaid Medigap Part B [id number] 2.16.840.1.947996.3.227.99.572.2559 5.0 Self [id number] BCBS [place] U/W Medigap Part B [id number] 2.16.840.1.140648.3.227.99.572.32378.0 Family Dependent V [id number] MVP Medicaid Commercial [id number] 2.16.840.1.140852.3.227.99.572.25 595.0 Self [id number] BCBS [place] Medigap Part B [id number] 2.16.840.1.184869.3.227.99 .572.23569.0 Self [id number] Medicaid Medigap Part B [id number] 2.16.840.1.921808.3.227.99.572.2559 5.0 Self [id number] Medicaid Medigap Part B [id number] 2.16.840.1.790857.3.227.99.572.2559 5.0 Self [id number] BCBS [place] U/W Medigap Part B [id number] 2.16.840.1.829066.3.227.99.572.77529.0 Family Dependent V [id number] MVP Medicaid Commercial [id number] 2.16.840.1.213196.3.227.99.572.25 595.0 Self [id number] P HEALTH CARE O [id number] S [id number] MVP MCDHMO [id number] SP [id number] UNHC AMERICHOICE XIX -HMO [id number] 18 [id number] BCBS [place] Ppo Medigap Part B VYS 2.16.840.1.497707.3.227.99.572.45155.0 Self V YS Medicaid Medigap Part B [id number] 2.16.840.1.768911.3.227.99.572.2559 5.0 Self [id number] BCBS [place] Ppo Medigap Part B VYS 2.16.840.1.161849.3.227.99.572.76485.0 Self V YS Medicaid Medigap Part B [id number] 2.16.840.1.460025.3.227.99.572.2559 5.0 Self [id number] BCBS [place] Ppo Medigap Part B VYS 2.16.840.1.377914.3.227.99.572.43839.0 Self V YS Medicaid Medigap Part B [id number] 2.16.840.1.100812.3.227.99.572.2559 5.0 Self [id number] EXCELL[place] BCBS FEDERAL [id number] [id number] BCBS [place] Ppo Medigap Part B [id number] [id number] Self Medicaid Medigap Part B [id number] Self 1 1 [facility]-[place] Commercial [id number] Self UHC COMM PLAN [place] W [id number] S [id number] Medicaid Medigap Part B [id number] Self UNHC AMERICHOICE O [id number] 18 [id number] [facility] [id number] 18 [id number] [place] [id number] SP [id number] P [id number] [place] [id number] SP [id number] 500 SELF PAY ONLY [id number] SP [id number] MVP MCDO [id number] SP [id number] [facility] [id number] SP [id number] [facility] [id number] SP [id number] [place] [id number] SP [id number] MEDICAID M [id number] S [id number] [place] [id number] S [id number] P HEALTH CARE O [id number] S [id number] MEDICAID [id number] SP [id number] MVP MCDHMO [id number] SP [id number] BCBS [place] PPO 302/307 [id number] WI2 [id number] Problems, Conditions, and Diagnoses Code Display Name Description Problem Type Effective Dates Data Source(s) 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 Diffuse Lewy body disease Pr oblem 11/16/2020 12:00:00 AM EDT [facility] ([facility], ) Surgeries/Procedures Procedure Description Date Indications Data Source(s) PHYSICIAN TELEPHONE EVALUATION 11-20 MIN 04/20/2021 12 :00:00 AM EDT [facility] ([facility], ) PHYSICIAN TELEPHONE EVALUATION 11-20 MIN 11/16/2020 12 :00:00 AM EDT [facility] ([facility], ) Results ID Date Data Source [id number] 05/10/2021 05:56:00 AM EDT [facility] Name Value Range Interpretation Code Description Data Maggi rce(s) Supporting Document(s) SARS coronavirus 2 RNA [Presence] in Res piratory specimen by NELSY with probe detection NEGATIVE [facility] This lab was ordered by [facility] a nd reported by [facility]. ID Date Data Source [id number] 05/07/2021 06:49:00 AM EDT [facility] Name Value Range Interpretation Code Description Data Maggi rce(s) Supporting Document(s) SARS coronavirus 2 RNA [Presence] in Res piratory specimen by NELSY with probe detection NEGATIVE [facility] This lab was ordered by [facility] a nd reported by [facility]. ID Date Data Source [id number] 05/03/2021 06:50:00 AM EDT [facility] Name Value Range Interpretation Code Description Data Maggi rce(s) Supporting Document(s) SARS coronavirus 2 RNA [Presence] in Res piratory specimen by NELSY with probe detection NEGATIVE [facility] This lab was ordered by [facility] a nd reported by [facility]. ID Date Data Source [id number] 04/30/2021 01:29:00 PM EDT [facility] Name Value Range Interpretation Code Description Data Maggi rce(s) Supporting Document(s) SARS coronavirus 2 RNA [Presence] in Res piratory specimen by NELSY with probe detection NEGATIVE [facility] This lab was ordered by [facility] a nd reported by [facility]. ID Date Data Source [id number] 04/26/2021 08:15:00 AM EDT [facility] Name Value Range Interpretation Code Description Data Maggi rce(s) Supporting Document(s) SARS coronavirus 2 RNA [Presence] in Res piratory specimen by NELSY with probe detection NEGATIVE [facility] This lab was ordered by [facility] a nd reported by [facility]. ID Date Data Source [id number] 04/23/2021 12:00:00 AM EDT [facility] Name Value Range Interpretation Code Description Data Maggi rce(s) Supporting Document(s) SARS coronavirus 2 Ag NEGATIVE [facility] This lab was ordered by [facility] and reported by [facility]. ID Date Data Source [id number] 04/09/2021 12:00:00 AM EDT [facility] Name Value Range Interpretation Code Description Data Maggi rce(s) Supporting Document(s) SARS coronavirus 2 Ag NEGATIVE [facility] This lab was ordered by [facility] and reported by [facility]. ID Date Data Source [id number] 04/04/2021 12:00:00 AM EDT [facility] Name Value Range Interpretation Code Description Data Maggi rce(s) Supporting Document(s) SARS coronavirus 2 Ag NEGATIVE [facility] This lab was ordered by [facility] and reported by [facility]. ID Date Data Source [id number] 03/21/2021 03:00:00 PM EDT [facility] Name Value Range Interpretation Code Description Data Maggi rce(s) Supporting Document(s) SARS coronavirus 2 Ag [facility] This lab was ordered by [facility] and reported by [facility]. ID Date Data Source [id number] 03/14/2021 12:00:00 AM EDT [facility] Name Value Range Interpretation Code Description Data Maggi rce(s) Supporting Document(s) SARS coronavirus 2 Ag NEGATIVE [facility] This lab was ordered by [facility] and reported by [facility]. ID Date Data Source [id number] 12/07/2020 12:00:00 AM EDT [facility] Name Value Range Interpretation Code Description Data Maggi rce(s) Supporting Document(s) SARS coronavirus 2 Ag NEGATIVE [facility] This lab was ordered by [facility] and reported by [facility]. ID Date Data Source [id number] 11/20/2020 12:00:00 AM EDT [facility] Name Value Range Interpretation Code Description Data Maggi rce(s) Supporting Document(s) SARS coronavirus 2 Ag NEGATIVE [facility] This lab was ordered by [facility] and reported by [facility]. ID Date Data Source [id number] 10/31/2020 12:00:00 AM EDT [facility] Name Value Range Interpretation Code Description Data Maggi rce(s) Supporting Document(s) SARS coronavirus 2 Ag NEGATIVE [facility] This lab was ordered by [facility] and reported by [facility]. ID Date Data Source [id number] 08/14/2020 12:00:00 AM EST [facility] Name Value Range Interpretation Code Description Data Maggi rce(s) Supporting Document(s) SARS-CoV2 Rapid Antigen Negative [facility] This lab was reported by [facility]. ID Date Data Source [id number] 08/10/2020 12:00:00 AM EST [facility] Name Value Range Interpretation Code Description Data Maggi rce(s) Supporting Document(s) SARS-CoV2 Rapid Antigen Negative [facility] This lab was ordered by [facility] and reported by [facility]. ID Date Data Source [id number] 07/31/2020 12:00:00 AM EST [facility] Name Value Range Interpretation Code Description Data Maggi rce(s) Supporting Document(s) SARS-CoV2 Rapid Antigen Positive [facility] This lab was ordered by [facility] and reported by [facility]. ID Date Data Source [id number] 07/28/2020 12:00:00 AM EST [facility] Name Value Range Interpretation Code Description Data Maggi rce(s) Supporting Document(s) SARS-CoV2 Rapid Antigen Negative [facility] This lab was ordered by [facility] and reported by [facility]. ID Date Data Source [id number] 07/26/2020 07:00:00 AM EST [facility] Name Value Range Interpretation Code Description Data Maggi rce(s) Supporting Document(s) SARS [facility]ed [facility] This lab [facility] ordered by [facility] and reported by [facility]. ID Date Data Source [id number] 07/19/2020 09:00:00 AM EST [facility] Name Value Range Interpretation Code Description Data Maggi rce(s) Supporting Document(s) SARS coronavirus 2 RNA Not Detected [facility] This lab was ordered by [facility] and reported by [facility]. ID Date Data Source [id number] 07/12/2020 10:00:00 AM EST [facility] Name Value Range Interpretation Code Description Data Maggi rce(s) Supporting Document(s) SARS coronavirus 2 RNA Not Detected [facility] This lab was ordered by [facility] and reported by [facility]. ID Date Data Source [id number] 07/05/2020 08:26:00 AM EST [facility] Name Value Range Interpretation Code Description Data Maggi rce(s) Supporting Document(s) SARS coronavirus 2 RNA [facility] This lab was ordered by [facility] and reported by [facility]. ID Date Data Source [id number] 06/28/2020 11:00:00 AM EST [facility] Name Value Range Interpretation Code Description Data Maggi rce(s) Supporting Document(s) SARS coronavirus 2 RNA [facility] This lab was ordered by [facility] and reported by [facility]. ID Date Data Source [id number] 06/21/2020 08:44:00 AM EST [facility] Name Value Range Interpretation Code Description Data Maggi rce(s) Supporting Document(s) SARS coronavirus 2 RNA [facility] This lab was ordered by [facility] and reported by [facility]. ID Date Data Source [id number] 06/14/2020 10:00:00 AM EST [facility] Name Value Range Interpretation Code Description Data Maggi rce(s) Supporting Document(s) SARS coronavirus 2 RNA [facility] This lab was ordered by [facility] and reported by [facility]. ID Date Data Source [id number] 06/07/2020 10:33:00 AM EST [facility] Name Value Range Interpretation Code Description Data Maggi rce(s) Supporting Document(s) SARS coronavirus 2 RNA [facility] This lab was ordered by [facility] and reported by [facility]. ID Date Data Source [id number] 05/31/2020 09:00:00 AM EST [facility] Name Value Range Interpretation Code Description Data Maggi rce(s) Supporting Document(s) SARS coronavirus 2 RNA [facility] This lab was ordered by [facility] and reported by [facility]. ID Date Data Source [id number] 05/24/2020 10:45:00 AM EST [facility] Name Value Range Interpretation Code Description Data Maggi rce(s) Supporting Document(s) SARS coronavirus 2 RNA [facility] This lab was ordered by [facility] and reported by [facility]. ID Date Data Source [id number] 05/18/2020 11:23:00 AM EST [facility] Name Value Range Interpretation Code Description Data Maggi rce(s) Supporting Document(s) SARS coronavirus 2 RNA [facility] This lab was ordered by [facility] and reported by [facility]. Procedure Social History No Information
[2021-05-17 23:33] LABS: ALBUMIN 3.5 GM/DL (3.2-5.2); ALT/SGPT 10 U/L (12-78); BILIRUBIN,DIRECT 0.1 MG/DL (0.0-0.2); BILIRUBIN,TOTAL 0.4 MG/DL (0.2-1.0); BLOOD UREA NITROGEN 18 MG/DL (7-18); CALCIUM LEVEL 9.2 MG/DL (8.8-10.2); CARBON DIOXIDE LEVEL 29 MEQ/L (21-32); CHLORIDE LEVEL 105 MEQ/L (98-107); CK-MB VALUE MASS 7.4 NG/ML (<3.6); CPK CREATINE PHOSPHOKINASE 183 U/L (39-308); CREATININE FOR GFR 1.15 MG/DL (0.70-1.30); GLOMERULAR FILTRATION RATE > 60.0 (>49); GLUCOSE, FASTING 101 MG/DL (70-100); MB/CK RELATIVE INDEX 4.04 (< OR =4); POTASSIUM SERUM 4.3 MEQ/L (3.5-5.1); SODIUM LEVEL 139 MEQ/L (136-145); TROPONIN I < 0.02 NG/ML (< 0.10)
[2021-05-18 00:14] VITALS: BP 156/86
--- NOTE | 2021-05-18 07:59 | ECGEPIP ---
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
--- NOTE | 2021-05-18 08:19 | REP ---
INDICATION: Altered Mental Status. COMPARISON: 08/11/2020 also portable TECHNIQUE: Portable FINDINGS: The technique utilized in obtaining the radiograph has magnified the cardiac silhouette and accentuated the interstitial markings. The cardiomediastinal silhouette lung rehman are unchanged. The heart is not enlarged. No acute patchy parenchymal opacities or pleural effusions have developed. There is no change in the osseous structures. IMPRESSION: No significant change from the prior exam. There is no evidence of acute cardiopulmonary disease. <Electronically signed by Kristian Stokes > 05/18/21 [id number]
--- NOTE | 2021-05-18 08:20 | REP ---
INDICATION: Altered Mental Status. COMPARISON: None. TECHNIQUE: AP pelvis FINDINGS: There is no acute fracture, dislocation, or subluxation. Degenerative changes seen involving the hips, lower lumbar spine, sacroiliac joints. Iliac arterial stents are identified. IMPRESSION: No acute abnormality. <Electronically signed by Kristian Stokes > 05/18/21 0810
--- NOTE | 2021-05-18 08:43 | REP ---
INDICATION: Altered Mental Status. COMPARISON: 06/18/2019 TECHNIQUE: 5 mm axial images through the head were obtained without contrast. Coronal images were obtained from the original data set. FINDINGS: The visualized paranasal sinuses are currently clear and the mastoids are normally aerated. No skull fracture is identified. Intracranially mild cerebral atrophy is noted. No mass, hemorrhage or evidence for acute infarction is identified. No extra-axial fluid collections are identified. In comparison to the prior study no appreciable change is identified. IMPRESSION: No acute cerebral abnormality is identified. 2. Mild cerebral atrophy <Electronically signed by Enrrique Antonio > 05/18/21 [id number]
--- NOTE | 2021-05-18 09:14 | REP ---
INDICATION: trauma. COMPARISON: 06/18/2019 TECHNIQUE: 2 mm axial images were obtained through the cervical spine without contrast. Sagittal and coronal images were obtained from the original data set. FINDINGS: The right innominate and carotid stents are again noted. The thyroid gland appears normal and no abnormality of the submandibular or parotid glands is identified Moderate degenerative changes are present particularly at C5/6 and C6/7 where there are moderate anterior and posterior osteophytes present. No fracture or subluxation is identified. Moderate foraminal stenosis is present on the left at C2/3 and C3/4 secondary to facet joint arthropathy. Bilateral moderate foraminal stenosis is present at C6/7. IMPRESSION: No acute fracture or subluxation is evident. 2. Moderate foraminal stenosis at multiple levels. <Electronically signed by Enrrique Antonio > 05/18/21 0991
== END 2021-05-18 00:16 | disposition home or self-care (01) ==
LOC: M ED 21:52
DX: Z04.3 Encounter for examination and observation following other accident (principal); R00.1 Bradycardia, unspecified; I44.0 Atrioventricular block, first degree; W19.XXXA Unspecified fall, initial encounter; Y92.129 Unspecified place in nursing home as the place of occurrence of the external cause; Y93.9 Activity, unspecified; Y99.9 Unspecified external cause status; R47.9 Unspecified speech disturbances; G20 Parkinson's disease; F03.90 Unspecified dementia, unspecified severity, without behavioral disturbance, psychotic disturbance, mood disturbance, and anxiety; J44.9 Chronic obstructive pulmonary disease, unspecified; Z86.718 Personal history of other venous thrombosis and embolism; Z79.01 Long term (current) use of anticoagulants; Z79.899 Other long term (current) drug therapy; Z88.8 Allergy status to other drugs, medicaments and biological substances; Z91.041 Radiographic dye allergy status; Z88.5 Allergy status to narcotic agent

== ENCOUNTER → 2021-05-17 | Outpatient (REF) | payer MEDICAID ==
[2021-05-17 10:41] LABS: HEMATOCRIT 43.4 % (42.0-52.0); HEMOGLOBIN 14.2 g/dl (13.5-17.5); MEAN CORPUSCULAR HEMOGLOBIN 31.3 pg (27.0-33.0); MEAN CORPUSCULAR HGB CONC 32.7 g/dl (32.0-36.5); MEAN CORPUSCULAR VOLUME 95.8 fl (80.0-96.0); PLATELET COUNT, AUTOMATED 283 10^3/uL (150-450); RED BLOOD COUNT 4.53 10^6/uL (4.30-6.10); WHITE BLOOD COUNT 8.7 10^3/uL (4.0-10.0)
== END ==
LOC: SKLAB6 07:00
PROVIDERS: ATTEND Internal Medicine
DX: I73.9 Peripheral vascular disease, unspecified (principal)

== ENCOUNTER → 2021-05-23 | Outpatient (REF) | payer MEDICAID | LOC: SKLAB6 08:05 | PROVIDERS: ATTEND Internal Medicine | DX: Z20.822 Contact with and (suspected) exposure to COVID-19 (principal) ==

== ENCOUNTER → 2021-06-13 | Outpatient (REF) | payer MEDICAID | LOC: SKLAB6 08:51 | PROVIDERS: ATTEND Internal Medicine | DX: Z20.822 Contact with and (suspected) exposure to COVID-19 (principal) ==

== ENCOUNTER → 2021-06-20 | Outpatient (REF) | payer MEDICAID | LOC: SKLAB6 14:07 | PROVIDERS: ATTEND Internal Medicine | DX: Z20.822 Contact with and (suspected) exposure to COVID-19 (principal) ==

== ENCOUNTER → 2021-06-27 | Outpatient (REF) | payer MEDICAID | LOC: SKLAB6 07:00 | PROVIDERS: ATTEND Internal Medicine | DX: Z20.822 Contact with and (suspected) exposure to COVID-19 (principal) ==

== ENCOUNTER → 2021-07-04 | Outpatient (REF) | payer MEDICAID | LOC: SKLAB6 15:03 | PROVIDERS: ATTEND Internal Medicine | DX: Z20.822 Contact with and (suspected) exposure to COVID-19 (principal) ==

== ENCOUNTER → 2021-07-05 | Outpatient (REF) | payer MEDICAID ==
[2021-07-05 13:23] LABS: HEMATOCRIT 41.2 % (42.0-52.0); HEMOGLOBIN 13.7 g/dl (13.5-17.5); MEAN CORPUSCULAR HEMOGLOBIN 31.4 pg (27.0-33.0); MEAN CORPUSCULAR HGB CONC 33.3 g/dl (32.0-36.5); MEAN CORPUSCULAR VOLUME 94.3 fl (80.0-96.0); PLATELET COUNT, AUTOMATED 260 10^3/uL (150-450); RED BLOOD COUNT 4.37 10^6/uL (4.30-6.10); WHITE BLOOD COUNT 7.8 10^3/uL (4.0-10.0)
[2021-07-05 14:38] LABS: ERYTHROCYTE SEDIMENTATION RATE 7 mm/hr (0-20)
== END ==
LOC: SKLAB6 10:06
PROVIDERS: ATTEND Internal Medicine
DX: M79.89 Other specified soft tissue disorders (principal)

== ENCOUNTER → 2021-07-06 | Outpatient (REF) ==
--- NOTE | 2021-07-06 17:44 | REP ---
INDICATION: RIGHT HAND SWELLING/PORTABLE COMPARISON: None. TECHNIQUE: AP, lateral, bilateral oblique views right hand. FINDINGS: Limited portable examination demonstrates soft tissue swelling. Age-related degenerative changes are suggested primarily involving the interphalangeal joints. No obvious acute fracture or dislocation. No subcutaneous emphysema or foreign body. IMPRESSION: Swelling. No acute fracture or dislocation. <Electronically signed by Barry Sabillon > 07/06/21 [id number]
== END ==
LOC: SKLAB6 16:31
PROVIDERS: ATTEND Internal Medicine
DX: M79.89 Other specified soft tissue disorders (principal)

== ENCOUNTER → 2021-07-11 | Outpatient (REF) | payer MEDICAID ==
[~2021-07-11] MED LIST changes: +TIZA10TA PO; -TIZA4TAB4 PO
== END ==
LOC: SKLAB6 07:00
PROVIDERS: ATTEND Internal Medicine
DX: Z20.822 Contact with and (suspected) exposure to COVID-19 (principal)

== ENCOUNTER → 2021-07-19 | Outpatient (REF) | payer MEDICAID ==
[2021-07-19 11:49] LABS: ALBUMIN 3.8 GM/DL (3.2-5.2); ALT/SGPT 23 U/L (12-78); BILIRUBIN,TOTAL 0.5 MG/DL (0.2-1.0); BLOOD UREA NITROGEN 14 MG/DL (7-18); CALCIUM LEVEL 8.9 MG/DL (8.8-10.2); CARBON DIOXIDE LEVEL 27 MEQ/L (21-32); CHLORIDE LEVEL 102 MEQ/L (98-107); CHOLESTEROL LEVEL 114 MG/DL (<200); CHOLESTEROL RISK RATIO 2.923 (<5); CREATININE FOR GFR 1.03 MG/DL (0.70-1.30); GLOMERULAR FILTRATION RATE > 60.0 (>49); GLUCOSE, FASTING 223 MG/DL (70-100); HDL CHOLESTEROL 39 MG/DL (>40); LDL CHOLESTEROL 55 MG/DL (<100); NON-HDL-C 75 MG/DL; POTASSIUM SERUM 3.9 MEQ/L (3.5-5.1); SODIUM LEVEL 137 MEQ/L (136-145); TOTAL PROTEIN 7.4 GM/DL (6.4-8.2); TRIGLYCERIDES LEVEL 99 MG/DL (<150); VITAMIN B12 LEVEL 532 PG/ML (247-911)
== END ==
LOC: SKLAB6 07:00
PROVIDERS: ATTEND Internal Medicine
DX: E03.9 Hypothyroidism, unspecified (principal)

== ENCOUNTER → 2021-08-06 | Outpatient (REF) | payer MEDICAID ==
[2021-08-06 11:46] LABS: INFLUENZA A AMPLIFICATION NEGATIVE (NEGATIVE); INFLUENZA B AMPLIFICATION NEGATIVE (NEGATIVE)
[2021-08-06 12:31] LABS: APPEARANCE, URINE CLOUDY (CLEAR); BACTERIA, URINE AUTO 3+ (NEGATIVE); BILIRUBIN, URINE AUTO NEGATIVE (NEGATIVE); BLOOD, URINE BLOOD 3+ (NEGATIVE); COLOR, URINE AMBER (YELLOW); GLUCOSE, URINE (UA) AUTO NEGATIVE (NEGATIVE); KETONE, URINE AUTO TRACE mg/dL (NEGATIVE); LEUKOCYTE ESTERASE, URINE AUTO 2+ (NEGATIVE); MUCUS, URINE MODERATE (NEGATIVE); NITRITE, URINE AUTO NEGATIVE (NEGATIVE); PROTEIN, URINE AUTO 1+ mg/dL (NEGATIVE); RBC, URINE AUTO TNTC /HPF (0-3); SPECIFIC GRAVITY URINE AUTO 1.023 (1.002-1.035); SQUAMOUS EPITHELIAL CELL UR AU 0 /HPF (0-6); WBC, URINE AUTO 80 /HPF (0-3)
[2021-08-06 14:47] LABS: HEMATOCRIT 40.8 % (42.0-52.0); HEMOGLOBIN 13.8 g/dl (13.5-17.5); MEAN CORPUSCULAR HEMOGLOBIN 31.9 pg (27.0-33.0); MEAN CORPUSCULAR HGB CONC 33.8 g/dl (32.0-36.5); MEAN CORPUSCULAR VOLUME 94.4 fl (80.0-96.0); PLATELET COUNT, AUTOMATED 234 10^3/uL (150-450); RED BLOOD COUNT 4.32 10^6/uL (4.30-6.10); WHITE BLOOD COUNT 15.5 10^3/uL (4.0-10.0)
[2021-08-06 15:05] LABS: CALCIUM LEVEL 8.7 MG/DL (8.8-10.2); CREATININE FOR GFR 1.4 MG/DL (0.70-1.30)
== END ==
LOC: SKLAB6 10:23
PROVIDERS: ATTEND Internal Medicine
DX: R50.9 Fever, unspecified (principal)

== ENCOUNTER → 2021-08-15 | Outpatient (CLI) | payer MEDICAID ==
[2021-08-15 13:40] LABS: HEMATOCRIT 42.2 % (42.0-52.0); HEMOGLOBIN 13.8 g/dl (13.5-17.5); MEAN CORPUSCULAR HEMOGLOBIN 31.6 pg (27.0-33.0); MEAN CORPUSCULAR HGB CONC 32.7 g/dl (32.0-36.5); MEAN CORPUSCULAR VOLUME 96.6 fl (80.0-96.0); PLATELET COUNT, AUTOMATED 377 10^3/uL (150-450); RED BLOOD COUNT 4.37 10^6/uL (4.30-6.10); WHITE BLOOD COUNT 8.7 10^3/uL (4.0-10.0)
[2021-08-15 14:16] LABS: BLOOD UREA NITROGEN 19 MG/DL (7-18); CREATININE FOR GFR 1.04 MG/DL (0.70-1.30); GLUCOSE, FASTING 139 MG/DL (70-100)
[2021-08-15 14:17] LABS: ALBUMIN 3.5 GM/DL (3.2-5.2); ALT/SGPT 16 U/L (12-78); BILIRUBIN,TOTAL 0.4 MG/DL (0.2-1.0); CALCIUM LEVEL 9.1 MG/DL (8.8-10.2); CARBON DIOXIDE LEVEL 28 MEQ/L (21-32); CHLORIDE LEVEL 107 MEQ/L (98-107); GLOMERULAR FILTRATION RATE > 60.0 (>49); SODIUM LEVEL 142 MEQ/L (136-145); TOTAL PROTEIN 7.9 GM/DL (6.4-8.2)
== END ==
LOC: M LAB 10:35 → M RAD 10:35
PROVIDERS: ATTEND Nurse Practitioner Family
DX: R53.81 Other malaise (principal); R41.82 Altered mental status, unspecified

== ENCOUNTER → 2021-08-16 | Outpatient (REF) | payer MEDICAID ==
[2021-08-16 11:58] LABS: HEMATOCRIT 39.9 % (42.0-52.0); HEMOGLOBIN 13.3 g/dl (13.5-17.5); MEAN CORPUSCULAR HEMOGLOBIN 31.7 pg (27.0-33.0); MEAN CORPUSCULAR HGB CONC 33.3 g/dl (32.0-36.5); PLATELET COUNT, AUTOMATED 409 10^3/uL (150-450); WHITE BLOOD COUNT 10.4 10^3/uL (4.0-10.0)
== END ==
LOC: SKLAB6 14:00
PROVIDERS: ATTEND Internal Medicine
DX: R53.83 Other fatigue (principal)

== ENCOUNTER → 2021-08-18 | Outpatient (REF) | payer MEDICAID ==
[2021-08-18 13:48] LABS: BLOOD UREA NITROGEN 18 MG/DL (7-18); CALCIUM LEVEL 8.7 MG/DL (8.8-10.2); CARBON DIOXIDE LEVEL 25 MEQ/L (21-32); CHLORIDE LEVEL 106 MEQ/L (98-107); CREATININE FOR GFR 0.85 MG/DL (0.70-1.30); GLOMERULAR FILTRATION RATE > 60.0 (>49); GLUCOSE, FASTING 147 MG/DL (70-100); POTASSIUM SERUM 3.8 MEQ/L (3.5-5.1); SODIUM LEVEL 137 MEQ/L (136-145)
== END ==
LOC: SKLAB6 08-17 10:00
PROVIDERS: ATTEND Internal Medicine
DX: R53.83 Other fatigue (principal)

== ENCOUNTER → 2021-09-02 | Outpatient (REF) | LOC: SKLAB6 14:58 | PROVIDERS: ATTEND Internal Medicine | DX: R05.9 Cough, unspecified (principal); R50.9 Fever, unspecified; R53.83 Other fatigue ==

== ENCOUNTER → 2021-10-02 | Outpatient (REF) | payer MEDICAID | LOC: SKLAB6 13:54 | PROVIDERS: ATTEND Internal Medicine | DX: R22.0 Localized swelling, mass and lump, head (principal) ==

== ENCOUNTER → 2021-10-04 | Outpatient (REF) | payer MEDICAID ==
[2021-10-04 18:51] LABS: HEMATOCRIT 42.8 % (42.0-52.0); HEMOGLOBIN 14.4 g/dl (13.5-17.5); MEAN CORPUSCULAR HEMOGLOBIN 31.4 pg (27.0-33.0); MEAN CORPUSCULAR HGB CONC 33.6 g/dl (32.0-36.5); MEAN CORPUSCULAR VOLUME 93.2 fl (80.0-96.0); PLATELET COUNT, AUTOMATED 275 10^3/uL (150-450); RED BLOOD COUNT 4.59 10^6/uL (4.30-6.10); WHITE BLOOD COUNT 11.4 10^3/uL (4.0-10.0)
== END ==
LOC: SKLAB6 15:21
PROVIDERS: ATTEND Internal Medicine
DX: R31.9 Hematuria, unspecified (principal)

== ENCOUNTER → 2021-10-05 | Outpatient (REF) | payer MEDICAID ==
[2021-10-05 08:15] LABS: HEMATOCRIT 43.5 % (42.0-52.0); HEMOGLOBIN 14.7 g/dl (13.5-17.5); MEAN CORPUSCULAR HEMOGLOBIN 31.8 pg (27.0-33.0); MEAN CORPUSCULAR HGB CONC 33.8 g/dl (32.0-36.5); MEAN CORPUSCULAR VOLUME 94.2 fl (80.0-96.0); PLATELET COUNT, AUTOMATED 275 10^3/uL (150-450); RED BLOOD COUNT 4.62 10^6/uL (4.30-6.10); WHITE BLOOD COUNT 10.2 10^3/uL (4.0-10.0)
== END ==
LOC: SKLAB6 13:00
PROVIDERS: ATTEND Internal Medicine
DX: N39.0 Urinary tract infection, site not specified (principal)

== ENCOUNTER → 2021-11-15 | Outpatient (REF) | payer MEDICAID ==
[2021-11-15 09:50] LABS: HEMATOCRIT 41.9 % (42.0-52.0); HEMOGLOBIN 14.1 g/dl (13.5-17.5); MEAN CORPUSCULAR HEMOGLOBIN 31.1 pg (27.0-33.0); MEAN CORPUSCULAR HGB CONC 33.7 g/dl (32.0-36.5); MEAN CORPUSCULAR VOLUME 92.5 fl (80.0-96.0); PLATELET COUNT, AUTOMATED 257 10^3/uL (150-450); RED BLOOD COUNT 4.53 10^6/uL (4.30-6.10); WHITE BLOOD COUNT 9.4 10^3/uL (4.0-10.0)
== END ==
LOC: SKLAB6 07:00
PROVIDERS: ATTEND Internal Medicine
DX: Z79.899 Other long term (current) drug therapy (principal)

== ENCOUNTER → 2022-01-17 | Outpatient (REF) | payer MEDICAID ==
[~2022-01-17] MED LIST changes: +ASPI81CH33 PO; +ATIV1TAB10 PO; +AVEELOT TP; +CALAZIME TOP; +CIME-49 PO; +DICL1GEL3 TOP; +ELIQ5TAB PO; +ENSU-12 PO; +GUAI5EL PO; +LEVO125T4 PO; +MORP1SOL5 PO; +NUPL34CA PO; +POTA-150 PO; -POTA10TA17 PO; +SENN-80 PO; +SWEEN TOP; +TRAN1DIS4 TOP; +[UNRECOGNIZED DRUG - OTHER] TOP
[2022-01-17 09:55] LABS: ALBUMIN 3.3 GM/DL (3.2-5.2); ALT/SGPT 13 U/L (12-78); BILIRUBIN,TOTAL 0.4 MG/DL (0.2-1.0); BLOOD UREA NITROGEN 14 MG/DL (7-18); CALCIUM LEVEL 9.1 MG/DL (8.8-10.2); CARBON DIOXIDE LEVEL 23 MEQ/L (21-32); CHLORIDE LEVEL 106 MEQ/L (98-107); CHOLESTEROL LEVEL 134 MG/DL (<200); CHOLESTEROL RISK RATIO 3.828 (<5); CREATININE FOR GFR 0.89 MG/DL (0.70-1.30); GLOMERULAR FILTRATION RATE > 60.0 (>49); GLUCOSE, FASTING 186 MG/DL (70-100); HDL CHOLESTEROL 35 MG/DL (>40); LDL CHOLESTEROL 72 MG/DL (<100); NON-HDL-C 99 MG/DL; POTASSIUM SERUM 3.8 MEQ/L (3.5-5.1); SODIUM LEVEL 140 MEQ/L (136-145); TOTAL PROTEIN 6.9 GM/DL (6.4-8.2); TRIGLYCERIDES LEVEL 133 MG/DL (<150)
[2022-01-17 09:58] LABS: VITAMIN B12 LEVEL 742 PG/ML (247-911)
== END ==
LOC: SKLAB6 08:00
PROVIDERS: ATTEND Internal Medicine
DX: F03.90 Unspecified dementia, unspecified severity, without behavioral disturbance, psychotic disturbance, mood disturbance, and anxiety (principal); E03.9 Hypothyroidism, unspecified

== ENCOUNTER → 2022-01-28 | Outpatient (REF) | payer MEDICAID | LOC: SKLAB6 08:00 | PROVIDERS: ATTEND Internal Medicine | DX: M25.552 Pain in left hip (principal); Z95.828 Presence of other vascular implants and grafts ==

== ENCOUNTER → 2022-01-28 | Outpatient (CLI) | payer MEDICAID ==
[~2022-01-28] MED LIST changes: -ASPI81CH33 PO; -ATIV1TAB10 PO; -AVEELOT TP; -CALAZIME TOP; -CIME-49 PO; -DICL1GEL3 TOP; -ELIQ5TAB PO; -ENSU-12 PO; -GUAI5EL PO; -LEVO125T4 PO; -MORP1SOL5 PO; -NUPL34CA PO; -POTA-150 PO; +POTA10TA17 PO; -SENN-80 PO; -SWEEN TOP; -TRAN1DIS4 TOP; -[UNRECOGNIZED DRUG - OTHER] TOP
== END ==
LOC: M RAD 09:43
PROVIDERS: ATTEND Nurse Practitioner Family
DX: R23.3 Spontaneous ecchymoses (principal); Z86.718 Personal history of other venous thrombosis and embolism

== ENCOUNTER 2022-02-03 00:09 | Inpatient (IN) | payer MEDICAID ==
[2022-02-03] VITALS (11 sets, daily range): BP systolic 98–128; BP diastolic 51–80; O2SAT 95–98
[~2022-02-03] VITALS: Ht 182.9 cm; Wt 61.0 kg
[~2022-02-03 00:09] MED LIST changes: +POTA-150 PO; -POTA10TA17 PO
[2022-02-03] MEDS ORDERED: ACETAMINOPHEN 650 MG SUPP PR ONE (00:45)
[2022-02-03] MEDS ORDERED: PIPERACILLIN/TAZOBACTAM SOD 4.5 GM in D5W MINI-BAG PLUS 50 ML IV ONE (00:50)
[2022-02-03] MEDS ORDERED: NS 1,910 ML in IV 1 EA IV ONE (00:50)
[2022-02-03 01:00] LABS: BASO % 0.2 % (0.0-1.0); HEMATOCRIT 38.9 % (42.0-52.0); HEMOGLOBIN 12.2 g/dl (13.5-17.5); LYMPH # 0.6 10^3/uL (1.5-5.0); LYMPH % 7.1 % (24.0-44.0); MEAN CORPUSCULAR HEMOGLOBIN 30.2 pg (27.0-33.0); MEAN CORPUSCULAR HGB CONC 31.4 g/dl (32.0-36.5); MEAN CORPUSCULAR VOLUME 96.3 fl (80.0-96.0); MONO # 0.6 10^3/uL (0.0-0.8); MONO % 7.9 % (2.0-8.0); NEUTROPHILS # 6.9 10^3/uL (1.5-8.5); NEUTROPHILS % 84.4 % (36.0-66.0); PLATELET COUNT, AUTOMATED 493 10^3/uL (150-450); RED BLOOD COUNT 4.04 10^6/uL (4.30-6.10); WHITE BLOOD COUNT 8.1 10^3/uL (4.0-10.0)
[2022-02-03 01:07] LABS: ABG HCO3 22.4 MEQ/L (22.0-26.0); ABG O2 SATURATION 92.1 % (95.0-99.0); ABG PARTIAL PRESSURE CO2 29.9 mmHg (35.0-45.0); ABG PARTIAL PRESSURE O2 63.9 mmHg (75.0-100.0); ABG STANDARD HCO3 24.4 MEQ/L (22.0-26.0); ABG TOTAL CO2 23.3 MEQ/L (23.0-31.0); ABG pH (ARTERIAL) 7.492 UNITS (7.350-7.450)
[2022-02-03 01:08] LABS: INR 1.53; PROTHROMBIN TIME 18.8 SECONDS (12.7-14.5)
[2022-02-03 01:09] LABS: PARTIAL THROMBOPLASTIN TIME 40.1 SECONDS (25.9-37.0)
[2022-02-03 01:32] LABS: ALBUMIN 2.8 GM/DL (3.2-5.2); BILIRUBIN,DIRECT 0.4 MG/DL (0.0-0.2); BILIRUBIN,TOTAL 0.9 MG/DL (0.2-1.0); C REACTIVE PROTEIN QUANTITATIV 16.4 MG/DL (0.00-0.30); CALCIUM LEVEL 8.8 MG/DL (8.8-10.2); CREATININE FOR GFR 1.34 MG/DL (0.70-1.30); GLOMERULAR FILTRATION RATE 57.7 (>49); POTASSIUM SERUM 3.9 MEQ/L (3.5-5.1); TOTAL PROTEIN 7.2 GM/DL (6.4-8.2)
[2022-02-03] MEDS ORDERED: ASPI81CH33 PO (03:06)
[2022-02-03] MEDS ORDERED: SENN-80 PO (03:06)
[2022-02-03] MEDS ORDERED: ENSU-12 PO (03:06)
[2022-02-03] MEDS ORDERED: LEVO125T4 PO (03:06)
[2022-02-03] MEDS ORDERED: SWEEN TOP (03:06)
[2022-02-03] MEDS ORDERED: CIME-49 PO (03:06)
[2022-02-03] MEDS ORDERED: ELIQ5TAB PO (03:06)
[2022-02-03] MEDS ORDERED: DICL1GEL3 TOP (03:06)
[2022-02-03] MEDS ORDERED: AVEELOT TP (03:06)
[2022-02-03] MEDS ORDERED: NUPL34CA PO (03:06)
[2022-02-03] MEDS ORDERED: [UNRECOGNIZED DRUG - OTHER] TOP (03:06)
[2022-02-03] MEDS ORDERED: CALAZIME TOP (03:06)
[2022-02-03] MEDS ORDERED: GUAI5EL PO (03:06)
[2022-02-03] MEDS ORDERED: HOME MED LIST COMPLETE! XX SCH (03:10)
[2022-02-03] MEDS ORDERED: GLUCOSE 4GM CHEW TABLET PO PRN (03:30)
[2022-02-03] MEDS ORDERED: GLUCAGON INJ 1MG VIAL SC PRN (03:30)
[2022-02-03] MEDS ORDERED: DEXTROSE 50% 50 ML SYRINGE IV PRN (03:30)
[2022-02-03] MEDS ORDERED: NS 0.45% 1,000 ML IV SCH (03:30)
[2022-02-03] MEDS: PIPERACILLIN/TAZOBACTAM SOD 4.5 GM in D5W MINI-BAG PLUS 50 ML IV SCH ×3 (05:28→18:02)
[2022-02-03] MEDS: INSULIN LISPRO (NovoLOG) PER UNIT SC SCH ×3 (05:28→18:00)
[2022-02-03 06:47] LABS: AMORPHOUS SEDIMENT SMALL (NEGATIVE); APPEARANCE, URINE CLOUDY (CLEAR); BACTERIA, URINE AUTO 1+ (NEGATIVE); BILIRUBIN, URINE AUTO NEGATIVE (NEGATIVE); BLOOD, URINE BLOOD 2+ (NEGATIVE); COLOR, URINE YELLOW (YELLOW); GLUCOSE, URINE (UA) AUTO NEGATIVE (NEGATIVE); KETONE, URINE AUTO TRACE mg/dL (NEGATIVE); LEUKOCYTE ESTERASE, URINE AUTO 3+ (NEGATIVE); MUCUS, URINE SMALL (NEGATIVE); NITRITE, URINE AUTO NEGATIVE (NEGATIVE); PROTEIN, URINE AUTO 2+ mg/dL (NEGATIVE); RBC, URINE AUTO 12 /HPF (0-3); SQUAMOUS EPITHELIAL CELL UR AU 1 /HPF (0-6); WBC, URINE AUTO 157 /HPF (0-3)
[2022-02-03 08:18] LABS: HEMATOCRIT 35.8 % (42.0-52.0); MEAN CORPUSCULAR HEMOGLOBIN 30.6 pg (27.0-33.0); MEAN CORPUSCULAR HGB CONC 30.7 g/dl (32.0-36.5); MEAN CORPUSCULAR VOLUME 99.4 fl (80.0-96.0); PLATELET COUNT, AUTOMATED 399 10^3/uL (150-450); WHITE BLOOD COUNT 7.2 10^3/uL (4.0-10.0)
[2022-02-03 08:24] LABS: ABG BASE EXCESS -1.2 (-2.0-2.0); ABG HCO3 21.8 MEQ/L (22.0-26.0); ABG O2 SATURATION 94.8 % (95.0-99.0); ABG PARTIAL PRESSURE CO2 30.9 mmHg (35.0-45.0); ABG PARTIAL PRESSURE O2 77.8 mmHg (75.0-100.0); ABG STANDARD HCO3 23.4 MEQ/L (22.0-26.0); ABG TOTAL CO2 22.7 MEQ/L (23.0-31.0); ABG pH (ARTERIAL) 7.466 UNITS (7.350-7.450)
[2022-02-03 08:40] LABS: ALBUMIN 2.4 GM/DL (3.2-5.2); ALT/SGPT 40 U/L (12-78); BILIRUBIN,TOTAL 1.2 MG/DL (0.2-1.0); BLOOD UREA NITROGEN 29 MG/DL (7-18); CALCIUM LEVEL 8.2 MG/DL (8.8-10.2); CARBON DIOXIDE LEVEL 21 MEQ/L (21-32); CHLORIDE LEVEL 123 MEQ/L (98-107); CREATININE FOR GFR 1.26 MG/DL (0.70-1.30); GLOMERULAR FILTRATION RATE > 60.0 (>49); GLUCOSE, FASTING 171 MG/DL (70-100); NT-PRO BNP 613 PG/ML (<125); POTASSIUM SERUM 3.8 MEQ/L (3.5-5.1); SODIUM LEVEL 153 MEQ/L (136-145); TOTAL PROTEIN 6.3 GM/DL (6.4-8.2)
[2022-02-03] MEDS: ASPIRIN 300 MG SUPP PR SCH ×2 (09:00→14:06)
[2022-02-03] MEDS ORDERED: D5W 500 ML IV ONE ×2 (11:55→12:45)
[2022-02-03] MEDS ORDERED: ALBUTEROL SULFATE 2.5 MG/0.5 ML INH NEB SOLN NEB PRN (12:45)
[2022-02-03] MEDS ORDERED: FLEET ENEMA PR PRN (12:45)
[2022-02-03] MEDS: IPRATROPIUM 0.5MG/ALBUTEROL 2.5MG INH SOL UD 3ML (DUONEB) NEB SCH ×3 (13:34→20:30)
[2022-02-03] MEDS: BISACODYL 10 MG SUPP PR SCH ×2 (14:06→20:17)
[2022-02-03 14:29] LABS: BLOOD UREA NITROGEN 27 MG/DL (7-18); CALCIUM LEVEL 8.5 MG/DL (8.8-10.2); CARBON DIOXIDE LEVEL 23 MEQ/L (21-32); CHLORIDE LEVEL 123 MEQ/L (98-107); CREATININE FOR GFR 1.06 MG/DL (0.70-1.30); GLOMERULAR FILTRATION RATE > 60.0 (>49); GLUCOSE, FASTING 138 MG/DL (70-100); POTASSIUM SERUM 3.5 MEQ/L (3.5-5.1); SODIUM LEVEL 152 MEQ/L (136-145)
[2022-02-03] MEDS: DOXYCYCLINE HYCLATE 100 MG in D5W MINI-BAG PLUS 100 ML IV SCH (14:54)
[2022-02-03] MEDS ORDERED: D5W 1,000 ML IV SCH (18:10)
[2022-02-03 18:57] LABS: BLOOD UREA NITROGEN 25 MG/DL (7-18); CALCIUM LEVEL 8.3 MG/DL (8.8-10.2); CARBON DIOXIDE LEVEL 21 MEQ/L (21-32); CHLORIDE LEVEL 118 MEQ/L (98-107); CREATININE FOR GFR 1.02 MG/DL (0.70-1.30); GLOMERULAR FILTRATION RATE > 60.0 (>49); GLUCOSE, FASTING 207 MG/DL (70-100); POTASSIUM SERUM 3.2 MEQ/L (3.5-5.1); SODIUM LEVEL 147 MEQ/L (136-145)
[2022-02-03] MEDS: ENOXAPARIN 60MG/0.6ML SYRINGE (J1650 PER 10MG) SC SCH (20:17)
[2022-02-03] MEDS: KCL 10MEQ/100ML SWI (KRUN) 10 MEQ in IV 1 EA IV SCH ×2 (21:40→22:54)
[2022-02-03] MEDS ORDERED: HEPARIN SOD (PORCINE) 5000UNITS/ML 1ML VIAL/SYRINGE SQ SCH (22:00)
[2022-02-03 23:31] LABS: BLOOD UREA NITROGEN 23 MG/DL (7-18); CALCIUM LEVEL 8.5 MG/DL (8.8-10.2); CARBON DIOXIDE LEVEL 26 MEQ/L (21-32); CHLORIDE LEVEL 116 MEQ/L (98-107); CREATININE FOR GFR 0.91 MG/DL (0.70-1.30); GLOMERULAR FILTRATION RATE > 60.0 (>49); GLUCOSE, FASTING 134 MG/DL (70-100); POTASSIUM SERUM 3.6 MEQ/L (3.5-5.1); SODIUM LEVEL 146 MEQ/L (136-145)
[2022-02-04] VITALS (24 sets, daily range): BP systolic 110–126; BP diastolic 58–73; O2SAT 92–99
[2022-02-04] MEDS: KCL 10MEQ/100ML SWI (KRUN) 10 MEQ in IV 1 EA IV SCH ×9 (00:06→23:08)
[2022-02-04] MEDS ORDERED: ACETAMINOPHEN 650 MG SUPP PR PRN (00:30)
[2022-02-04] MEDS: PIPERACILLIN/TAZOBACTAM SOD 4.5 GM in D5W MINI-BAG PLUS 50 ML IV SCH ×4 (01:47→17:29)
[2022-02-04 02:47] LABS: BLOOD UREA NITROGEN 22 MG/DL (7-18); CALCIUM LEVEL 8.3 MG/DL (8.8-10.2); CARBON DIOXIDE LEVEL 24 MEQ/L (21-32); CHLORIDE LEVEL 119 MEQ/L (98-107); CREATININE FOR GFR 0.93 MG/DL (0.70-1.30); GLOMERULAR FILTRATION RATE > 60.0 (>49); GLUCOSE, FASTING 140 MG/DL (70-100); POTASSIUM SERUM 3.5 MEQ/L (3.5-5.1); SODIUM LEVEL 150 MEQ/L (136-145)
[2022-02-04] MEDS ORDERED: KETOROLAC 30 MG/ML 1ML VIAL IV ONE (03:00)
[2022-02-04] MEDS: DOXYCYCLINE HYCLATE 100 MG in D5W MINI-BAG PLUS 100 ML IV SCH ×2 (03:09→13:56)
[2022-02-04] MEDS: INSULIN LISPRO (NovoLOG) PER UNIT SC SCH ×4 (05:31→17:29)
[2022-02-04 07:09] LABS: ALBUMIN 2.2 GM/DL (3.2-5.2); ALT/SGPT 41 U/L (12-78); BILIRUBIN,TOTAL 0.8 MG/DL (0.2-1.0); BLOOD UREA NITROGEN 23 MG/DL (7-18); CALCIUM LEVEL 8.4 MG/DL (8.8-10.2); CARBON DIOXIDE LEVEL 22 MEQ/L (21-32); CHLORIDE LEVEL 117 MEQ/L (98-107); CREATININE FOR GFR 0.93 MG/DL (0.70-1.30); GLOMERULAR FILTRATION RATE > 60.0 (>49); GLUCOSE, FASTING 142 MG/DL (70-100); MAGNESIUM LEVEL 2.4 MG/DL (1.8-2.4); POTASSIUM SERUM 3.3 MEQ/L (3.5-5.1); SODIUM LEVEL 148 MEQ/L (136-145); TOTAL PROTEIN 5.9 GM/DL (6.4-8.2)
[2022-02-04] MEDS: IPRATROPIUM 0.5MG/ALBUTEROL 2.5MG INH SOL UD 3ML (DUONEB) NEB SCH ×4 (07:19→20:01)
[2022-02-04 07:47] LABS: HEMATOCRIT 30.6 % (42.0-52.0); HEMOGLOBIN 9.5 g/dl (13.5-17.5); MEAN CORPUSCULAR HEMOGLOBIN 30.7 pg (27.0-33.0); PLATELET COUNT, AUTOMATED 402 10^3/uL (150-450); RED BLOOD COUNT 3.09 10^6/uL (4.30-6.10); WHITE BLOOD COUNT 7.5 10^3/uL (4.0-10.0)
[2022-02-04 08:09] LABS: NT-PRO BNP 533 PG/ML (<125)
[2022-02-04] MEDS: ENOXAPARIN 60MG/0.6ML SYRINGE (J1650 PER 10MG) SC SCH (08:49)
[2022-02-04] MEDS: BISACODYL 10 MG SUPP PR SCH ×2 (08:50→20:58)
[2022-02-04] MEDS: FUROSEMIDE 40MG/4ML VIAL (J1940) IV SCH (08:50)
[2022-02-04] MEDS: ASPIRIN 300 MG SUPP PR SCH (08:50)
[2022-02-04 10:44] LABS: BLOOD UREA NITROGEN 22 MG/DL (7-18); CALCIUM LEVEL 8.6 MG/DL (8.8-10.2); CARBON DIOXIDE LEVEL 25 MEQ/L (21-32); CHLORIDE LEVEL 114 MEQ/L (98-107); CREATININE FOR GFR 1.01 MG/DL (0.70-1.30); GLOMERULAR FILTRATION RATE > 60.0 (>49); GLUCOSE, FASTING 129 MG/DL (70-100); POTASSIUM SERUM 3.3 MEQ/L (3.5-5.1); SODIUM LEVEL 144 MEQ/L (136-145)
[2022-02-04] MEDS: LR 1,000 ML IV SCH (12:54)
[2022-02-04 13:25] LABS: FERRITIN 257 NG/ML (26-388); IRON (FE) 19 UG/DL (65-175); PERCENT SATURATION 7.6 % (19.7-50.0); TOTAL IRON BINDING CAPACITY 249 UG/DL (250-450)
[2022-02-04 13:40] LABS: VITAMIN B12 LEVEL 1013 PG/ML (247-911)
[2022-02-04 13:41] LABS: FOLATE 11.2 NG/ML (>5.4)
[2022-02-04 15:06] LABS: BLOOD UREA NITROGEN 22 MG/DL (7-18); CALCIUM LEVEL 8.5 MG/DL (8.8-10.2); CARBON DIOXIDE LEVEL 23 MEQ/L (21-32); CHLORIDE LEVEL 116 MEQ/L (98-107); CREATININE FOR GFR 0.98 MG/DL (0.70-1.30); GLOMERULAR FILTRATION RATE > 60.0 (>49); GLUCOSE, FASTING 114 MG/DL (70-100); POTASSIUM SERUM 3.6 MEQ/L (3.5-5.1); SODIUM LEVEL 148 MEQ/L (136-145)
[2022-02-04 16:12] LABS: BASO % 0.2 % (0.0-1.0); EOS # 0.1 10^3/uL (0.0-0.5); EOS % 1.2 % (0.0-3.0); HEMATOCRIT 32.2 % (42.0-52.0); HEMOGLOBIN 10.1 g/dl (13.5-17.5); LYMPH % 11.3 % (24.0-44.0); MEAN CORPUSCULAR HEMOGLOBIN 30.8 pg (27.0-33.0); MEAN CORPUSCULAR HGB CONC 31.4 g/dl (32.0-36.5); MEAN CORPUSCULAR VOLUME 98.2 fl (80.0-96.0); MONO # 0.5 10^3/uL (0.0-0.8); MONO % 5.3 % (2.0-8.0); NEUTROPHILS # 7.2 10^3/uL (1.5-8.5); NEUTROPHILS % 81.2 % (36.0-66.0); PLATELET COUNT, AUTOMATED 388 10^3/uL (150-450); RED BLOOD COUNT 3.28 10^6/uL (4.30-6.10); WHITE BLOOD COUNT 8.9 10^3/uL (4.0-10.0)
[2022-02-04 18:30] LABS: BLOOD UREA NITROGEN 20 MG/DL (7-18); CALCIUM LEVEL 8.4 MG/DL (8.8-10.2); CARBON DIOXIDE LEVEL 24 MEQ/L (21-32); CHLORIDE LEVEL 116 MEQ/L (98-107); CREATININE FOR GFR 0.84 MG/DL (0.70-1.30); GLOMERULAR FILTRATION RATE > 60.0 (>49); GLUCOSE, FASTING 120 MG/DL (70-100); POTASSIUM SERUM 3.1 MEQ/L (3.5-5.1); SODIUM LEVEL 148 MEQ/L (136-145)
[2022-02-04 20:04] LABS: BASO % 0.4 % (0.0-1.0); EOS # 0.1 10^3/uL (0.0-0.5); EOS % 1.4 % (0.0-3.0); HEMATOCRIT 28.7 % (42.0-52.0); HEMOGLOBIN 9.1 g/dl (13.5-17.5); LYMPH # 0.9 10^3/uL (1.5-5.0); LYMPH % 10.3 % (24.0-44.0); MEAN CORPUSCULAR HEMOGLOBIN 30.8 pg (27.0-33.0); MEAN CORPUSCULAR HGB CONC 31.7 g/dl (32.0-36.5); MEAN CORPUSCULAR VOLUME 97.3 fl (80.0-96.0); MONO # 0.3 10^3/uL (0.0-0.8); MONO % 4.1 % (2.0-8.0); NEUTROPHILS # 6.9 10^3/uL (1.5-8.5); NEUTROPHILS % 83.2 % (36.0-66.0); PLATELET COUNT, AUTOMATED 394 10^3/uL (150-450); RED BLOOD COUNT 2.95 10^6/uL (4.30-6.10); WHITE BLOOD COUNT 8.3 10^3/uL (4.0-10.0)
[2022-02-04 22:44] LABS: BLOOD UREA NITROGEN 21 MG/DL (7-18); CALCIUM LEVEL 8.6 MG/DL (8.8-10.2); CARBON DIOXIDE LEVEL 25 MEQ/L (21-32); CHLORIDE LEVEL 116 MEQ/L (98-107); CREATININE FOR GFR 0.79 MG/DL (0.70-1.30); GLOMERULAR FILTRATION RATE > 60.0 (>49); GLUCOSE, FASTING 105 MG/DL (70-100); POTASSIUM SERUM 3.4 MEQ/L (3.5-5.1); SODIUM LEVEL 147 MEQ/L (136-145)
[2022-02-05] VITALS (17 sets, daily range): BP systolic 118–137; BP diastolic 65–77; O2SAT 93–97
[2022-02-05] MEDS: PIPERACILLIN/TAZOBACTAM SOD 4.5 GM in D5W MINI-BAG PLUS 50 ML IV SCH ×4 (00:51→17:43)
[2022-02-05] MEDS: DOXYCYCLINE HYCLATE 100 MG in D5W MINI-BAG PLUS 100 ML IV SCH ×2 (01:46→12:21)
[2022-02-05] MEDS: LR 1,000 ML IV SCH ×2 (02:00→09:06)
[2022-02-05 02:50] LABS: BLOOD UREA NITROGEN 19 MG/DL (7-18); CALCIUM LEVEL 8.5 MG/DL (8.8-10.2); CARBON DIOXIDE LEVEL 26 MEQ/L (21-32); CHLORIDE LEVEL 114 MEQ/L (98-107); CREATININE FOR GFR 0.74 MG/DL (0.70-1.30); GLOMERULAR FILTRATION RATE > 60.0 (>49); GLUCOSE, FASTING 126 MG/DL (70-100); POTASSIUM SERUM 3.3 MEQ/L (3.5-5.1); SODIUM LEVEL 145 MEQ/L (136-145)
[2022-02-05] MEDS: INSULIN LISPRO (NovoLOG) PER UNIT SC SCH ×4 (06:48→17:44)
[2022-02-05 07:23] LABS: ALBUMIN 2.1 GM/DL (3.2-5.2); ALT/SGPT 68 U/L (12-78); BILIRUBIN,TOTAL 0.6 MG/DL (0.2-1.0); BLOOD UREA NITROGEN 19 MG/DL (7-18); CALCIUM LEVEL 8.2 MG/DL (8.8-10.2); CARBON DIOXIDE LEVEL 25 MEQ/L (21-32); CHLORIDE LEVEL 114 MEQ/L (98-107); CREATININE FOR GFR 0.74 MG/DL (0.70-1.30); GLOMERULAR FILTRATION RATE > 60.0 (>49); GLUCOSE, FASTING 104 MG/DL (70-100); POTASSIUM SERUM 3.4 MEQ/L (3.5-5.1); SODIUM LEVEL 146 MEQ/L (136-145); TOTAL PROTEIN 5.7 GM/DL (6.4-8.2)
[2022-02-05] MEDS: IPRATROPIUM 0.5MG/ALBUTEROL 2.5MG INH SOL UD 3ML (DUONEB) NEB SCH ×4 (07:23→19:30)
[2022-02-05] MEDS: FUROSEMIDE 40MG/4ML VIAL (J1940) IV SCH (08:42)
[2022-02-05] MEDS: ASPIRIN 300 MG SUPP PR SCH (08:42)
[2022-02-05] MEDS: BISACODYL 10 MG SUPP PR SCH ×2 (08:42→20:12)
[2022-02-05 10:31] LABS: BLOOD UREA NITROGEN 19 MG/DL (7-18); CARBON DIOXIDE LEVEL 27 MEQ/L (21-32); CHLORIDE LEVEL 111 MEQ/L (98-107); GLOMERULAR FILTRATION RATE > 60.0 (>49); GLUCOSE, FASTING 95 MG/DL (70-100); POTASSIUM SERUM 3.3 MEQ/L (3.5-5.1); SODIUM LEVEL 145 MEQ/L (136-145)
[2022-02-05 10:46] LABS: HEMATOCRIT 28.2 % (42.0-52.0); MEAN CORPUSCULAR HEMOGLOBIN 31.1 pg (27.0-33.0); MEAN CORPUSCULAR HGB CONC 31.9 g/dl (32.0-36.5); MEAN CORPUSCULAR VOLUME 97.6 fl (80.0-96.0); PLATELET COUNT, AUTOMATED 429 10^3/uL (150-450); RED BLOOD COUNT 2.89 10^6/uL (4.30-6.10); WHITE BLOOD COUNT 8.8 10^3/uL (4.0-10.0)
[2022-02-05] MEDS: D5W/LR 1,000 ML IV SCH (12:21)
[2022-02-05] MEDS: KCL 10MEQ/100ML SWI (KRUN) 10 MEQ in IV 1 EA IV SCH ×4 (13:26→16:40)
[2022-02-05 14:29] LABS: BLOOD UREA NITROGEN 17 MG/DL (7-18); CARBON DIOXIDE LEVEL 25 MEQ/L (21-32); CHLORIDE LEVEL 112 MEQ/L (98-107); CREATININE FOR GFR 0.79 MG/DL (0.70-1.30); GLOMERULAR FILTRATION RATE > 60.0 (>49); GLUCOSE, FASTING 104 MG/DL (70-100); POTASSIUM SERUM 3.4 MEQ/L (3.5-5.1); SODIUM LEVEL 145 MEQ/L (136-145)
[2022-02-05 18:22] LABS: BLOOD UREA NITROGEN 16 MG/DL (7-18); CARBON DIOXIDE LEVEL 23 MEQ/L (21-32); CHLORIDE LEVEL 112 MEQ/L (98-107); CREATININE FOR GFR 0.82 MG/DL (0.70-1.30); GLOMERULAR FILTRATION RATE > 60.0 (>49); GLUCOSE, FASTING 84 MG/DL (70-100); POTASSIUM SERUM 3.7 MEQ/L (3.5-5.1); SODIUM LEVEL 145 MEQ/L (136-145)
[2022-02-05 22:28] LABS: BLOOD UREA NITROGEN 17 MG/DL (7-18); CALCIUM LEVEL 8.9 MG/DL (8.8-10.2); CARBON DIOXIDE LEVEL 30 MEQ/L (21-32); CHLORIDE LEVEL 111 MEQ/L (98-107); CREATININE FOR GFR 0.88 MG/DL (0.70-1.30); GLOMERULAR FILTRATION RATE > 60.0 (>49); GLUCOSE, FASTING 108 MG/DL (70-100); POTASSIUM SERUM 3.2 MEQ/L (3.5-5.1); SODIUM LEVEL 144 MEQ/L (136-145)
[2022-02-06] VITALS: BP 142/78
[2022-02-06] MEDS: PIPERACILLIN/TAZOBACTAM SOD 4.5 GM in D5W MINI-BAG PLUS 50 ML IV SCH ×5 (00:45→23:57)
[2022-02-06] MEDS: DOXYCYCLINE HYCLATE 100 MG in D5W MINI-BAG PLUS 100 ML IV SCH ×2 (01:39→15:45)
[2022-02-06] MEDS: D5W/LR 1,000 ML IV SCH (01:40)
[2022-02-06 04:00] VITALS: BP 131/82
[2022-02-06 06:34] LABS: HEMATOCRIT 31.9 % (42.0-52.0); HEMOGLOBIN 10.2 g/dl (13.5-17.5); MEAN CORPUSCULAR HEMOGLOBIN 31.1 pg (27.0-33.0); MEAN CORPUSCULAR VOLUME 97.3 fl (80.0-96.0); PLATELET COUNT, AUTOMATED 465 10^3/uL (150-450); RED BLOOD COUNT 3.28 10^6/uL (4.30-6.10); WHITE BLOOD COUNT 10.3 10^3/uL (4.0-10.0)
[2022-02-06] MEDS: IPRATROPIUM 0.5MG/ALBUTEROL 2.5MG INH SOL UD 3ML (DUONEB) NEB SCH ×4 (07:36→20:00)
[2022-02-06 08:00] VITALS: BP 133/76
[2022-02-06] MEDS: BISACODYL 10 MG SUPP PR SCH (09:00)
[2022-02-06] MEDS: KCL 20MEQ IN D5/0.45NS 1000ML 1,000 ML IV SCH (09:47)
[2022-02-06] MEDS ORDERED: VARIBAR PUDDING 40% w/v 230ML TUBE As Ordered ONE (13:45)
[2022-02-06] MEDS ORDERED: VARIBAR NECTAR 40% w/v 240ML SUSP BTL As Ordered ONE (13:45)
[2022-02-06] MEDS ORDERED: BARIUM SULFATE 700 MG TABLET (E-Z-DISK) As Ordered ONE (13:46)
[2022-02-06] MEDS ORDERED: E-Z-PAQUE 96% w/w SUSP 176GM BTL As Ordered ONE (13:46)
[2022-02-06] MEDS ORDERED: HEPARIN SOD (PORCINE) 5000UNITS/ML 1ML VIAL/SYRINGE IV PRN (14:00)
[2022-02-06 15:14] LABS: HEMATOCRIT 33.9 % (42.0-52.0); HEMOGLOBIN 10.5 g/dl (13.5-17.5)
[2022-02-06] MEDS: HEPARIN DRIP 25,000 UNITS in IV 1 EA IV SCH (15:45)
[2022-02-06 17:04] VITALS: BP 110/62
[2022-02-06 19:44] LABS: HEMATOCRIT 30.4 % (42.0-52.0); HEMOGLOBIN 9.6 g/dl (13.5-17.5)
[2022-02-06 20:00] VITALS: BP 113/67
[2022-02-06 22:13] LABS: HEMATOCRIT 31.1 % (42.0-52.0); HEMOGLOBIN 9.8 g/dl (13.5-17.5)
[2022-02-06 23:54] VITALS: BP 144/79
[2022-02-07] VITALS (12 sets, daily range): BP systolic 117–133; BP diastolic 64–75; O2SAT 92–95
[2022-02-07] MEDS: DOXYCYCLINE HYCLATE 100 MG in D5W MINI-BAG PLUS 100 ML IV SCH ×2 (01:10→13:16)
[2022-02-07 04:56] LABS: HEMATOCRIT 32.2 % (42.0-52.0); HEMOGLOBIN 10.3 g/dl (13.5-17.5); MEAN CORPUSCULAR HEMOGLOBIN 30.9 pg (27.0-33.0); MEAN CORPUSCULAR VOLUME 96.7 fl (80.0-96.0); PLATELET COUNT, AUTOMATED 484 10^3/uL (150-450); RED BLOOD COUNT 3.33 10^6/uL (4.30-6.10); WHITE BLOOD COUNT 11.7 10^3/uL (4.0-10.0)
[2022-02-07 05:16] LABS: BLOOD UREA NITROGEN 14 MG/DL (7-18); CALCIUM LEVEL 8.5 MG/DL (8.8-10.2); CARBON DIOXIDE LEVEL 27 MEQ/L (21-32); CHLORIDE LEVEL 113 MEQ/L (98-107); CREATININE FOR GFR 0.74 MG/DL (0.70-1.30); GLOMERULAR FILTRATION RATE > 60.0 (>49); GLUCOSE, FASTING 122 MG/DL (70-100); POTASSIUM SERUM 2.9 MEQ/L (3.5-5.1); SODIUM LEVEL 144 MEQ/L (136-145)
[2022-02-07] MEDS: PIPERACILLIN/TAZOBACTAM SOD 4.5 GM in D5W MINI-BAG PLUS 50 ML IV SCH ×3 (05:34→18:13)
[2022-02-07 06:19] LABS: MAGNESIUM LEVEL 2.1 MG/DL (1.8-2.4)
[2022-02-07] MEDS: KCL 10MEQ/100ML SWI (KRUN) 10 MEQ in IV 1 EA IV SCH ×6 (06:45→15:44)
[2022-02-07] MEDS: IPRATROPIUM 0.5MG/ALBUTEROL 2.5MG INH SOL UD 3ML (DUONEB) NEB SCH ×4 (07:04→18:16)
[2022-02-07] MEDS: KCL 20MEQ IN D5/0.45NS 1000ML 1,000 ML IV SCH ×3 (07:46→20:39)
[2022-02-07 12:53] LABS: HEMATOCRIT 34.3 % (42.0-52.0); HEMOGLOBIN 10.9 g/dl (13.5-17.5)
[2022-02-07] MEDS ORDERED: KCL 10MEQ IN STERILE WATER 100ML As Ordered ONE (14:29)
[2022-02-07 18:06] LABS: HEMATOCRIT 30.3 % (42.0-52.0); HEMOGLOBIN 9.7 g/dl (13.5-17.5)
[2022-02-07 21:30] LABS: BLOOD UREA NITROGEN 12 MG/DL (7-18); CALCIUM LEVEL 8.6 MG/DL (8.8-10.2); CARBON DIOXIDE LEVEL 22 MEQ/L (21-32); CHLORIDE LEVEL 113 MEQ/L (98-107); CREATININE FOR GFR 0.63 MG/DL (0.70-1.30); GLOMERULAR FILTRATION RATE > 60.0 (>49); GLUCOSE, FASTING 111 MG/DL (70-100); POTASSIUM SERUM 3.4 MEQ/L (3.5-5.1); SODIUM LEVEL 143 MEQ/L (136-145)
[2022-02-08] VITALS: BP 111/56
[2022-02-08] MEDS: PIPERACILLIN/TAZOBACTAM SOD 4.5 GM in D5W MINI-BAG PLUS 50 ML IV SCH (00:15)
[2022-02-08] MEDS: DOXYCYCLINE HYCLATE 100 MG in D5W MINI-BAG PLUS 100 ML IV SCH (01:44)
[2022-02-08 04:00] VITALS: BP 154/83
[2022-02-08 04:02] LABS: HEMATOCRIT 31.5 % (42.0-52.0); HEMOGLOBIN 9.6 g/dl (13.5-17.5); MEAN CORPUSCULAR HEMOGLOBIN 30.4 pg (27.0-33.0); MEAN CORPUSCULAR HGB CONC 30.5 g/dl (32.0-36.5); MEAN CORPUSCULAR VOLUME 99.7 fl (80.0-96.0); PLATELET COUNT, AUTOMATED 464 10^3/uL (150-450); RED BLOOD COUNT 3.16 10^6/uL (4.30-6.10); WHITE BLOOD COUNT 10.2 10^3/uL (4.0-10.0)
[2022-02-08 04:43] VITALS: BP 138/80
[2022-02-08 04:52] LABS: BLOOD UREA NITROGEN 11 MG/DL (7-18); CALCIUM LEVEL 8.5 MG/DL (8.8-10.2); CARBON DIOXIDE LEVEL 22 MEQ/L (21-32); CHLORIDE LEVEL 113 MEQ/L (98-107); CREATININE FOR GFR 0.72 MG/DL (0.70-1.30); GLOMERULAR FILTRATION RATE > 60.0 (>49); GLUCOSE, FASTING 124 MG/DL (70-100); POTASSIUM SERUM 2.9 MEQ/L (3.5-5.1); SODIUM LEVEL 141 MEQ/L (136-145)
[2022-02-08] MEDS: KCL 10MEQ/100ML SWI (KRUN) 10 MEQ in IV 1 EA IV SCH ×5 (05:47→10:19)
[2022-02-08] MEDS: IPRATROPIUM 0.5MG/ALBUTEROL 2.5MG INH SOL UD 3ML (DUONEB) NEB SCH (07:18)
[2022-02-08 07:43] VITALS: BP 137/74
[2022-02-08] MEDS: HEPARIN DRIP 25,000 UNITS in IV 1 EA IV SCH (10:21)
[2022-02-08] MEDS ORDERED: SCOPOLAMINE 1MG TRANSDERMAL PATCH TOP PRN (10:40)
[2022-02-08] MEDS ORDERED: MORPHINE 2 MG/ML 1ML VIAL IV PRN (10:40)
[2022-02-08] MEDS ORDERED: LORazepam 2 MG/ML VIAL IV PRN (10:40)
[2022-02-08] MEDS ORDERED: APIXABAN 5 MG TAB (ELIQUIS) PO ONE (13:00)
[2022-02-08] MEDS ORDERED: MORPHINE 10MG/0.5ML ORAL CONCENTRATE SOLUTION U/D SL PRN (16:30)
[2022-02-08] MEDS: APIXABAN 5 MG TAB (ELIQUIS) PO SCH (20:23)
[2022-02-09] MEDS: APIXABAN 5 MG TAB (ELIQUIS) PO SCH ×2 (07:56→07:57)
[2022-02-10] MEDS: APIXABAN 5 MG TAB (ELIQUIS) PO SCH ×2 (09:00→21:00)
[2022-02-11] MEDS: APIXABAN 5 MG TAB (ELIQUIS) PO SCH (07:55)
[2022-02-11] MEDS ORDERED: ATIV1TAB10 PO (12:46)
[2022-02-11] MEDS ORDERED: ELIQ5TAB PO (12:46)
[2022-02-11] MEDS ORDERED: MORP1SOL5 PO (12:46)
[2022-02-11] MEDS ORDERED: TRAN1DIS4 TOP (12:46)
[2022-02-15] MEDS ORDERED: APIXABAN 5 MG TAB (ELIQUIS) PO SCH (21:00)
== END 2022-02-11 13:45 | DRG 720 ==
LOC: M ED 00:09 → M ED INP 03:01 → ENRESERV 03:41 → M PCU 05:02 → M MS5PR 02-08 14:05
PROVIDERS: ADMIT Internal Medicine; ATTEND Internal Medicine
DX: A41.9 Sepsis, unspecified organism (principal); G93.41 Metabolic encephalopathy; J69.0 Pneumonitis due to inhalation of food and vomit; J96.01 Acute respiratory failure with hypoxia; I74.3 Embolism and thrombosis of arteries of the lower extremities; N17.9 Acute kidney failure, unspecified; L89.159 Pressure ulcer of sacral region, unspecified stage; I82.412 Acute embolism and thrombosis of left femoral vein; D68.32 Hemorrhagic disorder due to extrinsic circulating anticoagulants; E87.0 Hyperosmolality and hypernatremia; E87.1 Hypo-osmolality and hyponatremia; G20 Parkinson's disease; D64.9 Anemia, unspecified; F02.80 Dementia in other diseases classified elsewhere, unspecified severity, without behavioral disturbance, psychotic disturbance, mood disturbance, and anxiety; I10 Essential (primary) hypertension; I73.9 Peripheral vascular disease, unspecified; N39.0 Urinary tract infection, site not specified; R65.20 Severe sepsis without septic shock; E43 Unspecified severe protein-calorie malnutrition; R13.12 Dysphagia, oropharyngeal phase; Z91.041 Radiographic dye allergy status; Z88.8 Allergy status to other drugs, medicaments and biological substances; Z79.899 Other long term (current) drug therapy; Z79.01 Long term (current) use of anticoagulants; E03.9 Hypothyroidism, unspecified; Z66 Do not resuscitate; B96.1 Klebsiella pneumoniae [K. pneumoniae] as the cause of diseases classified elsewhere; K59.00 Constipation, unspecified; Z79.82 Long term (current) use of aspirin; E87.6 Hypokalemia; R58 Hemorrhage, not elsewhere classified; Z68.1 Body mass index [BMI] 19.9 or less, adult